=== PATIENT | female | born 1940 | race Caucasian/White ===

== ENCOUNTER 2023-06-10 10:01 | Outpatient (CLI) | payer MEDICARE, SELFPAY ==
[2023-06-10 11:06] LABS: Basophils % 0.5 %; Eosinophils # 0.1 10^3/uL (0.0-0.8); Eosinophils % 2.3 %; Hematocrit 33.5 % (36-47); Lymphocytes % 34.4 %; Mean Corpuscular HGB Conc 31.6 g/dL (30-55); Mean Corpuscular Hemoglobin 30.2 pg (27-33); Mean Corpuscular Volume 95.4 fl (85-98); Mean Platelet Volume 10.3 fL (7.4-10.4); Monocytes # 0.6 10^3/uL (0.2-0.9); Monocytes % 10.2 %; Neutrophils # 2.96 10^3/uL (1.8-7.7); Neutrophils % 52.2 %; Nucleated Red Blood Cells % 0 %; Platelet Count 223 10^3/cmm (157-399); Red Blood Count 3.51 10^6/uL (3.85-5.65); Red Cell Distribution Width 14.3 % (12.1-15.1); White Blood Count 5.67 10^3/uL (3.29-11.43)
[2023-06-10 11:51] LABS: 25 Hydroxy Vitamin D 57 ng/mL (30-100); Alanine Aminotransferase 8 U/L (0-33); Albumin Level 3.8 g/dL (3.5-5.2); Alkaline Phosphatase 104 U/L (35-105); Blood Urea Nitrogen 16 mg/dL (8-23); Calcium 8.7 mg/dL (8.5-10.5); Carbon Dioxide 24 mmol/L (22-29); Chloride 91 mmol/L (98-107); Chol HDL Ratio 1.96 mg/dL (0.0-4.40); Cholesterol 110 mg/dL (0-200); Globulin 2.7 g/dL (1.3-4.6); Glucose 91 mg/dL (65-115); HDL Cholesterol 56 mg/dL (60-100); LDL Cholesterol Calculated 39 mg/dL (50-129); Magnesium 1.1 mg/dL (1.7-2.3); Osmolality Calculated 261 mOsm/kg (285-295); Sodium 125 mmol/L (136-145); Thyroid Stimulating Hormone 1.97 uIU/mL (0.27-4.20); Total Bilirubin 0.3 mg/dL (0.15-1.2); Total Protein 6.5 g/dL (6.6-8.7); Triglycerides 75 mg/dL (0-150); VLDL Cholestrol Calculation 15 mg/dL (0-30); Vitamin B12 392 pg/mL (232-1245)
[2023-06-10 11:59] LABS: Anion Gap 14.2 (5-19); Aspartate Amino Transferase 16 U/L (0-32); Potassium 4.2 mmol/L (3.5-5.1)
== END 2023-06-10 10:02 | disposition home or self-care (01) ==
PROVIDERS: PCP Nurse Practitioner; Visit Provider Nurse Practitioner
DX: E03.9 Hypothyroidism, unspecified (principal); E55.9 Vitamin D deficiency, unspecified; I10 Essential (primary) hypertension
CPT/HCPCS: 36415; 80053; 80061; 82306; 82607; 83735; 84443; 85025

== ENCOUNTER 2023-07-06 17:30 | Inpatient (IN) | payer MEDICARE, SELFPAY ==
[2023-07-06] VITALS (8 sets, daily range): BP systolic 132–185; BP diastolic 62–125; PULSE 73–88; RESP 17–18; TEMP 36.6; O2SAT 98–100; BMI 29.2
--- NOTE | 2023-07-06 17:52 | W.ED.ABDPA2 ---
HPI - Abdominal Pain General: Chief Complaint: Abdominal Pain Stated Complaint: ABD PAIN Time Seen by Provider: 07/06/23 17:34 History of Present Illness: Patient presents to the ER with complaints of abdominal pain times last 5 days. She says that sharp throughout and feels similar to her history of previous pancreatitis. Patient states she was hospitalized 4 times within the last year for pancreatitis. Patient says these hospitalizations were in [place]. At the present time patient says she cannot tolerate fluid. Patient was given 12.5 mg of Phenergan patient rates her pain a 6-7 out of 10. However patient is lying in bed appearing to be comfortable and talking in complete sentences. Review of Systems General: Reports: 10 or more systems reviewed and unremarkable except in HPI and below Physical Exam Const: COMMON NORMALS: no acute distress, average body habitus, patient oriented x3, no limitations, healthy appearing and well nourished HENMT: COMMON NORMALS: normocephalic, atraumatic, hearing grossly normal bilaterally, external ears normal, Normal external nose present, moist oral mucous membranes and oropharynx normal HEAD & SCALP: normocephalic and atraumatic NOSE: Normal external nose present EXTERNAL EAR: Yes external ears normal Eye: COMMON NORMALS: Equal, round and reactive pupils present, EOMs intact bilaterally, conjunctivae normal and no scleral icterus CONJUNCTIVA: Yes conjunctivae normal PUPIL: Yes Equal, round and reactive pupils present Neck/C-Spine: COMMON NORMALS: full ROM, no lymphadenopathy, supple, no meningeal signs and no JVD Chest: COMMONS NORMALS: normal inspection of the chest and normal palpation of entire chest wall Resp: COMMON NORMALS: normal respiratory effort, No retractions, No use of accessory muscles and clear to auscultation bilaterally AUSCULTATION: clear to auscultation bilaterally Cardio: COMMON NORMALS: no JVD, regular rate, regular rhythm, S1 normal heart sound present, S2 normal heart sound present, No gallops present (Cardio), No clicks present (Cardio), No murmurs present (Cardio) and No rub (Cardio) RATE: regular rate RHYTHM: regular rhythm HEART SOUNDS: S1 normal heart sound present and S2 normal heart sound present GI: COMMON NORMALS: Normal to inspection, nondistended, normoactive bowel sounds present, Soft to palpation, No hepatosplenomegaly present and no masses; negative for non-tender (Mild upper abdominal tenderness to palpation) PALPATION: Yes Soft to palpation and Yes No hepatosplenomegaly present : COMMON NORMALS: Yes no CVA tenderness BLADDER/KIDNEY EXAM: Yes no CVA tenderness Back/Pelvis: COMMON NORMALS: no CVA tenderness Neuro: COMMON NORMALS: patient oriented x3 MENINGEAL SIGNS: Yes no meningeal signs Course Vital Signs: Vital signs: Vital Signs Temperature 97.8 F 07/06/23 17:35 Pulse Rate 81 07/06/23 21:05 Respiratory Rate 18 07/06/23 21:05 Blood Pressure 132/76 07/06/23 21:05 Pulse Oximetry 98 07/06/23 21:05 Oxygen Delivery Me thod Room Air 07/06/23 21:05 MDM - Abdominal Pain Medical Decision Making Presents to the ER with complaints of nausea vomiting diarrhea and probable pancreatitis. Patient was worked up with lab work which showed an elevated lipase of 422, BUN/creatinine of 75/2.3, magnesium 1.5, urinalysis showed 2+ leukocyte esterase, 2+ bacteria CT scan showed mild edema about the mid sigmoid colon suggestive of mild diverticulitis, patient will be given 1 dose of Cipro IV patient is already been given 50 mcg of fentanyl IV and 1 L normal saline bolus. Dr. Newton Was consulted who agreed for inpatient admission for further evaluation and treatment with IV antibiotics and fluids. Differential Diagnosis Likely abdominal pain and pancreatitis; Unlikely acute appendicitis, calculus of kidney, constipation, diverticulitis, endometriosis, gastroenteritis or small bowel obstruction Medical Records I reviewed the patient's medical records. Lab Data I reviewed the patient's lab results. 07/06/23 18:37 07/06/23 18:37 Labs/Radiology: Radiology Impressions Abdomen/Pelvis CT 07/06/23 20:18 IMPRESSION: 1. Mild edema about the mid sigmoid colon in the area of several diverticuli suggestive of a mild diverticulitis in the appropriate clinical setting. 2. Lumbar spine surgical hardware. 3. Cardiomegaly. 4. Pacemaker. 5. Emphysematous changes. 6. Bibasilar atelectasis. Laboratory Results WBC 7.80 10^3/uL (3.29-11.43) 07/06/23 18:37 RBC 4.12 10^6/uL (3.85-5.65) 07/06/23 18:37 Hgb 12.40 g/dL (11.27-16.99) 07/06/23 18:37 Hct 39.1 % (36-47) 07/06/23 18:37 MCV 94.9 fl (85-98) 07/06/23 18:37 MCH 30.1 pg (27-33) 07/06/23 18:37 MCHC 31.7 g/dL (30-55) 07/06/23 18:37 RDW 15.6 % (12.1-15.1) H 07/06/23 18:37 Plt Count 337 10^3/cmm (157-399) 07/06/23 18:37 MPV 10.2 fL (7.4-10.4) 07/06/23 18:37 Neut % (Auto) 56.7 % 07/06/23 18:37 Lymph % (Auto) 33.3 % 07/06/23 18:37 [place] % (Auto) 7.3 % 07/06/23 18:37 Eos % (Auto) 1.0 % 07/06/23 18:37 Baso % (Auto) 0.3 % 07/06/23 18:37 Neut # (Auto) 4.42 10^3/uL (1.8-7.7) 07/06/23 18:37 Lymph # (Auto) 2.6 10^3/uL (0.8-4.8) 07/06/23 18:37 [place] # (Auto) 0.6 10^3/uL (0.2-0.9) 07/06/23 18:37 Eos # (Auto) 0.1 10^3/uL (0.0-0.8) 07/06/23 18:37 Baso # (Auto) 0.0 10^3/uL (0.0-0.1) 07/06/23 18:37 Nucleated RBC % (auto) 0 % 07/06/23 18:37 Nucleated RBCs # 0.0 /100WBC 07/06/23 18:37 Sodium 134 mmol/L (136-145) L 07/06/23 18:37 Potassium 4.4 mmol/L (3.5-5.1) 07/06/23 18:37 Chloride 100 mmol/L (98-107) 07/06/23 18:37 Carbon Dioxide 23 mmol/L (22-29) 07/06/23 18:37 Anion Gap 15.4 (5-19) 07/06/23 18:37 BUN 75 mg/dL (8-23) H 07/06/23 18:37 Creatinine 2.3 mg/dL (0.5-0.9) H 07/06/23 18:37 GFR Calculation Not Reportable 07/06/23 18:37 Glucose 102 mg/dL (65-115) 07/06/23 18:37 Calculated Osmolality 300 mOsm/kg (285-295) H 07/06/23 18:37 Calcium 10.1 mg/dL (8.5-10.5) 07/06/23 18:37 Magnesium 1.5 mg/dL (1.7-2.3) L 07/06/23 18:37 Total Bilirubin 0.2 mg/dL (0.15-1.2) 07/06/23 18:37 AST 10 U/L (0-32) 07/06/23 18:37 ALT 7 U/L (0-33) 07/06/23 18:37 Alkaline Phosphatase 114 U/L (35-105) H 07/06/23 18:37 Total Protein 7.5 g/dL (6.6-8.7) 07/06/23 18:37 Albumin 3.6 g/dL (3.5-5.2) 07/06/23 18:37 Globulin 3.9 g/dL (1.3-4.6) 07/06/23 18:37 Lipase 422 U/L (13-60) H 07/06/23 18:37 Urine Color Yellow (Yellow) 07/06/23 18:19 Urine Appearance Sl hazy (CLEAR) A 07/06/23 18:19 Urine pH 5 (5-7) 07/06/23 18:19 Ur Specific [place] 1.015 (1.005-1.030) 07/06/23 18:19 Urine Protein Neg (Negative) 07/06/23 18:19 Urine Glucose (UA) Norm (Normal) 07/06/23 18:19 Urine Ketones Negative (Negative) 07/06/23 18:19 Urine Blood Neg (Negative) 07/06/23 18:19 Urine Nitrate Negative (Negative) 07/06/23 18:19 Urine Bilirubin 1+ (Negative) H 07/06/23 18:19 Urine Urobilinogen Norm mg/dL (Negative) 07/06/23 18:19 Ur Leukocyte Esterase 2+ (Negative) H 07/06/23 18:19 Urine RBC None /hpf (0-2) 07/06/23 18:19 Urine WBC 10-15 /hpf (0-5) H 07/06/23 18:19 Ur Squamous Epith Cells 0-4 /hpf (0-5) H 07/06/23 18:19 Amorphous Sediment Not Reportable 07/06/23 18:19 Urine Bacteria 2+ /hpf (NONE) H 07/06/23 18:19 All radiology interpretation(s) finalized by discharge Discharge Plan Discharge Patient Disposition: Admitted As Inpatient Clinical Impression: Diverticulitis Pancreatitis Qualifiers: Chronicity: acute Pancreatitis type: unspecified pancreatitis type Acute pancreatitis complication: no infection or necrosis Qualified Code(s): K85.90 - Acute pancreatitis without necrosis or infection, unspecified Urinary tract infection Qualifiers: Urinary tract infection type: acute cystitis Hematuria presence: without hematuria Qualified Code(s): N30.00 - Acute cystitis without hematuria Condition: Stable Coding Level of Care Code ED Binding Cementer French Cord for Elvira Cueva
[2023-07-06 18:46] LABS: Urine Color Yellow (Yellow)
[2023-07-06 18:47] LABS: Add Urine Microscopic? YES; Bilirubin Urine 1+ (Negative); Blood Urine Neg (Negative); Glucose Urine UA Norm (Normal); Ketones Urine Negative (Negative); Leukocyte Esterase Urine 2+ (Negative); Nitrate Urine Negative (Negative); Protein Urine Neg (Negative); Specific Gravity, Urine 1.015 (1.005-1.030); Urine Appearance SL Hazy (CLEAR); Urobilinogen Urine Norm (Negative); pH Urine 5 (5-7)
[2023-07-06 18:48] LABS: Squamous Epithelial Cell Urine 0-4 /hpf (0-5)
[2023-07-06 18:49] LABS: Add Urine Culture? Yes; Bacteria Urine 2+ /hpf
[2023-07-06] MEDS: sodium chloride 0.9% 1,000 ML 999 ML IV (19:00)
[2023-07-06] MEDS: ketorolac 30 mg/mL INJ IVP (19:00)
[2023-07-06 19:02] LABS: Basophils % 0.3 %; Eosinophils # 0.1 10^3/uL (0.0-0.8); Hematocrit 39.1 % (36-47); Lymphocytes # 2.6 10^3/uL (0.8-4.8); Lymphocytes % 33.3 %; Mean Corpuscular HGB Conc 31.7 g/dL (30-55); Mean Corpuscular Hemoglobin 30.1 pg (27-33); Mean Corpuscular Volume 94.9 fl (85-98); Mean Platelet Volume 10.2 fL (7.4-10.4); Monocytes # 0.6 10^3/uL (0.2-0.9); Monocytes % 7.3 %; Neutrophils # 4.42 10^3/uL (1.8-7.7); Neutrophils % 56.7 %; Nucleated Red Blood Cells % 0 %; Platelet Count 337 10^3/cmm (157-399); Red Blood Count 4.12 10^6/uL (3.85-5.65); Red Cell Distribution Width 15.6 % (12.1-15.1)
[2023-07-06 19:26] LABS: Alanine Aminotransferase 7 U/L (0-33); Albumin Level 3.6 g/dL (3.5-5.2); Alkaline Phosphatase 114 U/L (35-105); Anion Gap 15.4 (5-19); Aspartate Amino Transferase 10 U/L (0-32); Blood Urea Nitrogen 75 mg/dL (8-23); Calcium 10.1 mg/dL (8.5-10.5); Carbon Dioxide 23 mmol/L (22-29); Chloride 100 mmol/L (98-107); Globulin 3.9 g/dL (1.3-4.6); Glucose 102 mg/dL (65-115); Magnesium 1.5 mg/dL (1.7-2.3); Osmolality Calculated 300 mOsm/kg (285-295); Potassium 4.4 mmol/L (3.5-5.1); Sodium 134 mmol/L (136-145); Total Bilirubin 0.2 mg/dL (0.15-1.2); Total Protein 7.5 g/dL (6.6-8.7)
[2023-07-06 19:33] LABS: Lipase 422 U/L (13-60)
--- NOTE | 2023-07-06 20:18 | CTR_ITS ---
PROCEDURE INFORMATION: Exam: CT Abdomen And Pelvis Without Contrast Exam date and time: 07/06/2023 8:31 PM Age: 83 years old Clinical indication: Pain and abnormal findings; Abnormal lab test; Elevated lipase; Nausea and vomiting; Abdominal pain; Generalized; Prior surgery; Surgery date: 6+ months; Surgery type: Lumbar fusion. Hysterectomy; Patient HX: Diffuse abd pain with n/v. Elevated lipase. History of pancreatitis. ; Additional info: Abd pain, elevated lipase, HX pancreatitis, renal insuffec TECHNIQUE: Imaging protocol: Computed tomography of the abdomen and pelvis without contrast. Radiation optimization: All CT scans at this facility use at least one of these dose optimization techniques: automated exposure control; mA and/or kV adjustment per patient size (includes targeted exams where dose is matched to clinical indication); or iterative reconstruction. REPORTING DATA: Count of CT and Cardiac NM exams in prior 12 months: This patient has received 0 known CTs and 0 known cardiac nuclear medicine studies in the 12 months prior to the current study. COMPARISON: CT lumbar spine wo con* [id number] 03/05/2017 11:31 AM RADIATION DOSE METRICS: Total DLP (mGy-cm): 648.85 FINDINGS: Tubes, catheters and devices: Pacemaker. Lungs: Emphysematous changes. Bibasilar atelectasis. Heart: Cardiomegaly. Liver: Normal. No mass. Gallbladder and bile ducts: Normal. No calcified stones. No ductal dilation. Pancreas: Normal. No ductal dilation. Spleen: Normal. No splenomegaly. Adrenal glands: Normal. No mass. Kidneys and ureters: Normal. No hydronephrosis. Stomach and bowel: Mild edema about the mid sigmoid colon in the area of several diverticuli suggestive of a mild diverticulitis in the appropriate clinical setting. Appendix: No evidence of appendicitis. Intraperitoneal space: Unremarkable. No free air. No significant fluid collection. Vasculature: Unremarkable. No abdominal aortic aneurysm. Lymph nodes: Unremarkable. No enlarged lymph nodes. Urinary bladder: Unremarkable as visualized. Reproductive: Unremarkable as visualized. Bones/joints: Lumbar spine surgical hardware. Soft tissues: Unremarkable. CT/CT abdomen pelvis wo con [id number] IMPRESSION: 1. Mild edema about the mid sigmoid colon in the area of several diverticuli suggestive of a mild diverticulitis in the appropriate clinical setting. 2. Lumbar spine surgical hardware. 3. Cardiomegaly. 4. Pacemaker. 5. Emphysematous changes. 6. Bibasilar atelectasis.
[2023-07-06] MEDS: fentaNYL 50 mcg/mL INJ 2mL IVP (21:02)
[2023-07-06] MEDS: ciprofloxacin 400 MG/200 ML PREMIX 200 MG IV (22:20)
--- NOTE | 2023-07-06 23:25 | PM.HP ---
Providers/Chief Complaint Admitting Physician: Jen Newton MD Chief Complaint: ABD PAIN History of Present Illness Carmella Suarez Friend is a 83 year old female with history of hypertension diverticulosis recurrent pancreatitis presented with complaint of abdominal pain since 1 week. As per the patient abdominal pain gradually worsening today it was 10/10 crampy diffuse no aggravating or relieving factors and associated with nausea vomiting nonbloody diarrhea and loss of appetite. She has a history of recurrent pancreatitis and had 4 hospitalizations in the last 1 year. There is no history of fever cold cough chest pain shortness of breath or urinary complaints. She recently moved from [place] and does not have a PCP Review of Systems Narrative: As per HPI Medications/Allergies Allergies Allergy/AdvReac Type Severity Reaction Status Date / Time diltiazem [From Dilacor XR] Allergy ALGY-Rash Verified 07/06/23 17:43 nifedipine [From Procardia] Allergy ALGY-Rash Verified 07/06/23 17:43 Sulfa (Sulfonamide Allergy ALGY-Rash Verified 07/06/23 17:43 Antibiotics) topiramate [From Topamax] Allergy ALGY-Rash Verified 07/06/23 17:43 Vitals/I&O/Wt Last Vital Signs Temp 97.8 F 07/06/23 17:35 Pulse 74 07/06/23 22:00 Resp 18 07/06/23 21:05 BP 134/65 07/06/23 22:00 Pulse Ox 98 07/06/23 22:00 O2 Del Method Room Air 07/06/23 21:05 07/06/23 07/06/23 07/07/23 14:59 22:59 06:59 Intake Total 1000 / 1000 Balance 1000 / 1000 Weight last 48 hrs Weight 68.039 kg Physical Exam Narrative: She is alert awake oriented x3 in moderate distress due to pain Chest clear to auscultation bilaterally Cardiovascular normal heart sounds no murmurs Abdomen soft nondistended diffusely tender diminished bowel sounds Extremities trace bilateral lower extremity edema present Data 07/06/23 18:37 07/06/23 18:37 CT Abd/Pel: Radiologist's impression: IMPRESSION: 1. ? Mild edema about the mid sigmoid colon in the area of several diverticuli suggestive of a mild diverticulitis in the appropriate clinical setting. 2. ? Lumbar spine surgical hardware. 3. ? Cardiomegaly. 4. ? Pacemaker. 5. ? Emphysematous changes. 6. ? Bibasilar atelectasis. ? A&P Assessment and plan (1) Diverticulitis: (2) Urinary tract infection: Qualifiers: Hematuria presence: without hematuria Urinary tract infection type: acute cystitis Qualified Code(s): N30.00 - Acute cystitis without hematuria (3) Pancreatitis: Qualifiers: Acute pancreatitis complication: no infection or necrosis Chronicity: acute Pancreatitis type: unspecified pancreatitis type Qualified Code(s): K85.90 - Acute pancreatitis without necrosis or infection, unspecified Plan 83 year old female with history of hypertension diverticulosis recurrent pancreatitis presented with complaint of abdominal pain since 1 week. As per the patient abdominal pain gradually worsening today it was 10/10 crampy diffuse no aggravating or relieving factors and associated with nausea vomiting nonbloody diarrhea and loss of appetite and was found to have lipase 422 acute renal failure with creatinine 2.[address] abdomen consistent with diverticulitis Acute diverticulitis Will give IV fluids normal saline at 100 mL/h IV ciprofloxacin 400 mg every 12 hour IV Flagyl 500 mg every 8 hours IV Dilaudid 0.4 mg every 6 hours as needed for pain N.p.o. for now. UTI-we will continue with same antibiotics Continue IV fluids. Follow-up urine culture Acute renal failure likely secondary to dehydration we will continue with IV fluids Reconcile and resume home medications in a.m. IV Pepcid 20 mg every 12 hours for stress ulcer prophylaxis Subcutaneous Lovenox 30 mg daily for DVT prophylaxis She is full code for now as per the discussion with the patient Attestations Medical Necessity Statement*: She needs less than 2 days of hospitalization. She is here for management of acute diverticulitis and UTI with IV antibiotics and fluids. Time Spent in Patient Care: 30 minutes Coding Level of Care Code Acute Code for [facility] Diagnoses Diverticulitis K57.92 Urinary tract infection N30.00 Hematuria presence: without hematuria Urinary tract infection type: acute cystitis Pancreatitis K85.90 Acute pancreatitis complication: no infection or necrosis Chronicity: acute Pancreatitis type: unspecified pancreatitis type Time Spent (min) 30
--- NOTE | 2023-07-06 23:52 | PC.PHAR ---
Renal dosing for Ciprofloxacin 400mg IV q12h changed to q24h due to patients CRCL of 15 Thank you, Paradise Mckenzie h
[2023-07-07] VITALS (10 sets, daily range): BP systolic 145–177; BP diastolic 52–87; PULSE 67–76; RESP 16–18; TEMP 36.2–36.8; O2SAT 97–98
[2023-07-07] MEDS: famotidine 20 mg/2 mL INJ IVP ×2 (00:26→14:55)
[2023-07-07] MEDS: enoxaparin 40 mg/0.4 mL Syringe SUBCUT (00:26)
[2023-07-07] MEDS: HYDROmorphone 1 mg/mL INJ 1 mL 0.4 MG IVP ×3 (00:27→18:29)
[2023-07-07] MEDS: sodium chloride 0.9% 1,000 ML 75 ML IV ×2 (00:54→16:21)
[2023-07-07] MEDS: metroNIDAZOLE IV 500 MG/100 ML PREMIX 100 MG IV ×3 (00:55→14:56)
[2023-07-07 04:50] LABS: Basophils % 0.3 %; Eosinophils # 0.1 10^3/uL (0.0-0.8); Eosinophils % 1.8 %; Hematocrit 33.5 % (36-47); Lymphocytes # 2.3 10^3/uL (0.8-4.8); Lymphocytes % 32.8 %; Mean Corpuscular HGB Conc 31.3 g/dL (30-55); Mean Corpuscular Hemoglobin 30.3 pg (27-33); Mean Corpuscular Volume 96.5 fl (85-98); Mean Platelet Volume 10.1 fL (7.4-10.4); Monocytes # 0.6 10^3/uL (0.2-0.9); Monocytes % 7.9 %; Neutrophils # 3.92 10^3/uL (1.8-7.7); Neutrophils % 55.1 %; Nucleated Red Blood Cells % 0 %; Platelet Count 253 10^3/cmm (157-399); Red Blood Count 3.47 10^6/uL (3.85-5.65); Red Cell Distribution Width 15.6 % (12.1-15.1); White Blood Count 7.11 10^3/uL (3.29-11.43)
[2023-07-07 05:11] LABS: Alanine Aminotransferase < 5 U/L (0-33); Albumin Level 2.7 g/dL (3.5-5.2); Alkaline Phosphatase 89 U/L (35-105); Anion Gap 14.2 (5-19); Aspartate Amino Transferase 8 U/L (0-32); Blood Urea Nitrogen 66 mg/dL (8-23); Calcium 8.9 mg/dL (8.5-10.5); Carbon Dioxide 19 mmol/L (22-29); Chloride 109 mmol/L (98-107); Globulin 2.7 g/dL (1.3-4.6); Glucose 86 mg/dL (65-115); Magnesium 1.4 mg/dL (1.7-2.3); Osmolality Calculated 304 mOsm/kg (285-295); Phosphorus 3.8 mg/dL (2.5-4.5); Potassium 4.2 mmol/L (3.5-5.1); Sodium 138 mmol/L (136-145); Total Bilirubin 0.2 mg/dL (0.15-1.2); Total Protein 5.4 g/dL (6.6-8.7)
[2023-07-07] MEDS: lanolin oint 7 gm 1 APPLIC TOPICAL (08:51)
[2023-07-07] MEDS: oxyCODONE-APAP 10-325 mg Tablet 1 TAB PO (12:59)
[2023-07-07] MEDS: flu vacc pf 2023-24 (6 mos+) 60 MCG IM (14:52)
[2023-07-07] MEDS: gabapentin 300 mg Capsule PO ×2 (14:55→20:21)
--- NOTE | 2023-07-07 16:48 | P.PN_ITS ---
Subjective Subjective: Continues to complain of epigastric and left lower quadrant discomfort. Wishes to try some ice chips and Sprite today. Medications: Reviewed: Yes Vitals/I&O/Wt Last Vital Signs Temp 98.3 F 07/07/23 15:59 Pulse 71 07/07/23 15:59 Resp 16 07/07/23 15:59 BP 155/52 07/07/23 15:59 Pulse Ox 97 07/07/23 15:59 O2 Del Method Room Air 07/07/23 15:59 07/07/23 07/07/23 07/07/23 06:59 14:59 22:59 Intake Total 300 / 1300 1100 / 1100 Balance 300 / 1300 1100 / 1100 Weight last 48 hrs Weight 68.039 kg Physical Exam Narrative: General: No acute distress, AO x3 HEENT: PERRLA, pupils bilaterally equal and reactive, pallors not present Chest: Normal vesicular breath sounds, no added sounds, equal good air entry bilaterally CVS: S1-S2 regular, no murmurs, no tachycardia, no gallops, no rubs Abdomen: Soft, TTP in epigatsric and LLQ region, no organomegaly, bowel sounds present Neuro: No focal deficits, no facial deformity, AO x3, power 5/5 in all limbs Data 07/07/23 04:12 07/07/23 04:12 A&P Assessment and plan (1) Diverticulitis: Acute diverticulitis Mild edema about the mid sigmoid colon in the area of several diverticuli suggestive of a mild diverticulitis? Continue IV fluids normal saline at 75 mL/h IV ciprofloxacin renally dosed IV Flagyl 500 mg every 8 hours IV Dilaudid 0.4 mg every 6 hours as needed for pain start clears (2) Urinary tract infection: empirically covered with ciprofloxacin Continue IV fluids. Follow-up urine culture Qualifiers: Hematuria presence: without hematuria Urinary tract infection type: acute cystitis Qualified Code(s): N30.00 - Acute cystitis without hematuria (3) Pancreatitis: Acute on chronic, recurrent , unclear cause. No overt offending medications on home list [facility] normal Ct abdomen with normal liver, gall bladder and grossly normal pancreas Elevated lipase may point to pancreatitis check TG Qualifiers: Acute pancreatitis complication: no infection or necrosis Chronicity: acute Pancreatitis type: unspecified pancreatitis type Qualified Code(s): K85.90 - Acute pancreatitis without necrosis or infection, unspecified (4) AVI (acute kidney injury): Acute renal failure likely secondary to dehydration we will continue with IV fluids hold lisinopril Attestations Medical Necessity Statement*: continued hospital admission for iv abx, iv fluids Coding Level of Care Code Acute Code for Chg Fwd Moderate MDM includes number and complexity of problems actively addressed during encounter, amount and/or complexity of data reviewed/ordered and desc ribed risk of complication, morbidity or mortality of management as documented Diagnoses Diverticulitis K57.92 Urinary tract infection N30.00 Hematuria presence: without hematuria Urinary tract infection type: acute cystitis Pancreatitis K85.90 Acute pancreatitis complication: no infection or necrosis Chronicity: acute Pancreatitis type: unspecified pancreatitis type AVI (acute kidney injury) N17.9
[2023-07-07] MEDS: apixaban 5 mg Tablet PO (17:20)
[2023-07-07 17:51] LABS: Triglycerides 83 mg/dL (0-150)
[2023-07-07] MEDS: ondansetron 2 mg/ML SDV 2 mL 4 MG IVP (18:29)
[2023-07-07] MEDS: ciprofloxacin 400 MG/200 ML PREMIX 100 MG IV (22:08)
[2023-07-08] VITALS (10 sets, daily range): BP systolic 134–157; BP diastolic 52–101; PULSE 61–88; RESP 15–18; TEMP 36.4–36.9; O2SAT 96–99
[2023-07-08] MEDS: metroNIDAZOLE IV 500 MG/100 ML PREMIX 100 MG IV ×3 (00:13→16:15)
[2023-07-08] MEDS: oxyCODONE-APAP 10-325 mg Tablet 1 TAB PO ×3 (00:20→16:14)
[2023-07-08] MEDS: famotidine 20 mg/2 mL INJ IVP ×2 (01:48→15:40)
[2023-07-08 05:03] LABS: Basophils % 0.4 %; Eosinophils # 0.2 10^3/uL (0.0-0.8); Eosinophils % 2.5 %; Hematocrit 27.7 % (36-47); Lymphocytes # 2.2 10^3/uL (0.8-4.8); Mean Corpuscular HGB Conc 31.4 g/dL (30-55); Mean Corpuscular Hemoglobin 30.3 pg (27-33); Mean Corpuscular Volume 96.5 fl (85-98); Mean Platelet Volume 10.1 fL (7.4-10.4); Monocytes # 0.6 10^3/uL (0.2-0.9); Monocytes % 8.9 %; Neutrophils # 3.59 10^3/uL (1.8-7.7); Neutrophils % 52.5 %; Nucleated Red Blood Cells % 0 %; Platelet Count 250 10^3/cmm (157-399); Red Blood Count 2.87 10^6/uL (3.85-5.65); Red Cell Distribution Width 15.6 % (12.1-15.1); White Blood Count 6.84 10^3/uL (3.29-11.43)
[2023-07-08 05:30] LABS: Alanine Aminotransferase < 5 U/L (0-33); Albumin Level 2.5 g/dL (3.5-5.2); Alkaline Phosphatase 73 U/L (35-105); Aspartate Amino Transferase 8 U/L (0-32); Blood Urea Nitrogen 40 mg/dL (8-23); Calcium 8.4 mg/dL (8.5-10.5); Carbon Dioxide 19 mmol/L (22-29); Chloride 112 mmol/L (98-107); Globulin 2.1 g/dL (1.3-4.6); Glucose 97 mg/dL (65-115); Osmolality Calculated 298 mOsm/kg (285-295); Sodium 139 mmol/L (136-145); Total Bilirubin 0.2 mg/dL (0.15-1.2); Total Protein 4.6 g/dL (6.6-8.7)
[2023-07-08] MEDS: gabapentin 300 mg Capsule PO ×3 (08:21→20:37)
[2023-07-08] MEDS: apixaban 5 mg Tablet PO ×2 (08:21→17:29)
[2023-07-08] MEDS: levothyroxine 50 mcg Tablet PO (08:21)
[2023-07-08] MEDS: sodium chloride 0.9% 1,000 ML 75 ML IV ×2 (08:23→22:17)
[2023-07-08] MEDS: ondansetron 2 mg/ML SDV 2 mL 4 MG IVP (10:45)
[2023-07-08] MEDS: HYDROmorphone 1 mg/mL INJ 1 mL 0.4 MG IVP ×2 (10:46→20:39)
[2023-07-08 14:01] LABS: Hematocrit 34.3 % (36-47)
[2023-07-08 14:01] LABS: Ferritin 96 ng/mL (15-150); Iron 46 ug/dL (37-145)
--- NOTE | 2023-07-08 14:49 | PM.PN ---
Subjective Subjective: Patient was seen this morning, she continues to feel nauseous, continues to have abdominal pain, has diarrhea, passing gas, no episodes of vomiting, she continues to have left lower quadrant tenderness, no fevers, no chills Vitals/I&O/Wt Last Vital Signs Temp 98.0 F 07/08/23 12:00 Pulse 72 07/08/23 12:00 Resp 17 07/08/23 12:00 BP 138/57 07/08/23 12:00 Pulse Ox 97 07/08/23 12:00 O2 Del Method Room Air 07/08/23 12:00 07/07/23 07/08/23 07/08/23 22:59 06:59 14:59 Intake Total 540 / 1640 803.75 / 2443.75 1076.25 / 1076.25 Output Total 100 / 100 100 / 100 Balance 540 / 1640 703.75 / 2343.75 976.25 / 976.25 Weight last 48 hrs Weight 68.039 kg Physical Exam Const: COMMON NORMALS: no acute distress and patient oriented x3 Resp: COMMON NORMALS: normal respiratory effort, No retractions, No use of accessory muscles and clear to auscultation bilaterally AUSCULTATION: clear to auscultation bilaterally Cardio: COMMON NORMALS: regular rate, regular rhythm, S1 normal heart sound present and S2 normal heart sound present RATE: regular rate RHYTHM: regular rhythm HEART SOUNDS: S1 normal heart sound present and S2 normal heart sound present GI: OTHER: Abdomen soft, slightly distended, good bowel sounds, no guarding, no rebound, no rigidity, does have left lower quadrant tenderness to palpation Extremity: COMMON NORMALS: no pedal edema Neuro: COMMON NORMALS: patient oriented x3 Psych: COMMON NORMALS: mental status grossly normal Data 07/08/23 13:52 07/08/23 04:02 Micro: Microbiology 07/06/23 18:19 Urine Culture - Final Urine,Clean Catch A&P Assessment and plan (1) Diverticulitis: Acute diverticulitis Mild edema about the mid sigmoid colon in the area of several Continue IV fluids normal saline at 75 mL/h IV ciprofloxacin renally dosed IV Flagyl 500 mg every 8 hours IV Dilaudid 0.4 mg every 6 hours as needed for pain start clears (2) Urinary tract infection: empirically covered with ciprofloxacin Continue IV fluids. Follow-up urine culture Qualifiers: Hematuria presence: without hematuria Urinary tract infection type: acute cystitis Qualified Code(s): N30.00 - Acute cystitis without hematuria (3) Pancreatitis: Acute on chronic, recurrent , unclear cause. No overt offending medications on home list [facility] normal Ct abdomen with normal liver, gall bladder and grossly normal pancreas Elevated lipase may point to pancreatitis Qualifiers: Acute pancreatitis complication: no infection or necrosis Chronicity: acute Pancreatitis type: unspecified pancreatitis type Qualified Code(s): K85.90 - Acute pancreatitis without necrosis or infection, unspecified (4) AVI (acute kidney injury): Acute renal failure likely secondary to dehydration we will continue with IV fluids hold lisinopril (5) Acute anemia: Iron studies, repeat CBC Plan Plan for today continue antibiotic therapy, monitor hemoglobin, continue clear liquid diet, as patient continues have left lower quadrant abdominal pain, follow-up cultures, up out of bed, plan on discharging in the next 24 to 48 hours, creatinine 1.2, monitor,, patient tells me that she has a history of atrial fibrillation is on Eliquis, Attestations Medical Necessity Statement*: Patient requires hospitalization for acute diverticulitis, pancreatitis with persistent left lower quadrant pain, now developing anemia, Diagnoses Diverticulitis K57.92 Urinary tract infection N30.00 Hematuria presence: without hematuria Urinary tract infection type: acute cystitis Pancreatitis K85.90 Acute pancreatitis complication: no infection or necrosis Chronicity: acute Pancreatitis type: unspecified pancreatitis type AVI (acute kidney injury) N17.9 Acute anemia D64.9
[2023-07-09] VITALS (7 sets, daily range): BP systolic 140–180; BP diastolic 52–89; PULSE 67–99; RESP 14–18; TEMP 36.5–36.9; O2SAT 95–100
[2023-07-09] MEDS: ciprofloxacin 400 MG/200 ML PREMIX 200 MG IV (01:01)
[2023-07-09] MEDS: metroNIDAZOLE IV 500 MG/100 ML PREMIX 100 MG IV ×3 (02:12→17:28)
[2023-07-09] MEDS: oxyCODONE-APAP 10-325 mg Tablet 1 TAB PO ×2 (02:18→17:27)
[2023-07-09] MEDS: famotidine 20 mg/2 mL INJ IVP ×2 (02:18→14:40)
[2023-07-09 05:33] LABS: Basophils % 0.5 %; Eosinophils # 0.3 10^3/uL (0.0-0.8); Eosinophils % 3.9 %; Hematocrit 30.8 % (36-47); Lymphocytes # 2.3 10^3/uL (0.8-4.8); Lymphocytes % 26.8 %; Mean Corpuscular HGB Conc 31.2 g/dL (30-55); Mean Corpuscular Hemoglobin 30.6 pg (27-33); Mean Corpuscular Volume 98.1 fl (85-98); Mean Platelet Volume 9.9 fL (7.4-10.4); Monocytes # 0.7 10^3/uL (0.2-0.9); Monocytes % 8.3 %; Neutrophils # 4.72 10^3/uL (1.8-7.7); Neutrophils % 55.5 %; Nucleated Red Blood Cells % 0 %; Platelet Count 294 10^3/cmm (157-399); Red Blood Count 3.14 10^6/uL (3.85-5.65); White Blood Count 8.48 10^3/uL (3.29-11.43)
[2023-07-09 05:55] LABS: Alanine Aminotransferase < 5 U/L (0-33); Albumin Level 2.7 g/dL (3.5-5.2); Alkaline Phosphatase 78 U/L (35-105); Anion Gap 10.9 (5-19); Aspartate Amino Transferase 9 U/L (0-32); Blood Urea Nitrogen 17 mg/dL (8-23); Calcium 8.8 mg/dL (8.5-10.5); Carbon Dioxide 18 mmol/L (22-29); Chloride 112 mmol/L (98-107); Globulin 2.7 g/dL (1.3-4.6); Glucose 93 mg/dL (65-115); Magnesium 1.2 mg/dL (1.7-2.3); Osmolality Calculated 285 mOsm/kg (285-295); Potassium 3.9 mmol/L (3.5-5.1); Sodium 137 mmol/L (136-145); Total Bilirubin 0.2 mg/dL (0.15-1.2); Total Protein 5.4 g/dL (6.6-8.7)
[2023-07-09] MEDS: apixaban 5 mg Tablet PO ×2 (08:47→17:27)
[2023-07-09] MEDS: gabapentin 300 mg Capsule PO ×3 (08:47→20:05)
[2023-07-09] MEDS: lisinopril 10 mg Tablet PO ×2 (08:47→20:06)
[2023-07-09] MEDS: levothyroxine 50 mcg Tablet PO (08:47)
[2023-07-09] MEDS: magnesium sulfate premix 4 GM/100 ML PREMIX IV (08:47)
--- NOTE | 2023-07-09 11:09 | PC.NURSE ---
This nurse called Dr. Choi's office at [phone] to reschedule appt that was scheduled with them today, per pt and Dr. Murcia. Maturity Checker cancelled patients appt for today, however, she requested that patient called upon discharge to reschedule her appt. This nurse will notify pt of this.
--- NOTE | 2023-07-09 16:14 | PM.PN ---
Subjective Subjective: Patient was seen this morning, she continues to have left lower quadrant abdominal tenderness is having bowel movements, no nausea, no vomiting, she is having bowel movements Vitals/I&O/Wt Last Vital Signs Temp 97.8 F 07/09/23 11:35 Pulse 67 07/09/23 11:35 Resp 14 07/09/23 11:35 BP 160/89 07/09/23 11:35 Pulse Ox 97 07/09/23 11:35 O2 Del Method Room Air 07/09/23 11:35 07/09/23 07/09/23 07/09/23 06:59 14:59 22:59 Intake Total 540 / 3436.25 1680 / 1680 Output Total 200 / 700 750 / 750 Balance 340 / 2736.25 930 / 930 Physical Exam Const: COMMON NORMALS: no acute distress and patient oriented x3 Resp: COMMON NORMALS: normal respiratory effort, No retractions, No use of accessory muscles and clear to auscultation bilaterally AUSCULTATION: clear to auscultation bilaterally Cardio: COMMON NORMALS: regular rate, regular rhythm, S1 normal heart sound present and S2 normal heart sound present RATE: regular rate RHYTHM: regular rhythm HEART SOUNDS: S1 normal heart sound present and S2 normal heart sound present GI: OTHER: Abdomen, soft, slightly distended, good bowel sounds, has persistent left lower quadrant tenderness, no guarding, no rebound, no rigidity Extremity: COMMON NORMALS: no pedal edema Neuro: COMMON NORMALS: patient oriented x3 Psych: COMMON NORMALS: mental status grossly normal Data 07/09/23 04:45 07/09/23 04:45 A&P Assessment and plan (1) Diverticulitis: Acute diverticulitis CT abdomen pelvis 1. ? Mild edema about the mid sigmoid colon in the area of several diverticuli suggestive of a mild diverticulitis in the appropriate clinical setting. Continue IV fluids normal saline at 75 mL/h IV ciprofloxacin renally dosed IV Flagyl 500 mg every 8 hours Continue oxycodone for pain control Continue full liquid diet ? We will consider CT scan of abdomen pelvis repeating based on persistent abdominal pain (2) Urinary tract infection: empirically covered with ciprofloxacin Continue IV fluids. Follow-up urine culture Qualifiers: Hematuria presence: without hematuria Urinary tract infection type: acute cystitis Qualified Code(s): N30.00 - Acute cystitis without hematuria (3) Pancreatitis: Acute on chronic, recurrent , unclear cause. No overt offending medications on home list [facility] normal Ct abdomen with normal liver, gall bladder and grossly normal pancreas Elevated lipase may point to pancreatitis Qualifiers: Acute pancreatitis complication: no infection or necrosis Chronicity: acute Pancreatitis type: unspecified pancreatitis type Qualified Code(s): K85.90 - Acute pancreatitis without necrosis or infection, unspecified (4) AVI (acute kidney injury): Acute renal failure likely secondary to dehydration we will continue with IV fluids (5) Acute anemia: Iron studies, repeat CBC Plan Plan for today monitor abdomen, monitor for fevers, serial abdominal exams, transition diet to full liquid diet, will consider repeat CT scan, continue IV antibiotics Attestations Medical Necessity Statement*: Patient requires hospitalization for persistent left lower quadrant pain, acute diverticulitis Diagnoses Diverticulitis K57.92 Urinary tract infection N30.00 Hematuria presence: without hematuria Urinary tract infection type: acute cystitis Pancreatitis K85.90 Acute pancreatitis complication: no infection or necrosis Chronicity: acute Pancreatitis type: unspecified pancreatitis type AVI (acute kidney injury) N17.9 Acute anemia D64.9
[2023-07-09] MEDS: sodium chloride 0.9% 1,000 ML 75 ML IV (20:05)
[2023-07-10] VITALS (9 sets, daily range): BP systolic 117–158; BP diastolic 74–87; PULSE 71–97; RESP 16–19; TEMP 36.4–36.8; O2SAT 95–99
[2023-07-10] MEDS: oxyCODONE-APAP 10-325 mg Tablet 1 TAB PO ×3 (00:22→12:35)
[2023-07-10] MEDS: ciprofloxacin 400 MG/200 ML PREMIX 200 MG IV (00:22)
[2023-07-10] MEDS: famotidine 20 mg/2 mL INJ IVP (01:20)
[2023-07-10] MEDS: metroNIDAZOLE IV 500 MG/100 ML PREMIX 100 MG IV ×2 (01:23→10:57)
[2023-07-10 05:11] LABS: Basophils % 0.4 %; Eosinophils # 0.3 10^3/uL (0.0-0.8); Eosinophils % 4.3 %; Hematocrit 29.5 % (36-47); Lymphocytes # 2.2 10^3/uL (0.8-4.8); Lymphocytes % 30.6 %; Mean Corpuscular HGB Conc 31.2 g/dL (30-55); Mean Corpuscular Hemoglobin 30.7 pg (27-33); Mean Corpuscular Volume 98.3 fl (85-98); Mean Platelet Volume 9.7 fL (7.4-10.4); Monocytes # 0.7 10^3/uL (0.2-0.9); Monocytes % 9.5 %; Neutrophils # 3.53 10^3/uL (1.8-7.7); Neutrophils % 50.4 %; Nucleated Red Blood Cells % 0 %; Platelet Count 271 10^3/cmm (157-399); Red Cell Distribution Width 16.1 % (12.1-15.1); White Blood Count 7.02 10^3/uL (3.29-11.43)
[2023-07-10 05:39] LABS: Alanine Aminotransferase < 5 U/L (0-33); Albumin Level 2.6 g/dL (3.5-5.2); Alkaline Phosphatase 70 U/L (35-105); Anion Gap 11.2 (5-19); Aspartate Amino Transferase 9 U/L (0-32); Blood Urea Nitrogen 9 mg/dL (8-23); Calcium 8.7 mg/dL (8.5-10.5); Carbon Dioxide 20 mmol/L (22-29); Chloride 114 mmol/L (98-107); Globulin 1.9 g/dL (1.3-4.6); Glucose 93 mg/dL (65-115); Magnesium 1.8 mg/dL (1.7-2.3); Osmolality Calculated 290 mOsm/kg (285-295); Potassium 4.2 mmol/L (3.5-5.1); Sodium 141 mmol/L (136-145); Total Bilirubin 0.2 mg/dL (0.15-1.2); Total Protein 4.5 g/dL (6.6-8.7)
--- NOTE | 2023-07-10 06:28 | PC.NURSE ---
Unable to measure urine output due to large amount of toilet paper in bedside commode.
[2023-07-10] MEDS: apixaban 5 mg Tablet PO (07:41)
[2023-07-10] MEDS: gabapentin 300 mg Capsule PO ×2 (07:41→15:03)
[2023-07-10] MEDS: lisinopril 10 mg Tablet PO (07:41)
[2023-07-10] MEDS: levothyroxine 50 mcg Tablet PO (07:41)
--- NOTE | 2023-07-10 08:53 | CT_ITS ---
WS: [id number] CT ABDOMEN AND PELVIS NONCONTRAST HISTORY: LLQ pain TECHNIQUE: Imaging performed through the abdomen and pelvis. Coronal and sagittal reformats are submi tted. All CT scans at [facility] use at least one of these dose optimization techniques: auto mated exposure control; mA and/or kV adjustment per patient size (includes targeted exams where dose is matched to clinical indication); or iterative reconstruction. DLP: 730.55 mGy.cm COMPARISON: None available. Lower thorax: Small hiatal hernia. Otherwise negative. Liver: Granuloma throughout the liver. Otherwise negative. Gallbladder: Normal gallbladder. No pericholecystic fluid or cholelithiasis. No gallbladder wall thic kening. Pancreas: Diffuse atrophy. Spleen: Normal size with granulomata. Adrenal glands: Normal. No mass. Right kidney: Mild perinephric stranding. No obstruction. Left kidney: Mild perinephric stranding with no obstruction. Aorta: Mild atherosclerosis abdominal aorta with no aneurysm. There is a small amount of free fluid in the LEFT lower quadrant which was not present on the recent study. This is adjacent to numerous diverticula in the sigmoid colon. No free air. No adenopathy. Mil d soft tissue anasarca. GI tract: Nonobstructive pattern. Diffuse fecal retention and constipation with a tortuous colon. The appendix is not definitely visualized. Numerous diverticula are present in the sigmoid colon. There is mild wall thickening and mild inflammation. Abdominal wall: Surgery for prior hernia repair. No recurrent hernia. Pelvis: Minimally distended urinary bladder. Prior hysterectomy. No adenopathy or mass. Soft tissue l ipomatous mass anterior to the LEFT hip. Osseous structures: Posterior lumbar fusion at L4-5. IMPRESSION: 1. New minimal amount of free fluid in the LEFT pelvis adjacent to mild diverticulitis. Mild acute d iverticulitis. No abscess or focal collection. No obstruction. 2. Moderate constipation. 3. Prior hysterectomy. 4. New small bilateral pleural effusion since 07/06/2023. 5. Mild soft tissue anasarca.
[2023-07-10] MEDS: ondansetron 2 mg/ML SDV 2 mL 4 MG IVP (10:59)
--- NOTE | 2023-07-10 11:19 | PM.DCS ---
Discharge Providers Date of Admission: 07/06/23 21:46 Date of Discharge: July 10, 2023 Attending Provider at Admission: Jen Newton MD Attending Provider at Discharge: Mario Murcia MD Diagnoses at Discharge Discharge Diagnosis (1) Diverticulitis: Status: Acute (2) Urinary tract infection: Status: Acute Qualifiers: Hematuria presence: without hematuria Urinary tract infection type: acute cystitis Qualified Code(s): N30.00 - Acute cystitis without hematuria (3) Pancreatitis: Status: Acute Qualifiers: Acute pancreatitis complication: no infection or necrosis Chronicity: acute Pancreatitis type: unspecified pancreatitis type Qualified Code(s): K85.90 - Acute pancreatitis without necrosis or infection, unspecified (4) AVI (acute kidney injury): Status: Acute (5) Acute anemia: Status: Acute Reason for Visit Reason for Visit: ABD PAIN Hospital Course Hospital Course Carmella Suarez Friend is a 83 year old female with history of hypertension diverticulosis recurrent pancreatitis presented with complaint of abdominal pain since 1 week.? As per the patient abdominal pain gradually worsening today it was 10/10 crampy diffuse no aggravating or relieving factors and associated with nausea vomiting nonbloody diarrhea and loss of appetite.? She has a history of recurrent pancreatitis and had 4 hospitalizations in the last 1 year.? There is no history of fever cold cough chest pain shortness of breath or urinary complaints This is a 83-year-old female who presents [facility] for acute diverticulitis, pancreatitis, received IV fluids, antibiotic therapy, pain control, remained afebrile, overall clinically improved, leukocytosis improved, hydrating well, diet slowly advanced, tolerating GI soft diet. Due to persistent left lower quadrant pain repeated CT scan abdomen pelvis on day of discharge IMPRESSION: 1.? New minimal amount of free fluid in the LEFT pelvis adjacent to mild diverticulitis. Mild acute diverticulitis. No abscess or focal collection. No obstruction. 2.? Moderate constipation. 3.? Prior hysterectomy. 4.? New small bilateral pleural effusion since 07/06/2023. 5.? Mild soft tissue anasarca. -Patient was advised to continue to monitor -Spoke to general surgery, recommended continued conservative management -Come back to the hospital if her abdominal pain worsens, she develops lack of stooling, or bloody or black stools or fevers -Discharged on 10 remaining days of Cipro and Flagyl, -Hydrate well -For the next 2 weeks, GI soft diet, low fiber diet, after that, can transition to high-fiber diet, -Follow-up with general surgery in 2 weeks -Use oxycodone sparingly for pain Physical Exam Const: COMMON NORMALS: no acute distress and patient oriented x3 Resp: COMMON NORMALS: normal respiratory effort, No retractions, No use of accessory muscles and clear to auscultation bilaterally AUSCULTATION: clear to auscultation bilaterally Cardio: COMMON NORMALS: regular rate, regular rhythm, S1 normal heart sound present and S2 normal heart sound present RATE: regular rate RHYTHM: regular rhythm HEART SOUNDS: S1 normal heart sound present and S2 normal heart sound present GI: COMMON NORMALS: Normal to inspection, nondistended, normoactive bowel sounds present OTHER: Minimal left lower quadrant tenderness, no guarding, no rebound, no rigidity Extremity: COMMON NORMALS: no pedal edema Neuro: COMMON NORMALS: patient oriented x3 Psych: COMMON NORMALS: mental status grossly normal Discharge Data Studies Completed and Pending Completed Studies During Hospitalization Category Date Time Status CT abdomen pelvis con [id number] Stat Cat Scan 07/06/23 20:[address] abdomen pelvis wo con [id number] Stat Cat Scan 07/10/23 08:53 Completed Pending at discharge Category Date Time Status Complete Blood Count w/Auto AM LABS Lab 07/11/23 04:00 Ordered Comprehensive Metabolic Panel AM LABS Lab 07/11/23 04:00 Ordered Immunochemical Fecal OCB Routine Lab 07/08/23 08:46 Ordered Magnesium AM LABS Lab 07/11/23 04:00 Ordered Phosphorus AM LABS Lab 07/11/23 04:00 Ordered Laboratory Results WBC 7.02 10^3/uL (3.29-11.43) 07/10/23 04:16 RBC 3.00 10^6/uL (3.85-5.65) L 07/10/23 04:16 Hgb 9.20 g/dL (11.27-16.99) L 07/10/23 04:16 Hct 29.5 % (36-47) L 07/10/23 04:16 MCV 98.3 fl (85-98) H 07/10/23 04:16 MCH 30.7 pg (27-33) 07/10/23 04:16 MCHC 31.2 g/dL (30-55) 07/10/23 04:16 RDW 16.1 % (12.1-15.1) H 07/10/23 04:16 Plt Count 271 10^3/cmm (157-399) 07/10/23 04:16 MPV 9.7 fL (7.4-10.4) 07/10/23 04:16 Neut % (Auto) 50.4 % 07/10/23 04:16 Lymph % (Auto) 30.6 % 07/10/23 04:16 [place] % (Auto) 9.5 % 07/10/23 04:16 Eos % (Auto) 4.3 % 07/10/23 04:16 Baso % (Auto) 0.4 % 07/10/23 04:16 Neut # (Auto) 3.53 10^3/uL (1.8-7.7) 07/10/23 04:16 Lymph # (Auto) 2.2 10^3/uL (0.8-4.8) 07/10/23 04:16 [place] # (Auto) 0.7 10^3/uL (0.2-0.9) 07/10/23 04:16 Eos # (Auto) 0.3 10^3/uL (0.0-0.8) 07/10/23 04:16 Baso # (Auto) 0.0 10^3/uL (0.0-0.1) 07/10/23 04:16 Nucleated RBC % (auto) 0 % 07/10/23 04:16 Nucleated RBCs # 0.0 /100WBC 07/10/23 04:16 Sodium 141 mmol/L (136-145) 07/10/23 04:16 Potassium 4.2 mmol/L (3.5-5.1) 07/10/23 04:16 Chloride 114 mmol/L (98-107) H 07/10/23 04:16 Carbon Dioxide 20 mmol/L (22-29) L 07/10/23 04:16 Anion Gap 11.2 (5-19) 07/10/23 04:16 BUN 9 mg/dL (8-23) 07/10/23 04:16 Creatinine 0.7 mg/dL (0.5-0.9) 07/10/23 04:16 GFR Calculation Not Reportable 07/10/23 04:16 Glucose 93 mg/dL (65-115) 07/10/23 04:16 Calculated Osmolality 290 mOsm/kg (285-295) 07/10/23 04:16 Calcium 8.7 mg/dL (8.5-10.5) 07/10/23 04:16 Phosphorus 2.0 mg/dL (2.5-4.5) L 07/10/23 04:16 Magnesium 1.8 mg/dL (1.7-2.3) 07/10/23 04:16 Iron 46 ug/dL (37-145) 07/08/23 04:02 Ferritin 96 ng/mL (15-150) 07/08/23 04:02 Total Bilirubin 0.2 mg/dL (0.15-1.2) 07/10/23 04:16 AST 9 U/L (0-32) 07/10/23 04:16 ALT < 5 U/L (0-33) 07/10/23 04:16 Alkaline Phosphatase 70 U/L (35-105) 07/10/23 04:16 Total Protein 4.5 g/dL (6.6-8.7) L 07/10/23 04:16 Albumin 2.6 g/dL (3.5-5.2) L 07/10/23 04:16 Globulin 1.9 g/dL (1.3-4.6) 07/10/23 04:16 Triglycerides 83 mg/dL (0-150) 07/07/23 04:12 Lipase 422 U/L (13-60) H 07/06/23 18:37 Urine Color Yellow (Yellow) 07/06/23 18:19 Urine Appearance Sl hazy (CLEAR) A 07/06/23 18:19 Urine pH 5 (5-7) 07/06/23 18:19 Ur Specific [place] 1.015 (1.005-1.030) 07/06/23 18:19 Urine Protein Neg (Negative) 07/06/23 18:19 Urine Glucose (UA) Norm (Normal) 07/06/23 18:19 Urine Ketones Negative (Negative) 07/06/23 18:19 Urine Blood Neg (Negative) 07/06/23 18:19 Urine Nitrate Negative (Negative) 07/06/23 18:19 Urine Bilirubin 1+ (Negative) H 07/06/23 18:19 Urine Urobilinogen Norm mg/dL (Negative) 07/06/23 18:19 Ur Leukocyte Esterase 2+ (Negative) H 07/06/23 18:19 Urine RBC None /hpf (0-2) 07/06/23 18:19 Urine WBC 10-15 /hpf (0-5) H 07/06/23 18:19 Ur Squamous Epith Cells 0-4 /hpf (0-5) H 07/06/23 18:19 Amorphous Sediment Not Reportable 07/06/23 18:19 Urine Bacteria 2+ /hpf (NONE) H 07/06/23 18:19 Vitals Last Vital Signs Temp 97.9 F 07/10/23 08:00 Pulse 71 07/10/23 08:00 Resp 16 07/10/23 08:00 BP 117/78 07/10/23 08:00 Pulse Ox 97 07/10/23 08:00 O2 Del Method Room Air 07/10/23 08:00 Discharge Plan Discharge Patient Disposition: Home Condition: Stable Prescriptions: New ciprofloxacin HCl 500 mg tablet 500 mg PO BID 10 Days Qty: 20 0RF metronidazole 500 mg tablet 500 mg PO Q8H 10 Days Qty: 30 0RF Continued cetirizine 5 mg Tablet 5 mg PO DAILY levothyroxine 50 mcg Tablet 50 mcg PO DAILY esomeprazole magnesium 40 mg capsule,delayed release(DR/EC) 40 mg PO DAILY gabapentin 300 mg capsule 300 mg PO TID ondansetron 4 mg tablet,disintegrating 4 mg PO Q4H PRN (Reason: Nausea) Eliquis 5 mg Tablet 5 mg PO BID Changed oxycodone-acetaminophen 10-325 mg tablet 1 tab PO Q6H PRN (Reason: pain) 7 Days Qty: 28 0RF lisinopril 10 mg Tablet 10 mg PO Q12H 30 Days Qty: 60 0RF Held tizanidine 4 mg tablet 4 mg PO QID PRN (Reason: Spasms) Hold Instructions: Resume on 07/22/23. hold for at least 10 days, dont take when taking ciprofloxacin Lasix 20 mg Tablet 20 mg PO BID Hold Instructions: Resume on 07/12/23. Discharge Orders: Discharge Order (Routine); Ordered 07/10/23 Ordered By: Mario Murcia Referrals: Javon Combs MD [Physician] - 2 weeks Neva Darling, ROSALVA [Nurse Practitioner] - 07/17/23 3:20 pm Discharge Diet: GI Soft Discharge Activity: Resume usual activity Patient Instructions: Ciprofloxacin (By mouth), Metronidazole (By mouth), Pancreatitis (GEN), Diverticulitis (DC), Diverticulitis (GEN), Opioid Safety Activity Restrictions/Additional Instructions: - Please adhere to GI soft diet, low fiber for the next 2 weeks, after 2 weeks can increase the fiber -If you develop bloody or black stools or stop having bowel movements or develop worsening abdominal pain please go to emergency room -Please take antibiotics for 10 remaining days -Please hydrate well drink plenty of electrolyte balanced fluids daily -Please use oxycodone sparingly, for pain, do not drive operate machinery or drink while taking medication -Please follow-up with general surgery in 2 weeks Discharge Attestations Time Spent in Discharge Care*: greater than 30 min Quality Metrics Clinical Quality Measures [ No reported AMI, CVA or VTE this stay] Coding Level of Care Code 99649 Total time (in minutes) for Discharge: 45 Diagnoses Diverticulitis K57.92 Urinary tract infection N30.00 Hematuria presence: without hematuria Urinary tract infection type: acute cystitis Pancreatitis K85.90 Acute pancreatitis complication: no infection or necrosis Chronicity: acute Pancreatitis type: unspecified pancreatitis type AVI (acute kidney injury) N17.9 Acute anemia D64.9
== END 2023-07-10 19:00 | disposition home or self-care (01) | DRG 391 ==
LOC: ER 21:50 → MEDSURG 22:16
PROVIDERS: Student in an Organized Health Care Education/Training Program; Admitting Provider Internal Medicine; Emergency Provider Emergency Medicine; Visit Provider Family Medicine
DX: K57.32 Diverticulitis of large intestine without perforation or abscess without bleeding (principal); K85.90 Acute pancreatitis without necrosis or infection, unspecified; K86.1 Other chronic pancreatitis; N39.0 Urinary tract infection, site not specified; N17.9 Acute kidney failure, unspecified; I10 Essential (primary) hypertension; Z79.01 Long term (current) use of anticoagulants; E86.0 Dehydration; D64.9 Anemia, unspecified; Z98.1 Arthrodesis status; Z95.0 Presence of cardiac pacemaker
CPT/HCPCS: 36415; 74176; 80053; 81001; 82728; 83540; 83690; 83735; 84100; 84478; 85014; 85018; 85025; 87086; 90471; 90686; 96365; 96372; 96375; 97116; 97161; 97530; 99285; J0744; J1170; J1650; J1885; J2405; J3010; J3475; J3490; J7030

== ENCOUNTER 2023-07-13 02:52 | Emergency (ER) | payer MEDICARE, SELFPAY ==
[2023-07-13 02:56] VITALS: BP 188/82; PULSE 96; RESP 20; TEMP 36.9; O2SAT 99; BMI 29.2
--- NOTE | 2023-07-13 03:20 | CTR_ITS ---
PROCEDURE INFORMATION: Exam: CT Abdomen And Pelvis With Contrast Exam date and time: 07/13/2023 3:52 AM Age: 83 years old Clinical indication: Abdominal pain; Generalized; Prior surgery; Surgery date: 6+ months; Surgery type: Breast reduction. Pacer gb. Laparotomy. Hysterectomy. Lumbar. Patient HX: C/O diffuse abd pain. History of pancreatitis and diverticulitis. ; Additional info: Abdominal pain history of diverticulitis TECHNIQUE: Imaging protocol: Computed tomography of the abdomen and pelvis with contrast. Radiation optimization: All CT scans at this facility use at least one of these dose optimization techniques: automated exposure control; mA and/or kV adjustment per patient size (includes targeted exams where dose is matched to clinical indication); or iterative reconstruction. Contrast material: OMNI 350; Contrast volume: 100 ml; Contrast route: INTRAVENOUS (IV); REPORTING DATA: Count of CT and Cardiac NM exams in prior 12 months: This patient has received 0 known CTs and 0 known cardiac nuclear medicine studies in the 12 months prior to the current study. COMPARISON: CT Abdomen/Pelvis 07/06/2023 8:31 PM RADIATION DOSE METRICS: Total DLP (mGy-cm): 1459.4 FINDINGS: Lungs: No significant acute finding in the lower lungs. No pleural fluid. Diaphragm: Small hiatal hernia. Liver: Numerous small hepatic calcifications/granulomata. Gallbladder and bile ducts: Prior cholecystectomy. Moderate to severe extrahepatic biliary tree dilation, with common hepatic duct measuring about 22-23 mm. The lower common bile duct is not as dilated, measuring 9-10 mm. Moderate intrahepatic biliary dilation. No visible common duct stone by CT. Current significance uncertain, as the appearance is not significantly changed. Correlation with laboratory/bilirubin levels may be helpful to determine if there is any significant biliary obstruction. Pancreas: Apparent partial atrophy of the pancreas, with a few small calcifications. The overall appearance is not significantly changed. No surrounding inflammatory changes or fluid. Lack of these findings on CT does not entirely exclude the diagnosis of acute pancreatitis. Please correlate with clinical and laboratory evaluation. Spleen: Numerous small splenic calcifications/granulomas. Adrenal glands: Unremarkable. Kidneys and ureters: No hydronephrosis of either kidney. No visible ureteral calculus. Possible 5 mm cyst extending from the upper pole of the left kidney, too small to accurately characterize by CT. Stomach and bowel: No significant bowel distention. There is diverticulosis, especially prominent involving the sigmoid colon. No definite CT evidence of diverticulitis at this time. Possibility of somewhat thickened mucosa/wall in the distal antrum of the stomach. This is a nonspecific appearance, and may well be transient on CT, but could also represent evidence for gastritis or peptic ulcer disease. Please correlate clinically. Appendix: The appendix is not identified with certainty, however no pericecal inflammatory changes are seen. Intraperitoneal space: No free intraperitoneal air, or ascites. Vasculature: No evidence for abdominal aortic aneurysm. Lymph nodes: No retroperitoneal adenopathy. Urinary bladder: No visible calculus in the urinary bladder. Reproductive: Prior hysterectomy. No definite ovarian/adnexal cyst or mass by CT. Bones/joints: Again, evidence of prior lower lumbar spine fusion surgery. Soft tissues: No significant acute finding. CT/CT abdomen pelvis w con* [id number] IMPRESSION: 1. No free air or significant bowel distention. 2. Diverticulosis, especially prominent involving the sigmoid colon. No definite evidence of diverticulitis at this time. 3. Possible thickened mucosa/wall in the distal stomach, see above discussion. 4. Prior cholecystectomy. Moderate to severe biliary tree dilation, see above discussion. 5. No current findings to suggest acute pancreatitis, see above. 6. No evidence to suggest appendicitis, however a normal appendix is not definitely visible. 7. Other findings discussed above. COMMENTS: Consistent with the [employer]'s Incidental Findings Committee white paper (J Am Kelly Radiol 2018): Any incidental renal lesion less than 1 cm or classified as too small to characterize, or any incidental cystic renal lesion characterized as simple-appearing, is likely benign. No follow-up imaging is recommended for these lesions per consensus recommendations based on imaging criteria.
[2023-07-13] MEDS: iohexol 350 mg/mL 500 mL Btl (per mL) IV (03:54)
[2023-07-13] MEDS: sodium chloride 0.9% 1,000 ML 999 ML IV (04:09)
--- NOTE | 2023-07-13 04:15 | W.ED.ABDPA2 ---
HPI - Abdominal Pain General: Chief Complaint: Abdominal Pain Stated Complaint: ABD PAIN Time Seen by Provider: 07/13/23 03:00 History of Present Illness: 83-year-old female recently discharged from this facility on 07/10. She had diagnoses of pancreatitis, diverticulitis evidently at that point. She was discharged to care home with continued antibiotic therapy. She began to get pain around 1 AM. Unknown whether pain medication was administered in the care home, but the pain was intense enough to call 911. She received some fentanyl in route, which helped with the pain. No vomiting. No fever. No diarrhea. No blood in the stool. Associated Symptoms: Reports nausea; Denies chills, diarrhea, fever(s), hematochezia and vomiting Review of Systems Const: Denies: fever(s), chills or body aches Eyes: Denies: change in vision Card: Denies: chest pain or palpitations Resp: Denies: dyspnea, productive cough, non-productive cough or wheezing GI: Reports: abdominal pain and nausea; Denies: vomiting, diarrhea or hematochezia : Denies: difficulty voiding Skin/Breast: Denies: rash Neuro: Reports: weakness in extremities; Denies: headache(s), dizziness or confusion PFSH ED PFSH: Medical History Atrial fibrillation CHF (congestive heart failure) Chronic pain Dr. Almeida Essential hypertension Hypothyroid Murmur, cardiac Pacemaker Seasonal and perennial allergic rhinitis Vitamin D deficiency Surgical History History of back surgery Lumbar with hardware History of cardiac pacemaker 2016 History of cholecystectomy Open History of exploratory laparotomy Adhesion two times History of hysterectomy 1966 abdomen with BSO History of knee surgery Right scope History of neck surgery Hardware Hx of breast reduction, elective Family History Grandmother Cancer Mother Hypertension Father Hypertension Brother Stroke Denies family history of Diabetes Dementia Social History Smoking and tobacco/nicotine status: never used tobacco/nicotine Second hand smoke exposure: No Alcohol intake: never Substance/Drug Use: never Adopted: No Caregiver/support person: Yes Lives independently: No Household members: family Housing: House Marital status: Number of children: 5 service: No Current occupational status: retired Do you think of yourself as: Straight/Heterosexual Current gender identity: Female Physical Exam Const: COMMON NORMALS: no acute distress GENERAL APPEARANCE: cooperative and frail appearing; not ill appearing HENMT: COMMON NORMALS: normocephalic, atraumatic and Normal external nose present HEAD & SCALP: normocephalic and atraumatic FACE & SINUS: normal facial exam and face symmetric NOSE: Normal external nose present Eye: COMMON NORMALS: Equal, round and reactive pupils present and EOMs intact bilaterally PUPIL: Yes Equal, round and reactive pupils present Neck/C-Spine: GENERAL: Yes trachea midline Chest: CHEST: Yes Symmetrical chest wall rise Resp: COMMON NORMALS: normal respiratory effort, No retractions, No use of accessory muscles and clear to auscultation bilaterally AUSCULTATION: clear to auscultation bilaterally Cardio: COMMON NORMALS: regular rate and regular rhythm RATE: regular rate RHYTHM: regular rhythm GI: COMMON NORMALS: Normal to inspection, nondistended, normoactive bowel sounds present PALPATION: Yes Tenderness to palpation present (GI) (Epigastric) Details: LLQ and RLQ Extremity: COMMON NORMALS: no pedal edema Neuro: ZAK COMA SCALE: document GCS findings Zak coma scale eye opening: Spontaneous [place] coma scale verbal response: Orientated Zak coma scale motor response: Obey commands [place] coma scale total score: 15 SENSORY EXAM: Yes extremities (intact) Psych: COMMON NORMALS: speech normal SPEECH: Yes normal speech Skin: COMMON NORMALS: no rashes or lesions noted GENERAL SKIN EXAM: no rashes or lesions noted Course Vital Signs: Vital signs: Vital Signs Temperature 98.4 F 07/13/23 02:56 Pulse Rate 102 H 07/13/23 08:26 Respiratory Rate 20 H 07/13/23 05:18 Blood Pressure 145/82 07/13/23 08:26 Pulse Oximetry 98 07/13/23 08:26 Oxygen Delivery Me thod Room Air 07/13/23 05:18 MDM - Abdominal Pain Medical Decision Making White blood cell count is 11.3. Hemoglobin is 9. Other laboratory and CT reads are pending. Vital signs are stable. Lipase is eight. Liver enzymes are not remarkable. CT shows resolution of her prior diverticulitis. No evidence of pancreatitis. There may be some mucosal wall thickening of the stomach. She was prescribed with GI cocktail for this. She declined it. She was set up for discharge but was quite concerned about her pain control upon discharge because her pain doctor had not given her any extra pain pills for this. She will be placed on one duragesic patch to cover her pain for the next three days. She can take pain medication for breakthrough pain as needed that she has at home. Outpatient follow up. Return for worsening symptoms. Lab Data 07/13/23 04:10 07/13/23 04:10 Labs/Radiology: Radiology Impressions Abdomen/Pelvis CT 07/13/23 03:20 IMPRESSION: 1. No free air or significant bowel distention. 2. Diverticulosis, especially prominent involving the sigmoid colon. No definite evidence of diverticulitis at this time. 3. Possible thickened mucosa/wall in the distal stomach, see above discussion. 4. Prior cholecystectomy. Moderate to severe biliary tree dilation, see above discussion. 5. No current findings to suggest acute pancreatitis, see above. 6. No evidence to suggest appendicitis, however a normal appendix is not definitely visible. 7. Other findings discussed above. COMMENTS: Consistent with the [employer]'s Incidental Findings Committee white paper (J Am Kelly Radiol 2018): Any incidental renal lesion less than 1 cm or classified as too small to characterize, or any incidental cystic renal lesion characterized as simple-appearing, is likely benign. No follow-up imaging is recommended for these lesions per consensus recommendations based on imaging criteria. Laboratory Results WBC 11.27 10^3/uL (3.29-11.43) 07/13/23 04:10 RBC 2.95 10^6/uL (3.85-5.65) L 07/13/23 04:10 Hgb 9.10 g/dL (11.27-16.99) L 07/13/23 04:10 Hct 29.0 % (36-47) L 07/13/23 04:10 MCV 98.3 fl (85-98) H 07/13/23 04:10 MCH 30.8 pg (27-33) 07/13/23 04:10 MCHC 31.4 g/dL (30-55) 07/13/23 04:10 RDW 16.9 % (12.1-15.1) H 07/13/23 04:10 Plt Count 296 10^3/cmm (157-399) 07/13/23 04:10 MPV 9.6 fL (7.4-10.4) 07/13/23 04:10 Neut % (Auto) 83.7 % 07/13/23 04:10 Lymph % (Auto) 11.4 % 07/13/23 04:10 [place] % (Auto) 2.4 % 07/13/23 04:10 Eos % (Auto) 0.7 % 07/13/23 04:10 Baso % (Auto) 0.2 % 07/13/23 04:10 Neut # (Auto) 9.43 10^3/uL (1.8-7.7) H 07/13/23 04:10 Lymph # (Auto) 1.3 10^3/uL (0.8-4.8) 07/13/23 04:10 [place] # (Auto) 0.3 10^3/uL (0.2-0.9) 07/13/23 04:10 Eos # (Auto) 0.1 10^3/uL (0.0-0.8) 07/13/23 04:10 Baso # (Auto) 0.0 10^3/uL (0.0-0.1) 07/13/23 04:10 Nucleated RBC % (auto) 0 % 07/13/23 04:10 Nucleated RBCs # 0.0 /100WBC 07/13/23 04:10 Sodium 138 mmol/L (136-145) 07/13/23 04:10 Potassium 4.6 mmol/L (3.5-5.1) 07/13/23 04:10 Chloride 110 mmol/L (98-107) H 07/13/23 04:10 Carbon Dioxide 16 mmol/L (22-29) L 07/13/23 04:10 Anion Gap 16.6 (5-19) 07/13/23 04:10 BUN 12 mg/dL (8-23) 07/13/23 04:10 Creatinine 1.1 mg/dL (0.5-0.9) H 07/13/23 04:10 GFR Calculation Not Reportable 07/13/23 04:10 Glucose 88 mg/dL (65-115) 07/13/23 04:10 Calculated Osmolality 285 mOsm/kg (285-295) 07/13/23 04:10 Lactic Acid 0.9 mmol/L (0.5-2.2) 07/13/23 04:10 Calcium 8.9 mg/dL (8.5-10.5) 07/13/23 04:10 Total Bilirubin 0.2 mg/dL (0.15-1.2) 07/13/23 04:10 AST 16 U/L (0-32) 07/13/23 04:10 ALT 9 U/L (0-33) 07/13/23 04:10 Alkaline Phosphatase 67 U/L (35-105) 07/13/23 04:10 C-Reactive Protein 4.4 mg/L (0.0-4.9) 07/13/23 04:10 Total Protein 5.2 g/dL (6.6-8.7) L 07/13/23 04:10 Albumin 2.8 g/dL (3.5-5.2) L 07/13/23 04:10 Globulin 2.4 g/dL (1.3-4.6) 07/13/23 04:10 Lipase 8 U/L (13-60) L 07/13/23 04:10 All radiology interpretation(s) finalized by discharge Discharge Plan Discharge Patient Disposition: Home Clinical Impression: Abdominal pain Condition: Stable Prescriptions: No Action gabapentin 300 mg capsule 300 mg PO TID tizanidine 4 mg capsule 4 mg PO Q6H PRN oxycodone 10 mg tablet 10 mg PO QID PRN Xtampza ER 13.5 mg cap,sprinkl,ER12hr(DONT CRUSH) 13.5 mg PO BID Rx Instructions: must administer with a meal/food levothyroxine [Synthroid] 75 mcg tablet 50 mcg PO DAILY nitroglycerin 0.4 mg tablet, sublingual 0.4 mg sublingual Q5M PRN Rx Instructions: do not exceed 3 doses per episode meclizine 12.5 mg tablet 12.5 mg PO DAILY PRN Zyrtec 10 mg capsule 10 mg PO DAILY PRN lisinopril 10 mg tablet 10 mg PO DAILY Qty: 90 0RF Eliquis 5 mg tablet 5 mg PO BID Qty: 180 0RF cholecalciferol (vitamin D3) 1,250 mcg (50,000 unit) capsule 50,000 unit PO .weekly Qty: 12 0RF esomeprazole magnesium [Nexium] 40 mg capsule,delayed release(DR/EC) 40 mg PO DAILY Qty: 90 0RF furosemide [Lasix] 20 mg tablet 40 mg PO DAILY Qty: 90 0RF sodium chloride 1,000 mg tablet,soluble 1,000 mg PO DAILY Qty: 30 2RF magnesium oxide 400 mg magnesium tablet 400 mg PO BID Qty: 60 2RF ondansetron 4 mg tablet,disintegrating 4 mg PO Q4H PRN (Reason: nausea and vomiting) Qty: 10 0RF Discharge Orders: Discharge ED (Routine); Ordered 07/13/23 Ordered By: Abdiaziz Peter Referrals: Neva Darling, HUMAN SERVICES SUPERVISOR-C [Primary Care Provider] - 4-7 days Patient Instructions: Abdominal Pain (ED), Opioid Safety, Pain Management Activity Restrictions/Additional Instructions: Use previously prescribed pain medication as needed for pain. Return for fever, vomiting liquids, worsening pain despite treatment, other concerning symptoms. Coding Level of Care Code ED Swimming Pool Installer And Servicer for Elvira Cueva
[2023-07-13 04:19] LABS: Basophils % 0.2 %; Eosinophils # 0.1 10^3/uL (0.0-0.8); Eosinophils % 0.7 %; Lymphocytes # 1.3 10^3/uL (0.8-4.8); Lymphocytes % 11.4 %; Mean Corpuscular HGB Conc 31.4 g/dL (30-55); Mean Corpuscular Hemoglobin 30.8 pg (27-33); Mean Corpuscular Volume 98.3 fl (85-98); Mean Platelet Volume 9.6 fL (7.4-10.4); Monocytes # 0.3 10^3/uL (0.2-0.9); Monocytes % 2.4 %; Neutrophils # 9.43 10^3/uL (1.8-7.7); Neutrophils % 83.7 %; Nucleated Red Blood Cells % 0 %; Platelet Count 296 10^3/cmm (157-399); Red Blood Count 2.95 10^6/uL (3.85-5.65); Red Cell Distribution Width 16.9 % (12.1-15.1); White Blood Count 11.27 10^3/uL (3.29-11.43)
[2023-07-13 04:41] LABS: Alanine Aminotransferase 9 U/L (0-33); Albumin Level 2.8 g/dL (3.5-5.2); Alkaline Phosphatase 67 U/L (35-105); Aspartate Amino Transferase 16 U/L (0-32); Blood Urea Nitrogen 12 mg/dL (8-23); C Reactive Protein 4.4 mg/L (0.0-4.9); Calcium 8.9 mg/dL (8.5-10.5); Carbon Dioxide 16 mmol/L (22-29); Chloride 110 mmol/L (98-107); Globulin 2.4 g/dL (1.3-4.6); Glucose 88 mg/dL (65-115); Lactic Sepsis W/Reflex 0.9 mmol/L (0.5-2.2); Lipase 8 U/L (13-60); Osmolality Calculated 285 mOsm/kg (285-295); Sodium 138 mmol/L (136-145); Total Bilirubin 0.2 mg/dL (0.15-1.2); Total Protein 5.2 g/dL (6.6-8.7)
[2023-07-13 04:42] LABS: Anion Gap 16.6 (5-19); Potassium 4.6 mmol/L (3.5-5.1)
[2023-07-13] MEDS: ondansetron 2 mg/ML SDV 2 mL 4 MG IVP (05:16)
[2023-07-13 05:18] VITALS: BP 145/82; PULSE 102; RESP 20; O2SAT 98
[2023-07-13] MEDS: morphine 4 mg/mL SDV 1 mL 2 MG IVP ×2 (05:18→07:09)
[2023-07-13] MEDS: fentaNYL 50 mcg Patch 1 PATCH TRANSDERMA (08:22)
[2023-07-13 08:26] VITALS: BP 145/82; PULSE 102; O2SAT 98
== END 2023-07-13 08:27 | disposition home or self-care (01) ==
PROVIDERS: Emergency Provider Emergency Medicine; PCP Nurse Practitioner
DX: R10.9 Unspecified abdominal pain (principal); Z79.01 Long term (current) use of anticoagulants; K57.90 Diverticulosis of intestine, part unspecified, without perforation or abscess without bleeding; Z90.49 Acquired absence of other specified parts of digestive tract; I11.0 Hypertensive heart disease with heart failure; I50.9 Heart failure, unspecified; Z95.0 Presence of cardiac pacemaker
CPT/HCPCS: 74177; 80053; 83605; 83690; 85025; 86140; 96361; 96374; 96375; 96376; 99285; J2270; J2405; J7030; Q9967

== ENCOUNTER 2023-07-18 20:26 | Emergency (ER) | payer MEDICARE, SELFPAY ==
[2023-07-18 20:28] VITALS: BP 113/48; PULSE 73; RESP 16; TEMP 36.3; O2SAT 100
[2023-07-18 20:58] LABS: Basophils % 0.6 %; Eosinophils # 0.1 10^3/uL (0.0-0.8); Eosinophils % 0.8 %; Hematocrit 33.4 % (36-47); Lymphocytes # 0.9 10^3/uL (0.8-4.8); Lymphocytes % 12.9 %; Mean Corpuscular HGB Conc 27.8 g/dL (30-55); Mean Corpuscular Hemoglobin 30.5 pg (27-33); Mean Corpuscular Volume 109.5 fl (85-98); Mean Platelet Volume 9.4 fL (7.4-10.4); Monocytes # 0.4 10^3/uL (0.2-0.9); Neutrophils # 5.63 10^3/uL (1.8-7.7); Neutrophils % 78.9 %; Nucleated Red Blood Cells % 0 %; Platelet Count 339 10^3/cmm (157-399); Red Blood Count 3.05 10^6/uL (3.85-5.65); Red Cell Distribution Width 18.4 % (12.1-15.1); White Blood Count 7.14 10^3/uL (3.29-11.43)
[2023-07-18 21:18] LABS: Alanine Aminotransferase 11 U/L (0-33); Albumin Level 3.2 g/dL (3.5-5.2); Alkaline Phosphatase 70 U/L (35-105); Aspartate Amino Transferase 41 U/L (0-32); Blood Urea Nitrogen 15 mg/dL (8-23); Calcium 9.1 mg/dL (8.5-10.5); Carbon Dioxide 12 mmol/L (22-29); Chloride 105 mmol/L (98-107); Globulin 2.9 g/dL (1.3-4.6); Glucose 77 mg/dL (65-115); Lipase 8 U/L (13-60); Osmolality Calculated 278 mOsm/kg (285-295); Sodium 134 mmol/L (136-145); Total Bilirubin 0.3 mg/dL (0.15-1.2); Total Protein 6.1 g/dL (6.6-8.7)
[2023-07-18 21:22] LABS: Anion Gap 21.7 (5-19); Potassium 4.7 mmol/L (3.5-5.1)
--- NOTE | 2023-07-18 21:37 | W.ED.ABDPA2 ---
HPI - Abdominal Pain General: Chief Complaint: Abdominal Pain Stated Complaint: pancretitis Time Seen by Provider: 07/18/23 21:03 Source: patient Mode of arrival: ambulatory Limitations: no limitations History of Present Illness: 83-year-old female had a history of pancreatitis and history of chronic abdominal pain states been having epigastric pain for the last week she was seen here on 13 July had a normal CT scan she had she had some continued vomiting along with epigastric pain. She is concerned she has pancreatitis she denies any fevers denies any vomiting. Associated Symptoms: Reports nausea; Denies chills, diarrhea, dysuria, fever(s) and vomiting Review of Systems Const: Denies: fever(s), chills, body aches or change in appetite ENMT: Denies: throat pain or dental pain Card: Denies: chest pain Resp: Denies: dyspnea GI: Reports: abdominal pain and nausea; Denies: vomiting or diarrhea : Denies: dysuria Musc: Denies: neck pain or back pain Skin/Breast: Denies: rash Neuro: Denies: headache(s) PFSH ED PFSH: Medical History Atrial fibrillation CHF (congestive heart failure) Chronic pain Dr. Almeida Essential hypertension Hypothyroid Murmur, cardiac Pacemaker Seasonal and perennial allergic rhinitis Vitamin D deficiency Surgical History History of back surgery Lumbar with hardware History of cardiac pacemaker 2016 History of cholecystectomy Open History of exploratory laparotomy Adhesion two times History of hysterectomy 1966 abdomen with BSO History of knee surgery Right scope History of neck surgery Hardware Hx of breast reduction, elective Family History Grandmother Cancer Mother Hypertension Father Hypertension Brother Stroke Denies family history of Diabetes Dementia Social History Smoking and tobacco/nicotine status: never used tobacco/nicotine Second hand smoke exposure: No Alcohol intake: never Substance/Drug Use: never Adopted: No Caregiver/support person: Yes Lives independently: No Household members: family Housing: House Marital status: Number of children: 5 service: No Current occupational status: retired Do you think of yourself as: Straight/Heterosexual Current gender identity: Female Physical Exam Const: COMMON NORMALS: no acute distress, patient oriented x3 and healthy appearing HENMT: COMMON NORMALS: normocephalic and atraumatic HEAD & SCALP: normocephalic and atraumatic Eye: COMMON NORMALS: Equal, round and reactive pupils present and EOMs intact bilaterally PUPIL: Yes Equal, round and reactive pupils present Neck/C-Spine: COMMON NORMALS: full ROM and supple Chest: COMMONS NORMALS: normal inspection of the chest and normal palpation of entire chest wall Resp: COMMON NORMALS: normal respiratory effort, No retractions, No use of accessory muscles and clear to auscultation bilaterally AUSCULTATION: clear to auscultation bilaterally Cardio: COMMON NORMALS: regular rate, regular rhythm and No murmurs present (Cardio) RATE: regular rate RHYTHM: regular rhythm GI: COMMON NORMALS: Normal to inspection, nondistended, normoactive bowel sounds present, Soft to palpation, non-tender and no masses PALPATION: Yes Soft to palpation Extremity: COMMON NORMALS: normal to inspection and full ROM Neuro: COMMON NORMALS: patient oriented x3, moves all extremities and no focal motor deficits Psych: COMMON NORMALS: mental status grossly normal, Normal thought process present and cooperative THOUGHT PROCESS: Normal thought process present Skin: COMMON NORMALS: no rashes or lesions noted and no wounds GENERAL SKIN EXAM: no rashes or lesions noted Course Vital Signs: Vital signs: Vital Signs Temperature 97.3 F L 07/19/23 00:22 Pulse Rate 91 07/19/23 00:22 Respiratory Rate 16 07/19/23 00:22 Blood Pressure 121/80 07/19/23 00:22 Pulse Oximetry 100 07/19/23 00:22 Oxygen Delivery Me thod Room Air 07/18/23 22:29 MDM - Abdominal Pain Medical Decision Making Patient presents with abdominal pain could be gastritis she did have a recent CT scan showed no acute findings her lipase here is normal had some slight dehydration improved with IV fluids her pains improved here as well we will stop her Nexium started on Protonix get her follow-up with surgery she is return if worsening she understands agrees to plan. Medical Records I reviewed the patient's medical records. Lab Data I reviewed the patient's lab results. 07/18/23 20:52 07/18/23 23:25 Labs/Radiology: Laboratory Results WBC 7.14 10^3/uL (3.29-11.43) 07/18/23 20:52 RBC 3.05 10^6/uL (3.85-5.65) L 07/18/23 20:52 Hgb 9.30 g/dL (11.27-16.99) L 07/18/23 20:52 Hct 33.4 % (36-47) L 07/18/23 20:52 MCV 109.5 fl (85-98) H 07/18/23 20:52 MCH 30.5 pg (27-33) 07/18/23 20:52 MCHC 27.8 g/dL (30-55) L 07/18/23 20:52 RDW 18.4 % (12.1-15.1) H 07/18/23 20:52 Plt Count 339 10^3/cmm (157-399) 07/18/23 20:52 MPV 9.4 fL (7.4-10.4) 07/18/23 20:52 Neut % (Auto) 78.9 % 07/18/23 20:52 Lymph % (Auto) 12.9 % 07/18/23 20:52 [place] % (Auto) 6.0 % 07/18/23 20:52 Eos % (Auto) 0.8 % 07/18/23 20:52 Baso % (Auto) 0.6 % 07/18/23 20:52 Neut # (Auto) 5.63 10^3/uL (1.8-7.7) 07/18/23 20:52 Lymph # (Auto) 0.9 10^3/uL (0.8-4.8) 07/18/23 20:52 [place] # (Auto) 0.4 10^3/uL (0.2-0.9) 07/18/23 20:52 Eos # (Auto) 0.1 10^3/uL (0.0-0.8) 07/18/23 20:52 Baso # (Auto) 0.0 10^3/uL (0.0-0.1) 07/18/23 20:52 Nucleated RBC % (auto) 0 % 07/18/23 20:52 Nucleated RBCs # 0.0 /100WBC 07/18/23 20:52 Sodium 139 mmol/L (136-145) 07/18/23 23:25 Potassium 4.4 mmol/L (3.5-5.1) 07/18/23 23:25 Chloride 109 mmol/L (98-107) H 07/18/23 23:25 Carbon Dioxide 14 mmol/L (22-29) L 07/18/23 23:25 Anion Gap 20.4 (5-19) H 07/18/23 23:25 BUN 15 mg/dL (8-23) 07/18/23 23:25 Creatinine 1.7 mg/dL (0.5-0.9) H 07/18/23 23:25 GFR Calculation Not Reportable 07/18/23 23:25 Glucose 87 mg/dL (65-115) 07/18/23 23:25 Calculated Osmolality 288 mOsm/kg (285-295) 07/18/23 23:25 Calcium 8.3 mg/dL (8.5-10.5) L 07/18/23 23:25 Total Bilirubin 0.3 mg/dL (0.15-1.2) 07/18/23 18:56 AST 41 U/L (0-32) H 07/18/23 18:56 ALT 11 U/L (0-33) 07/18/23 18:56 Alkaline Phosphatase 70 U/L (35-105) 07/18/23 18:56 Total Protein 6.1 g/dL (6.6-8.7) L 07/18/23 18:56 Albumin 3.2 g/dL (3.5-5.2) L 07/18/23 18:56 Globulin 2.9 g/dL (1.3-4.6) 07/18/23 18:56 Lipase 8 U/L (13-60) L 07/18/23 18:56 Urine Color Light yellow (Yellow) 07/18/23 21:32 Urine Appearance Clear (CLEAR) 07/18/23 21:32 Urine pH 5 (5-7) 07/18/23 21:32 Ur Specific [place] 1.010 (1.005-1.030) 07/18/23 21:32 Urine Protein Neg (Negative) 07/18/23 21:32 Urine Glucose (UA) Norm (Normal) 07/18/23 21:32 Urine Ketones 1+ (Negative) H 07/18/23 21:32 Urine Blood Neg (Negative) 07/18/23 21:32 Urine Nitrate Negative (Negative) 07/18/23 21:32 Urine Bilirubin Neg (Negative) 07/18/23 21:32 Urine Urobilinogen Neg mg/dL (Negative) 07/18/23 21:32 Ur Leukocyte Esterase Negative (Negative) 07/18/23 21:32 All radiology interpretation(s) finalized by discharge Discharge Plan Discharge Patient Disposition: Home Clinical Impression: Abdominal pain Condition: Stable Prescriptions: New Protonix 40 mg tablet,delayed release (DR/EC) 40 mg PO DAILY Qty: 60 0RF ondansetron 4 mg tablet,disintegrating 4 mg PO Q6H PRN (Reason: nausea and vomiting) Qty: 14 0RF Discontinued esomeprazole magnesium [Nexium] 40 mg capsule,delayed release(DR/EC) 40 mg PO DAILY Qty: 90 0RF No Action gabapentin 300 mg capsule 300 mg PO TID tizanidine 4 mg capsule 4 mg PO Q6H PRN oxycodone 10 mg tablet 10 mg PO QID PRN Xtampza ER 13.5 mg cap,sprinkl,ER12hr(DONT CRUSH) 13.5 mg PO BID Rx Instructions: must administer with a meal/food levothyroxine [Synthroid] 75 mcg tablet 50 mcg PO DAILY nitroglycerin 0.4 mg tablet, sublingual 0.4 mg sublingual Q5M PRN Rx Instructions: do not exceed 3 doses per episode meclizine 12.5 mg tablet 12.5 mg PO DAILY PRN Zyrtec 10 mg capsule 10 mg PO DAILY PRN lisinopril 10 mg tablet 10 mg PO DAILY Qty: 90 0RF Eliquis 5 mg tablet 5 mg PO BID Qty: 180 0RF cholecalciferol (vitamin D3) 1,250 mcg (50,000 unit) capsule 50,000 unit PO .weekly Qty: 12 0RF furosemide [Lasix] 20 mg tablet 40 mg PO DAILY Qty: 90 0RF sodium chloride 1,000 mg tablet,soluble 1,000 mg PO DAILY Qty: 30 2RF magnesium oxide 400 mg magnesium tablet 400 mg PO BID Qty: 60 2RF ondansetron 4 mg tablet,disintegrating 4 mg PO Q4H PRN (Reason: nausea and vomiting) Qty: 10 0RF Discharge Orders: Discharge ED (Routine); Ordered 07/19/23 Ordered By: Shahnaz Sutherland Referrals: Javon Combs MD [Physician] - 1-3 days Neva Darling, OBIEE REPORT DEVELOPER-C [Primary Care Provider] - Discharge Diet: Advance as tolerated Discharge Activity: Resume usual activity Patient Instructions: Abdominal Pain (ED) Coding Level of Care Code ED Pickling Tank Operator for Elvira Cueva
[2023-07-18 21:40] LABS: Add Urine Microscopic? NO; Charge for UA Resulting for Rev
[2023-07-18 21:46] LABS: Bilirubin Urine Neg (Negative); Blood Urine Neg (Negative); Glucose Urine UA Norm (Normal); Ketones Urine 1+ (Negative); Leukocyte Esterase Urine Negative (Negative); Nitrate Urine Negative (Negative); Protein Urine Neg (Negative); Urine Appearance Clear (CLEAR); Urine Color Light yellow (Yellow); Urobilinogen Urine Neg (Negative); pH Urine 5 (5-7)
[2023-07-18] MEDS: sodium chloride 0.9% 1,000 ML 999 ML IV ×2 (22:06→22:52)
[2023-07-18] MEDS: ondansetron 2 mg/ML SDV 2 mL 4 MG IVP (22:06)
[2023-07-18 22:09] VITALS: RESP 18
[2023-07-18] MEDS: morphine 4 mg/mL SDV 1 mL IVP (22:09)
[2023-07-18 22:29] VITALS: BP 108/65; PULSE 85; RESP 16; O2SAT 95
[2023-07-18 23:34] VITALS: BP 121/80; PULSE 91; RESP 16; O2SAT 100
[2023-07-18 23:50] LABS: Anion Gap 20.4 (5-19); Blood Urea Nitrogen 15 mg/dL (8-23); Calcium 8.3 mg/dL (8.5-10.5); Carbon Dioxide 14 mmol/L (22-29); Chloride 109 mmol/L (98-107); Glucose 87 mg/dL (65-115); Osmolality Calculated 288 mOsm/kg (285-295); Potassium 4.4 mmol/L (3.5-5.1); Sodium 139 mmol/L (136-145)
[2023-07-19 00:22] VITALS: BP 121/80; PULSE 91; RESP 16; TEMP 36.3; O2SAT 100
--- NOTE | 2023-07-19 00:55 | DCPLANNER ---
Message sent to gen surg- follow up for abd pain
== END 2023-07-19 00:23 | disposition home or self-care (01) ==
PROVIDERS: Emergency Provider Emergency Medicine; PCP Nurse Practitioner
DX: R10.13 Epigastric pain (principal); Z79.01 Long term (current) use of anticoagulants; I11.0 Hypertensive heart disease with heart failure; I50.9 Heart failure, unspecified; Z95.0 Presence of cardiac pacemaker
CPT/HCPCS: 36415; 80048; 80053; 81003; 83690; 85025; 96361; 96374; 96375; 99284; J2270; J2405; J7030

== ENCOUNTER 2023-08-21 16:22 | Emergency (ER) | payer MEDICARE, SELFPAY ==
[2023-08-21 16:24] VITALS: BMI 28.5
--- NOTE | 2023-08-21 16:25 | CTR_ITS ---
PROCEDURE INFORMATION: Exam: CT Head Without Contrast Exam date and time: 08/21/2023 4:41 PM Age: 83 years old Clinical indication: Injury or trauma; Fall; Blunt trauma (contusions or hematomas) TECHNIQUE: Imaging protocol: Computed tomography of the head without contrast. Radiation optimization: All CT scans at this facility use at least one of these dose optimization techniques: automated exposure control; mA and/or kV adjustment per patient size (includes targeted exams where dose is matched to clinical indication); or iterative reconstruction. REPORTING DATA: Count of CT and Cardiac NM exams in prior 12 months: This patient has received 2 known CTs and 0 known cardiac nuclear medicine studies in the 12 months prior to the current study. COMPARISON: CT head wo con* [id number] 03/05/2017 11:37 AM RADIATION DOSE METRICS: Total DLP (mGy-cm): 984 FINDINGS: Brain: Severe calcified intracranial atherosclerotic vessel disease. Mild to moderate cerebral atrophy and ischemic leukoencephalopathy. Cerebral ventricles: No ventriculomegaly. Paranasal sinuses: Visualized sinuses are unremarkable. No fluid levels. Mastoid air cells: Visualized mastoid air cells are well aerated. Bones/joints: Unremarkable. No acute fracture. Soft tissues: Soft tissue swelling/hematoma over the left forehead. CT/CT head wo con* [id number] IMPRESSION: 1. Soft tissue swelling/hematoma over the left forehead. 2. No acute intracranial findings.
[2023-08-21 16:30] VITALS: BP 157/74; PULSE 83; RESP 16; TEMP 37.1; O2SAT 100
--- NOTE | 2023-08-21 16:55 | W.ED.HEATRA ---
HPI - Head Injury General: Chief complaint: Head Injury Stated complaint: Fall Time Seen by Provider: 08/21/23 16:23 Source: patient and EMS Mode of arrival: EMS Limitations: no limitations History of Present Illness: 83-year-old female who states roughly 4 hours ago she had a fall in her bathroom and hit her head on the sink she does have a hematoma to her forehead she denies any loss conscious she denies headache or neck pain she is on Eliquis. Patient is ambulatory here. Associated symptoms: Deny nausea, neck pain or vomiting Review of Systems Const: Denies: fever(s), chills, body aches or change in appetite Eyes: Denies: blurry vision or eye discomfort ENMT: Denies: throat pain or dental pain Card: Denies: chest pain Resp: Denies: dyspnea GI: Denies: abdominal pain, nausea, vomiting or diarrhea Musc: Denies: neck pain or back pain Skin/Breast: Denies: rash Neuro: Reports: headache(s) Physical Exam Const: COMMON NORMALS: no acute distress, patient oriented x3 and healthy appearing HENMT: COMMON NORMALS: normocephalic HEAD & SCALP: normocephalic OTHER: hematoma to forehead Eye: COMMON NORMALS: Equal, round and reactive pupils present and EOMs intact bilaterally PUPIL: Yes Equal, round and reactive pupils present Neck/C-Spine: COMMON NORMALS: full ROM and supple CERVICAL SPINE: Yes cervical ROM normal, No pain with cervical ROM and No Cervical spine tenderness Chest: COMMONS NORMALS: normal inspection of the chest Resp: COMMON NORMALS: normal respiratory effort Cardio: COMMON NORMALS: regular rate, regular rhythm and No murmurs present (Cardio) RATE: regular rate RHYTHM: regular rhythm GI: COMMON NORMALS: Normal to inspection, nondistended, normoactive bowel sounds present, Soft to palpation, non-tender and no masses PALPATION: Yes Soft to palpation Extremity: COMMON NORMALS: normal to inspection and full ROM Neuro: COMMON NORMALS: patient oriented x3, moves all extremities and no focal motor deficits Psych: COMMON NORMALS: mental status grossly normal, Normal thought process present and cooperative THOUGHT PROCESS: Normal thought process present Skin: COMMON NORMALS: no rashes or lesions noted and no wounds GENERAL SKIN EXAM: no rashes or lesions noted Course Vital Signs: Vital signs: Vital Signs Temperature 98.7 F 08/21/23 16:30 Pulse Rate 83 08/21/23 16:30 Respiratory Rate 16 08/21/23 16:30 Blood Pressure 157/74 08/21/23 16:30 Pulse Oximetry 100 08/21/23 16:30 Oxygen Delivery Me thod Room Air 08/21/23 16:30 MDM - Head Injury Medcial Decision Making Patient presents here with a closed head injury she has no pain here she is well-appearing she is on Eliquis so head CT was performed it is negative she is stable for discharge. Lab Data Radiology Impressions Head CT 08/21/23 16:25 IMPRESSION: 1. Soft tissue swelling/hematoma over the left forehead. 2. No acute intracranial findings. All radiology interpretation(s) finalized by discharge Discharge Plan Discharge Patient Disposition: Home Clinical Impression: Closed head injury Qualifiers: Encounter type: initial encounter Qualified Code(s): S09.90XA - Unspecified injury of head, initial encounter Condition: Stable Prescriptions: No Action cetirizine 5 mg Tablet 5 mg PO DAILY tizanidine 4 mg tablet 4 mg PO QID PRN (Reason: Spasms) Hold Instructions: Resume on 07/22/23. hold for at least 10 days, dont take when taking ciprofloxacin levothyroxine 50 mcg Tablet 50 mcg PO DAILY esomeprazole magnesium 40 mg capsule,delayed release(DR/EC) 40 mg PO DAILY gabapentin 300 mg capsule 300 mg PO TID Lasix 20 mg Tablet 20 mg PO BID Hold Instructions: Resume on 07/12/23. Eliquis 5 mg Tablet 5 mg PO BID oxycodone-acetaminophen 10-325 mg tablet 1 tab PO Q6H PRN (Reason: pain) 7 Days Qty: 28 0RF lisinopril 10 mg Tablet 10 mg PO Q12H 30 Days Qty: 60 0RF ondansetron 4 mg tablet,disintegrating 4 mg PO Q6H PRN (Reason: Nausea) 7 Days Qty: 28 0RF Discharge Orders: Discharge ED (Routine); Ordered 08/21/23 Ordered By: Shahnaz Sutherland Discharge Diet: Advance as tolerated Discharge Activity: Resume usual activity Patient Instructions: Head Injury (ED) Coding Level of Care Code ED Web User Experience Strategist for Elvira Cueva
[2023-08-21] MEDS: acetaminophen 500 mg Tablet PO (18:10)
--- NOTE | 2023-08-21 18:20 | CTR_ITS ---
PROCEDURE INFORMATION: Exam: CT Head Without Contrast Exam date and time: 08/21/2023 6:29 PM Age: 83 years old Clinical indication: Injury or trauma; Fall; Blunt trauma (contusions or hematomas); Additional info: New fall, worsening hematoma TECHNIQUE: Imaging protocol: Computed tomography of the head without contrast. Radiation optimization: All CT scans at this facility use at least one of these dose optimization techniques: automated exposure control; mA and/or kV adjustment per patient size (includes targeted exams where dose is matched to clinical indication); or iterative reconstruction. REPORTING DATA: Count of CT and Cardiac NM exams in prior 12 months: This patient has received 2 known CTs and 0 known cardiac nuclear medicine studies in the 12 months prior to the current study. COMPARISON: CT head wo con* [id number] 08/21/2023 4:41 PM RADIATION DOSE METRICS: Total DLP (mGy-cm): 1052 FINDINGS: Brain: Severe calcified intracranial atherosclerotic vessel disease. Mild to moderate cerebral atrophy and ischemic leukoencephalopathy. Cerebral ventricles: No ventriculomegaly. Paranasal sinuses: Visualized sinuses are unremarkable. No fluid levels. Mastoid air cells: Visualized mastoid air cells are well aerated. Bones/joints: Unremarkable. No acute fracture. Soft tissues: 4 cm soft tissue hematoma and soft tissue contusion over the left orbit and forehead. CT/CT head wo con* [id number] IMPRESSION: 1. Increased size of 4 cm soft tissue hematoma over the left superior orbit and forehead. 2. No acute intracranial findings.
[2023-08-21 18:44] VITALS: BP 185/78; PULSE 64; RESP 18; O2SAT 99
[2023-08-21 19:46] VITALS: BP 161/65; PULSE 67; RESP 18; O2SAT 99
== END 2023-08-21 19:47 | disposition home or self-care (01) ==
PROVIDERS: Emergency Provider Emergency Medicine
DX: S00.83XA Contusion of other part of head, initial encounter (principal); Z79.01 Long term (current) use of anticoagulants; W19.XXXA Unspecified fall, initial encounter
CPT/HCPCS: 70450; 99284

== ENCOUNTER 2023-09-01 12:53 | Outpatient (CLI) | payer MEDICARE, SELFPAY ==
[2023-09-01 15:17] LABS: Alanine Aminotransferase 13 U/L (0-33); Albumin Level 3.3 g/dL (3.5-5.2); Alkaline Phosphatase 97 U/L (35-105); Blood Urea Nitrogen 25 mg/dL (8-23); Calcium 9.7 mg/dL (8.5-10.5); Carbon Dioxide 12 mmol/L (22-29); Chloride 105 mmol/L (98-107); Globulin 3.6 g/dL (1.3-4.6); Glucose 80 mg/dL (65-115); Magnesium 1.3 mg/dL (1.7-2.3); Osmolality Calculated 283 mOsm/kg (285-295); Sodium 135 mmol/L (136-145); Thyroid Stimulating Hormone 8.25 uIU/mL (0.27-4.20); Total Bilirubin 0.3 mg/dL (0.15-1.2); Total Protein 6.9 g/dL (6.6-8.7)
[2023-09-01 15:28] LABS: Anion Gap 22.5 (5-19); Aspartate Amino Transferase 18 U/L (0-32); Potassium 4.5 mmol/L (3.5-5.1)
== END 2023-09-01 12:54 | disposition home or self-care (01) ==
PROVIDERS: PCP Nurse Practitioner; Visit Provider Nurse Practitioner
DX: E03.9 Hypothyroidism, unspecified (principal); D64.9 Anemia, unspecified; E61.2 Magnesium deficiency; E87.1 Hypo-osmolality and hyponatremia
CPT/HCPCS: 80053; 83735; 84443; 85025

== ENCOUNTER 2023-10-10 12:00 | Outpatient (CLI) | payer MEDICARE, SELFPAY ==
[2023-10-10 13:08] LABS: Basophils % 0.4 %; Eosinophils # 0.1 10^3/uL (0.0-0.8); Eosinophils % 1.6 %; Hematocrit 31.9 % (36-47); Lymphocytes # 2.1 10^3/uL (0.8-4.8); Lymphocytes % 30.5 %; Mean Corpuscular HGB Conc 30.7 g/dL (30-55); Mean Corpuscular Hemoglobin 31.4 pg (27-33); Mean Corpuscular Volume 102.2 fl (85-98); Mean Platelet Volume 10.2 fL (7.4-10.4); Monocytes # 0.6 10^3/uL (0.2-0.9); Monocytes % 8.7 %; Neutrophils # 3.98 10^3/uL (1.8-7.7); Neutrophils % 58.5 %; Nucleated Red Blood Cells % 0 %; Platelet Count 240 10^3/cmm (157-399); Red Blood Count 3.12 10^6/uL (3.85-5.65); Red Cell Distribution Width 14.4 % (12.1-15.1); White Blood Count 6.81 10^3/uL (3.29-11.43)
[2023-10-10 13:50] LABS: Anion Gap 12.4 (5-19); Blood Urea Nitrogen 23 mg/dL (8-23); Calcium 8.5 mg/dL (8.5-10.5); Carbon Dioxide 30 mmol/L (22-29); Chloride 100 mmol/L (98-107); Glucose 91 mg/dL (65-115); Iron 54 ug/dL (37-145); Osmolality Calculated 291 mOsm/kg (285-295); Percent Saturation 27.1 % (20-50); Potassium 3.4 mmol/L (3.5-5.1); Sodium 139 mmol/L (136-145); Thyroid Stimulating Hormone 0.23 uIU/mL (0.27-4.20); Total Iron Binding Capacity 199 mcg/dl; Unsaturated Iron Binding 145 ug/dL (112-347)
[2023-10-10 14:16] LABS: T3 Free 2.3 PG/ML (2.0-4.4)
[2023-10-10 14:22] LABS: Magnesium 0.9 mg/dL (1.7-2.3)
[2023-10-11 12:42] LABS: Vitamin B12 481 pg/mL (232-1245)
== END 2023-10-10 12:01 | disposition home or self-care (01) ==
LOC: LAB 12:02
PROVIDERS: PCP Nurse Practitioner; Visit Provider Nurse Practitioner
DX: E61.2 Magnesium deficiency (principal); E87.1 Hypo-osmolality and hyponatremia; E03.9 Hypothyroidism, unspecified; D64.9 Anemia, unspecified
CPT/HCPCS: 36415; 80048; 82607; 83540; 83550; 83735; 84439; 84443; 84481; 85025

== ENCOUNTER 2023-10-12 16:11 | Emergency (ER) | payer MEDICARE, SELFPAY ==
--- NOTE | 2023-10-12 16:14 | CTR_ITS ---
PROCEDURE INFORMATION: Exam: CT Head Without Contrast Exam date and time: 10/12/2023 4:14 PM Age: 83 years old Clinical indication: Injury or trauma; Fall; Blunt trauma (contusions or hematomas); Additional info: Trauma/fall TECHNIQUE: Imaging protocol: Computed tomography of the head without contrast. Radiation optimization: All CT scans at this facility use at least one of these dose optimization techniques: automated exposure control; mA and/or kV adjustment per patient size (includes targeted exams where dose is matched to clinical indication); or iterative reconstruction. COMPARISON: CT head wo con* [id number] 08/21/2023 6:29 PM RADIATION DOSE METRICS: Total DLP (mGy-cm): 997.4 FINDINGS: Brain: There is no evidence of intracranial hemorrhage. There are no areas of mass effect, edema or midline shift. There are diffuse indistinct areas of decreased attenuation involving the periventricular white matter likely secondary to chronic white matter microvascular changes. There is age-related cerebral volume loss responsible for prominence of the cortical sulci. Cerebral ventricles: There is mild proportionate ventricular dilatation believed secondary to age related cerebral volume loss. Paranasal sinuses: Visualized sinuses are unremarkable. No fluid levels. Mastoid air cells: Visualized mastoid air cells are well aerated. Bones/joints: Unremarkable. No acute fracture. Soft tissues: Small left frontal scalp hematoma in decreased in size from prior study probably related to old injury.. CT/CT head wo con* [id number] IMPRESSION: No acute intracranial abnormalities.
--- NOTE | 2023-10-12 16:14 | CTR_ITS ---
PROCEDURE INFORMATION: Exam: CT Cervical Spine Without Contrast Exam date and time: 10/12/2023 4:14 PM Age: 83 years old Clinical indication: Injury or trauma; Fall; Blunt trauma; Prior surgery; Surgery date: 6+ months; Surgery type: Neck; Additional info: Trauma/fall TECHNIQUE: Imaging protocol: Computed tomography of the cervical spine without contrast. Radiation optimization: All CT scans at this facility use at least one of these dose optimization techniques: automated exposure control; mA and/or kV adjustment per patient size (includes targeted exams where dose is matched to clinical indication); or iterative reconstruction. COMPARISON: CT cervical spin wo con* [id number] 03/05/2017 11:34 AM RADIATION DOSE METRICS: Total DLP (mGy-cm): 502.6 FINDINGS: Bones/joints: Mild lateral tilt of the upper cervical spine to the patient's right on the current study that may in part be due to muscle spasm as well as left-sided facet arthrosis C2-C3 progressed from prior study. Slight degenerative spondylolisthesis C7-T1 unchanged. Cervical curvature and alignment in the sagittal plain is otherwise unremarkable. Prior ACDF C3-C4 with air body spacer unchanged. Hardware is intact. Additional interbody fusion C5-C6 unchanged with maintained anatomic alignment. No severe spinal or foraminal stenosis. No evidence of fracture, subluxation or traumatic spondylolisthesis. Lungs: Lung apices are normal. Soft tissues: No prevertebral or paraspinal soft tissue swelling. CT/CT cervical spin wo con* [id number] IMPRESSION: 1. No acute bony abnormalities. 2. Stable postsurgical changes mid cervical spine
--- NOTE | 2023-10-12 16:15 | W.ED.FALL ---
HPI - Fall General: Chief Complaint: Head Injury Stated Complaint: CONTUSION BACK OF HEAD S/P FALL Time Seen by Provider: 10/12/23 16:14 History of Present Illness: 83-year-old female presents to the emergency department secondary to an accidental slip and fall she states she was attempting to walk and slipped on the wet ground fell backwards hitting the back of her head. She is on apixaban anticoagulation. She does have a large hematoma to the occipital region. She is alert and oriented x 4 and person, place, time and situation. She denies loss of consciousness. GCS 15. She is following commands and responding appropriately during our interview and evaluation. Associated symptoms-after fall: Reports headache(s) Review of Systems General: Reports: 10 or more systems reviewed and unremarkable except in HPI and below Skin/Breast: Reports: other (Occipital hematoma) Neuro: Reports: headache(s) [facility] PFSH: Medical History Vitamin D deficiency Seasonal and perennial allergic rhinitis CHF (congestive heart failure) Chronic pain Dr. Almeida Pacemaker Hypothyroid Essential hypertension Murmur, cardiac Atrial fibrillation Surgical History History of exploratory laparotomy Adhesion two times Hx of breast reduction, elective History of neck surgery Hardware History of back surgery Lumbar with hardware History of knee surgery Right scope History of cholecystectomy Open History of hysterectomy 1966 abdomen with BSO History of cardiac pacemaker 2016 Family History Grandmother Cancer Mother Hypertension Father Hypertension Brother Stroke Denies family history of Diabetes Dementia Social History Smoking and tobacco/nicotine status: never used tobacco/nicotine Second hand smoke exposure: No Alcohol intake: never Substance/Drug Use: never Adopted: No Caregiver/support person: Yes Lives independently: No Household members: family Housing: House Marital status: Number of children: 5 service: No Current occupational status: retired Do you think of yourself as: Straight/Heterosexual Current gender identity: Female Physical Exam Narrative: EXAM NARRATIVE: Constitutional: the patient appears well nourished and of normal development. Vital signs as documented. No acute distress at present. Alert and oriented-to person, place, time and situation. GCS 15. Head, eyes, ears, nose, mouth, throat: 4 cm hematoma to the occipital region, superficial abrasion to the same area.. Pupils-equal, round, reactive to light. No scleral icterus. Normal-appearing external ears. Normal appearing nasal turbinates, no drainage. No obvious oral lesions, posterior oropharynx without erythema or exudates. Poor dentition. Neck: Supple, trachea is midline, no lymphadenopathy, no jugular venous distension, thyromegaly, or carotid bruits. Carotid upstrokes are brisk bilaterally. Nontender to palpation, no crepitus, no palpable step-offs, flexion, extension and lateral rotation are without difficulty or pain. There is no meningeal signs noted. Lungs: clear to auscultation to all lung ledbetter. Symmetrical rise and fall of chest, no obvious signs of increased work of breathing at present. Thorax: Symmetrical rise and fall. No obvious tenderness to palpation, there is no crepitus or obvious displacement of the ribs. Cardiac: Regular rate and rhythm, positive S1, S2. No murmurs, rubs or gallops that I can appreciate Abdomen: Soft, non-tender to palpation, normal active bowel sounds to all quadrants. No palpable masses, no organomegaly and abdominal bruits. Extremities: 2+ pulses in the upper extremities that are equal bilaterally, 2+ pulses in the lower extremities that are equal bilaterally. Non-edematous. Moves all extremities well, sensation to all extremities are noted. Skin: Warm, dry, intact. Neuro: Alert and oriented x4, person, place, time and situation. Cranial nerves II through XII are grossly intact, there is no focal neurological deficits that I can appreciate at present. Motor strength in the upper and lower extremities are equal and bilateral 5/5. Psych: Cooperative, calm, normal thought process, appropriate judgment. Back: Symmetrical, no obvious deformity, No CVA tenderness. Nontender to palpation, no palpable step-off, normal-appearing alignment, no crepitus noted on palpation. Course Vital Signs: Vital signs: Vital Signs Temperature 98.3 F 10/12/23 16:22 Pulse Rate 62 10/12/23 18:00 Respiratory Rate 18 10/12/23 16:22 Blood Pressure 122/68 10/12/23 16:22 Pulse Oximetry 99 10/12/23 18:00 Oxygen Delivery Me thod Room Air 10/12/23 18:00 MDM - Fall Medical Decision Making Physical exam completed document I will obtain a CT scan of her head and cervical spine and provide recommended follow-up as needed. Medical Records I reviewed the patient's medical records. Lab Data Radiology Impressions Cervical Spine CT 10/12/23 16:14 IMPRESSION: 1. No acute bony abnormalities. 2. Stable postsurgical changes mid cervical spine Head CT 10/12/23 16:14 IMPRESSION: No acute intracranial abnormalities. All radiology interpretation(s) finalized by discharge Discharge Plan Discharge Patient Disposition: Home Clinical Impression: Hematoma of occipital region of scalp Accidental fall Qualifiers: Encounter type: initial encounter Qualified Code(s): W19.XXXA - Unspecified fall, initial encounter Condition: Stable Prescriptions: No Action gabapentin 300 mg capsule 300 mg PO TID oxycodone 10 mg tablet 10 mg PO QID PRN Xtampza ER 13.5 mg cap,sprinkl,ER12hr(DONT CRUSH) 13.5 mg PO BID Rx Instructions: must administer with a meal/food nitroglycerin 0.4 mg tablet, sublingual 0.4 mg sublingual Q5M PRN Rx Instructions: do not exceed 3 doses per episode meclizine 12.5 mg tablet 12.5 mg PO DAILY PRN Zyrtec 10 mg capsule 10 mg PO DAILY PRN Protonix 40 mg tablet,delayed release (DR/EC) 40 mg PO DAILY Qty: 60 2RF cholecalciferol (vitamin D3) 1,250 mcg (50,000 unit) capsule 50,000 unit PO .weekly Qty: 12 1RF [place] [place] [id number] See Rx Instructions .ROUTE .MEDSUPPLY Qty: 1 0RF Rx Instructions: As directed ([facility] [place] Wheelchair See Rx Instructions .Route .MEDSUPPLY Qty: 1 0RF Rx Instructions: As directed potassium chloride 8 mEq capsule, extended release 8 meq PO DAILY Qty: 30 2RF magnesium oxide 400 mg magnesium tablet See Rx Instructions PO .COMPLEX Qty: 120 2RF Rx Instructions: 800mg AM 800mg PM orally; levothyroxine [Synthroid] 75 mcg tablet 75 mcg PO .COMPLEX Qty: 30 2RF Rx Instructions: 75 mcg orally 6 days week; Eliquis 5 mg tablet 5 mg PO BID Qty: 180 0RF furosemide [Lasix] 20 mg tablet 40 mg PO DAILY Qty: 30 2RF lisinopril 10 mg tablet 10 mg PO Q12H 30 Days Qty: 60 2RF sodium chloride 1,000 mg tablet,soluble 2,000 mg PO DAILY Qty: 60 2RF ondansetron 4 mg tablet,disintegrating 4 mg PO Q6H PRN (Reason: nausea and vomiting) Qty: 14 2RF tizanidine 4 mg tablet 4 mg PO QID PRN (Reason: Spasms) Hold Instructions: Resume on 07/22/23. hold for at least 10 days, dont take when taking ciprofloxacin Discharge Orders: Discharge ED (Routine); Ordered 10/12/23 Ordered By: Charanjit Littlejohn Referrals: Neva Darling, [facility] [Primary Care Provider] - Discharge Diet: Usual diet Discharge Activity: Resume usual activity Patient Instructions: Opioid Safety, Pain Management Activity Restrictions/Additional Instructions: Activity Restrictions/Additional Instructions: Thank you for choosing [facility] for your healthcare needs today. Please realize that you were seen in the Emergency Department and that we are providing you with an emergency medical screening exam and this may not be a complete and all inclusive of all the testing and or medical work-up that you may need to determine your ailment or severity of your illness. It is very important that you follow-up as instructed with your Primary care provider or Specialist for additional evaluation and to discuss your medical treatment plan. You may return to the Emergency Department should you have concerns or if your condition changes or worsens in any way. Coding Level of Care Code ED Seafood Clerk for Elvira Cueva
[2023-10-12 16:22] VITALS: BP 122/68; PULSE 71; RESP 18; TEMP 36.8; O2SAT 99
[2023-10-12 18:00] VITALS: PULSE 62; O2SAT 99
== END 2023-10-12 18:38 | disposition home or self-care (01) ==
PROVIDERS: Emergency Provider Internal Medicine; PCP Nurse Practitioner
DX: S00.03XA Contusion of scalp, initial encounter (principal); Z79.01 Long term (current) use of anticoagulants; I11.0 Hypertensive heart disease with heart failure; I50.9 Heart failure, unspecified; Z95.0 Presence of cardiac pacemaker; W01.0XXA Fall on same level from slipping, tripping and stumbling without subsequent striking against object, initial encounter
CPT/HCPCS: 70450; 72125; 99284

== ENCOUNTER 2023-10-13 05:00 | Emergency (ER) | payer MEDICARE, SELFPAY ==
[2023-10-13 05:10] VITALS: BP 218/148; PULSE 130; RESP 14; O2SAT 100
[2023-10-13 05:11] VITALS: TEMP 37.3
--- NOTE | 2023-10-13 05:12 | CTR_ITS ---
PROCEDURE INFORMATION: Exam: CT Head Without Contrast Exam date and time: 10/13/2023 5:58 AM Age: 83 years old Clinical indication: Injury or trauma; Fall; Blunt trauma (contusions or hematomas); Injury details: PT found unresponsive; Additional info: AMS TECHNIQUE: Imaging protocol: Computed tomography of the head without contrast. Radiation optimization: All CT scans at this facility use at least one of these dose optimization techniques: automated exposure control; mA and/or kV adjustment per patient size (includes targeted exams where dose is matched to clinical indication); or iterative reconstruction. COMPARISON: CT head wo con* [id number] 10/12/2023 4:14 PM RADIATION DOSE METRICS: Total DLP (mGy-cm): 998.68 FINDINGS: Brain: Approximately 1.6 cm posteroinferior left occipital lobe hemorrhagic contusion with mild adjacent edema. Diffuse right convexity acute subdural hematoma measuring up to 12 mm in thickness. Minimal acute traumatic subarachnoid hemorrhage within left posterior temporal occipital and anterior inferior bifrontal sulci. Mild right hemispheric sulcal effacement and approximately 4 mm of [id number] midline shift. Diffuse atrophy and white matter chronic small vessel ischemic changes. Cerebral ventricles: Ventricular prominence proportional to sulci. Right lateral ventricle partial effacement. Paranasal sinuses: No significant or acute abnormality. No air-fluid levels. Mastoid air cells: No acute abnormality. No significant mastoid effusion. Bones/joints: Acute nondepressed left posterior parietal and occipital calvarial fracture extending inferiorly. Soft tissues: Left posterior parietooccipital scalp soft tissue swelling. Mild left frontal scalp soft tissue swelling. Vasculature: Atherosclerotic vascular calcification of the bilateral distal vertebral arteries and carotid siphons. CT/CT head wo con* [id number] IMPRESSION: 1. Acute nondepressed left posterior parietal and occipital calvarial fracture extending inferiorly. 2. Approximately 1.6 cm posteroinferior left occipital lobe hemorrhagic contusion with mild adjacent edema. 3. Diffuse right convexity acute subdural hematoma measuring up to 12 mm in thickness. 4. Minimal acute traumatic subarachnoid hemorrhage within left posterior temporal occipital and anterior inferior bifrontal sulci. 5. Mild right hemispheric sulcal effacement and approximately 4 mm of [id number] midline shift. THIS REPORT CONTAINS FINDINGS THAT MAY BE CRITICAL TO PATIENT CARE. The findings were verbally communicated via telephone conference with ALBERTO Boyd at 6:35 AM TAX COLLECTOR on 10/13/2023. The findings were acknowledged and understood.
--- NOTE | 2023-10-13 05:12 | XRR_ITS ---
PROCEDURE INFORMATION: Exam: XR Chest Exam date and time: 10/13/2023 5:29 AM Age: 83 years old Clinical indication: Device placement; Other: Central line, et and ng placement; Additional info: AMS TECHNIQUE: Imaging protocol: Radiologic exam of the chest. Views: Portable supine AP chest x-ray, 1 view. COMPARISON: CT cervical spin wo con* [id number] 10/12/2023 4:14 PM FINDINGS: Tubes, catheters and devices: ET tube in place in expected position within the trachea. Right IJ central line in place extending into the right atrium. NG tube in place within the gastric fundus. Left bipolar pacemaker in place. Lungs: Mildly increased pulmonary vascularity and slightly increased interstitial markings. Pleural spaces: No significant costophrenic angle blunting. No evidence of pneumothorax. Heart/Mediastinum: Heart size within normal limits given the portable supine AP technique. Calcified mitral annulus. Vasculature: Atherosclerotic tortuosity and calcification of the thoracic aorta. Bones/joints: No acute osseous abnormality. XR/XR chest 1V portable [id number] IMPRESSION: 1. ET tube in place in expected position within the trachea. 2. Right IJ central line in place extending into the right atrium. 3. NG tube in place within the gastric fundus. 4. Mild pulmonary vascular congestion and possible interstitial edema.
--- NOTE | 2023-10-13 05:14 | ECG_ITS ---
[facility] Test Date: 2023-10-13 Pat Name: Carmella Jose Department: Room: Gender: Female Cop Winder: : 1940 Requested By: Abdiaziz Solano Order Number: [id number] Constanza MD: Rupesh Kaiser M.D. Measurements Intervals [place] Rate: 141 P: 87 [place]: 135 QRS: 60 QRSD: 82 T: 0 QT: 219 QTc: 335 Interpretive Statements Multifocal atrial tachycardia with the PVCs NONSPECIFIC ST & T-WAVE ABNORMALITY ABNORMAL RHYTHM ECG No previous ECG available for comparison Electronically Signed On 10-13-2023 21:24:26 VEHICLE INSURANCE AGENT by Rupesh Kaiser M.D. [email or web address] Care SolutionsGrowishmemorial health system marietta memorial hospitalSyndero/store/[id number] [email or web address]
[2023-10-13 05:15] VITALS: RESP 14
[2023-10-13 05:22] LABS: ABG PCO2 37.9 mmHg (35-45); ABG PH Result 7.42 (7.35-7.45); Alveolar-Arterial Oxygen Gradi 37.5 mmHg (5-10); Arterial Blood Gas Hematocrit 33.4 % (37-47); Base Excess ABG 0.5 mmol/L (-2.0-2.0); Blood Gas Sample Site Brachial, right; Blood Gas Sample Type Arterial; Blood Gas Tidal Volume 0.35; Carboxyhemoglobin 0.6 %THgb (0.4-20.1); HCO3 ABG 24.8 mmol/L (22-26); HGB O2 Sat 98.4 % (95-100); Ionized Calcium Level - ABG 1.2 mmol/L (1.1-1.4); Methemoglobin 1.2 % (0.4-1.5); Oxygen Device VENT; Oxygen Saturation ABG > 100.0; PO2 FiO2 Ratio Arterial Blood 0; Potassium Level - ABG 2.4 mmol/L (3.5-5.0); Total Hemoglobin 10.9 g/dL (12-16)
[2023-10-13] MEDS: propofol 1,000 MG/100 ML INJ 3.81 MG IV (05:50)
[2023-10-13] MEDS: esmolol drip 2,500 MG/250 ML PREMIX 38.1 MG IV (05:50)
[2023-10-13] MEDS: fentaNYL 1,000 MCG/100 ML BAG 2.5 MCG IV (05:50)
[2023-10-13 05:51] LABS: Basophils % 0.1 %; Hematocrit 32.5 % (36-47); Lymphocytes # 0.6 10^3/uL (0.8-4.8); Lymphocytes % 3.6 %; Mean Corpuscular HGB Conc 31.7 g/dL (30-55); Mean Corpuscular Hemoglobin 30.7 pg (27-33); Mean Corpuscular Volume 96.7 fl (85-98); Mean Platelet Volume 10.8 fL (7.4-10.4); Monocytes # 0.5 10^3/uL (0.2-0.9); Monocytes % 3.1 %; Neutrophils # 14.77 10^3/uL (1.8-7.7); Neutrophils % 92.6 %; Nucleated Red Blood Cells % 0 %; Platelet Count 252 10^3/cmm (157-399); Red Blood Count 3.36 10^6/uL (3.85-5.65); Red Cell Distribution Width 14.1 % (12.1-15.1); White Blood Count 15.96 10^3/uL (3.29-11.43)
[2023-10-13 06:07] LABS: INR 1.48 (0.8-1.2)
[2023-10-13 06:08] LABS: Partial Thromboplastin Time 29.5 SECONDS (23.9-36.7)
--- NOTE | 2023-10-13 06:12 | ED_ITS ---
HPI - General Adult 2 General: Chief complaint: General Medical Stated complaint: UNRESPONSIVE Time Seen by Provider: 10/13/23 05:12 History of Present Illness: 83-year-old female seen yesterday after a fall with a scalp hematoma. CT was negative at that time. Evidently she fell at home again last evening. She was unresponsive, thrashing in bed this morning for family. EMS was called. She had to be intubated in the field. She was given IM ketamine and intubated. She has required intraosseous ketamine infusion for sedation on the way here. She has been quite hypertensive, and tachycardic. Review of Systems 2 General: Reports: ROS unobtainable due to endotracheal tube and ROS unobtainable due to medical condition PFSH ED 2 PFSH: Medical History Vitamin D deficiency Seasonal and perennial allergic rhinitis CHF (congestive heart failure) Chronic pain Dr. Almeida Pacemaker Hypothyroid Essential hypertension Murmur, cardiac Atrial fibrillation Surgical History History of exploratory laparotomy Adhesion two times Hx of breast reduction, elective History of neck surgery Hardware History of back surgery Lumbar with hardware History of knee surgery Right scope History of cholecystectomy Open History of hysterectomy 1966 abdomen with BSO History of cardiac pacemaker 2016 Family History Grandmother Cancer Mother Hypertension Father Hypertension Brother Stroke Denies family history of Diabetes Dementia Social History Smoking and tobacco/nicotine status: never used tobacco/nicotine Second hand smoke exposure: No Alcohol intake: never Substance/Drug Use: never Adopted: No Caregiver/support person: Yes Lives independently: No Household members: family Housing: House Marital status: Number of children: 5 service: No Current occupational status: retired Do you think of yourself as: Straight/Heterosexual Current gender identity: Female Physical Exam 2 Const: ORIENTATION/CONSCIOUSNESS: Yes Other orientation findings (Unresponsive) HENMT: COMMON NORMALS: Normal external nose present HEAD & SCALP: contusion FACE & SINUS: face symmetric NOSE: Normal external nose present Eye: PUPIL: Yes Fixed pupils Neck/C-Spine: GENERAL: Yes trachea midline Chest: CHEST: Yes Symmetrical chest wall rise Resp: AUSCULTATION: rhonchi and wheezes Cardio: COMMON NORMALS: regular rhythm RATE: tachycardic RHYTHM: regular rhythm GI: COMMON NORMALS: Soft to palpation PALPATION: Yes Soft to palpation Neuro: ZAK COMA SCALE: document GCS findings [place] coma scale eye opening: None Zak coma scale verbal response: None [place] coma scale motor response: None [place] coma scale total score: 3 COMATOSE PATIENT: No response to noxious stimuli present Procedures Central Line Placement Right IJ: Time Out Performed: Yes Patient Placed on Monitor/Pulse Ox: Yes MD Prep: mask, gown and gloves Central Line Prep: Chlorhexidine scrub Local Anesthetic: lidocaine 1% Amount of anesthesia used (mL): 3 Ultrasound Used for Placement: Yes Central Line Lumen Inserted: triple Post Procedure: sutured in place, good blood return, all ports aspirated, flushed, capped and sterile dressing applied Post Procedure X-Ray: tip of catheter in good position Patient Tolerated Procedure: well and no complications Complications: none Course 2 Vital Signs: Vital signs: Vital Signs Temperature 99.2 F 10/13/23 05:11 Pulse Rate 130 H 10/13/23 05:10 Respiratory Rate 14 10/13/23 07:21 Blood Pressure 218/148 10/13/23 05:10 Pulse Oximetry 100 10/13/23 05:10 Fraction of Inspir ed Oxygen 35 10/13/23 07:21 MDM - General Adult Medical Decision Making CT scan shows a right-sided subdural hematoma with intraparenchymal hemorrhage as well. She is doing well on the ventilator. she was very tachycardic and hypertensive. Initial blood pressure was 220 systolic. IV access was difficult to establish, so central line was placed in the right IJ. She is started on esmolol drip. She is also given TXA for traumatic brain hemorrhage. She is given dexamethasone IV for swelling. We do not have Andexxa available currently for Eliquis reversal. Her potassium is 2.5, and will be repleted IV. We do not have neurosurgery availability at this hospital. I spoke with my counterpart in the ER at [facility] in [facility]. They are willing to take in trauma transfer. Blood pressure improving on transfer. 170 systolic. Lab Data 10/13/23 05:48 10/13/23 05:48 Radiology Impressions Chest X-Ray 10/13/23 05:12 IMPRESSION: 1. ET tube in place in expected position within the trachea. 2. Right IJ central line in place extending into the right atrium. 3. NG tube in place within the gastric fundus. 4. Mild pulmonary vascular congestion and possible interstitial edema. Head CT 10/13/23 05:12 IMPRESSION: 1. Acute nondepressed left posterior parietal and occipital calvarial fracture extending inferiorly. 2. Approximately 1.6 cm posteroinferior left occipital lobe hemorrhagic contusion with mild adjacent edema. 3. Diffuse right convexity acute subdural hematoma measuring up to 12 mm in thickness. 4. Minimal acute traumatic subarachnoid hemorrhage within left posterior temporal occipital and anterior inferior bifrontal sulci. 5. Mild right hemispheric sulcal effacement and approximately 4 mm of [id number] midline shift. THIS REPORT CONTAINS FINDINGS THAT MAY BE CRITICAL TO PATIENT CARE. The findings were verbally communicated via telephone conference with ABDIAZIZ Boyd at 6:35 AM COMMUNICATIONS ATTENDANT on 10/13/2023. The findings were acknowledged and understood. Laboratory Results WBC 15.96 10^3/uL (3.29-11.43) H 10/13/23 05:48 RBC 3.36 10^6/uL (3.85-5.65) L 10/13/23 05:48 Hgb 10.30 g/dL (11.27-16.99) L 10/13/23 05:48 Hct 32.5 % (36-47) L 10/13/23 05:48 MCV 96.7 fl (85-98) 10/13/23 05:48 MCH 30.7 pg (27-33) 10/13/23 05:48 MCHC 31.7 g/dL (30-55) 10/13/23 05:48 RDW 14.1 % (12.1-15.1) 10/13/23 05:48 Plt Count 252 10^3/cmm (157-399) 10/13/23 05:48 MPV 10.8 fL (7.4-10.4) H 10/13/23 05:48 Neut % (Auto) 92.6 % 10/13/23 05:48 Lymph % (Auto) 3.6 % 10/13/23 05:48 Alger % (Auto) 3.1 % 10/13/23 05:48 Eos % (Auto) 0.0 % 10/13/23 05:48 Baso % (Auto) 0.1 % 10/13/23 05:48 Neut # (Auto) 14.77 10^3/uL (1.8-7.7) H 10/13/23 05:48 Lymph # (Auto) 0.6 10^3/uL (0.8-4.8) L 10/13/23 05:48 Alger # (Auto) 0.5 10^3/uL (0.2-0.9) 10/13/23 05:48 Eos # (Auto) 0.0 10^3/uL (0.0-0.8) 10/13/23 05:48 Baso # (Auto) 0.0 10^3/uL (0.0-0.1) 10/13/23 05:48 Nucleated RBC % (auto) 0 % 10/13/23 05:48 Nucleated RBCs # 0.0 /100WBC 10/13/23 05:48 PT 18.40 SECONDS (12.1-14.9) H 10/13/23 05:48 INR 1.48 (0.8-1.2) H 10/13/23 05:48 APTT 29.5 SECONDS (23.9-36.7) 10/13/23 05:48 Specimen Type Arterial 10/13/23 05:13 Sample Site Brachial, right 10/13/23 05:13 ABG pH 7.42 (7.35-7.45) 10/13/23 05:13 ABG pCO2 37.9 mmHg (35-45) 10/13/23 05:13 ABG pO2 372.0 mmHg (80.0-100.0) H 10/13/23 05:13 ABG PO2/FiO2 Ratio 0 10/13/23 05:13 ABG HCO3 24.8 mmol/L (22-26) 10/13/23 05:13 ABG O2 Saturation > 100.0 10/13/23 05:13 ABG Base Excess 0.5 mmol/L (-2.0-2.0) 10/13/23 05:13 Brandon Test N/a 10/13/23 05:13 A-a O2 Gradient 37.5 mmHg (5-10) H 10/13/23 05:13 Hematocrit 33.4 % (37-47) L 10/13/23 05:13 Hgb O2 Saturation 98.4 % (95-100) 10/13/23 05:13 Carboxyhemoglobin 0.6 %THgb (0.4-20.1) 10/13/23 05:13 Methemoglobin 1.2 % (0.4-1.5) 10/13/23 05:13 Total Hemoglobin 10.9 g/dL (12-16) L 10/13/23 05:13 Sodium 140.0 mmol/L (131-143) 10/13/23 05:13 Potassium 2.4 mmol/L (3.5-5.0) L 10/13/23 05:13 Glucose 186.0 mg/dL (70-115) H 10/13/23 05:13 Ionized Calcium 1.2 mmol/L (1.1-1.4) 10/13/23 05:13 O2 Delivery Device Vent 10/13/23 05:13 FiO2 100.0 % 10/13/23 05:13 Tidal Volume 0.35 10/13/23 05:13 PEEP 8.0 cmH20 10/13/23 05:13 Inspection Supervisor ID [email or web address] 10/13/23 05:13 Sodium 137 mmol/L (136-145) 10/13/23 05:48 Potassium 2.5 mmol/L (3.5-5.1) L* 10/13/23 05:48 Chloride 98 mmol/L (98-107) 10/13/23 05:48 Carbon Dioxide 24 mmol/L (22-29) 10/13/23 05:48 Anion Gap 17.5 (5-19) 10/13/23 05:48 BUN 19 mg/dL (8-23) 10/13/23 05:48 Creatinine 1.1 mg/dL (0.5-0.9) H 10/13/23 05:48 GFR Calculation Not Reportable 10/13/23 05:48 Glucose 187 mg/dL (65-115) H 10/13/23 05:48 Calculated Osmolality 291 mOsm/kg (285-295) 10/13/23 05:48 Lactic Acid 2.3 mmol/L (0.5-2.2) H 10/13/23 05:48 Calcium 8.9 mg/dL (8.5-10.5) 10/13/23 05:48 Phosphorus 3.0 mg/dL (2.5-4.5) 10/13/23 05:48 Magnesium 1.0 mg/dL (1.7-2.3) L 10/13/23 05:48 Total Bilirubin 0.9 mg/dL (0.15-1.2) 10/13/23 05:48 AST 35 U/L (0-32) H 10/13/23 05:48 ALT 25 U/L (0-33) 10/13/23 05:48 Alkaline Phosphatase 98 U/L (35-105) 10/13/23 05:48 Creatine Kinase 62 U/L (26-192) 10/13/23 05:48 Troponin T Baseline 106 ng/L (0-10) H* 10/13/23 05:48 C-Reactive Protein 3.0 mg/L (0.0-4.9) 10/13/23 05:48 Total Protein 6.4 g/dL (6.6-8.7) L 10/13/23 05:48 Albumin 3.1 g/dL (3.5-5.2) L 10/13/23 05:48 Globulin 3.3 g/dL (1.3-4.6) 10/13/23 05:48 Urine Color Yellow (Yellow) 10/13/23 06:44 Urine Appearance Hazy (CLEAR) A 10/13/23 06:44 Urine pH 5 (5-7) 10/13/23 06:44 Ur Specific [place] 1.020 (1.005-1.030) 10/13/23 06:44 Urine Protein 1+ (Negative) H 10/13/23 06:44 Urine Glucose (UA) Norm (Normal) 10/13/23 06:44 Urine Ketones 1+ (Negative) H 10/13/23 06:44 Urine Blood 2+ (Negative) H 10/13/23 06:44 Urine Nitrate Positive (Negative) H 10/13/23 06:44 Urine Bilirubin Neg (Negative) 10/13/23 06:44 Urine Urobilinogen Norm mg/dL (Negative) 10/13/23 06:44 Ur Leukocyte Esterase Trace (Negative) H 10/13/23 06:44 Urine RBC 0-4 /hpf (0-2) H 10/13/23 06:44 Urine WBC 15-25 /hpf (0-5) H 10/13/23 06:44 Ur Squamous Epith Cells 0-4 /hpf (0-5) H 10/13/23 06:44 Amorphous Sediment Not Reportable 10/13/23 06:44 Urine Bacteria 4+ /hpf (NONE) H 10/13/23 06:44 All radiology interpretation(s) finalized by discharge Critical Care Time 2 Critical Care Time: Critical Care Time: Yes Total Critical Care Time: 40 Attestation: This case had a high probability of a clinically significant, sudden, or life threatening deterioration of this patient's condition which required my full and direct attention, intervention and personal management. Time does not include any procedures performed. Discharge Plan Discharge Patient Disposition: Xfer Short-Term Hosp Clinical Impression: Acute subdural hematoma, Intracranial hemorrhage, Hypertension, Tachycardia Condition: Critical Referrals: Neva Darling, LINE UP MACHINE OPERATOR-C [Primary Care Provider] - Coding Level of Care Code ED Team Physician for lEvira Cueva
[2023-10-13 06:15] LABS: Alanine Aminotransferase 25 U/L (0-33); Albumin Level 3.1 g/dL (3.5-5.2); Alkaline Phosphatase 98 U/L (35-105); Anion Gap 17.5 (5-19); Aspartate Amino Transferase 35 U/L (0-32); Blood Urea Nitrogen 19 mg/dL (8-23); Calcium 8.9 mg/dL (8.5-10.5); Carbon Dioxide 24 mmol/L (22-29); Chloride 98 mmol/L (98-107); Creatine Phosphokinase 62 U/L (26-192); Globulin 3.3 g/dL (1.3-4.6); Glucose 187 mg/dL (65-115); Osmolality Calculated 291 mOsm/kg (285-295); Sodium 137 mmol/L (136-145); Total Bilirubin 0.9 mg/dL (0.15-1.2); Total Protein 6.4 g/dL (6.6-8.7)
[2023-10-13 06:16] LABS: Lactic Sepsis W/Reflex 2.3 mmol/L (0.5-2.2)
[2023-10-13 06:28] LABS: Potassium 2.5 mmol/L (3.5-5.1)
[2023-10-13 06:33] LABS: Troponin(5th) Baseline 106 ng/L (0-10)
[2023-10-13] MEDS: dexamethasone 10 mg/mL INJ IVP (06:50)
[2023-10-13] MEDS: tranexamic acid 1,000 MG/100 ML PREMIX 600 MG IV (06:53)
[2023-10-13 06:56] LABS: Protein Urine 1+ (Negative); Urine Appearance Hazy (CLEAR); Urine Color Yellow (Yellow); pH Urine 5 (5-7)
[2023-10-13 06:57] LABS: Add Urine Culture? Yes; Add Urine Microscopic? YES; Bacteria Urine 4+ /hpf; Bilirubin Urine Neg (Negative); Blood Urine 2+ (Negative); Glucose Urine UA Norm (Normal); Ketones Urine 1+ (Negative); Leukocyte Esterase Urine Trace (Negative); Nitrate Urine Positive (Negative); RBC Urine 0-4 /hpf (0-2); Squamous Epithelial Cell Urine 0-4 /hpf (0-5); Urobilinogen Urine Norm (Negative); WBC Urine 15-25 /hpf (0-5)
--- NOTE | 2023-10-13 07:07 | ECG_ITS ---
[facility] Test Date: 2023-10-13 Pat Name: Carmella Jose Department: Room: Gender: Female Separator Inserter: : 1940 Requested By: Abdiaziz Solano Order Number: [id number] Constanza MD: Rupesh Kaiser M.D. Measurements Intervals [place] Rate: 70 P: 84 ME: 160 QRS: 59 QRSD: 89 T: 73 QT: 464 QTc: 504 Interpretive Statements SINUS RHYTHM WITH SINUS ARRHYTHMIA PROLONGED QT INTERVAL Compared to ECG 10/13/2023 05:14:33 Prolonged QT interval now present T-wave abnormality no longer present Electronically Signed On 10-13-2023 21:39:35 MDS MANAGER by Rupesh Kasier M.D. [id number]
[2023-10-13 07:21] VITALS: RESP 14
--- NOTE | 2023-10-13 07:24 | PC.PHAR ---
PT INTUBATED WHEN I ARRIVED TODAY. MED REC NOT DONE YET WHEN PT LOADED FOR TRANSPORT. 10/13/23
[2023-10-13] MEDS: potassium chloride premix 100 ML 25 MEQ IV (07:31)
[2023-10-13 07:37] LABS: Reflex Lactate Order REFLEX LACTIC ORDERD
--- NOTE | 2023-10-13 07:47 | PC.NURSE ---
report given to EMS
--- NOTE | 2023-10-13 18:03 | PC.NURSE ---
ESMOLOL, PROPOFOL, POTASSIUM, FENTANYL DRIPS CONTINUED UPON TRANSFER.
== END 2023-10-13 07:48 | disposition short-term general hospital (02) ==
PROVIDERS: Emergency Provider Emergency Medicine; PCP Nurse Practitioner
DX: S06.5XAA Traumatic subdural hemorrhage with loss of consciousness status unknown, initial encounter (principal); R00.0 Tachycardia, unspecified; S06.30AA Unspecified focal traumatic brain injury with loss of consciousness status unknown, initial encounter; W19.XXXA Unspecified fall, initial encounter; Y92.129 Unspecified place in nursing home as the place of occurrence of the external cause; I11.0 Hypertensive heart disease with heart failure; I50.9 Heart failure, unspecified; Z95.0 Presence of cardiac pacemaker
CPT/HCPCS: 70450; 71045; 80051; 80053; 81001; 82330; 82550; 82805; 83605; 83735; 84100; 84484; 85025; 85610; 85730; 86140; 87077; 87086; 87186; 93005; 94002; 94799; 96365; 96366; 96367; 96375; 99291; C1751; J1100; J2704; J3010; J3480; J3490

== ENCOUNTER 2023-11-14 14:02 | Emergency (ER) | payer MEDICARE, SELFPAY ==
[2023-11-14 14:04] VITALS: BP 175/57; PULSE 66; RESP 15; TEMP 36.8; O2SAT 97; BMI 31.2
--- NOTE | 2023-11-14 14:10 | CT_ITS ---
WS: [id number] CT HEAD NONCONTRAST HISTORY: anderson TECHNIQUE: Contiguous axial imaging performed through the brain in 3.0 mm imaging. Bone and soft tiss ue windows. Sagittal and coronal reformats reviewed. All CT scans at [facility] use at least one of these dose optimization techniques: automated exposure control; mA and/or kV adjustment per pa tient size (includes targeted exams where dose is matched to clinical indication); or iterative recon struction. DLP: 1060.38 mGy.cm COMPARISON: 10/12/2023 Recently described LEFT occipital lobe hemorrhagic contusion with adjacent edema is improved. No acut e residual blood products. The area of edema persists measuring 1.2 x 1.5 cm. No subarachnoid blood o n the LEFT. The acute RIGHT subdural hematoma has evolved. There are no acute remaining blood product s but the size of the chronic subdural is increased. There is slightly greater mass effect upon the R IGHT cerebrum. Diameter of the chronic appearing subdural is 1.5 cm as compared to 1.0 cm on the prio r study from 10/13/2023. There is mass effect and effacement of the sulci throughout the RIGHT cerebru m. No midline shift. Only mild effacement of the RIGHT lateral ventricle. No new area of atrophy or infarct. Ventricles: Normal size with no hydrocephalus. No inferior displacement of the cerebellar tonsils. Paranasal sinuses: Mild mucoperiosteal thickening in the sinus cavities. Mastoid air cells: Well pneumatized. Calvarium and scalp: Reidentified is a nondisplaced LEFT parietal occipital fracture. No new fracture . IMPRESSION: 1. Interval resolution of the acute hemorrhagic contusion in the LEFT occipital lobe. 2. Resolution of the acute blood products in the RIGHT subdural hematoma. 3. Chronic RIGHT subdural hematoma has increased in size since 10/13/2023. Increasing mass effect upo n the RIGHT cerebrum although no midline shift. Largest diameter of the subdural hematomas 1.5 cm as compared to 1.0 cm. 4. No interval change in the RIGHT prior occipital calvarial fracture. Notified Shahnaz Sutherland MD at 11/14/2023 2:42 PM.
--- NOTE | 2023-11-14 14:16 | ED_ITS ---
HPI - Headache General: Chief Complaint: Headache Stated Complaint: GODWIN Time Seen by Provider: 11/14/23 14:05 Source: patient and EMS Mode of arrival: EMS Limitations: no limitations History of Present Illness: 83-year-old female is seen here 1 month ago with a subdural hematoma patient is at [place] currently she states she has had a continual headache since her fall a month ago. Per her show patient had some increased confusion here she is answering my questions appropriately she is ANO x 4 she knows the president her only complaint here is a headache. Associated symptoms: Deny chest pain, fever(s), nausea, rash or vomiting Review of Systems Const: Denies: fever(s) or chills ENMT: Denies: throat pain or dental pain Card: Denies: chest pain Resp: Denies: dyspnea GI: Denies: abdominal pain, nausea, vomiting or diarrhea Musc: Denies: neck pain or back pain Skin/Breast: Denies: rash Neuro: Reports: headache(s) PFS ED PFSH: Medical History Vitamin D deficiency Seasonal and perennial allergic rhinitis CHF (congestive heart failure) Chronic pain Dr. Almeida Pacemaker Hypothyroid Essential hypertension Murmur, cardiac Atrial fibrillation Surgical History History of exploratory laparotomy Adhesion two times Hx of breast reduction, elective History of neck surgery Hardware History of back surgery Lumbar with hardware History of knee surgery Right scope History of cholecystectomy Open History of hysterectomy 1966 abdomen with BSO History of cardiac pacemaker 2015 Family History Grandmother Cancer Mother Hypertension Father Hypertension Brother Stroke Denies family history of Diabetes Dementia Social History Smoking and tobacco/nicotine status: never used tobacco/nicotine Second hand smoke exposure: No Alcohol intake: never Substance/Drug Use: never Adopted: No Caregiver/support person: Yes Lives independently: No Household members: family Housing: House Marital status: Number of children: 5 service: No Current occupational status: retired Do you think of yourself as: Straight/Heterosexual Current gender identity: Female Physical Exam Const: COMMON NORMALS: no acute distress, patient oriented x3 and healthy appearing HENMT: COMMON NORMALS: normocephalic and atraumatic HEAD & SCALP: normocephalic and atraumatic Eye: COMMON NORMALS: Equal, round and reactive pupils present and EOMs intact bilaterally PUPIL: Yes Equal, round and reactive pupils present Neck/C-Spine: COMMON NORMALS: full ROM and supple Chest: COMMONS NORMALS: normal inspection of the chest and normal palpation of entire chest wall Resp: COMMON NORMALS: normal respiratory effort, No retractions, No use of accessory muscles and clear to auscultation bilaterally AUSCULTATION: clear to auscultation bilaterally Cardio: COMMON NORMALS: regular rate, regular rhythm and No murmurs present (Cardio) RATE: regular rate RHYTHM: regular rhythm GI: COMMON NORMALS: Normal to inspection, nondistended, normoactive bowel sounds present, Soft to palpation, non-tender and no masses PALPATION: Yes Soft to palpation Extremity: COMMON NORMALS: normal to inspection and full ROM Neuro: COMMON NORMALS: patient oriented x3, moves all extremities and no focal motor deficits Psych: COMMON NORMALS: mental status grossly normal, Normal thought process present and cooperative THOUGHT PROCESS: Normal thought process present Skin: COMMON NORMALS: no rashes or lesions noted and no wounds GENERAL SKIN EXAM: no rashes or lesions noted Course Vital Signs: Vital signs: Vital Signs Temperature 98.3 F 11/14/23 14:04 Pulse Rate 66 11/14/23 14:04 Respiratory Rate 15 11/14/23 14:04 Blood Pressure 175/57 11/14/23 14:04 Pulse Oximetry 97 11/14/23 14:04 Oxygen Delivery Me thod Room Air 11/14/23 14:04 MDM - Headache Medical Decision Making Patient presents with a headache that is chronic in nature likely from her subdural from a month ago her head CT here showed no acute bleeding she is answering all my questions appropriately here she is stable for discharge back to halfway Medical Records I reviewed the patient's medical records. All radiology interpretation(s) finalized by discharge Discharge Plan Discharge Patient Disposition: Home Clinical Impression: Headache Condition: Stable Prescriptions: No Action gabapentin 300 mg capsule 300 mg PO TID oxycodone 10 mg tablet 10 mg PO QID PRN Xtampza ER 13.5 mg cap,sprinkl,ER12hr(DONT CRUSH) 13.5 mg PO BID Rx Instructions: must administer with a meal/food nitroglycerin 0.4 mg tablet, sublingual 0.4 mg sublingual Q5M PRN Rx Instructions: do not exceed 3 doses per episode meclizine 12.5 mg tablet 12.5 mg PO DAILY PRN Zyrtec 10 mg capsule 10 mg PO DAILY PRN Protonix 40 mg tablet,delayed release (DR/EC) 40 mg PO DAILY Qty: 60 2RF cholecalciferol (vitamin D3) 1,250 mcg (50,000 unit) capsule 50,000 unit PO .weekly Qty: 12 1RF ([facility]) hospital bed [id number] See Rx Instructions .ROUTE .MEDSUPPLY Qty: 1 0RF Rx Instructions: As directed ([facility]) Wheelchair See Rx Instructions .Route .MEDSUPPLY Qty: 1 0RF Rx Instructions: As directed potassium chloride 8 mEq capsule, extended release 8 meq PO DAILY Qty: 30 2RF magnesium oxide 400 mg magnesium tablet See Rx Instructions PO .COMPLEX Qty: 120 2RF Rx Instructions: 800mg AM 800mg PM orally; levothyroxine [Synthroid] 75 mcg tablet 75 mcg PO .COMPLEX Qty: 30 2RF Rx Instructions: 75 mcg orally 6 days week; Eliquis 5 mg tablet 5 mg PO BID Qty: 180 0RF furosemide [Lasix] 20 mg tablet 40 mg PO DAILY Qty: 30 2RF lisinopril 10 mg tablet 10 mg PO Q12H 30 Days Qty: 60 2RF sodium chloride 1,000 mg tablet,soluble 2,000 mg PO DAILY Qty: 60 2RF ondansetron 4 mg tablet,disintegrating 4 mg PO Q6H PRN (Reason: nausea and vomiting) Qty: 14 2RF tizanidine 4 mg tablet 4 mg PO QID PRN (Reason: Spasms) Hold Instructions: Resume on 07/22/23. hold for at least 10 days, dont take when taking ciprofloxacin Discharge Orders: Discharge ED (Routine); Ordered 11/14/23 Ordered By: Shahnaz Sutherland Referrals: Neva Darling, PARCEL CONTRACTOR-C [Primary Care Provider] - 4-7 days Discharge Diet: Advance as tolerated Discharge Activity: Resume usual activity Patient Instructions: General Headache (ED) Coding Level of Care Code ED Neuro Psych Sales Specialist for Olimpiag Anay
[2023-11-14] MEDS: hyDRALAzine 20 mg/mL INJ 1 mL 10 MG IM (15:28)
[2023-11-14 15:29] VITALS: BP 176/88
[2023-11-14 15:54] VITALS: BP 176/88
== END 2023-11-14 15:56 | disposition home or self-care (01) ==
PROVIDERS: Emergency Provider Emergency Medicine; PCP Nurse Practitioner
DX: R51.9 Headache, unspecified (principal); Z79.01 Long term (current) use of anticoagulants; I11.0 Hypertensive heart disease with heart failure; I50.9 Heart failure, unspecified; Z95.0 Presence of cardiac pacemaker
CPT/HCPCS: 70450; 96372; 99284; J0360

== ENCOUNTER → 2023-11-27 09:43 | Outpatient (BNVA) | payer MEDICARE, SELFPAY | PROVIDERS: PCP Nurse Practitioner; Visit Provider Nurse Practitioner | DX: I10 Essential (primary) hypertension (principal) | CPT/HCPCS: 81000 ==

== ENCOUNTER 2023-12-25 00:37 | Inpatient (IN) | payer MEDICARE, SELFPAY ==
[2023-12-25] VITALS (202 sets, daily range): BP systolic 62–238; BP diastolic 37–136; PULSE 63–155; RESP 0–27; TEMP 34.6–36.4; O2SAT 81–100; BMI 26.7
--- NOTE | 2023-12-25 00:42 | XRR_ITS ---
PROCEDURE INFORMATION: Exam: XR Chest Exam date and time: 12/25/2023 1:14 AM Age: 83 years old Clinical indication: Other: AMS TECHNIQUE: Imaging protocol: Radiologic exam of the chest. Views: 1 view. COMPARISON: CR XR chest 1V portable [id number] 10/13/2023 5:29 AM FINDINGS: Tubes, catheters and devices: Left bipolar pacemaker in place. Monitor leads project over the chest. Lungs: Right lower lobe pneumonia versus atelectasis/partial collapse and suspected mild right pleural effusion. Pleural spaces: Mild right costophrenic angle blunting. Heart/Mediastinum: Heart size is stable. Partially obscured right cardiac border. Calcified mitral annulus. Vasculature: Atherosclerotic tortuosity of the thoracic aorta. Bones/joints: No acute osseous abnormality. XR/XR chest 1V portable [id number] IMPRESSION: Right lower lobe pneumonia versus atelectasis/partial collapse and suspected mild right pleural effusion.
--- NOTE | 2023-12-25 00:44 | ECG_ITS ---
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 Measurements Intervals [place] Rate: 122 P: 0 KS: 0 QRS: -59 QRSD: 84 T: 170 QT: 310 QTc: 442 Interpretive Statements ATRIAL FIBRILLATION WITH RAPID VENTRICULAR RESPONSE? Inappropriate V pacing LEFT AXIS DEVIATION [QRS AXIS < -30] POSSIBLE RIGHT VENTRICULAR CONDUCTION DELAY [RSR (QR) IN V1/V2] ST DEVIATION AND MODERATE T-WAVE ABNORMALITY, CONSIDER ANTEROLATERAL ISCHEMIA [-0.1+ mV T-WAVE IN V3-V6] Compared to ECG 10/13/2023 07:07:11 Left-axis deviation now present T-wave abnormality now present Possible ischemia now present.Sinus rhythm no longer present Sinus arrhythmia no longer present.Prolonged QT interval no longer present Electronically Signed On 12-25-2023 18:37:16 CDT by Rupesh Kaiser M.D. [id number]
--- NOTE | 2023-12-25 00:47 | W.ED.AMS ---
Documented by User: Charanjit Littlejohn MD 12/25/23 06:42 HPI - Altered Mental Status General: Chief Complaint: General Medical Stated Complaint: lethargy Time Seen by Provider: 12/25/23 00:41 History of Present Illness: 83-year-old female presents emergency department via EMS personnel from the [facility]. EMS personnel state that the care facility became concerned because the patient appeared to be very cold and had increased lethargy from her previous mental status. The patient is awake and easily arousable. She is alert and oriented x 4 and follows commands appropriately. The patient has been seen here previously with a subdural hematoma secondary to a fall. She does have a history of atrial fibrillation with rapid ventricular response. She denies chest pain or shortness of breath at present. She denies fevers chills or night sweats. Review of Systems General: Reports: 10 or more systems reviewed and unremarkable except in HPI and below Const: Reports: fatigue and malaise Card: Reports: irregular heart rhythm; Denies: chest pain or swelling of feet/ankles Resp: Reports: non-productive cough; Denies: wheezing PFSH ED PFSH: Medical History History of subdural hematoma Constipation, slow transit Vitamin D deficiency Seasonal and perennial allergic rhinitis CHF (congestive heart failure) Chronic pain Dr. Almeida Pacemaker Hypothyroid Essential hypertension Murmur, cardiac Atrial fibrillation Surgical History History of exploratory laparotomy Adhesion two times Hx of breast reduction, elective History of neck surgery Hardware History of back surgery Lumbar with hardware History of knee surgery Right scope History of cholecystectomy Open History of hysterectomy 1966 abdomen with BSO History of cardiac pacemaker 2016 Family History Grandmother Cancer Mother Hypertension Father Hypertension Brother Stroke Denies family history of Diabetes Dementia Social History Smoking and tobacco/nicotine status: never used tobacco/nicotine Second hand smoke exposure: No Alcohol intake: never Substance/Drug Use: never Adopted: No Caregiver/support person: Yes Lives independently: No Housing: Assisted Living Facility Marital status: Number of children: 5 service: No Current occupational status: retired Do you think of yourself as: Straight/Heterosexual Current gender identity: Female Physical Exam Narrative: Constitutional: Patient appears frail, thin and moderately ill-appearing. She is awake alert and oriented to person, place, situation. She follows commands appropriately. Vital signs reviewed as documented. HENMT: Normocephalic, patient does have areas of discoloration appear to be distant bruising that is healing.. External ears normal appearance without drainage. Nose without drainage, normal appearance. Mucus membranes moist. Neck is supple, No jugular venous distension, trachea is midline, no appreciable carotid bruits. No lymphadenopathy. No meningeal signs. Flexion, extension and lateral rotation is without pain. Eyes: Pupils are equal, round, reactive to light and accommodation. No scleral icterus. Extra-ocular movement are intact. Thorax is symmetrical and with equal rise and fall with respirations. Resp: Rhonchi bilaterally right greater than the left and breath sounds decreased significantly in the bases. Cardio: Irregularly irregular rhythm consistent with atrial fibrillation with rapid ventricular response. Positive S1, S2. No appreciable murmurs, rubs or gallops. GI: Abdominal exam reveals normal bowel sounds to all quadrants. No organomegaly. No obvious palpable masses noted. No hepatomegally appreciated. Soft, non-tender to palpation. Extremity: Extremities are non-edematous and both femoral and pedal pulses are 2+ and equal bilaterally. Moves all extremities well, sensation in all extremities. Neuro: Alert and oriented x4, person, place, time and situation. Cranial nerves II through XII are grossly intact, there is no focal neurological deficits that I can appreciate at present. Sensation intact to all extremities. 2-point discrimination intact. Light touch intact to all extremities. Motor strength in the upper and lower extremities are equal and bilateral 5/5. Psych: Cooperative, calm, normal thought process, appropriate judgment. Skin: No lesions, rashes. No gross abnormalities noted. Back: Symmetrical, no obvious deformity, No CVA tenderness Course ED course: Procedure Note: Ultrasound Guided Central Venous Catheter (CVC) Placement Indication: Hemodynamic monitoring/Intravenous access Consent obtain as documented. Maximal Sterile Barrier Technique utilized and included appropriate hand washing before and after the procedure, use of Cap, mask, sterile gown, sterile gloves and sterile full body drape. A time-out was completed verifying correct patient, procedure, site, positioning, and special equipment if applicable. The patient was placed in a dependent position appropriate for central line placement based on the vein to be cannulated. The patient?s <right neck> was prepped and draped in sterile fashion. 1% Lidocaine was used to anesthetize the surrounding skin area. A triple lumen <7-Latvian> Cordis catheter was introduced into the the <internal jugularl vein> using the Seldinger technique <and under ultrasound guidance>. The catheter was threaded smoothly over the guide wire and appropriate blood return was obtained. Each lumen of the catheter was evacuated of air and flushed with sterile saline. The catheter was then sutured in place to the skin and a sterile dressing applied. Perfusion to the extremity distal to the point of catheter insertion was checked and found to be adequate. Post-procedure xray was obtained and reviewed and proper placement of the catheter was verified. Estimated Blood Loss: <__4__> The patient tolerated the procedure well and there were no complications. Vital Signs: Vital signs: Vital Signs Temperature 97.1 F L 12/25/23 10:01 Pulse Rate 101 H 12/25/23 10:21 Respiratory Rate 0 L 12/25/23 10:01 Blood Pressure 85/64 12/25/23 10:01 Pulse Oximetry 94 12/25/23 10:21 Oxygen Delivery Me thod Nasal Cannula 12/25/23 10:21 Oxygen Flow Rate 3 12/25/23 10:21 MDM - Altered Mental Status Medical Decision Making Physical exam completed and documented I did take a CBC and CMP with elevated white blood cell count of 21.3 and platelet count of 645 concerning consistent for acute infectious process. Chest x-ray demonstrated significant loculation and pneumonia I did provide the patient Rocephin to also treat for her urinary tract infection. She has remained uncontrolled on her atrial fibrillation and we did provide digoxin as her pressure remained significantly low she also required central line placement as well as Levophed for vasopressor support. CT scan of the chest was obtained and demonstrated significant pleural effusions right greater than left. I have discussed the patient's case with the on-coming physician <Dr. Schmidt > and they have assumed care of the patient. We have discussed the current lab/radiographic results that have been resulted and the pending tests. Medical Records I reviewed the patient's medical records. Lab Data I reviewed the patient's lab results. 12/25/23 00:57 12/25/23 06:42 Radiology Impressions Chest X-Ray 12/25/23 04:20 IMPRESSION: 1. Interval placement of right internal jugular central venous catheter with tip projecting at the superior cavoatrial junction. 2. Stable right lower lobe pneumonia versus atelectasis/partial collapse and suspected mild right pleural effusion. Chest/Abdomen/Pelvis CT 12/25/23 05:04 IMPRESSION: 1. Bilateral, pbcsw-esllefr-ucso-left pleural effusions with associated atelectasis, nonspecific may represent volume overload, infectious, inflammatory, less likely neoplastic phenomenon. Correlate clinically. 2. Findings suggest pulmonary arterial hypertension. 3. Sequela of granulomatous disease. IMPRESSION: 1. Diffuse third-spacing of fluid suggesting volume overload. 2. Nonspecific soft tissue masses of the anterior abdominal wall. Assessment by ultrasound can be of further utility for characterization. 3. Air within the bladder, likely secondary to instrumentation. Correlate with laboratory findings for urinary tract infection. 4. Additional nonacute findings as above. Laboratory Results WBC 21.30 10^3/uL (3.29-11.43) H 12/25/23 00:57 RBC 4.14 10^6/uL (3.85-5.65) 12/25/23 00:57 Hgb 11.90 g/dL (11.27-16.99) 12/25/23 00:57 Hct 36.3 % (36-47) 12/25/23 00:57 MCV 87.7 fl (85-98) 12/25/23 00:57 MCH 28.7 pg (27-33) 12/25/23 00:57 MCHC 32.8 g/dL (30-55) 12/25/23 00:57 RDW 14.8 % (12.1-15.1) 12/25/23 00:57 Plt Count 643 10^3/cmm (157-399) H 12/25/23 00:57 MPV 9.1 fL (7.4-10.4) 12/25/23 00:57 Neut % (Auto) 84.9 % 12/25/23 00:57 Lymph % (Auto) 10.1 % 12/25/23 00:57 [place] % (Auto) 2.1 % 12/25/23 00:57 Eos % (Auto) 0.0 % 12/25/23 00:57 Baso % (Auto) 0.2 % 12/25/23 00:57 Neut # (Auto) 18.09 10^3/uL (1.8-7.7) H 12/25/23 00:57 Lymph # (Auto) 2.2 10^3/uL (0.8-4.8) 12/25/23 00:57 [place] # (Auto) 0.4 10^3/uL (0.2-0.9) 12/25/23 00:57 Eos # (Auto) 0.0 10^3/uL (0.0-0.8) 12/25/23 00:57 Baso # (Auto) 0.0 10^3/uL (0.0-0.1) 12/25/23 00:57 Nucleated RBC % (auto) 0 % 12/25/23 00:57 Nucleated RBCs # 0.0 /100WBC 12/25/23 00:57 PT 27.30 SECONDS (12.1-14.9) H 12/25/23 06:42 INR 2.42 (0.8-1.2) H 12/25/23 06:42 Sodium 126 mmol/L (136-145) L 12/25/23 06:42 Potassium 4.6 mmol/L (3.5-5.1) 12/25/23 06:42 Chloride 94 mmol/L (98-107) L 12/25/23 06:42 Carbon Dioxide 14 mmol/L (22-29) L 12/25/23 06:42 Anion Gap 22.6 (5-19) H 12/25/23 06:42 BUN 57 mg/dL (8-23) H 12/25/23 06:42 Creatinine 2.6 mg/dL (0.5-0.9) H 12/25/23 06:42 GFR Calculation Not Reportable 12/25/23 06:42 Glucose 189 mg/dL (65-115) H 12/25/23 06:42 Calculated Osmolality 283 mOsm/kg (285-295) L 12/25/23 06:42 Lactic Acid 1.9 mmol/L (0.5-2.2) 12/25/23 00:57 Calcium 8.0 mg/dL (8.5-10.5) L 12/25/23 06:42 Magnesium 1.1 mg/dL (1.7-2.3) L 12/25/23 06:42 Total Bilirubin 0.5 mg/dL (0.15-1.2) 12/25/23 00:57 AST 6 U/L (0-32) 12/25/23 00:57 ALT 8 U/L (0-33) 12/25/23 00:57 Alkaline Phosphatase 92 U/L (35-105) 12/25/23 00:57 Troponin T Baseline 37 ng/L (0-10) H 12/25/23 00:57 Troponin T 120 Minute 27.84 ng/L (0-10) H 12/25/23 02:26 Delta Troponin T -9.16 ABS# (0-10) L 12/25/23 02:26 Troponin T Hi Sens 6Hr 40.21 ng/L (0-10) H 12/25/23 06:42 Troponin T Hi Sens 6Hr Delta 3.21 ng/L (0-12) 12/25/23 06:42 NT-Pro-B Natriuret Pep 7250 pg/mL (0-450) H 12/25/23 00:57 Total Protein 6.1 g/dL (6.6-8.7) L 12/25/23 00:57 Albumin 2.0 g/dL (3.5-5.2) L 12/25/23 00:57 Globulin 4.1 g/dL (1.3-4.6) 12/25/23 00:57 Procalcitonin 0.25 ng/mL (0-0.5) 12/25/23 00:57 TSH 2.83 uIU/mL (0.27-4.20) 12/25/23 06:42 Urine Color Yellow (Yellow) 12/25/23 01:31 Urine Appearance Hazy (CLEAR) A 12/25/23 01:31 Urine pH 5 (5-7) 12/25/23 01:31 Ur Specific [place] 1.015 (1.005-1.030) 12/25/23 01:31 Urine Protein Neg (Negative) 12/25/23 01:31 Urine Glucose (UA) Norm (Normal) 12/25/23 01:31 Urine Ketones Negative (Negative) 12/25/23 01:31 Urine Blood 2+ (Negative) H 12/25/23 01:31 Urine Nitrate Negative (Negative) 12/25/23 01:31 Urine Bilirubin Neg (Negative) 12/25/23 01:31 Urine Urobilinogen Neg mg/dL (Negative) 12/25/23 01:31 Ur Leukocyte Esterase 1+ (Negative) H 12/25/23 01:31 Urine RBC 5-10 /hpf (0-2) H 12/25/23 01:31 Urine WBC 25-40 /hpf (0-5) H 12/25/23 01:31 Ur Squamous Epith Cells 15-25 /hpf (0-5) H 12/25/23 01:31 Ur Transition Epith Cell 5-10 /hpf 12/25/23 01:31 Amorphous Sediment Not Reportable 12/25/23 01:31 Urine Bacteria 4+ /hpf (NONE) H 12/25/23 01:31 Urine Mucus 3+ /hpf 12/25/23 01:31 All radiology interpretation(s) finalized by discharge Discharge Plan Discharge Patient Disposition: Admitted As Inpatient Admit Provider: Jg Love Clinical Impression: Acute kidney injury, Atrial fibrillation, Pneumonia, Acute UTI, Congestive heart failure (CHF), Hyponatremia, Pleural effusion, Sepsis, Over-anticoagulated Condition: Stable Sign Out Sign Out Data: Patient Sign Out occurred on 12/25/23 at 06:53. Patient's care was discussed, and care was transferred from Charanjit Littlejohn MD to Guillermo Schmidt DO. Coding Level of Care Code ED Customer Account Representative for Chg Fwd Documented by User: Guillermo Schmidt DO 12/25/23 11:44 HPI - Altered Mental Status General: Chief Complaint: General Medical Stated Complaint: lethargy Time Seen by Provider: 12/25/23 00:41 PFSH ED PFSH: Medical History History of subdural hematoma Constipation, slow transit Vitamin D deficiency Seasonal and perennial allergic rhinitis CHF (congestive heart failure) Chronic pain Dr. Almeida Pacemaker Hypothyroid Essential hypertension Murmur, cardiac Atrial fibrillation Surgical History History of exploratory laparotomy Adhesion two times Hx of breast reduction, elective History of neck surgery Hardware History of back surgery Lumbar with hardware History of knee surgery Right scope History of cholecystectomy Open History of hysterectomy 1966 abdomen with BSO History of cardiac pacemaker 2016 Family History Grandmother Cancer Mother Hypertension Father Hypertension Brother Stroke Denies family history of Diabetes Dementia Social History Smoking and tobacco/nicotine status: never used tobacco/nicotine Second hand smoke exposure: No Alcohol intake: never Substance/Drug Use: never Adopted: No Caregiver/support person: Yes Lives independently: No Housing: Assisted Living Facility Marital status: Number of children: 5 service: No Current occupational status: retired Do you think of yourself as: Straight/Heterosexual Current gender identity: Female Course Vital Signs: Vital signs: Vital Signs Temperature 97.1 F L 12/25/23 10:01 Pulse Rate 101 H 12/25/23 10:21 Respiratory Rate 0 L 12/25/23 10:01 Blood Pressure 85/64 12/25/23 10:01 Pulse Oximetry 94 12/25/23 10:21 Oxygen Delivery Me thod Nasal Cannula 12/25/23 10:21 Oxygen Flow Rate 3 12/25/23 10:21 MDM - Altered Mental Status Medical Decision Making Physical exam completed and documented I did take a CBC and CMP with elevated white blood cell count of 21.3 and platelet count of 645 concerning consistent for acute infectious process. Chest x-ray demonstrated significant loculation and pneumonia I did provide the patient Rocephin to also treat for her urinary tract infection. She has remained uncontrolled on her atrial fibrillation and we did provide digoxin as her pressure remained significantly low she also required central line placement as well as Levophed for vasopressor support. CT scan of the chest was obtained and demonstrated significant pleural effusions right greater than left. I have discussed the patient's case with the on-coming physician <Dr. Schmidt > and they have assumed care of the patient. We have discussed the current lab/radiographic results that have been resulted and the pending tests. Care assumed at change of shift reviewed chart patient has acute kidney injury is fluid overloaded hyponatremic pneumonia sepsis the looks like a loculated pleural effusion and possible subpulmonic empyema. She had an abnormal chest x-ray in late September. She has some bruising in her forehead from recent fall given her markedly elevated INR (which we did confirm on redraw) head CT was ordered. I reviewed the case with Dr. Newton and he reviewed the CT. he initially felt it was a pleural effusion based on the Hounsfield units on closer evaluation and bedside ultrasound performed by Dr. Lovelace he suspects it may be a hematoma. We did call the [facility] and confirm she has been taking Eliquis and she is on 5 mg twice a day her last dose was last evening around 8:00. Dr. Porter and Dr. Lovelace have seen the patient at the bedside orders written for the ICU. Lab Data 12/25/23 00:57 12/25/23 06:42 Radiology Impressions Chest X-Ray 12/25/23 04:20 IMPRESSION: 1. Interval placement of right internal jugular central venous catheter with tip projecting at the superior cavoatrial junction. 2. Stable right lower lobe pneumonia versus atelectasis/partial collapse and suspected mild right pleural effusion. Chest/Abdomen/Pelvis CT 12/25/23 05:04 IMPRESSION: 1. Bilateral, rzvji-kqqswak-wzoe-left pleural effusions with associated atelectasis, nonspecific may represent volume overload, infectious, inflammatory, less likely neoplastic phenomenon. Correlate clinically. 2. Findings suggest pulmonary arterial hypertension. 3. Sequela of granulomatous disease. IMPRESSION: 1. Diffuse third-spacing of fluid suggesting volume overload. 2. Nonspecific soft tissue masses of the anterior abdominal wall. Assessment by ultrasound can be of further utility for characterization. 3. Air within the bladder, likely secondary to instrumentation. Correlate with laboratory findings for urinary tract infection. 4. Additional nonacute findings as above. Laboratory Results WBC 21.30 10^3/uL (3.29-11.43) H 12/25/23 00:57 RBC 4.14 10^6/uL (3.85-5.65) 12/25/23 00:57 Hgb 11.90 g/dL (11.27-16.99) 12/25/23 00:57 Hct 36.3 % (36-47) 12/25/23 00:57 MCV 87.7 fl (85-98) 12/25/23 00:57 MCH 28.7 pg (27-33) 12/25/23 00:57 MCHC 32.8 g/dL (30-55) 12/25/23 00:57 RDW 14.8 % (12.1-15.1) 12/25/23 00:57 Plt Count 643 10^3/cmm (157-399) H 12/25/23 00:57 MPV 9.1 fL (7.4-10.4) 12/25/23 00:57 Neut % (Auto) 84.9 % 12/25/23 00:57 Lymph % (Auto) 10.1 % 12/25/23 00:57 [place] % (Auto) 2.1 % 12/25/23 00:57 Eos % (Auto) 0.0 % 12/25/23 00:57 Baso % (Auto) 0.2 % 12/25/23 00:57 Neut # (Auto) 18.09 10^3/uL (1.8-7.7) H 12/25/23 00:57 Lymph # (Auto) 2.2 10^3/uL (0.8-4.8) 12/25/23 00:57 [place] # (Auto) 0.4 10^3/uL (0.2-0.9) 12/25/23 00:57 Eos # (Auto) 0.0 10^3/uL (0.0-0.8) 12/25/23 00:57 Baso # (Auto) 0.0 10^3/uL (0.0-0.1) 12/25/23 00:57 Nucleated RBC % (auto) 0 % 12/25/23 00:57 Nucleated RBCs # 0.0 /100WBC 12/25/23 00:57 PT 27.30 SECONDS (12.1-14.9) H 12/25/23 06:42 INR 2.42 (0.8-1.2) H 12/25/23 06:42 Sodium 126 mmol/L (136-145) L 12/25/23 06:42 Potassium 4.6 mmol/L (3.5-5.1) 12/25/23 06:42 Chloride 94 mmol/L (98-107) L 12/25/23 06:42 Carbon Dioxide 14 mmol/L (22-29) L 12/25/23 06:42 Anion Gap 22.6 (5-19) H 12/25/23 06:42 BUN 57 mg/dL (8-23) H 12/25/23 06:42 Creatinine 2.6 mg/dL (0.5-0.9) H 12/25/23 06:42 GFR Calculation Not Reportable 12/25/23 06:42 Glucose 189 mg/dL (65-115) H 12/25/23 06:42 Calculated Osmolality 283 mOsm/kg (285-295) L 12/25/23 06:42 Lactic Acid 1.9 mmol/L (0.5-2.2) 12/25/23 00:57 Calcium 8.0 mg/dL (8.5-10.5) L 12/25/23 06:42 Magnesium 1.1 mg/dL (1.7-2.3) L 12/25/23 06:42 Total Bilirubin 0.5 mg/dL (0.15-1.2) 12/25/23 00:57 AST 6 U/L (0-32) 12/25/23 00:57 ALT 8 U/L (0-33) 12/25/23 00:57 Alkaline Phosphatase 92 U/L (35-105) 12/25/23 00:57 Troponin T Baseline 37 ng/L (0-10) H 12/25/23 00:57 Troponin T 120 Minute 27.84 ng/L (0-10) H 12/25/23 02:26 Delta Troponin T -9.16 ABS# (0-10) L 12/25/23 02:26 Troponin T Hi Sens 6Hr 40.21 ng/L (0-10) H 12/25/23 06:42 Troponin T Hi Sens 6Hr Delta 3.21 ng/L (0-12) 12/25/23 06:42 NT-Pro-B Natriuret Pep 7250 pg/mL (0-450) H 12/25/23 00:57 Total Protein 6.1 g/dL (6.6-8.7) L 12/25/23 00:57 Albumin 2.0 g/dL (3.5-5.2) L 12/25/23 00:57 Globulin 4.1 g/dL (1.3-4.6) 12/25/23 00:57 Procalcitonin 0.25 ng/mL (0-0.5) 12/25/23 00:57 TSH 2.83 uIU/mL (0.27-4.20) 12/25/23 06:42 Urine Color Yellow (Yellow) 12/25/23 01:31 Urine Appearance Hazy (CLEAR) A 12/25/23 01:31 Urine pH 5 (5-7) 12/25/23 01:31 Ur Specific [place] 1.015 (1.005-1.030) 12/25/23 01:31 Urine Protein Neg (Negative) 12/25/23 01:31 Urine Glucose (UA) Norm (Normal) 12/25/23 01:31 Urine Ketones Negative (Negative) 12/25/23 01:31 Urine Blood 2+ (Negative) H 12/25/23 01:31 Urine Nitrate Negative (Negative) 12/25/23 01:31 Urine Bilirubin Neg (Negative) 12/25/23 01:31 Urine Urobilinogen Neg mg/dL (Negative) 12/25/23 01:31 Ur Leukocyte Esterase 1+ (Negative) H 12/25/23 01:31 Urine RBC 5-10 /hpf (0-2) H 12/25/23 01:31 Urine WBC 25-40 /hpf (0-5) H 12/25/23 01:31 Ur Squamous Epith Cells 15-25 /hpf (0-5) H 12/25/23 01:31 Ur Transition Epith Cell 5-10 /hpf 12/25/23 01:31 Amorphous Sediment Not Reportable 12/25/23 01:31 Urine Bacteria 4+ /hpf (NONE) H 12/25/23 01:31 Urine Mucus 3+ /hpf 12/25/23 01:31 Discharge Plan Discharge Patient Disposition: Admitted As Inpatient Admit Provider: Jg Love Clinical Impression: Acute kidney injury, Atrial fibrillation, Pneumonia, Acute UTI, Congestive heart failure (CHF), Hyponatremia, Pleural effusion, Sepsis, Over-anticoagulated Condition: Stable Sign Out Sign Out Data: Patient Sign Out occurred on 12/25/23 at 06:53. Patient's care was discussed, and care was transferred from Charanjit Littlejohn MD to Guillermo Schmidt DO. Coding Level of Care Code ED Customer Account Representative for Elvira Cueva
[2023-12-25] MEDS: sodium chloride 0.9% 1,000 ML 999 ML IV ×2 (01:05→04:55)
[2023-12-25 01:12] LABS: Basophils % 0.2 %; Hematocrit 36.3 % (36-47); Lymphocytes # 2.2 10^3/uL (0.8-4.8); Lymphocytes % 10.1 %; Mean Corpuscular HGB Conc 32.8 g/dL (30-55); Mean Corpuscular Hemoglobin 28.7 pg (27-33); Mean Corpuscular Volume 87.7 fl (85-98); Mean Platelet Volume 9.1 fL (7.4-10.4); Monocytes # 0.4 10^3/uL (0.2-0.9); Monocytes % 2.1 %; Neutrophils # 18.09 10^3/uL (1.8-7.7); Neutrophils % 84.9 %; Nucleated Red Blood Cells % 0 %; Platelet Count 643 10^3/cmm (157-399); Red Blood Count 4.14 10^6/uL (3.85-5.65); Red Cell Distribution Width 14.8 % (12.1-15.1)
[2023-12-25 01:24] LABS: INR 2.48 (0.8-1.2)
[2023-12-25 01:29] LABS: Lactic Sepsis W/Reflex 1.9 mmol/L (0.5-2.2)
[2023-12-25 01:31] LABS: Troponin(5th) Baseline 37 ng/L (0-10)
[2023-12-25 01:41] LABS: NT Pro B Type Natriuretic Pept 7250 pg/mL (0-450); Procalcitonin 0.25 ng/mL (0-0.5)
[2023-12-25 01:52] LABS: Alanine Aminotransferase 8 U/L (0-33); Alkaline Phosphatase 92 U/L (35-105); Anion Gap 22.8 (5-19); Aspartate Amino Transferase 6 U/L (0-32); Blood Urea Nitrogen 63 mg/dL (8-23); Calcium 8.4 mg/dL (8.5-10.5); Carbon Dioxide 15 mmol/L (22-29); Chloride 92 mmol/L (98-107); Creatinine Clr Calc Pharmacy 12.0949; Globulin 4.1 g/dL (1.3-4.6); Glucose 137 mg/dL (65-115); Osmolality Calculated 280 mOsm/kg (285-295); Potassium 4.8 mmol/L (3.5-5.1); Sodium 125 mmol/L (136-145); Total Bilirubin 0.5 mg/dL (0.15-1.2); Total Protein 6.1 g/dL (6.6-8.7)
[2023-12-25 02:06] LABS: Urine Appearance Hazy (CLEAR); Urine Color Yellow (Yellow)
[2023-12-25 02:07] LABS: Add Urine Microscopic? YES; Bilirubin Urine Neg (Negative); Blood Urine 2+ (Negative); Glucose Urine UA Norm (Normal); Ketones Urine Negative (Negative); Leukocyte Esterase Urine 1+ (Negative); Nitrate Urine Negative (Negative); Protein Urine Neg (Negative); Specific Gravity, Urine 1.015 (1.005-1.030); Urobilinogen Urine Neg (Negative); pH Urine 5 (5-7)
[2023-12-25 02:08] LABS: Bacteria Urine 4+ /hpf; Mucus Urine 3+ /hpf; WBC Urine 25-40 /hpf (0-5)
[2023-12-25 02:09] LABS: Add Urine Culture? No; Squamous Epithelial Cell Urine 15-25 /hpf (0-5)
[2023-12-25 02:48] LABS: Troponin 5 2HR 27.84 ng/L (0-10)
[2023-12-25 02:50] LABS: Troponin 5 2HR Delta -9.16 ABS# (0-10)
[2023-12-25] MEDS: norepinephrine 4 MG/250 ML BAG 15 MG IV (02:55)
--- NOTE | 2023-12-25 04:20 | XRR_ITS ---
PROCEDURE INFORMATION: Exam: XR Chest Exam date and time: 12/25/2023 4:21 AM Age: 83 years old Clinical indication: Device placement; Other: Central line placement TECHNIQUE: Imaging protocol: Radiologic exam of the chest. Views: 1 view. COMPARISON: CR (CHEST, ) 12/25/2023 1:14 AM FINDINGS: Tubes, catheters and devices: Left bipolar pacemaker in place. Monitor leads project over the chest. Interval placement of right internal jugular central venous catheter with tip projecting at the superior cavoatrial junction. Lungs: Stable right lower lobe pneumonia versus atelectasis/partial collapse and suspected mild right pleural effusion. Pleural spaces: Mild right costophrenic angle blunting. Heart/Mediastinum: Heart size is stable. Partially obscured right cardiac border. Calcified mitral annulus. Vasculature: Atherosclerotic tortuosity of the thoracic aorta. Bones/joints: No acute osseous abnormality. XR/XR chest 1V portable [id number] IMPRESSION: 1. Interval placement of right internal jugular central venous catheter with tip projecting at the superior cavoatrial junction. 2. Stable right lower lobe pneumonia versus atelectasis/partial collapse and suspected mild right pleural effusion.
--- NOTE | 2023-12-25 05:04 | CTR_ITS ---
PROCEDURE INFORMATION: Exam: CT Chest Without Contrast; Diagnostic Exam date and time: 12/25/2023 5:25 AM Age: 83 years old Clinical indication: Other: Low BP, lethargic and general weakness TECHNIQUE: Imaging protocol: Diagnostic computed tomography of the chest without contrast. Radiation optimization: All CT scans at this facility use at least one of these dose optimization techniques: automated exposure control; mA and/or kV adjustment per patient size (includes targeted exams where dose is matched to clinical indication); or iterative reconstruction. COMPARISON: CR XR chest 1V portable [id number] 12/25/2023 4:21 AM RADIATION DOSE METRICS: Total DLP (mGy-cm): 553.07 FINDINGS: Tubes, catheters and devices: Left chest wall pacemaker device. Thyroid: Mild atrophy of the thyroid gland. Lungs: New from most recent prior comparison is a large loculated right pleural effusion with associated atelectasis. Pleural spaces: New from prior comparison is a smaller left pleural effusion with associated atelectasis. Heart: Severe calcification of the mitral annulus. Lymph nodes: Calcified right hilar lymph nodes. Calcified paratracheal lymph nodes. Vasculature: Severe calcified atherosclerotic disease of the intrathoracic aorta. Dilation of the main pulmonary arteries, main pulmonary artery reaching 3.9 cm. Bones/joints: Severe degenerative change of the visualized osseous structures. Soft tissues: Diffuse posterior upper back soft tissue granulomas. PROCEDURE INFORMATION: Exam: CT Abdomen And Pelvis Without Contrast Exam date and time: 12/25/2023 5:25 AM Age: 83 years old Clinical indication: Other: Low BP, lethargic and general weakness TECHNIQUE: Imaging protocol: Computed tomography of the abdomen and pelvis without contrast. Radiation optimization: All CT scans at this facility use at least one of these dose optimization techniques: automated exposure control; mA and/or kV adjustment per patient size (includes targeted exams where dose is matched to clinical indication); or iterative reconstruction. COMPARISON: CT abdomen pelvis w con* [id number] 07/13/2023 3:52 AM RADIATION DOSE METRICS: Total DLP (mGy-cm): 553.07 FINDINGS: Tubes, catheters and devices: Bladder is catheterized and decompressed, small foci air is visualized in anti dependent fashion within the lumen. Lungs: Lung bases are clear as visualized. Heart: Base of heart is unremarkable as visualized. Liver: Diffuse hepatic granulomas. Gallbladder and bile ducts: Unchanged severe prominence of the biliary system to include the extrahepatic common biliary duct. Status post cholecystectomy. Pancreas: Atrophy of the pancreas is again noted. Spleen: Numerous splenic granulomas. Adrenal glands: Nodular hypertrophy of the bilateral adrenal glands without definitive mass or lesion. Kidneys and ureters: Mild increase in symmetric perinephric stranding. Stomach and bowel: Diverticulosis without evidence of diverticulitis on this examination. Appendix: No evidence of appendicitis. Intraperitoneal space: Diffuse mesenteric fat stranding. Vasculature: Severe calcified atherosclerotic disease of the intra-abdominal aorta and its major branches. Lymph nodes: Unremarkable. No enlarged lymph nodes. Urinary bladder: Unremarkable as visualized. Reproductive: Status post hysterectomy. Bones/joints: Posterior spinal fusion hardware at L4-L5. Moderate to severe degenerative change of the visualized osseous structures. Soft tissues: Postsurgical change of the right abdominal wall. Interval appearance of multiple soft tissue masses along the anterior abdominal wall, nonspecific. Diffuse abdominal wall anasarca. CT/[place] [id number] IMPRESSION: 1. Bilateral, rivuv-qdxgqsi-ewnk-left pleural effusions with associated atelectasis, nonspecific may represent volume overload, infectious, inflammatory, less likely neoplastic phenomenon. Correlate clinically. 2. Findings suggest pulmonary arterial hypertension. 3. Sequela of granulomatous disease. IMPRESSION: 1. Diffuse third-spacing of fluid suggesting volume overload. 2. Nonspecific soft tissue masses of the anterior abdominal wall. Assessment by ultrasound can be of further utility for characterization. 3. Air within the bladder, likely secondary to instrumentation. Correlate with laboratory findings for urinary tract infection. 4. Additional nonacute findings as above.
[2023-12-25] MEDS: digoxin 250 mcg/ml INJ 2 mL IVP (05:06)
[2023-12-25] MEDS: piperacillin-tazobactam 3.375 GM in sodium chloride 0.9% (plus) 50 ML IV ×2 (05:10→17:18)
--- NOTE | 2023-12-25 06:10 | ECG_ITS ---
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 Measurements Intervals [place] Rate: 139 P: 0 MA: 0 QRS: 67 QRSD: 84 T: 242 QT: 265 QTc: 403 Interpretive Statements ATRIAL FIBRILLATION WITH RAPID VENTRICULAR RESPONSE ST DEVIATION AND MODERATE T-WAVE ABNORMALITY, CONSIDER ANTEROLATERAL ISCHEMIA [-0.1+ mV T-WAVE IN V3-V6] ST DEVIATION AND MODERATE T-WAVE ABNORMALITY, CONSIDER INFERIOR ISCHEMIA [-0.1+ mV T-WAVE IN II/aVF] Compared to ECG 12/25/2023 02:01:54 Left-axis deviation no longer present T-wave abnormality still present Possible ischemia still present Electronically Signed On 12-25-2023 18:44:09 CDT by Rupesh Kaiser M.D. [id number]
[2023-12-25] MEDS: norepinephrine 4 MG/250 ML BAG 75 MG IV (06:57)
[2023-12-25 07:08] LABS: INR 2.42 (0.8-1.2)
[2023-12-25 07:17] LABS: Troponin 5 6HR 40.21 ng/L (0-10); Troponin 5 6HR Delta 3.21 ng/L (0-12)
--- NOTE | 2023-12-25 07:42 | PC.NURSE ---
per dr. scales verbal order lower levophed dose to 14mcg/min due to high heartrate and low bp. titrated levophed to 14mcg/min at 0744
--- NOTE | 2023-12-25 07:47 | PC.PHAR ---
pt is from [facility] jody-medications entered are from the mar and tar that was sent with the pt
--- NOTE | 2023-12-25 08:15 | CT_ITS ---
WS: [id number] CT HEAD NONCONTRAST HISTORY: fall TECHNIQUE: Contiguous axial imaging performed through the brain in 2.5 mm imaging. Bone and soft tiss ue windows. Sagittal and coronal reformats reviewed. All CT scans at [facility] use at least one of these dose optimization techniques: automated exposure control; mA and/or kV adjustment per pa tient size (includes targeted exams where dose is matched to clinical indication); or iterative recon struction. DLP: 968.54 mGy.cm COMPARISON: 11/14/2023 No acute intracranial hemorrhage, midline shift or mass effect. Tiny residual chronic RIGHT subdural hematoma. No mass effect. No acute blood products. Moderate atro phy with severe chronic white matter ischemic disease. Prior lacunar infarct in the anterior limb of the LEFT internal capsule. Ventricles: Normal size with no hydrocephalus. Paranasal sinuses: As visualized are clear. Mastoid air cells: Well pneumatized. Calvarium and scalp: Skull is intact with no soft tissue edema or swelling. IMPRESSION: 1. No acute intracranial hemorrhage or edema. 2. 2 mm residual, chronic RIGHT subdural hematoma. 3. Moderate atrophy and severe chronic white matter ischemic disease.
[2023-12-25 08:38] LABS: Anion Gap 22.6 (5-19); Blood Urea Nitrogen 57 mg/dL (8-23); Carbon Dioxide 14 mmol/L (22-29); Chloride 94 mmol/L (98-107); Creatinine Clr Calc Pharmacy 13.0253; Glucose 189 mg/dL (65-115); Osmolality Calculated 283 mOsm/kg (285-295); Potassium 4.6 mmol/L (3.5-5.1); Sodium 126 mmol/L (136-145)
[2023-12-25] MEDS: vasopressin 40 UNIT/100 ML PREMIX 0.0800000000000000017 UNIT IV (08:51)
[2023-12-25] MEDS: vancomycin 1,000 MG in sodium chloride 0.9% 250 ML 250 MG IV (08:52)
--- NOTE | 2023-12-25 08:52 | P.CONIM_ITS ---
Providers/Reason For Consult 2 Consulting Physician/Specialty*: Lion Newton [facility] Reason for Consult*: Complicated pleural effusion Requesting Physician: Dr. Schmidt Attending Physician: Dr. 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 Further history is somewhat difficult to obtain from the patient. Spoke to patient's son Mr. Cabrera friend over phone-who informed that he recently took over as her health power of city attorney and informed that she had a couple of falls in September which caused subdural hematoma and she recovered from that. He denied any recent falls. As per the admitting physician who spoke to nursing facility they report she has waxing and waning mental status which has been present for 3 to 4 weeks and attributed to her prior subdural. This morning she was cold, clammy with decreased blood pressure. They report her baseline besides occasional confusion is hallucinations at night. In the emergency department she was found to have low blood pressure requiring Levophed up to 20 mics at 1 point, markedly elevated heart rate with A-fib with RVR. Labs showed elevated WBC with left shift 21 K. Elevated INR 2.72, low sodium 125, bicarb 16, elevated BUN/creatinine 64/2.6, low magnesium 1.1, elevated BNP 7250, low albumin 2. Normal procalcitonin and lactic acid. Her CT chest abdomen pelvis 12/25/2023 today morning in the emergency room showed bilateral right greater than left pleural effusions associated with atelectasis. Diffuse third spacing of fluid suggesting volume overload. Nonspecific soft tissue masses of anterior abdominal wall. Bedside chest ultrasound showed complicated right pleural effusion. Echocardiogram showed normal LV size systolic function with EF 60 to 65%. Mild to moderate LVH. Pulmonary critical care consult requested for complicated right pleural effusion in patient with possible septic shock. Seen patient in the emergency room-she has been complaining of feeling cold. And complained of generalized aches. A second vasopressor-vasopressin was added to Levophed and she is being transferred to ICU. Review of Systems 2 General: Reports: 10 or more systems reviewed and unremarkable except in HPI and below Medications/Allergies Home Medications Medication Instructions Recorded Confirmed Last Taken Type Wheelchair #1 ea 12/26/23 04/10/24 Unknown Rx hospital bed E0250 #1 ea 09/10/23 12/25/23 Unknown Rx furosemide 20 mg tablet (Lasix) 20 mg PO TID@08,12,16 11/22/23 12/25/23 Unknown History levothyroxine 75 mcg tablet 75 mcg PO DAILY@06 11/22/23 12/25/23 Unknown History (Synthroid) lidocaine 4 % topical cream 1 applic topical DAILY PRN Pain 11/22/23 12/25/23 Unknown History magnesium hydroxide 400 mg/5 mL 30 ml PO DAILY PRN constipation 11/22/23 12/25/23 Unknown History oral suspension (Milk of Magnesia) potassium chloride 8 mEq 16 meq PO DAILY@08 11/22/23 12/25/23 Unknown History capsule,extended release propranolol 20 mg tablet 20 mg PO BID@08,18 11/22/23 12/25/23 Unknown History acetaminophen 325 mg tablet 650 mg PO Q4H PRN Pain 12/25/23 12/25/23 Unknown History (Tylenol) amlodipine 5 mg tablet (Norvasc) 5 mg PO DAILY@08 12/25/23 12/25/23 Unknown History apixaban 5 mg tablet (Eliquis) 5 mg PO BID@08,20 12/25/23 12/25/23 Unknown History bacitracin zinc 500 unit-polymyxin 1 applic topical DAILY PRN unknown 12/25/23 12/25/23 Unknown History B 10,000 unit/gram topical ointment (Polysporin) bisacodyl 10 mg rectal suppository 10 mg CO DAILY PRN Constipation 12/25/23 12/25/23 Unknown History clonidine HCl 0.1 mg tablet 0.1 mg PO BID@08,20 12/25/23 12/25/23 Unknown History mirtazapine 15 mg tablet (Remeron) 15 mg PO DAILY@1730 12/25/23 12/25/23 Unknown History oxycodone 20 mg tablet 20 mg PO Q4H PRN Pain 12/25/23 12/25/23 Unknown History pantoprazole 40 mg tablet,delayed 40 mg PO DAILY@08 12/25/23 12/25/23 Unknown History release (Protonix) polyethylene glycol 3350 17 gram 17 g PO DAILY PRN Constipation 12/25/23 12/25/23 Unknown History oral powder packet (Miralax) sacubitril 24 mg-valsartan 26 mg 1 tab PO BID@08,20 12/25/23 12/25/23 Unknown History tablet (Entresto) Allergies Allergy/AdvReac Type Severity Reaction Status Date / Time diltiazem [From Dilacor XR] Allergy ALGY-Rash Verified 12/25/23 01:10 nifedipine [From Procardia] Allergy ALGY-Rash Verified 12/25/23 01:10 ranitidine [From Zantac] Allergy ALGY-Swell Verified 12/25/23 01:10 Lip/Tongue/Throat Sulfa (Sulfonamide Allergy ALGY-Rash Verified 12/25/23 01:10 Antibiotics) topiramate [From Topamax] Allergy ALGY-Rash Verified 12/25/23 01:10 Current Medications Generic Name Dose Route Start Last Admin Trade Name Freq PRN Reason Stop Dose Admin norepinephrine 4 mg in 250 mls @ 0 mls/hr 12/25/23 03:00 12/25/23 07:44 Levophed IV 14 mcg/min .Q0M HANSA 52.5 mls/hr Titration Protocol Per Protocol Amiodarone HCl/Dextrose 360 mg in 200 mls @ 0 mls/hr 12/25/23 07:00 12/25/23 07:10 Nexterone IV 1 mg/min .Q0M HANSA 33.33 mls/hr Administration Protocol Per Protocol PFSH Acute 2 PFSH: Medical History History of subdural hematoma Constipation, slow transit Vitamin D deficiency Seasonal and perennial allergic rhinitis CHF (congestive heart failure) Chronic pain Dr. Almeida Pacemaker Hypothyroid Essential hypertension Murmur, cardiac Atrial fibrillation Surgical History History of exploratory laparotomy Adhesion two times Hx of breast reduction, elective History of neck surgery Hardware History of back surgery Lumbar with hardware History of knee surgery Right scope History of cholecystectomy Open History of hysterectomy 1966 abdomen with BSO History of cardiac pacemaker 2016 Family History Grandmother Cancer Mother Hypertension Father Hypertension Brother Stroke Denies family history of Diabetes Dementia Social History Smoking and tobacco/nicotine status: never used tobacco/nicotine Second hand smoke exposure: No Alcohol intake: never Substance/Drug Use: never Adopted: No Caregiver/support person: Yes Lives independently: No Housing: Assisted Living Facility Marital status: Number of children: 5 service: No Current occupational status: retired Do you think of yourself as: Straight/Heterosexual Current gender identity: Female Vitals/I&O/Wt Last Vital Signs Temp 97.1 F L 12/25/23 03:21 Pulse 105 H 12/25/23 08:30 Resp 20 H 12/25/23 08:30 BP 89/62 12/25/23 08:30 Pulse Ox 95 12/25/23 08:30 O2 Del Method Room Air 12/25/23 07:00 12/24/23 12/25/23 12/25/23 22:59 06:59 14:59 Intake Total 2297.500 / 2297.500 58.75 / 58.75 Balance 2297.500 / 2297.500 58.75 / 58.75 Weight last 48 hrs Weight 137 lb Physical Exam 2 Narrative: General: Drowsy, arousable, communicative, feeling cold HEENT: conj clear, EOMI, PERRL,, clinically dehydrated Neck: supple, no meningismus Heme: no cervical LAP Respiratory: Inspection: No visible deformity of the chest wall Palpation: Trachea is mildly deviated to the right, bilateral symmetric expansion Percussion: Dullness to percussion right lower lung zone Auscultation: Reduced breath sounds right lower lung zone Cardiovascular: rrr, nl s1s2, no mrg Abdomen: soft, nt, nd, no r/g, bs+ Extremities: pulses +, no edema, no c/c : no CVA tenderness Skin: intact, no rash MSK: no back or neck pain Neurologic: grossly intact Urinary Catheter Management: Corral: Cath Placed During This Visit: yes Reason for Continuing Indwelling Catheter: Accurate Measurement of Urinary Output in Critically Ill Patients Urinary Catheter Date of Insertion: 12/25/23 Urinary Catheter Time of Insertion: 01:30 Data 12/25/23 00:57 12/25/23 14:15 Other Labs: Radiology Impressions Chest X-Ray 12/25/23 04:20 IMPRESSION: 1. Interval placement of right internal jugular central venous catheter with tip projecting at the superior cavoatrial junction. 2. Stable right lower lobe pneumonia versus atelectasis/partial collapse and suspected mild right pleural effusion. Chest/Abdomen/Pelvis CT 12/25/23 05:04 IMPRESSION: 1. Bilateral, mpenk-whjdgpu-iliw-left pleural effusions with associated atelectasis, nonspecific may represent volume overload, infectious, inflammatory, less likely neoplastic phenomenon. Correlate clinically. 2. Findings suggest pulmonary arterial hypertension. 3. Sequela of granulomatous disease. IMPRESSION: 1. Diffuse third-spacing of fluid suggesting volume overload. 2. Nonspecific soft tissue masses of the anterior abdominal wall. Assessment by ultrasound can be of further utility for characterization. 3. Air within the bladder, likely secondary to instrumentation. Correlate with laboratory findings for urinary tract infection. 4. Additional nonacute findings as above. Laboratory Results WBC 21.30 10^3/uL (3.29-11.43) H 12/25/23 00:57 RBC 4.14 10^6/uL (3.85-5.65) 12/25/23 00:57 Hgb 11.90 g/dL (11.27-16.99) 12/25/23 00:57 Hct 36.3 % (36-47) 12/25/23 00:57 MCV 87.7 fl (85-98) 12/25/23 00:57 MCH 28.7 pg (27-33) 12/25/23 00:57 MCHC 32.8 g/dL (30-55) 12/25/23 00:57 RDW 14.8 % (12.1-15.1) 12/25/23 00:57 Plt Count 643 10^3/cmm (157-399) H 12/25/23 00:57 MPV 9.1 fL (7.4-10.4) 12/25/23 00:57 Neut % (Auto) 84.9 % 12/25/23 00:57 Lymph % (Auto) 10.1 % 12/25/23 00:57 [place] % (Auto) 2.1 % 12/25/23 00:57 Eos % (Auto) 0.0 % 12/25/23 00:57 Baso % (Auto) 0.2 % 12/25/23 00:57 Neut # (Auto) 18.09 10^3/uL (1.8-7.7) H 12/25/23 00:57 Lymph # (Auto) 2.2 10^3/uL (0.8-4.8) 12/25/23 00:57 [place] # (Auto) 0.4 10^3/uL (0.2-0.9) 12/25/23 00:57 Eos # (Auto) 0.0 10^3/uL (0.0-0.8) 12/25/23 00:57 Baso # (Auto) 0.0 10^3/uL (0.0-0.1) 12/25/23 00:57 Nucleated RBC % (auto) 0 % 12/25/23 00:57 Nucleated RBCs # 0.0 /100WBC 12/25/23 00:57 PT 29.80 SECONDS (12.1-14.9) H 12/25/23 14:15 INR 2.72 (0.8-1.2) H 12/25/23 14:15 Sodium 125 mmol/L (136-145) L 12/25/23 14:15 Potassium 4.3 mmol/L (3.5-5.1) 12/25/23 14:15 Chloride 92 mmol/L (98-107) L 12/25/23 14:15 Carbon Dioxide 16 mmol/L (22-29) L 12/25/23 14:15 Anion Gap 21.3 (5-19) H 12/25/23 14:15 BUN 64 mg/dL (8-23) H 12/25/23 14:15 Creatinine 2.6 mg/dL (0.5-0.9) H 12/25/23 14:15 GFR Calculation Not Reportable 12/25/23 14:15 Glucose 253 mg/dL (65-115) H 12/25/23 14:15 Calculated Osmolality 287 mOsm/kg (285-295) 12/25/23 14:15 Lactic Acid 1.9 mmol/L (0.5-2.2) 12/25/23 00:57 Calcium 8.6 mg/dL (8.5-10.5) 12/25/23 14:15 Magnesium 1.1 mg/dL (1.7-2.3) L 12/25/23 06:42 Total Bilirubin 0.5 mg/dL (0.15-1.2) 12/25/23 00:57 AST 6 U/L (0-32) 12/25/23 00:57 ALT 8 U/L (0-33) 04 00:57 Alkaline Phosphatase 92 U/L (35-105) 12/25/23 00:57 Troponin T Baseline 37 ng/L (0-10) H 12/25/23 00:57 Troponin T 120 Minute 27.84 ng/L (0-10) H 12/25/23 02:26 Delta Troponin T -9.16 ABS# (0-10) L 12/25/23 02:26 Troponin T Hi Sens 6Hr 40.21 ng/L (0-10) H 12/25/23 06:42 Troponin T Hi Sens 6Hr Delta 3.21 ng/L (0-12) 12/25/23 06:42 NT-Pro-B Natriuret Pep 7250 pg/mL (0-450) H 12/25/23 00:57 Total Protein 6.1 g/dL (6.6-8.7) L 12/25/23 00:57 Albumin 2.0 g/dL (3.5-5.2) L 12/25/23 00:57 Globulin 4.1 g/dL (1.3-4.6) 12/25/23 00:57 Procalcitonin 0.25 ng/mL (0-0.5) 12/25/23 00:57 TSH 2.83 uIU/mL (0.27-4.20) 12/25/23 06:42 Random Cortisol 53.00 ug/dL (2.47-19.5) H 12/25/23 06:42 Urine Color Yellow (Yellow) 12/25/23 01:31 Urine Appearance Hazy (CLEAR) A 12/25/23 01:31 Urine pH 5 (5-7) 12/25/23 01:31 Ur Specific [place] 1.015 (1.005-1.030) 12/25/23 01:31 Urine Protein Neg (Negative) 12/25/23 01:31 Urine Glucose (UA) Norm (Normal) 12/25/23 01:31 Urine Ketones Negative (Negative) 12/25/23 01:31 Urine Blood 2+ (Negative) H 12/25/23 01:31 Urine Nitrate Negative (Negative) 12/25/23 01:31 Urine Bilirubin Neg (Negative) 12/25/23 01:31 Urine Urobilinogen Neg mg/dL (Negative) 12/25/23 01:31 Ur Leukocyte Esterase 1+ (Negative) H 12/25/23 01:31 Urine RBC 5-10 /hpf (0-2) H 12/25/23 01:31 Urine WBC 25-40 /hpf (0-5) H 12/25/23 01:31 Ur Squamous Epith Cells 15-25 /hpf (0-5) H 12/25/23 01:31 Ur Transition Epith Cell 5-10 /hpf 12/25/23 01:31 Amorphous Sediment Not Reportable 12/25/23 01:31 Urine Bacteria 4+ /hpf (NONE) H 12/25/23 01:31 Urine Mucus 3+ /hpf 12/25/23 01:31 Blood Type A Positive 12/25/23 17:07 Blood Type A Positive 12/25/23 17:07 Rho(D) Type Rh positive 12/25/23 17:07 Rho(D) Type Rh positive 12/25/23 17:07 Antibody Screen Negative 12/25/23 17:07 Micro: Microbiology 12/25/23 01:12 Blood Culture - Preliminary Blood SPECIMEN COLLECTED 12/25/23 00:57 Blood Culture - Preliminary Blood SPECIMEN COLLECTED A&P Assessment and plan (1) Septic shock: Patient admitted with septic shock likely secondary to right lung empyema Currently requiring Levophed and vasopressin-recommended to maintain MAP target greater than 65; agree with albumin infusion every 8 hours She is saturating 96 to 100% on 2 L supplemental oxygen Procalcitonin, lactic acid are within normal limits CT chest imaging suggestive of complicated right pleural effusion-14 Macanese pigtail placed and drained lele pus; we will leave pigtail connected to suction. Sent for pleural studies. Okay to continue vancomycin and Zosyn Continue close clinical monitoring, hemodynamic monitoring, (2) Empyema: 14 Macanese pigtail placed in right pleural cavity-lele pus drained Will leave pigtail under suction for overnight (3) Atrial fibrillation: Currently patient is on amiodarone drip She was on Eliquis-last dose yesterday evening-currently held for pigtail/chest tube placement (4) Acute kidney injury: Patient has baseline CKD-today creatinine 2.8 likely secondary to septic shock Will continue adequate hydration and try to keep MAP greater than 65 with the help of pressors and albumin infusion Monitor BUNs/creatinine/fluid intake and output/electrolytes Can give Lasix 20 along with albumin if there is decreased urine output (5) Metabolic acidosis: CMP suggestive of metabolic acidosis; however lactic acid is normal Sugars are moderately high I am going to send serum ketones to rule out underlying DKA (6) Elevated INR: LFTs within normal range Repeat INR is also elevated-probably secondary to sepsis-I will send DIC panel Given 1 unit FFP prior to proceeding with chest tube/pigtail placement (7) Hypomagnesemia: Magnesium 1.1-supplemented Will monitor Plan ICU CHECKLIST: Problem list updated Verbal orders reviewed and signed Code Status: Full Disposition: ICU Critically ill: Yes MD discussed with: ED physician, admitting hospitalist, RN, RT Analgesia: Morphine as needed Glycemic Control: N/A Nutrition: N.p.o. Restraint Renewal (within 24 hrs): Yes Ulcer Prophylaxis: PPI Chemical Thromboprophylaxis: Prophylaxis: Currently held for chest tube/pigtail placement Mechanical Thromboprophylaxis: Yes Need for Central line: Yes patient is requiring pressors Need for Corral catheter: Yes Consult Attestations 2 Medical Necessity Statement: Septic shock-requiring 2 pressors-continue close ICU monitoring Time Spent in Patient Care: Greater than 35 minutes (>than 50% of time spent in counselling and/or direct pt care on unit) . Critical Care Time: This patient has a high probability of clinically significant, sudden or life threatening deterioration of the patient's () systems required my full, direct attention, the highest level of physician preparedness for urgent intervention and personal management. I managed/supervised life or organ supporting interventions that required frequent physician assessment. I devoted my full attention in the ICU to the direct care of this patient for the period of time indicated above. Time I spent with family or surrogate(s) is included only if the patient was incapable of providing necessary information or participating in decision making. This time includes the following services provided: Telemetry review Mechanical Ventilation Hemodynamic interpretation, assessment and management Review and interpretation of CXR Review and interpretation of lab values Review and interpretation of microbiologic data and culture results Review of medications and administration Review and interpretation of Nutrition requirements and management Discussion of management with other consultants and services Clinical update to family members [x] Data and vital sign review and interpretation [x] Patient assessment, examination and intervention [x] Documentation [x] Medication orders and management Time spent for teaching as well as performing procedures are billed separately and is not included in this note Critical Care Time (min): 74 and High Time for a total of 74 minutes, includes reviewing past or interval history, examining/interviewing patient, placing orders, counseling patient/family/other support, updating patient/family/other support, discussing plan of care with staff, communicating with other healthcare providers, documenting encounter and coordinating care Diagnoses Septic shock A41.9; R65.21 Empyema J86.9 Atrial fibrillation I48.91 Acute kidney injury N17.9 Metabolic acidosis E87.20 Elevated INR R79.1 Hypomagnesemia E83.42 Time Spent (min) 74
--- NOTE | 2023-12-25 09:20 | ECG_ITS ---
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 Measurements Intervals Mcdaniels Rate: 96 P: 0 OK: 0 QRS: 66 QRSD: 84 T: 247 QT: 318 QTc: 402 Interpretive Statements ATRIAL FIBRILLATION ST DEVIATION AND MODERATE T-WAVE ABNORMALITY, CONSIDER ANTEROLATERAL ISCHEMIA [-0.1+ mV T-WAVE IN V3-V6] ST DEVIATION AND MODERATE T-WAVE ABNORMALITY, CONSIDER INFERIOR ISCHEMIA [-0.1+ mV T-WAVE IN II/aVF] Compared to ECG 12/25/2023 06:10:43 No significant changes Electronically Signed On 12-25-2023 18:45:23 CDT by Rupesh Kaiser M.D. [id number]
--- NOTE | 2023-12-25 09:56 | P.HP_ITS ---
Providers/Chief Complaint 2 Admitting Physician: Jg Love MD Primary Care Provider: TRUONG Kohler-Liliya Chief Complaint: lethargy History of Present Illness Carmella Suarez Friend is a 83 year old female with history of subdural hematoma September 2017 presents from nursing facility with increased lethargy, abnormal vital signs. Further history is somewhat difficult to obtain from the patient. She does report to me she feels cold. She denies any specific pain. When I called the nursing facility they report she has waxing and waning mental status which has been present for 3 to 4 weeks and attributed to her prior subdural. This morning she was cold, clammy with decreased blood pressure. They report her baseline besides occasional confusion is hallucinations at night. In the emergency department she was found to be septic with significantly low blood pressure, markedly elevated heart rate with A-fib with RVR, and an abnormal chest x-ray. Review of Systems 2 General: Reports: ROS unobtainable due to medical condition Medications/Allergies Home Medications Medication Instructions Recorded Confirmed Last Taken Type Wheelchair #1 ea 09/10/23 12/25/23 Unknown Rx hospital bed E0250 #1 ea 09/10/23 12/25/23 Unknown Rx furosemide 20 mg tablet (Lasix) 20 mg PO TID@08,12,16 11/22/23 12/25/23 Unknown History levothyroxine 75 mcg tablet 75 mcg PO DAILY@06 11/22/23 12/25/23 Unknown History (Synthroid) lidocaine 4 % topical cream 1 applic topical DAILY PRN Pain 11/22/23 12/25/23 Unknown History magnesium hydroxide 400 mg/5 mL 30 ml PO DAILY PRN constipation 11/22/23 12/25/23 Unknown History oral suspension (Milk of Magnesia) potassium chloride 8 mEq 16 meq PO DAILY@11/22/23 12/25/23 Unknown History capsule,extended release propranolol 20 mg tablet 20 mg PO BID@,18 11/22/23 12/25/23 Unknown History acetaminophen 325 mg tablet 650 mg PO Q4H PRN Pain 12/25/23 12/25/23 Unknown History (Tylenol) amlodipine 5 mg tablet (Norvasc) 5 mg PO DAILY@08 12/25/23 12/25/23 Unknown History apixaban 5 mg tablet (Eliquis) 5 mg PO BID@,20 12/25/23 12/25/23 Unknown History bacitracin zinc 500 unit-polymyxin 1 applic topical DAILY PRN unknown 12/25/23 12/25/23 Unknown History B 10,000 unit/gram topical ointment (Polysporin) bisacodyl 10 mg rectal suppository 10 mg OR DAILY PRN Constipation 12/25/23 12/25/23 Unknown History clonidine HCl 0.1 mg tablet 0.1 mg PO BID@,12/25/23 12/25/23 Unknown History mirtazapine 15 mg tablet (Remeron) 15 mg PO DAILY@1730 12/25/23 12/25/23 Unknown History oxycodone 20 mg tablet 20 mg PO Q4H PRN Pain 12/25/23 12/25/23 Unknown History pantoprazole 40 mg tablet,delayed 40 mg PO DAILY@08 12/25/23 12/25/23 Unknown History release (Protonix) polyethylene glycol 3350 17 gram 17 g PO DAILY PRN Constipation 12/25/23 12/25/23 Unknown History oral powder packet (Miralax) sacubitril 24 mg-valsartan 26 mg 1 tab PO BID@08,12/25/23 12/25/23 Unknown History tablet (Entresto) Allergies Allergy/AdvReac Type Severity Reaction Status Date / Time diltiazem [From Dilacor XR] Allergy ALGY-Rash Verified 12/25/23 01:10 nifedipine [From Procardia] Allergy ALGY-Rash Verified 12/25/23 01:10 ranitidine [From Zantac] Allergy ALGY-Swell Verified 12/25/23 01:10 Lip/Tongue/Throat Sulfa (Sulfonamide Allergy ALGY-Rash Verified 12/25/23 01:10 Antibiotics) topiramate [From Topamax] Allergy ALGY-Rash Verified 12/25/23 01:10 PFSH Acute 2 PFSH: Medical History History of subdural hematoma Constipation, slow transit Vitamin D deficiency Seasonal and perennial allergic rhinitis CHF (congestive heart failure) Chronic pain Dr. Almeida Pacemaker Hypothyroid Essential hypertension Murmur, cardiac Atrial fibrillation Surgical History History of exploratory laparotomy Adhesion two times Hx of breast reduction, elective History of neck surgery Hardware History of back surgery Lumbar with hardware History of knee surgery Right scope History of cholecystectomy Open History of hysterectomy 1966 abdomen with BSO History of cardiac pacemaker 2016 Family History Grandmother Cancer Mother Hypertension Father Hypertension Brother Stroke Denies family history of Diabetes Dementia Social History Smoking and tobacco/nicotine status: never used tobacco/nicotine Second hand smoke exposure: No Alcohol intake: never Substance/Drug Use: never Adopted: No Caregiver/support person: Yes Lives independently: No Housing: Assisted Living Facility Marital status: Number of children: 5 service: No Current occupational status: retired Do you think of yourself as: Straight/Heterosexual Current gender identity: Female Vitals/I&O/Wt Last Vital Signs Temp 97.1 F L 12/25/23 03:21 Pulse 120 H 12/25/23 09:10 Resp 0 L 12/25/23 09:10 BP 85/64 12/25/23 09:10 Pulse Ox 93 12/25/23 09:10 O2 Del Method Room Air 12/25/23 07:00 12/24/23 12/25/23 12/25/23 22:59 06:59 14:59 Intake Total 2297.500 / 2297.500 58.75 / 58.75 Balance 2297.500 / 2297.500 58.75 / 58.75 Weight last 48 hrs Weight 62.142 kg Physical Exam 2 Narrative: General exam is a lethargic white female, who can answer few questions and denies any discomfort. She is on 2 L of oxygen, 14 of norepinephrine, fixed dose vasopressin. HEENT: Atraumatic normocephalic. Pupils equally round. Oropharynx appears dry Neck is supple no lymphadenopathy thyromegaly Cardiovascular irregular, irregular with accelerated rate. I cannot hear a murmur Lungs clear but diminished breath sounds right side Abdomen is soft, positive bowel sounds. No obvious organomegaly demonstrates [place] with scant amount of yellow urine Extremities 2+ edema bilaterally. No cyanosis or clubbing. Skin no rash, but cool to the touch Neuro no obvious focal deficits Urinary Catheter Management: Cor[place]: Cath Placed During This Visit: yes Reason for Continuing Indwelling Catheter: Accurate Measurement of Urinary Output in Critically Ill Patients Urinary Catheter Date of Insertion: 12/25/23 Urinary Catheter Time of Insertion: 01:30 Sepsis: Is patient septic: Yes Focused sepsis exam performed: Yes Date exam was performed: 12/25/23 Time exam was performed: 08:00 Data 12/25/23 00:57 12/25/23 06:42 Other Labs: INR is 2.42 Magnesium and TSH which I ordered are pending Calcium is 8, albumin 2.0 BNP 7250 Troponin 37 with repeat of 27 Urinalysis 25-40 whites, 5-10 reds but 15-25 squamous Chest x-ray by my read demonstrates right lung infiltrate versus effusion. Cardiomegaly is noted. CT chest abdomen and pelvis which I reviewed demonstrates some anasarca, right pleural effusion. No obvious urinary obstruction. Blood culture and urine cultures were obtained EKG per my read demonstrates A-fib with RVR, rate of around 120. Left axis deviation is present. Nonspecific ST-T wave changes are noted, most significant in V4 through 6 although some are present laterally. Micro: Microbiology 12/25/23 01:12 Blood Culture - Preliminary Blood SPECIMEN COLLECTED 12/25/23 00:57 Blood Culture - Preliminary Blood SPECIMEN COLLECTED A&P Assessment and plan (1) Sepsis: Patient presents with sepsis. Not a candidate for significant fluid bolus secondary to overlying fluid overload IV antibiotics consisting of Vanco Zosyn Blood culture, sputum culture, urine culture Currently on norepinephrine, fixed dose vasopressin Add albumin Pulmonary critical care consult (2) Hypotension: See above (3) Atrial fibrillation: Patient presents with A-fib with RVR Placed on an amiodarone drip Heart rate improving Check echo Check magnesium. This was found to be significantly low. Supplementing currently. Check TSH (4) Congestive heart failure (CHF): Patient with significant fluid overload. Not current candidate for diuresis secondary to hypotension. Check echocardiogram. (5) Hyponatremia: Patient with significant hyponatremia. This may be secondary to renal failure or CHF. Recheck sodium later today, around 2 PM Check TSH and cortisol level (6) Pleural effusion: Patient with significant pleural effusion. There is concern this may be blood. Certainly it seems to have multiple septations Pulmonary critical care consult for thoracentesis and possible chest tube Cannot rule out empyema at this time. (7) Acute kidney injury: Patient with acute kidney injury No evidence of obstruction on CT abdomen pelvis Follow creatinine closely Avoid renal toxic medication Albumin, and pressors to improve renal perfusion (8) Pneumonia: Concern of pneumonia/atelectasis with this patient with a large right pleural effusion Sputum culture Vancomycin and Zosyn Check MRSA PCR (9) History of subdural hematoma: Patient has history of subdural hematoma, in October Repeat CT scan without contrast demonstrates no obvious recurrence (10) Elevated INR: Patient with significantly elevated INR, more so than would be suspected with just apixaban Hold apixaban SCDs for DVT prophylaxis No anticoagulation currently has chest tube being considered (11) Metabolic acidosis: Patient with significant metabolic acidosis secondary to acute kidney injury (12) Elevated troponin: Elevated troponin, type II elevation. Awaiting echocardiogram (13) Acute encephalopathy: Acute metabolic encephalopathy, secondary to sepsis. Monitor for improvement Plan Hypomagnesemia. Supplement. Multiple other medical problems as outlined in by past medical history Full code SCDs for DVT prophylaxis. Previously on Eliquis, with possible hemothorax. Pharmacologic anticoagulation contraindicated. Attestations 2 Medical Necessity Statement*: Will need greater than 2 midnight stay for evaluation and treatment of sepsis, with probable right hemothorax. Critical Care Time: The high probability of a clinically significant, sudden or life threatening deterioration of the patient's [pulmonary, renal, infectious disease] system(s) required my full and direct attention, intervention and personal management. The critical care time is as shown. This time is in addition to time spent performing any reported procedures but includes the following: [x] Data and vital sign review and interpretation [x] Patient assessment, examination and intervention [x] Documentation [x] Medication orders and management Critical Care Time (min): 65 Coding Level of Care Code Critical Care >/= 30 minutes Critical care time (in minutes): 65 The high probability of a clinically significant, sudden or life threatening deterioration, as referenced in this documentation, required my full and direct attention, intervention and personal management. The critical care time shown is in addition to time spent performing any reported separately billable procedures and includes the following: [x] Data and vital sign review and interpretation [x ] Patient assessment, examination and intervention [x] Medication orders and management [x] Patient/Family updates as able [x] Care Coordination and Documentation. Diagnoses Sepsis A41.9 Hypotension I95.9 Atrial fibrillation I48.91 Congestive heart failure (CHF) I50.9 Hyponatremia E87.1 Pleural effusion J90 Acute kidney injury N17.9 Pneumonia J18.9 History of subdural hematoma Z86.79 Elevated INR R79.1 Metabolic acidosis E87.20 Elevated troponin R79.89 Acute encephalopathy G93.40
--- NOTE | 2023-12-25 10:00 | PC.NURSE ---
VERIFIED WITH JEAN PAUL PHARMACIST THAT LEVOPHED AND VASOPRESSIN ARE COMPATIBLE. PHARMACY GAVE GO AHEAD TO RUN MEDICATIONS TOGETHER THROUGH CENTRAL LINE.
--- NOTE | 2023-12-25 10:12 | USCV_ITS ---
Carmella Jose Age: 83 Gender: F : 1940 Exam Date: 12/25/2023 10:42 Ordering Phys: Jg Love MD Technologist: Exam Location: [facility] [place] Indication: chf BP: 85 / 67 HR: 77 Rhythm: Sinus Technical Quality: Adequate MEASUREMENTS (Male / Female) Normal Values 2D ECHO LV Diastolic Diameter PLAX 2.5 cm 4.2 - 5.9 / 3.9 - 5.3 cm IVS Diastolic Thickness 1.1 cm 0.6 - 1.0 / 0.6 - 0.9 cm IVS Systolic Thickness 1.2 cm LVPW Diastolic Thickness 1.2 cm 0.6 - 1.0 / 0.6 - 0.9 cm LVPW Systolic Thickness 1.1 cm LV Ejection Fraction 2D Teich 66.7 % LA Diameter 3.8 cm M-MODE LA Ao Ratio MM 1.1 AV Cusp Separation MM 1.0 cm DOPPLER AV Peak Velocity 140.7 cm/s LVOT Peak Velocity 82.0 cm/s AV Area Cont Eq vti 2.4 cm squared AV Area Cont Eq pk 1.5 cm squared MV Peak Velocity 116.0 cm/s MV Area PHT 3.6 cm squared Mitral E to A Ratio 2.9 TV Peak Velocity 240.5 cm/s TR Peak Velocity 257.0 cm/s TR Peak Gradient 26.4 mmHg TR Mean Velocity 172.0 cm/s TR Mean Gradient 14.7 mmHg TR Velocity Time Integral 72.7 cm TV Peak E Velocity 87.0 cm/s Right Atrial Pressure 3.0 mmHg Pulmonary Artery Systolic Pressu 29.4 mmHg PV Peak Velocity 124.0 cm/s FINDINGS Left Ventricle Left ventricle is normal in size. LV systolic function is normal with EF 60-65%. No regional wall motion abnormalities are seen. Mild to moderate LVH. Right Ventricle Normal in size and function Right Atrium Normal in size Left Atrium Normal in size Mitral Valve Mild mitral annular calcification. Mild mitral regurgitation. Aortic Valve Aortic valve is thickened. No significant stenosis or regurgitation. Tricuspid Valve Mild tricuspid regurgitation. Pulmonary artery systolic pressure is normal. Pulmonic Valve Mild pulmonic regurgitation. Pericardium Grossly normal Aorta Normal in size IVC Grossly normal CONCLUSIONS Mild to moderate left ventricular hypertrophy. LV systolic function is normal with EF of 60 to 65%. Mild mitral regurgitation. Mild tricuspid regurgitation Mild pulmonic regurgitation No comparison studies are available Royer Fabian MD (Electronically Signed) Final Date: 25 December 2023 18:09 S
[2023-12-25 10:40] LABS: Magnesium 1.1 mg/dL (1.7-2.3); Thyroid Stimulating Hormone 2.83 uIU/mL (0.27-4.20)
[2023-12-25] MEDS: albumin 25 G/100 ML BAG 60 G IV ×2 (12:08→18:06)
[2023-12-25] MEDS: magnesium sulfate premix 2 GM/50 ML PIGGYBACK IV (12:08)
--- NOTE | 2023-12-25 12:41 | US_ITS ---
WS: [id number] Ultrasound RIGHT chest. HISTORY: Evaluate pleural fluid. Complex heterogeneous pleural fluid noted on CT. COMPARISON: Chest CT 12/25/2023. Ultrasound is performed of the RIGHT thorax. There is a very large complex collection within the RIGH T thorax. There is no increased vascularity. There is pleural thickening and heterogeneity. This coul d very well represent an empyema. The fluid component is limited as compared to the more complex mate rial. IMPRESSION: Complex RIGHT pleural effusion. Very well may represent an empyema. No vascularity identified within the complex material.
[2023-12-25] MEDS: norepinephrine 4 MG/250 ML BAG 30 MG IV (13:41)
[2023-12-25 15:09] LABS: INR 2.72 (0.8-1.2)
[2023-12-25 15:11] LABS: Anion Gap 21.3 (5-19); Blood Urea Nitrogen 64 mg/dL (8-23); Calcium 8.6 mg/dL (8.5-10.5); Carbon Dioxide 16 mmol/L (22-29); Chloride 92 mmol/L (98-107); Creatinine Clr Calc Pharmacy 13.4376; Glucose 253 mg/dL (65-115); Osmolality Calculated 287 mOsm/kg (285-295); Potassium 4.3 mmol/L (3.5-5.1); Sodium 125 mmol/L (136-145)
[2023-12-25] MEDS: FUROsemide 10 mg/mL SDV 2mL 20 MG IVP (18:06)
--- NOTE | 2023-12-25 19:22 | XRR_ITS ---
PROCEDURE INFORMATION: Exam: XR Chest Exam date and time: 12/25/2023 7:05 PM Age: 83 years old Clinical indication: Device placement; Chest tube; Additional info: Post right-sided pigtail placement TECHNIQUE: Imaging protocol: Radiologic exam of the chest. Views: 1 view. COMPARISON: [place] [id number] 12/25/2023 5:25 AM FINDINGS: Tubes, catheters and devices: Loculated apparent large right pleural effusion suspected with a percutaneous drainage tube overlying it. Left-sided pacemaker. Right central venous catheter tip at the atrial caval junction. Lungs: Unremarkable. No consolidation. Pleural spaces: Unremarkable. No pleural effusion. No pneumothorax. Heart/Mediastinum: Cardiomegaly. Bones/joints: Unremarkable. XR/XR chest 1V portable [id number] IMPRESSION: 1. Loculated apparent large right pleural effusion suspected with a percutaneous drainage tube overlying it. 2. Left-sided pacemaker. 3. Right central venous catheter tip at the atrial caval junction. 4. Cardiomegaly.
--- NOTE | 2023-12-25 19:48 | P.PCN_ITS ---
Procedure/Consent 2 Time out: Time Out Performed: Yes Consent: Consent for Procedure: Consent obtained from other (indicate) (Next of kin-patient's son), Risks & Benefits reviewed and Agrees to proceed with procedure Procedure Narrative: Name of the procedure: CPT code 10250: Pleural drainage, percutaneous, with insertion of indwelling catheter with imaging guidance Indication: Complicated right pleural effusion Permastone Mechanic(s): Lion Dickeyr [facility] Consent: Taken at bedside from patient as well as over phone from patient's next of kin, her son. Placed in chart Anesthesia: 20 cc 1% lidocaine without epinephrine Description of the procedure: An ultrasound was performed and a large complicated right-sided pleural effusion was identified. A safe fluid pocket was identified with the ultrasound guidance and marked. The skin, subcutaneous tissue and the pleura was anesthetized with 1% lidocaine. Using ultrasound guidance ([id number] ) needle was advanced till flash back was noted. Lele pus was noted. Using Seldinger technique the 14 [place] indwelling chest tube was put in([id number]). Catheter was connected to chest tube chamber and connected to suction. The chest tube was secured with suture and transparent dressing. 100 mL of lele pus was obtained. Sample: The pleural fluid was sent for cell count and differential, Gram stain culture, fluid analysis. Complications: None. Ultrasound guidance used: Yes EBL: 5-10 cc Complications: None; patient tolerated procedure well Postprocedure CXR: Acute Procedures 2 Epistaxis Control: Time out performed: Yes
--- NOTE | 2023-12-25 19:51 | PC.NURSE ---
Shift SUmmary: Patient has remained on both vasopressin and levophed throughout the day. Oriented to person, place, time and situation, but increasingly lethargic. FFP started near end of shift due to High INR and need to do pigtail placement to drain an empyema. Nurse assisted Dr odom with pigtail procedure, which drained 100mL of thick purulent drainage. Set to suction/pleuravac. Culture sent to lab.
[2023-12-25 20:12] LABS: Apprearance, Body Fluid TURBID; Color, Body Fluid OTHER; Fluid Laterality RIGHT PLEUAL FLUID
[2023-12-25 20:35] LABS: Ketone (Acetest) Serum Negative (Negative)
[2023-12-25 20:42] LABS: Lactate (Lactic Acid level) 0.8 mmol/L (0.5-2.2)
[2023-12-25] MEDS: morphine 4 mg/mL SDV 1 mL 2 MG IVP (20:49)
[2023-12-25 21:32] LABS: Albumin Body Fluid 1.6 g/dL; Creatinine Body Fluid 2.23 (0.5-0.9); Total Protein Pleural Fluid 3.8 g/dL
[2023-12-25 21:33] LABS: Triglycerides, Pleural Fluid 55 mg/dL
[2023-12-25 21:46] LABS: Hematocrit Body Fluid 1.9 %
[2023-12-25 22:47] LABS: Bacillus cereus group Not Detected (NOT DETECT); Bacillus subtillis group Not Detected (NOT DETECT); Corynebacterium Not Detected (NOT DETECT); Cutibacterium acnes (P.acnes) Not Detected (NOT DETECT); Enterococcus Not Detected (NOT DETECT); Enterococcus faecalis Not Detected (NOT DETECT); Enterococcus faecium Not Detected (NOT DETECT); Lactobacillus species Not Detected (NOT DETECT); Listeria Not Detected (NOT DETECT); Listeria monocytogenes Not Detected (NOT DETECT); Micrococcus Not Detected (NOT DETECT); Pan Candida Not Detected (NOT DETECT); Pan Gram-Negative Not Detected (NOT DETECT); Staphylococcus epidermidis Not Detected (NOT DETECT); Staphylococcus lugdunensis Not Detected (NOT DETECT); Staphylococcus species Detected (NOT DETECT); Streptococcus agalactiae Not Detected (NOT DETECT); Streptococcus anginosus group Not Detected (NOT DETECT); Streptococcus pneumoniae Not Detected (NOT DETECT); Streptococcus pyogenes Not Detected (NOT DETECT); Streptococcus species Not Detected (NOT DETECT); mecA Detected (NOT DETECT); mecC Not Detected (NOT DETECT)
[2023-12-25] MEDS: norepinephrine 4 MG/250 ML BAG 52.5 MG IV (22:59)
[2023-12-25 23:30] LABS: Body Fluid Polynuclear #Cells 377.138; Body Fluid WBC 550127 /uL; Monocytes # Body Fluid 172.989
[2023-12-26] VITALS (131 sets, daily range): BP systolic 92–133; BP diastolic 46–81; PULSE 79–120; RESP 14–27; TEMP 36.2–36.8; O2SAT 89–100
[2023-12-26 00:29] LABS: LDH Pleural Fluid 11975 U/L
[2023-12-26] MEDS: albumin 25 G/100 ML BAG 60 G IV ×3 (02:34→18:04)
[2023-12-26] MEDS: morphine 4 mg/mL SDV 1 mL 2 MG IVP ×4 (02:35→22:31)
[2023-12-26 04:01] LABS: Basophils % 0.1 %; Eosinophils % 0.1 %; Hematocrit 26.2 % (36-47); Lymphocytes # 2.1 10^3/uL (0.8-4.8); Lymphocytes % 12.2 %; Mean Corpuscular HGB Conc 32.4 g/dL (30-55); Mean Corpuscular Hemoglobin 28.6 pg (27-33); Mean Corpuscular Volume 88.2 fl (85-98); Mean Platelet Volume 9.2 fL (7.4-10.4); Monocytes # 0.6 10^3/uL (0.2-0.9); Monocytes % 3.7 %; Neutrophils # 14.08 10^3/uL (1.8-7.7); Neutrophils % 81.5 %; Nucleated Red Blood Cells % 0 %; Platelet Count 434 10^3/cmm (157-399); Red Blood Count 2.97 10^6/uL (3.85-5.65); Red Cell Distribution Width 14.6 % (12.1-15.1); White Blood Count 17.28 10^3/uL (3.29-11.43)
[2023-12-26 04:30] LABS: Alanine Aminotransferase 11 U/L (0-33); Albumin Level 3.5 g/dL (3.5-5.2); Alkaline Phosphatase 72 U/L (35-105); Anion Gap 19.6 (5-19); Aspartate Amino Transferase 6 U/L (0-32); Blood Urea Nitrogen 60 mg/dL (8-23); Calcium 9.2 mg/dL (8.5-10.5); Carbon Dioxide 19 mmol/L (22-29); Chloride 93 mmol/L (98-107); Creatinine Clr Calc Pharmacy 15.1904; Globulin 2.5 g/dL (1.3-4.6); Glucose 217 mg/dL (65-115); Magnesium 1.5 mg/dL (1.7-2.3); Osmolality Calculated 289 mOsm/kg (285-295); Potassium 3.6 mmol/L (3.5-5.1); Sodium 128 mmol/L (136-145); Total Bilirubin 0.5 mg/dL (0.15-1.2)
[2023-12-26] MEDS: norepinephrine 4 MG/250 ML BAG 30 MG IV (04:56)
[2023-12-26] MEDS: ondansetron 2 mg/ML SDV 2 mL 4 MG IVP (05:18)
[2023-12-26] MEDS: piperacillin-tazobactam 3.375 GM in sodium chloride 0.9% (plus) 50 ML IV ×2 (05:53→17:30)
--- NOTE | 2023-12-26 07:00 | XRR_ITS ---
PROCEDURE INFORMATION: Exam: XR Chest Exam date and time: 12/26/2023 6:33 AM Age: 83 years old Clinical indication: Other: Effusion TECHNIQUE: Imaging protocol: Radiologic exam of the chest. Views: 1 view. COMPARISON: CR XR chest 1V portable [id number] 12/25/2023 7:05 PM FINDINGS: Tubes, catheters and devices: Unchanged right IJ line and left chest pacing device. Lungs: Unremarkable. No consolidation. Pleural spaces: Similar appearance of opacities at the [id number]-[id number]-nxfw-left mid and lower lung zones representing known large right and small left pleural effusions seen on 12/25/2023 CT chest. Unchanged percutaneous right chest drain. Heart/Mediastinum: Heart size upper limits normal Bones/joints: Unremarkable. XR/XR chest 1V portable [id number] IMPRESSION: Unchanged bilateral lung opacities as above.
--- NOTE | 2023-12-26 08:44 | P.PN_ITS ---
Subjective 2 Subjective: No overnight events Patient still complaining of pain relieved with morphine as needed Chest tube drained about 250 cc lele pus-will plan to give intrapleural tPA 12 hours apart today; we do not have Dornase in our pharmacy -Labs-showed decreasing WBC count, impro ving sodium, bicarbonate -Renal function stable; magnesium 1.5-butler pplemented -Cultures pending; patient continuing va ncomycin and Zosyn; - pressor requirements coming down-curre ntly Levophed down to 6 and plan is to taper off vasopressin Medications: Reviewed: Yes Vitals/I&O/Wt Last Vital Signs Temp 97.8 F 12/26/23 07:15 Pulse 94 12/26/23 07:15 Resp 16 12/26/23 08:41 BP 119/67 12/26/23 07:15 Pulse Ox 96 12/26/23 08:41 O2 Del Method Nasal Cannula 12/25/23 20:16 O2 Flow Rate 3 12/25/23 20:16 12/25/23 12/26/23 12/26/23 22:59 06:59 14:59 Intake Total 600.0 / 1169.00 476.73 / 1645.73 102.5 / 102.5 Output Total 125 / 155 1005 / 1160 Balance 475.0 / 1014.00 -528.27 / 485.73 102.5 / 102.5 Weight last 48 hrs Weight 150 lb 6.4 oz Weight 150 lb 6.4 oz Weight 146 lb 1.6 oz Weight 137 lb Physical Exam 2 Narrative: General: Drowsy, arousable, communicative, feeling cold HEENT: conj clear, EOMI, PERRL,, clinically dehydrated Neck: supple, no meningismus Heme: no cervical LAP Respiratory: Inspection: No visible deformity of the chest wall Palpation: Trachea is mildly deviated to the right, bilateral symmetric expansion Percussion: Dullness to percussion right lower lung zone Auscultation: Reduced breath sounds right lower lung zone Cardiovascular: rrr, nl s1s2, no mrg Abdomen: soft, nt, nd, no r/g, bs+ Extremities: pulses +, no edema, no c/c : no CVA tenderness Skin: intact, no rash MSK: no back or neck pain Neurologic: grossly intact Urinary Catheter Management: Corral: Cath Placed During This Visit: yes Reason for Continuing Indwelling Catheter: Accurate Measurement of Urinary Output in Critically Ill Patients Urinary Catheter Date of Insertion: 12/25/23 Urinary Catheter Time of Insertion: 01:30 Data 12/26/23 03:35 12/26/23 03:35 Other Labs: Radiology Impressions Chest/Abdomen/Pelvis CT 12/25/23 05:04 IMPRESSION: 1. Bilateral, [id number]-left pleural effusions with associated atelectasis, nonspecific may represent volume overload, infectious, inflammatory, less likely neoplastic phenomenon. Correlate clinically. 2. Findings suggest pulmonary arterial hypertension. 3. Sequela of granulomatous disease. IMPRESSION: 1. Diffuse third-spacing of fluid suggesting volume overload. 2. Nonspecific soft tissue masses of the anterior abdominal wall. Assessment by ultrasound can be of further utility for characterization. 3. Air within the bladder, likely secondary to instrumentation. Correlate with laboratory findings for urinary tract infection. 4. Additional nonacute findings as above. Laboratory Results WBC 17.28 10^3/uL (3.29-11.43) H 12/26/23 03:35 RBC 2.97 10^6/uL (3.85-5.65) L 12/26/23 03:35 Hgb 8.50 g/dL (11.27-16.99) L 12/26/23 03:35 Hct 26.2 % (36-47) L 12/26/23 03:35 MCV 88.2 fl (85-98) 12/26/23 03:35 MCH 28.6 pg (27-33) 12/26/23 03:35 MCHC 32.4 g/dL (30-55) 12/26/23 03:35 RDW 14.6 % (12.1-15.1) 12/26/23 03:35 Plt Count 434 10^3/cmm (157-399) H D 12/26/23 03:35 MPV 9.2 fL (7.4-10.4) 12/26/23 03:35 Neut % (Auto) 81.5 % 12/26/23 03:35 Lymph % (Auto) 12.2 % 12/26/23 03:35 Mcleod % (Auto) 3.7 % 12/26/23 03:35 Eos % (Auto) 0.1 % 12/26/23 03:35 Baso % (Auto) 0.1 % 12/26/23 03:35 Neut # (Auto) 14.08 10^3/uL (1.8-7.7) H 12/26/23 03:35 Lymph # (Auto) 2.1 10^3/uL (0.8-4.8) 12/26/23 03:35 Mcleod # (Auto) 0.6 10^3/uL (0.2-0.9) 12/26/23 03:35 Eos # (Auto) 0.0 10^3/uL (0.0-0.8) 12/26/23 03:35 Baso # (Auto) 0.0 10^3/uL (0.0-0.1) 12/26/23 03:35 Nucleated RBC % (auto) 0 % 12/26/23 03:35 Nucleated RBCs # 0.0 /100WBC 12/26/23 03:35 PT 29.80 SECONDS (12.1-14.9) H 12/25/23 14:15 INR 2.72 (0.8-1.2) H 12/25/23 14:15 Sodium 128 mmol/L (136-145) L 12/26/23 03:35 Potassium 3.6 mmol/L (3.5-5.1) 12/26/23 03:35 Chloride 93 mmol/L (98-107) L 12/26/23 03:35 Carbon Dioxide 19 mmol/L (22-29) L 12/26/23 03:35 Anion Gap 19.6 (5-19) H 12/26/23 03:35 BUN 60 mg/dL (8-23) H 12/26/23 03:35 Creatinine 2.3 mg/dL (0.5-0.9) H 12/26/23 03:35 GFR Calculation Not Reportable 12/26/23 03:35 Glucose 217 mg/dL (65-115) H 12/26/23 03:35 Calculated Osmolality 289 mOsm/kg (285-295) 12/26/23 03:35 Lactic Acid 1.9 mmol/L (0.5-2.2) 12/25/23 00:57 Lactate 0.8 mmol/L (0.5-2.2) 12/25/23 20:18 Calcium 9.2 mg/dL (8.5-10.5) 12/26/23 03:35 Magnesium 1.5 mg/dL (1.7-2.3) L 12/26/23 03:35 Total Bilirubin 0.5 mg/dL (0.15-1.2) 12/26/23 03:35 AST 6 U/L (0-32) 12/26/23 03:35 ALT 11 U/L (0-33) 12/26/23 03:35 Alkaline Phosphatase 72 U/L (35-105) 12/26/23 03:35 Troponin T Baseline 37 ng/L (0-10) H 12/25/23 00:57 Troponin T 120 Minute 27.84 ng/L (0-10) H 12/25/23 02:26 Delta Troponin T -9.16 ABS# (0-10) L 12/25/23 02:26 Troponin T Hi Sens 6Hr 40.21 ng/L (0-10) H 12/25/23 06:42 Troponin T Hi Sens 6Hr Delta 3.21 ng/L (0-12) 12/25/23 06:42 NT-Pro-B Natriuret Pep 7250 pg/mL (0-450) H 12/25/23 00:57 Total Protein 6.0 g/dL (6.6-8.7) L 12/26/23 03:35 Albumin 3.5 g/dL (3.5-5.2) 12/26/23 03:35 Globulin 2.5 g/dL (1.3-4.6) 12/26/23 03:35 Procalcitonin 0.25 ng/mL (0-0.5) 12/25/23 00:57 TSH 2.83 uIU/mL (0.27-4.20) 12/25/23 06:42 Random Cortisol 53.00 ug/dL (2.47-19.5) H 12/25/23 06:42 Urine Color Yellow (Yellow) 12/25/23 01:31 Urine Appearance Hazy (CLEAR) A 12/25/23 01:31 Urine pH 5 (5-7) 12/25/23 01:31 Ur Specific [place] 1.015 (1.005-1.030) 12/25/23 01:31 Urine Protein Neg (Negative) 12/25/23 01:31 Urine Glucose (UA) Norm (Normal) 12/25/23 01:31 Urine Ketones Negative (Negative) 12/25/23 01:31 Urine Blood 2+ (Negative) H 12/25/23 01:31 Urine Nitrate Negative (Negative) 12/25/23 01:31 Urine Bilirubin Neg (Negative) 12/25/23 01:31 Urine Urobilinogen Neg mg/dL (Negative) 12/25/23 01:31 Ur Leukocyte Esterase 1+ (Negative) H 12/25/23 01:31 Urine RBC 5-10 /hpf (0-2) H 12/25/23 01:31 Urine WBC 25-40 /hpf (0-5) H 12/25/23 01:31 Ur Squamous Epith Cells 15-25 /hpf (0-5) H 12/25/23 01:31 Ur Transition Epith Cell 5-10 /hpf 12/25/23 01:31 Amorphous Sediment Not Reportable 12/25/23 01:31 Urine Bacteria 4+ /hpf (NONE) H 12/25/23 01:31 Urine Mucus 3+ /hpf 12/25/23 01:31 Fluid Color Other 12/25/23 19:00 Fluid Appearance Turbid 12/25/23 19:00 Fluid WBC 052550 /uL 12/25/23 19:00 Fluid RBC 136.000 10^3/uL 12/25/23 19:00 Fluid Hematocrit 1.9 % 12/25/23 21:35 Fld Polynuclear WBCs # 377.138 12/25/23 19:00 Fld Polynuclear WBCs % 68.600 % 12/25/23 19:00 Fl Mononucl WBCs #(Auto) 172.989 12/25/23 19:00 Fl Mononuclear % Auto 31.400 % 12/25/23 19:00 Fld Crystal Laterality Right pleual fluid 12/25/23 19:00 Fluid Albumin 1.6 g/dL 12/25/23 19:00 Fluid Creatinine 2.23 (0.5-0.9) H 12/25/23 19:00 Pleural pH 6.00 (6.5-7.5) L 12/25/23 19:00 Pleural Total Protein 3.8 g/dL 12/25/23 19:00 Pleural LDH 75715 U/L 12/25/23 19:00 Pleural Glucose 8.0 mg/dL 12/25/23 19:00 Pleural Triglycerides 55 mg/dL 12/25/23 19:00 Serum Ketones Negative (Negative) 12/25/23 14:15 Blood Type A Positive 12/25/23 17:07 Blood Type A Positive 12/25/23 17:07 Rho(D) Type Rh positive 12/25/23 17:07 Rho(D) Type Rh positive 12/25/23 17:07 Antibody Screen Negative 12/25/23 17:07 Micro: Microbiology 12/25/23 01:12 Blood Culture - Preliminary Blood NEGATIVE TO DATE 12/25/23 23:17 Blood Culture - Preliminary Blood SPECIMEN COLLECTED 12/25/23 23:09 Blood Culture - Preliminary Blood SPECIMEN COLLECTED 12/25/23 00:57 Blood Culture - Preliminary Blood SPECIMEN COLLECTED A&P Assessment and plan (1) Septic shock: Patient admitted with septic shock likely secondary to right lung empyema Currently requiring Levophed and vasopressin-recommended to maintain MAP target greater than 65; agree with albumin infusion every 8 hours She is saturating 96 to 100% on 2 L supplemental oxygen Procalcitonin, lactic acid are within normal limits CT chest imaging suggestive of complicated right pleural effusion-14 Uzbek pigtail placed and drained lele pus; we will leave pigtail connected to suction. Fluid analysis consistent with empyema with pH 6 and 100,000 WBC, neutrophilic predominant exudative, pleural fluid cultures are pending Okay to continue vancomycin and Zosyn Continue close clinical monitoring, hemodynamic monitoring, (2) Empyema: 14 Uzbek pigtail placed in right pleural cavity-lele pus drained-overnight 250 cc Fluid analysis consistent with empyema with pH 6 and 100,000 WBC, neutrophilic predominant exudative, pleural fluid cultures are pending Plan is to give tPA 10 Mg+ dornase 5 Mg twice daily for at least 2 to 3 days; however we do not have Dornase available; I am going to give tPA 10 Mg twice daily and will assess requirement Will leave pigtail under suction (3) Atrial fibrillation: Currently patient is on amiodarone drip Okay to restart Eliquis (4) Acute kidney injury: Patient has baseline CKD-today creatinine 2.8 likely secondary to septic shock Will continue adequate hydration and try to keep MAP greater than 65 with the help of pressors and albumin infusion Monitor BUNs/creatinine/fluid intake and output/electrolytes Can give Lasix 20 along with albumin if there is decreased urine output (5) Metabolic acidosis: CMP suggestive of metabolic acidosis; however lactic acid and ketones are normal Sugars are moderately high Metabolic acidosis likely secondary to renal failure-today bicarbonate is better (6) Elevated INR: LFTs within normal range Repeat INR is also elevated-probably secondary to sepsis-less likely DIC as her platelets are normal S/p 1 unit FFP prior to proceeding with chest tube/pigtail placement (7) Hypomagnesemia: Magnesium 1.5-supplemented Will monitor Plan ICU CHECKLIST: Problem list updated Verbal orders reviewed and signed Code Status: Full Disposition: ICU Critically ill: Yes MD discussed with: ED physician, admitting hospitalist, RN, RT Analgesia: Morphine as needed Glycemic Control: N/A Nutrition: N.p.o. Restraint Renewal (within 24 hrs): Yes Ulcer Prophylaxis: PPI Chemical Thromboprophylaxis: Prophylaxis: Currently held for chest tube/pigtail placement Mechanical Thromboprophylaxis: Yes Need for Central line: Yes patient is requiring pressors Need for Corral catheter: Yes Attestations 2 Medical Necessity Statement*: Will need greater than 2 midnight stay for evaluation and treatment of sepsis, with probable right hemothorax. Time Spent in Patient Care: Greater than 35 minutes (>than 50% of time spent in counselling and/or direct pt care on unit) . Critical Care Time: This patient has a high probability of clinically sig nificant, sudden o r life threatening deterioration of the patient's (pul monary, cardiac, n eurological, renal ) systems required my full, direct a ttention, the high est level of physi rory preparedness for urgent interve ntion and personal management. I ma naged/supervised l parminder or organ suppo rting intervention s that required fr equent physician a ssessment. I kristian supa my full attent ion in the ICU to the direct care of this patient for the period of time indicated above. Time I spent with family or surroga te(s) is included only if the patien t was incapable of providing necessa ry information or participating in d ecision making. This time include s the following se rvices provided: Telemetry review M echanical Ventilat ion Hemodynamic in terpretation, asse ssment and managem ent Review and int erpretation of CXR Review and interp retation of lab va lues Review and in terpretation of mi crobiologic data a nd culture results Review of medicat ions and administr ation Review and i nterpretation of N utrition requireme nts and management Discussion of man agement with other consultants and s ainsley Clinical u pdate to family me mbers [x] Data an d vital sign revie w and interpretati on [x] Patient as sessment, examinat ion and interventi on [x] Documentati on [x] Medication orders and manage ment Time spent f or teaching as sawyer l as performing pr ocedures are bille d separately and i s not included in this note Crit ical Care Time (mi n): 65 Critical Care Time (min): 65 Coding Level of Care Code Acute Code for Chg Fwd Diagnoses Septic shock A41.9; R65.21 Empyema J86.9 Atrial fibrillation I48.91 Acute kidney injury N17.9 Metabolic acidosis E87.20 Elevated INR R79.1 Hypomagnesemia E83.42 Time Spent (min) 65
[2023-12-26] MEDS: pantoprazole 40 mg SDV IVP (09:36)
[2023-12-26 09:37] LABS: Reflex FDPQ test REFLEX FDP QUEST TES
[2023-12-26] MEDS: magnesium sulfate premix 2 GM/50 ML PIGGYBACK IV (09:37)
[2023-12-26] MEDS: heparin 5,000 unit/mL INJ 1 mL 5000 UNIT SUBCUT ×2 (09:38→22:26)
--- NOTE | 2023-12-26 09:39 | P.PN_ITS ---
Subjective 2 Subjective: Carmella reports some pain in her chest for 1 to 2 minutes. Denies any shortness of breath. Chest tube was placed yesterday by pulmonary, right side for empyema. Laboratory studies on fluid consistent with this. Medications: Reviewed: Yes Vitals/I&O/Wt Last Vital Signs Temp 97.8 F 12/26/23 07:15 Pulse 89 12/26/23 08:54 Resp 18 12/26/23 08:54 BP 119/67 12/26/23 07:15 Pulse Ox 99 12/26/23 08:54 O2 Del Method Nasal Cannula 12/26/23 08:54 O2 Flow Rate 3 12/26/23 08:54 12/25/23 12/26/23 12/26/23 22:59 06:59 14:59 Intake Total 600.0 / 1169.00 476.73 / 1645.73 102.5 / 102.5 Output Total 125 / 155 1005 / 1160 Balance 475.0 / 1014.00 -528.27 / 485.73 102.5 / 102.5 Weight last 48 hrs Weight 68.22 kg Weight 68.22 kg Weight 66.27 kg Weight 62.142 kg Physical Exam 2 Narrative: General exam is a white female, alert and responsive and mildly confused which I believe is her baseline. Significant decrease in norepinephrine. Still on vasopressin. Chest tube with 250 cc pus. Neck is supple no lymphadenopathy thyromegaly Cardiovascular irregular, irregular with accelerated rate. I cannot hear a murmur Lungs clear but diminished breath sounds right side Abdomen is soft, positive bowel sounds. No obvious organomegaly demonstrates Corral with some improved urine output Extremities 1+ edema bilaterally. No cyanosis or clubbing. Skin no rash, but cool to the touch Neuro no obvious focal deficits Urinary Catheter Management: Corral: Cath Placed During This Visit: yes Reason for Continuing Indwelling Catheter: Accurate Measurement of Urinary Output in Critically Ill Patients Urinary Catheter Date of Insertion: 12/25/23 Urinary Catheter Time of Insertion: 01:30 Data 12/26/23 03:35 12/26/23 03:35 Micro: Microbiology 12/25/23 01:12 Blood Culture - Preliminary Blood NEGATIVE TO DATE 12/25/23 23:17 Blood Culture - Preliminary Blood SPECIMEN COLLECTED 12/25/23 23:09 Blood Culture - Preliminary Blood SPECIMEN COLLECTED 12/25/23 00:57 Blood Culture - Preliminary Blood SPECIMEN COLLECTED A&P Assessment and plan (1) Sepsis: Patient presents with sepsis. Not a candidate for significant fluid bolus secondary to overlying fluid overload IV antibiotics consisting of Vanco Zosyn Blood culture, sputum culture, urine culture all pending Norepinephrine significantly weaned. Try to get rid of vasopressin and continue to wean norepinephrine following this. Continue albumin. Once pressors are weaned off consider discontinuing this Pulmonary critical care consult appreciated (2) Hypotension: Improving, weaning pressors TSH normal, cortisol level not decreased (3) Atrial fibrillation: Patient presents with A-fib with RVR Currently on an amiodarone drip Heart rate improving Echo demonstrates EF 60 to 65%, some mild valvular abnormalities Magnesium checked and supplemented TSH normal (4) Congestive heart failure (CHF): Patient with significant fluid overload. Not current candidate for diuresis secondary to hypotension. Echocardiogram Appears to be better compensated today (5) Hyponatremia: Patient with significant hyponatremia. This may be secondary to renal failure or CHF. Sodium levels improving TSH and cortisol level not concerning (6) Pleural effusion: Patient with significant pleural effusion. Chest tube placed yesterday consistent with empyema Infusion of tPA through chest tube plan today Chest tube currently to suction (7) Acute kidney injury: Patient with acute kidney injury No evidence of obstruction on CT abdomen pelvis Creatinine slowly improving Avoid renal toxic medication Albumin, and pressors to improve renal perfusion (8) Pneumonia: Pneumonia with empyema Sputum culture Vancomycin and Zosyn Await MRSA PCR (9) History of subdural hematoma: Patient has history of subdural hematoma, in October Repeat CT scan without contrast demonstrates no obvious recurrence (10) Elevated INR: Patient with significantly elevated INR, more so than would be suspected with just apixaban Hold apixaban Repeat INR tomorrow SCDs for DVT prophylaxis Subcutaneous heparin can be started today (11) Metabolic acidosis: Patient with significant metabolic acidosis secondary to acute kidney injury (12) Elevated troponin: Elevated troponin, type II elevation. Awaiting echocardiogram (13) Acute encephalopathy: Acute metabolic encephalopathy, secondary to sepsis. Monitor for improvement Plan Hypomagnesemia. Supplement again today. Multiple other medical problems as outlined in by past medical history Full code SCDs for DVT prophylaxis. Heparin subcu for prophylaxis Attestations 2 Medical Necessity Statement*: Needs continued hospitalization for IV antibiotics secondary to empyema, sepsis, acute kidney injury for IV antibiotics, chest tube etc. Critical Care Time: The high probability of a clinically significant, sudden or life threatening deterioration of the patient's [renal, pulmonary, infectious disease, neurologic] system(s) required my full and direct attention, intervention and personal management. The critical care time is as shown. This time is in addition to time spent performing any reported procedures but includes the following: [x] Data and vital sign review and interpretation [x] Patient assessment, examination and intervention [x] Documentation [x] Medication orders and management Critical Care Time (min): 40 Coding Level of Care Code Critical Care >/= 30 minutes Critical care time (in minutes): 40 The high probability of a clinically significant, sudden or life threatening deterioration, as referenced in this documentation, required my full and direct attention, intervention and personal management. The critical care time shown is in addition to time spent performing any reported separately billable procedures and includes the following: [x] Data and vital sign review and interpretation [x ] Patient assessment, examination and intervention [x] Medication orders and management [x] Patient/Family updates as able [x] Care Coordination and Documentation. Diagnoses Sepsis A41.9 Hypotension I95.9 Atrial fibrillation I48.91 Congestive heart failure (CHF) I50.9 Hyponatremia E87.1 Pleural effusion J90 Acute kidney injury N17.9 Pneumonia J18.9 History of subdural hematoma Z86.79 Elevated INR R79.1 Metabolic acidosis E87.20 Elevated troponin R79.89 Acute encephalopathy G93.40
[2023-12-26 09:51] LABS: Basophils % 0.1 %; Eosinophils % 0.1 %; Hematocrit 26.3 % (36-47); Lymphocytes # 1.6 10^3/uL (0.8-4.8); Lymphocytes % 10.9 %; Mean Corpuscular HGB Conc 31.9 g/dL (30-55); Mean Corpuscular Hemoglobin 29.2 pg (27-33); Mean Corpuscular Volume 91.3 fl (85-98); Monocytes # 0.5 10^3/uL (0.2-0.9); Monocytes % 3.7 %; Neutrophils # 11.99 10^3/uL (1.8-7.7); Nucleated Red Blood Cells % 0 %; Platelet Count 397 10^3/cmm (157-399); Red Blood Count 2.88 10^6/uL (3.85-5.65); Red Cell Distribution Width 14.6 % (12.1-15.1); White Blood Count 14.46 10^3/uL (3.29-11.43)
[2023-12-26 09:54] LABS: INR 2.06 (0.8-1.2)
[2023-12-26 09:55] LABS: Fibrinogen 310 mg/dL (174-498); Partial Thromboplastin Time 41.6 SECONDS (23.9-36.7)
[2023-12-26 09:58] LABS: D Dimer 1.34 ug/mLFEU (0-0.59)
[2023-12-26 14:34] LABS: Methicillin-Resist S.aureu PCR NOT DETECTED (NOT DETECTED)
[2023-12-26] MEDS: amiodarone 200 mg Tablet 400 MG PO (17:31)
[2023-12-27] VITALS (29 sets, daily range): BP systolic 96–138; BP diastolic 50–84; PULSE 91–115; RESP 13–30; TEMP 36.5–37.2; O2SAT 90–98
[2023-12-27] MEDS: albumin 25 G/100 ML BAG 60 G IV (02:25)
[2023-12-27] MEDS: morphine 4 mg/mL SDV 1 mL 2 MG IVP ×5 (03:59→21:29)
[2023-12-27] MEDS: piperacillin-tazobactam 3.375 GM in sodium chloride 0.9% (plus) 50 ML IV ×2 (04:05→17:05)
[2023-12-27 04:47] LABS: INR 1.85 (0.8-1.2)
[2023-12-27 04:58] LABS: Alanine Aminotransferase < 5 U/L (0-33); Albumin Level 3.8 g/dL (3.5-5.2); Alkaline Phosphatase 51 U/L (35-105); Aspartate Amino Transferase 6 U/L (0-32); Blood Urea Nitrogen 49 mg/dL (8-23); Calcium 9.5 mg/dL (8.5-10.5); Carbon Dioxide 21 mmol/L (22-29); Chloride 95 mmol/L (98-107); Creatinine Clr Calc Pharmacy 18.6549; Globulin 2.1 g/dL (1.3-4.6); Glucose 98 mg/dL (65-115); Magnesium 1.8 mg/dL (1.7-2.3); Osmolality Calculated 281 mOsm/kg (285-295); Sodium 129 mmol/L (136-145); Total Bilirubin 0.4 mg/dL (0.15-1.2); Total Protein 5.9 g/dL (6.6-8.7)
[2023-12-27] MEDS: lidocaine 1% 5 ML in potassium chloride premix 100 ML 52.5 ML IV (06:18)
[2023-12-27 07:39] LABS: Basophils % 0.1 %; Eosinophils % 0.2 %; Hematocrit 23.6 % (36-47); Lymphocytes # 1.4 10^3/uL (0.8-4.8); Lymphocytes % 12.3 %; Mean Corpuscular HGB Conc 32.2 g/dL (30-55); Mean Corpuscular Hemoglobin 28.4 pg (27-33); Mean Corpuscular Volume 88.1 fl (85-98); Mean Platelet Volume 8.9 fL (7.4-10.4); Monocytes # 0.4 10^3/uL (0.2-0.9); Monocytes % 3.7 %; Neutrophils # 9.31 10^3/uL (1.8-7.7); Neutrophils % 82.5 %; Nucleated Red Blood Cells % 0 %; Platelet Count 302 10^3/cmm (157-399); Red Blood Count 2.68 10^6/uL (3.85-5.65); Red Cell Distribution Width 14.7 % (12.1-15.1); White Blood Count 11.29 10^3/uL (3.29-11.43)
[2023-12-27] MEDS: vancomycin 1,000 MG in sodium chloride 0.9% 250 ML 250 MG IV (07:50)
--- NOTE | 2023-12-27 08:25 | XR_ITS ---
WS: [id number] Portable AP upright chest, 12/27/2023 Clinical Data: chest tube/empyema Comparison: Portable chest, 12/26/2023 Findings: The right lower lobe opacity remains the same. There is minimal opacity at the left costoph renic angle. The heart remains enlarged. There is a small right chest tube in the right lower pleural space unchanged. The heart size is slightly enlarged. The permanent cardiac pacemaker and distal wir es remain in the same position. A right internal jugular venous catheter has not changed. The aortic arch and descending thoracic aorta show tortuosity. There are monitor leads on the chest wall. There is an anterior cervical disc fusion. Impression: No change in right lower lobe opacity with right lower chest drainage tube.
--- NOTE | 2023-12-27 08:45 | P.PN_ITS ---
Subjective 2 Subjective: No overnight events Patient says she is feeling better-she is put out of bed to chair on recliner; still complaining of pain on right shoulder and low back-relieved with morphine as needed Able to tolerate clear liquids Chest tube drained about 10 cc lele pus-and 50 cc serous fluid after instillation of intrapleural tPA 10 Mg 2 doses yesterday; we do not have Dornase in our pharmacy-will obtain chest x-ray today -Labs-showed decreasing WBC count, impro ving sodium, bicarbonate -Good urine output; renal function impro ving; magnesium 1.8; potassium 3- supplemented -Cultures still pending; patient continu ing vancomycin and Zosyn; -Off pressors; switched amiodarone drip to amiodarone p.o. -Overall clinically improving Medications: Reviewed: Yes Vitals/I&O/Wt Last Vital Signs Temp 98.2 F 12/27/23 05:00 Pulse 99 12/27/23 06:00 Resp 16 12/27/23 06:00 BP 123/67 12/27/23 06:00 Pulse Ox 95 12/27/23 06:00 O2 Del Method Nasal Cannula 12/27/23 06:00 O2 Flow Rate 2 12/27/23 06:00 12/26/23 12/27/23 12/27/23 22:59 06:59 14:59 Intake Total 281.131 / 1007.256 100 / 1107.256 105 / 105 Output Total 265 / 480 610 / 1090 Balance 16.131 / 527.256 -510 / 17.256 105 / 105 Weight last 48 hrs Weight 147 lb 11.2 oz Weight 147 lb 11.2 oz Weight 150 lb 6.4 oz Weight 150 lb 6.4 oz Weight 146 lb 1.6 oz Physical Exam 2 Narrative: General: Drowsy, arousable, communicative, feeling cold HEENT: conj clear, EOMI, PERRL,, clinically dehydrated Neck: supple, no meningismus Heme: no cervical LAP Respiratory: Inspection: No visible deformity of the chest wall Palpation: Trachea is mildly deviated to the right, bilateral symmetric expansion Percussion: Dullness to percussion right lower lung zone Auscultation: Reduced breath sounds right lower lung zone Cardiovascular: rrr, nl s1s2, no mrg Abdomen: soft, nt, nd, no r/g, bs+ Extremities: pulses +, no edema, no c/c : no CVA tenderness Skin: intact, no rash MSK: no back or neck pain Neurologic: grossly intact Urinary Catheter Management: Corral: Cath Placed During This Visit: yes Reason for Continuing Indwelling Catheter: Accurate Measurement of Urinary Output in Critically Ill Patients Urinary Catheter Date of Insertion: 12/25/23 Urinary Catheter Time of Insertion: 01:30 Data 12/27/23 07:32 12/27/23 04:18 Other Labs: Radiology Impressions Chest/Abdomen/Pelvis CT 12/25/23 05:04 IMPRESSION: 1. Bilateral, [id number]-[id number]-left pleural effusions with associated atelectasis, nonspecific may represent volume overload, infectious, inflammatory, less likely neoplastic phenomenon. Correlate clinically. 2. Findings suggest pulmonary arterial hypertension. 3. Sequela of granulomatous disease. IMPRESSION: 1. Diffuse third-spacing of fluid suggesting volume overload. 2. Nonspecific soft tissue masses of the anterior abdominal wall. Assessment by ultrasound can be of further utility for characterization. 3. Air within the bladder, likely secondary to instrumentation. Correlate with laboratory findings for urinary tract infection. 4. Additional nonacute findings as above. Chest X-Ray 12/26/23 07:00 IMPRESSION: Unchanged bilateral lung opacities as above. Laboratory Results WBC 11.29 10^3/uL (3.29-11.43) 12/27/23 07:32 RBC 2.68 10^6/uL (3.85-5.65) L 12/27/23 07:32 Hgb 7.60 g/dL (11.27-16.99) L 12/27/23 07:32 Hct 23.6 % (36-47) L 12/27/23 07:32 MCV 88.1 fl (85-98) 12/27/23 07:32 MCH 28.4 pg (27-33) 12/27/23 07:32 MCHC 32.2 g/dL (30-55) 12/27/23 07:32 RDW 14.7 % (12.1-15.1) 12/27/23 07:32 Plt Count 302 10^3/cmm (157-399) 12/27/23 07:32 MPV 8.9 fL (7.4-10.4) 12/27/23 07:32 Neut % (Auto) 82.5 % 12/27/23 07:32 Lymph % (Auto) 12.3 % 12/27/23 07:32 Grady % (Auto) 3.7 % 12/27/23 07:32 Eos % (Auto) 0.2 % 12/27/23 07:32 Baso % (Auto) 0.1 % 12/27/23 07:32 Neut # (Auto) 9.31 10^3/uL (1.8-7.7) H 12/27/23 07:32 Lymph # (Auto) 1.4 10^3/uL (0.8-4.8) 12/27/23 07:32 Grady # (Auto) 0.4 10^3/uL (0.2-0.9) 12/27/23 07:32 Eos # (Auto) 0.0 10^3/uL (0.0-0.8) 12/27/23 07:32 Baso # (Auto) 0.0 10^3/uL (0.0-0.1) 12/27/23 07:32 Nucleated RBC % (auto) 0 % 12/27/23 07:32 Nucleated RBCs # 0.0 /100WBC 12/27/23 07:32 PT 22.00 SECONDS (12.1-14.9) H 12/27/23 04:18 INR 1.85 (0.8-1.2) H 12/27/23 04:18 APTT 41.6 SECONDS (23.9-36.7) H 12/26/23 09:26 Fibrinogen 310 mg/dL (174-498) 12/26/23 09:26 D-Dimer 1.34 ug/mLFEU (0-0.59) H 12/26/23 09:26 Sodium 129 mmol/L (136-145) L 12/27/23 04:18 Potassium 3.0 mmol/L (3.5-5.1) L 12/27/23 04:18 Chloride 95 mmol/L (98-107) L 12/27/23 04:18 Carbon Dioxide 21 mmol/L (22-29) L 12/27/23 04:18 Anion Gap 16.0 (5-19) 12/27/23 04:18 BUN 49 mg/dL (8-23) H 12/27/23 04:18 Creatinine 1.9 mg/dL (0.5-0.9) H 12/27/23 04:18 GFR Calculation Not Reportable 12/27/23 04:18 Glucose 98 mg/dL (65-115) 12/27/23 04:18 Calculated Osmolality 281 mOsm/kg (285-295) L 12/27/23 04:18 Lactic Acid 1.9 mmol/L (0.5-2.2) 12/25/23 00:57 Lactate 0.8 mmol/L (0.5-2.2) 12/25/23 20:18 Calcium 9.5 mg/dL (8.5-10.5) 12/27/23 04:18 Magnesium 1.8 mg/dL (1.7-2.3) 12/27/23 04:18 Total Bilirubin 0.4 mg/dL (0.15-1.2) 12/27/23 04:18 AST 6 U/L (0-32) 12/27/23 04:18 ALT < 5 U/L (0-33) 12/27/23 04:18 Alkaline Phosphatase 51 U/L (35-105) 12/27/23 04:18 Troponin T Baseline 37 ng/L (0-10) H 12/25/23 00:57 Troponin T 120 Minute 27.84 ng/L (0-10) H 12/25/23 02:26 Delta Troponin T -9.16 ABS# (0-10) L 12/25/23 02:26 Troponin T Hi Sens 6Hr 40.21 ng/L (0-10) H 12/25/23 06:42 Troponin T Hi Sens 6Hr Delta 3.21 ng/L (0-12) 12/25/23 06:42 NT-Pro-B Natriuret Pep 7250 pg/mL (0-450) H 12/25/23 00:57 Total Protein 5.9 g/dL (6.6-8.7) L 12/27/23 04:18 Albumin 3.8 g/dL (3.5-5.2) 12/27/23 04:18 Globulin 2.1 g/dL (1.3-4.6) 12/27/23 04:18 Procalcitonin 0.25 ng/mL (0-0.5) 12/25/23 00:57 TSH 2.83 uIU/mL (0.27-4.20) 12/25/23 06:42 Random Cortisol 53.00 ug/dL (2.47-19.5) H 12/25/23 06:42 Urine Color Yellow (Yellow) 12/25/23 01:31 Urine Appearance Hazy (CLEAR) A 12/25/23 01:31 Urine pH 5 (5-7) 12/25/23 01:31 Ur Specific Hardin 1.015 (1.005-1.030) 12/25/23 01:31 Urine Protein Neg (Negative) 12/25/23 01:31 Urine Glucose (UA) Norm (Normal) 12/25/23 01:31 Urine Ketones Negative (Negative) 12/25/23 01:31 Urine Blood 2+ (Negative) H 12/25/23 01:31 Urine Nitrate Negative (Negative) 12/25/23 01:31 Urine Bilirubin Neg (Negative) 12/25/23 01:31 Urine Urobilinogen Neg mg/dL (Negative) 12/25/23 01:31 Ur Leukocyte Esterase 1+ (Negative) H 12/25/23 01:31 Urine RBC 5-10 /hpf (0-2) H 12/25/23 01:31 Urine WBC 25-40 /hpf (0-5) H 12/25/23 01:31 Ur Squamous Epith Cells 15-25 /hpf (0-5) H 12/25/23 01:31 Ur Transition Epith Cell 5-10 /hpf 12/25/23 01:31 Amorphous Sediment Not Reportable 12/25/23 01:31 Urine Bacteria 4+ /hpf (NONE) H 12/25/23 01:31 Urine Mucus 3+ /hpf 12/25/23 01:31 Fluid Color Other 12/25/23 19:00 Fluid Appearance Turbid 12/25/23 19:00 Fluid WBC 291458 /uL 12/25/23 19:00 Fluid RBC 136.000 10^3/uL 12/25/23 19:00 Fluid Hematocrit 1.9 % 12/25/23 21:35 Fld Polynuclear WBCs # 377.138 12/25/23 19:00 Fld Polynuclear WBCs % 68.600 % 12/25/23 19:00 Fl Mononucl WBCs #(Auto) 172.989 12/25/23 19:00 Fl Mononuclear % Auto 31.400 % 12/25/23 19:00 Fld Crystal Laterality Right pleual fluid 12/25/23 19:00 Fluid Albumin 1.6 g/dL 12/25/23 19:00 Fluid Creatinine 2.23 (0.5-0.9) H 12/25/23 19:00 Pleural pH 6.00 (6.5-7.5) L 12/25/23 19:00 Pleural Total Protein 3.8 g/dL 12/25/23 19:00 Pleural LDH 06939 U/L 12/25/23 19:00 Pleural Glucose 8.0 mg/dL 12/25/23 19:00 Pleural Triglycerides 55 mg/dL 12/25/23 19:00 Serum Ketones Negative (Negative) 12/25/23 14:15 MRSA (PCR) Not detected (NOT DETECTED) 12/25/23 13:30 Blood Type A Positive 12/25/23 17:07 Blood Type A Positive 12/25/23 17:07 Rho(D) Type Rh positive 12/25/23 17:07 Rho(D) Type Rh positive 12/25/23 17:07 Antibody Screen Negative 12/25/23 17:07 Micro: Microbiology 12/25/23 01:31 Urine Culture - Preliminary Urine Catheterized Gram Negative Rods 12/25/23 23:17 Blood Culture - Preliminary Blood NEGATIVE TO DATE 12/25/23 23:09 Blood Culture - Preliminary Blood NEGATIVE TO DATE 12/25/23 19:00 Gram Stain - Final Pleural Fluid 12/25/23 00:57 Blood Culture - Preliminary Blood Staphylococcus species A&P Assessment and plan (1) Septic shock: Patient admitted with septic shock likely secondary to right lung empyema Currently requiring Levophed and vasopressin-recommended to maintain MAP target greater than 65; agree with albumin infusion every 8 hours She is saturating 96 to 100% on 2 L supplemental oxygen Procalcitonin, lactic acid are within normal limits CT chest imaging suggestive of complicated right pleural effusion-14 [place] pigtail placed and drained lele pus; we will leave pigtail connected to suction. Fluid analysis consistent with empyema with pH 6 and 100,000 WBC, neutrophilic predominant exudative, pleural fluid cultures are pending Okay to continue vancomycin and Zosyn Continue close clinical monitoring, hemodynamic monitoring, (2) Empyema: 14 [place] pigtail placed in right pleural cavity-lele pus drained-overnight 250 cc Fluid analysis consistent with empyema with pH 6 and 100,000 WBC, neutrophilic predominant exudative, pleural fluid cultures are pending Plan is to give tPA 10 Mg+ dornase 5 Mg twice daily for at least 2 to 3 days; however we do not have Dornase available; she received 2 doses tPA 10 Mg twice daily and put out extra 5 cc purulent fluid and 10 cc serous fluid; will give additional 2 doses today Will check today morning chest x-ray and repeat CT chest Will leave pigtail under suction (3) Atrial fibrillation: Amiodarone drip switched to p.o. amiodarone Currently rate controlled (4) Acute kidney injury: Patient has baseline CKD-creatinine and BUN trending down She has good urine output Will continue adequate hydration and try to keep MAP greater than 65-she is off pressors Monitor BUNs/creatinine/fluid intake and output/electrolytes Can give Lasix 20 along with albumin if there is decreased urine output (5) Metabolic acidosis: CMP suggestive of metabolic acidosis; however lactic acid and ketones are normal Metabolic acidosis likely secondary to renal failure-today bicarbonate and anion gap-getting better (6) Elevated INR: LFTs within normal range Repeat INR is also elevated-probably secondary to sepsis-less likely DIC as her platelets are normal She received s/p 1 unit FFP prior to proceeding with chest tube/pigtail placement (7) Hypomagnesemia: Magnesium 1.8-corrected Will monitor Plan ICU CHECKLIST: Problem list updated Verbal orders reviewed and signed Code Status: Full Disposition: ICU Critically ill: Yes MD discussed with: ED physician, admitting hospitalist, RN, RT Analgesia: Morphine as needed Glycemic Control: N/A Nutrition: Clear liquid Restraint Renewal (within 24 hrs): Yes Ulcer Prophylaxis: PPI Chemical Thromboprophylaxis: Prophylaxis: Heparin subcu Mechanical Thromboprophylaxis: Yes Need for Central line: Yes patient is requiring pressors Need for Corral catheter: Yes Attestations 2 Medical Necessity Statement*: Will need greater than 2 midnight stay for evaluation and treatment of sepsis, with probable right hemothorax. Time Spent in Patient Care: Greater than 35 minutes (>than 50% of time spent in counselling and/or direct pt care on unit) . Critical Care Time: This patient has a high probability of clinically sig nificant, sudden o r life threatening deterioration of the patient's (pul monary, cardiac, n eurological, renal ) systems required my full, direct a ttention, the high est level of physi rory preparedness for urgent interve ntion and personal management. I ma naged/supervised l parminder or organ suppo rting intervention s that required fr equent physician a ssessment. I kristian supa my full attent ion in the ICU to the direct care of this patient for the period of time indicated above. Time I spent with family or surroga te(s) is included only if the patien t was incapable of providing necessa ry information or participating in d ecision making. This time include s the following se rvices provided: Telemetry review M echanical Ventilat ion Hemodynamic in terpretation, asse ssment and managem ent Review and int erpretation of CXR Review and interp retation of lab va lues Review and in terpretation of mi crobiologic data a nd culture results Review of medicat ions and administr ation Review and i nterpretation of N utrition requireme nts and management Discussion of man agement with other consultants and s ervicgeetha Clinical u pdate to family me mbers [x] Data an d vital sign revie w and interpretati on [x] Patient as sessment, examinat ion and interventi on [x] Documentati on [x] Medication orders and manage ment Time spent f or teaching as sawyer vivas as performing pr ocedures are bille d separately and i s not included in this note Crit ical Care Time (mi n): 68 Critical Care Time (min): 65 Coding Level of Care Code Acute Code for Chg Fwd Diagnoses Septic shock A41.9; R65.21 Empyema J86.9 Atrial fibrillation I48.91 Acute kidney injury N17.9 Metabolic acidosis E87.20 Elevated INR R79.1 Hypomagnesemia E83.42 Time Spent (min) 68
[2023-12-27] MEDS: heparin 5,000 unit/mL INJ 1 mL 5000 UNIT SUBCUT ×2 (09:03→21:35)
[2023-12-27] MEDS: amiodarone 200 mg Tablet 400 MG PO ×2 (09:03→17:15)
[2023-12-27] MEDS: pantoprazole 40 mg SDV IVP (09:04)
--- NOTE | 2023-12-27 10:15 | P.PN_ITS ---
Subjective 2 Subjective: Carmella did well overnight. She is off all pressors. She denies any complaints. Medications: Reviewed: Yes Vitals/I&O/Wt Last Vital Signs Temp 98.2 F 12/27/23 05:00 Pulse 99 12/27/23 06:00 Resp 14 12/27/23 09:03 BP 123/67 12/27/23 06:00 Pulse Ox 93 12/27/23 09:03 O2 Del Method Nasal Cannula 12/27/23 06:00 O2 Flow Rate 2 12/27/23 06:00 12/26/23 12/27/23 12/27/23 22:59 06:59 14:59 Intake Total 281.131 / 1007.256 100 / 1107.256 / 205 Output Total 265 / 480 610 / 1090 Balance 16.131 / 527.256 -510 / 17.256 205 / 205 Weight last 48 hrs Weight 66.996 kg Weight 66.996 kg Weight 68.22 kg Weight 68.22 kg Physical Exam 2 Narrative: General exam no distress, chest tube noted. Plan for alteplase again today. 10 cc of p.o. over the last 24 hours. Neck is supple no lymphadenopathy thyromegaly Cardiovascular irregular, irregular with accelerated rate. I cannot hear a murmur Lungs clear but diminished breath sounds right side Abdomen is soft, positive bowel sounds. No obvious organomegaly demonstrates Corral with some improved urine output Extremities 1+ edema bilaterally. No cyanosis or clubbing. Skin no rash, but cool to the touch Neuro no obvious focal deficits Urinary Catheter Management: [place]: Cath Placed During This Visit: yes Reason for Continuing Indwelling Catheter: Accurate Measurement of Urinary Output in Critically Ill Patients Urinary Catheter Date of Insertion: 12/25/23 Urinary Catheter Time of Insertion: 01:30 Data 12/27/23 07:32 12/27/23 04:18 Micro: Microbiology 12/25/23 01:31 Urine Culture - Preliminary Urine Catheterized Gram Negative Rods 12/25/23 23:17 Blood Culture - Preliminary Blood NEGATIVE TO DATE 12/25/23 23:09 Blood Culture - Preliminary Blood NEGATIVE TO DATE 12/25/23 19:00 Gram Stain - Final Pleural Fluid 12/25/23 00:57 Blood Culture - Preliminary Blood Staphylococcus species A&P Assessment and plan (1) Sepsis: Patient presents with sepsis. Not a candidate for significant fluid bolus secondary to overlying fluid overload IV antibiotics consisting of Vanco Zosyn Blood culture, sputum culture, urine culture all pending. Urine growing gram- negative rods. Blood cultures negative to date. Initial blood cultures indicated MRSA, on screening. Will repeat cultures. Patient will ultimately need a KONSTANTIN. Pressors have been discontinued Albumin will discontinue today Pulmonary critical care consult appreciated Secondary to positive blood culture KONSTANTIN (2) Hypotension: Improving, pressors now weaned off. Stop albumin. TSH normal, cortisol level not decreased (3) Atrial fibrillation: Patient presents with A-fib with RVR Moved to p.o. amiodarone yesterday Heart rate improved Echo demonstrates EF 60 to 65%, some mild valvular regurgitation Magnesium checked and supplemented Potassium low today, supplement TSH normal (4) Congestive heart failure (CHF): Patient with significant fluid overload. Not current candidate for diuresis secondary to hypotension. Echocardiogram as above Compensated today (5) Hyponatremia: Patient with significant hyponatremia. This may be secondary to renal failure or CHF. Sodium levels improving TSH and cortisol level not concerning (6) Pleural effusion: Patient with significant pleural effusion. Chest tube placed yesterday consistent with empyema Infusion of tPA through chest tube plan today Chest tube currently to suction (7) Acute kidney injury: Patient with acute kidney injury No evidence of obstruction on CT abdomen pelvis Creatinine slowly improving Avoid renal toxic medication Continue Corral (8) Pneumonia: Pneumonia with empyema Sputum culture Vancomycin and Zosyn Note that blood culture positive, concerning for MRSA Pulmonary considering CT tomorrow to check on effusion and pneumonia. (9) History of subdural hematoma: Patient has history of subdural hematoma, in October Repeat CT scan without contrast demonstrates no obvious recurrence (10) Elevated INR: Patient with significantly elevated INR, more so than would be suspected with just apixaban Hold apixaban secondary to need for procedures, elevated INR SCDs for DVT prophylaxis Subcutaneous heparin can be started today (11) Metabolic acidosis: Patient with significant metabolic acidosis secondary to acute kidney injury (12) Elevated troponin: Elevated troponin, type II elevation. Awaiting echocardiogram (13) Acute encephalopathy: Acute metabolic encephalopathy, secondary to sepsis. Monitor for improvement Plan Hypomagnesemia. Normal today Anemia, repeat hemoglobin this afternoon. No evidence of acute blood loss. Multiple other medical problems as outlined in by past medical history Full code SCDs for DVT prophylaxis. Heparin subcu for prophylaxis Attestations 2 Medical Necessity Statement*: Needs continued hospitalizations for IV antibiotics secondary to complicated medical course with empyema and chest tube. May transfer out of ICU. Diagnoses Sepsis A41.9 Hypotension I95.9 Atrial fibrillation I48.91 Congestive heart failure (CHF) I50.9 Hyponatremia E87.1 Pleural effusion J90 Acute kidney injury N17.9 Pneumonia J18.9 History of subdural hematoma Z86.79 Elevated INR R79.1 Metabolic acidosis E87.20 Elevated troponin R79.89 Acute encephalopathy G93.40 Time Spent (min) 35
--- NOTE | 2023-12-27 11:59 | P.CONIM_ITS ---
Providers/Reason For Consult 2 Consulting Physician/Specialty*: DONI Kaiser MD/cardiology Reason for Consult*: Patient with pneumocyte of atrial fibrillation/MRSA positive bacteremia Requesting Physician: Dr. Love Attending Physician: Jg Love MD Primary Care Provider: RACHEL KohlerP-C History of Present Illness History of Present Illness Carmella Suarez Friend is a 83 year old female with a history of a chronic atrial fibrillation, status post permanent pacer implantation for? Symptomatic bradycardia, history of recurrent syncopal episode with a recent episode of subdural hematoma, is now admitted to the hospital with complaints of lethargy/feeling cold. She was found to have empyema and bilateral pleural effusion. Her blood culture grew MRSA. She also was found to be in atrial fibrillation with intermittent rapid ventricular rate. Consult is requested for the management of the arrhythmia as well as to perform a KONSTANTIN for ruling out endocarditis. According to the patient, she had a permanent pacer implantation at the [facility] in [facility] [place] 16 years ago or so. [place] Sometime last year, she was told that she requires a pacemaker revision. She was scheduled to have the revision done in [place] but for some reason, it was canceled. Patient does not recall the details. She been to emergency room with several episodes of syncope/near syncope. In October, she had another ER visit for syncope and was found to have subdural hematoma. She was transferred to [facility] in [place]. The details of that hospital admission is not known at this point. She was transferred to a alf facility from the [facility]. She was having headache ever since the hospital discharge. She was mainly complaining of generalized weakness and feeling cold , during the ER visit. No chest pain or palpitations. No syncopal episode at this time. She has a history of recurrent pancreatitis and? Hypertension. Other details of her past history is not known. Patient seems to have poor recollection of the past events. She was found to have inappropriate V pacing on the telemetry. No prolonged pauses so far. Her blood culture grew gram-positive cocci-MRSA Review of Systems 2 Narrative: CONSTITUTIONAL: Chills as mentioned above. EYES: No blurring of vision or other visual disturbances lately. ENT: No hoarseness of voice, auditory disturbances or sore throat. CARDIOVASCULAR: As mentioned above. RESPIRATORY: Empyema/possible right lower lobe pneumonia GASTROINTESTINAL: History of recurrent pancreatitis GENITOURINARY: No dysuria or hematuria. INTEGUMENTARY: No skin rashes or history of skin cancer. NEURO: History of recurrent syncopal episode PSYCHIATRIC: No history of psychosis or major depression. HEMATOLOGIC: No bleeding disorders or significant anemia. ENDOCRINE: No history of polyuria or polydipsia. MUSCULOSKELETAL: No recent joint pain or swelling. ALLERGY/IMMUNOLOGY: As mentioned above. Medications/Allergies Home Medications Medication Instructions Recorded Confirmed Last Taken Type Wheelchair #1 ea 09/10/23 12/25/23 Unknown Rx hospital bed [id number] #1 ea 09/10/23 12/25/23 Unknown Rx furosemide 20 mg tablet (Lasix) 20 mg PO TID@08,12,16 11/22/23 12/25/23 Unknown History levothyroxine 75 mcg tablet 75 mcg PO DAILY@06 11/22/23 12/25/23 Unknown History (Synthroid) lidocaine 4 % topical cream 1 applic topical DAILY PRN Pain 11/22/23 12/25/23 Unknown History magnesium hydroxide 400 mg/5 mL 30 ml PO DAILY PRN constipation 11/22/23 12/25/23 Unknown History oral suspension (Milk of Magnesia) potassium chloride 8 mEq 16 meq PO DAILY@11/22/23 12/25/23 Unknown History capsule,extended release propranolol 20 mg tablet 20 mg PO BID@08,18 11/22/23 12/25/23 Unknown History acetaminophen 325 mg tablet 650 mg PO Q4H PRN Pain 12/25/23 12/25/23 Unknown History (Tylenol) amlodipine 5 mg tablet (Norvasc) 5 mg PO DAILY@12/25/23 12/25/23 Unknown History apixaban 5 mg tablet (Eliquis) 5 mg PO BID@,12/25/23 12/25/23 Unknown History bacitracin zinc 500 unit-polymyxin 1 applic topical DAILY PRN unknown 12/25/23 12/25/23 Unknown History B 10,000 unit/gram topical ointment (Polysporin) bisacodyl 10 mg rectal suppository 10 mg MS DAILY PRN Constipation 12/25/23 12/25/23 Unknown History clonidine HCl 0.1 mg tablet 0.1 mg PO BID@,12/25/23 12/25/23 Unknown History mirtazapine 15 mg tablet (Remeron) 15 mg PO DAILY@1730 12/25/23 12/25/23 Unknown History oxycodone 20 mg tablet 20 mg PO Q4H PRN Pain 12/25/23 12/25/23 Unknown History pantoprazole 40 mg tablet,delayed 40 mg PO DAILY@08 12/25/23 12/25/23 Unknown History release (Protonix) polyethylene glycol 3350 17 gram 17 g PO DAILY PRN Constipation 12/25/23 12/25/23 Unknown History oral powder packet (Miralax) sacubitril 24 mg-valsartan 26 mg 1 tab PO BID@12/25/23 12/25/23 Unknown History tablet (Entresto) Allergies Allergy/AdvReac Type Severity Reaction Status Date / Time diltiazem [From Dilacor XR] Allergy ALGY-Rash Verified 12/25/23 01:10 nifedipine [From Procardia] Allergy ALGY-Rash Verified 12/25/23 01:10 ranitidine [From Zantac] Allergy ALGY-Swell Verified 12/25/23 01:10 Lip/Tongue/Throat Sulfa (Sulfonamide Allergy ALGY-Rash Verified 12/25/23 01:10 Antibiotics) topiramate [From Topamax] Allergy ALGY-Rash Verified 12/25/23 01:10 Current Medications Generic Name Dose Route Start Last Admin Trade Name Freq PRN Reason Stop Dose Admin Amiodarone HCl 400 mg 12/26/23 18:00 12/27/23 09:03 Amiodarone 200 Mg Tablet PO 400 mg BID HANSA Administration Heparin Sodium (Porcine) 5,000 unit 12/26/23 09:15 12/27/23 09:03 Heparin 5,000 Unit/Ml Inj 1 Ml SUBCUT 5,000 unit Q12H HANSA Administration Vancomycin HCl 1,000 mg/ 250 mls @ 250 mls/hr 12/27/23 08:00 12/27/23 07:50 Sodium Chloride IV 250 mls/hr Q48H HANSA Administration Protocol Piperacillin Sod/Tazobactam 50 mls @ 12.5 mls/hr 12/25/23 17:00 12/27/23 10:23 Sod 3.375 gm/ Sodium Chloride IV Infused Q12H HANSA Infusion Protocol Morphine Sulfate 2 mg 12/25/23 10:12 12/27/23 09:03 Morphine 4 Mg/Ml Sdv 1 Ml IVP 2 mg Q4H PRN Administration SEVERE PAIN Ondansetron HCl 4 mg 12/25/23 10:12 12/26/23 05:18 Ondansetron 2 Mg/Ml Sdv 2 Ml IVP 4 mg Q6H PRN Administration NAUSEA AND VOMITING PFSH Acute 2 PFSH: Medical History History of subdural hematoma Constipation, slow transit Vitamin D deficiency Seasonal and perennial allergic rhinitis CHF (congestive heart failure) Chronic pain Dr. Almeida Pacemaker Hypothyroid Essential hypertension Murmur, cardiac Atrial fibrillation Surgical History History of exploratory laparotomy Adhesion two times Hx of breast reduction, elective History of neck surgery Hardware History of back surgery Lumbar with hardware History of knee surgery Right scope History of cholecystectomy Open History of hysterectomy 1966 abdomen with BSO History of cardiac pacemaker 2016 Family History Grandmother Cancer Mother Hypertension Father Hypertension Brother Stroke Denies family history of Diabetes Dementia Social History Smoking and tobacco/nicotine status: never used tobacco/nicotine Second hand smoke exposure: No Alcohol intake: never Substance/Drug Use: never Adopted: No Caregiver/support person: Yes Lives independently: No Housing: Assisted Living Facility Marital status: Number of children: 5 service: No Current occupational status: retired Do you think of yourself as: Straight/Heterosexual Current gender identity: Female Vitals/I&O/Wt Last Vital Signs Temp 98.7 F 12/27/23 08:00 Pulse 115 H 12/27/23 10:30 Resp 20 H 12/27/23 10:30 BP 129/84 12/27/23 10:00 Pulse Ox 97 12/27/23 10:30 O2 Del Method Nasal Cannula 12/27/23 10:30 O2 Flow Rate 3 12/27/23 10:30 12/26/23 12/27/23 12/27/23 22:59 06:59 14:59 Intake Total 281.131 / 1007.256 100 / 1107.256 255 / 255 Output Total 265 / 480 610 / 1090 Balance 16.131 / 527.256 -510 / 17.256 255 / 255 Weight last 48 hrs Weight 147 lb 11.2 oz Weight 147 lb 11.2 oz Weight 150 lb 6.4 oz Weight 150 lb 6.4 oz Physical Exam 2 Narrative: GENERAL: The patient is alert and oriented times three. Not in any acute distress. HEENT: No significant pallor, icterus or lymphadenopathy.Oral cavity: There are no mucous membrane lesions. NECK: Trachea appears to be central. No masses noted. No JVD or thyromegaly appreciated. RESPIRATORY: Chest is symmetrical. No intercostals muscle retraction or any accessory muscle activation. There is no chest wall tenderness. Breath sounds are heard bilaterally. Diminished breath sounds in the bases. Scattered coarse crackles. BREASTS: Deferred. HEART: The heart sounds are normal. No S3 or S4. No significant murmurs. No pericardial rub ABDOMEN: No vessel pulsations or distention. No tenderness. No organomegaly appreciated. Bowel sounds are normally heard. : Deferred. RECTAL: Deferred. LYMPHATIC: No lymphadenopathy noted in the neck. EXTREMITIES: No edema or cyanosis. No clubbing. MUSCULOSKELETAL: No acute joint deformities or swelling SKIN: There are no significant rashes or ecchymosis NEUROPSYCHIATRIC: The patient is alert and oriented x3. Appears to be in a good mood. No tremors or rigidity noted. No focal motor deficit. Urinary Catheter Management: [place]: Cath Placed During This Visit: yes Reason for Continuing Indwelling Catheter: Accurate Measurement of Urinary Output in Critically Ill Patients Urinary Catheter Date of Insertion: 12/25/23 Urinary Catheter Time of Insertion: 01:30 Data 12/28/23 05:05 12/28/23 05:05 Other Labs: Laboratory Last Values WBC 11.29 10^3/uL (3.29-11.43) 12/27/23 07:32 RBC 2.68 10^6/uL (3.85-5.65) L 12/27/23 07:32 Hgb 7.60 g/dL (11.27-16.99) L 12/27/23 07:32 Hct 23.6 % (36-47) L 12/27/23 07:32 MCV 88.1 fl (85-98) 12/27/23 07:32 MCH 28.4 pg (27-33) 12/27/23 07:32 MCHC 32.2 g/dL (30-55) 12/27/23 07:32 RDW 14.7 % (12.1-15.1) 12/27/23 07:32 Plt Count 302 10^3/cmm (157-399) 12/27/23 07:32 MPV 8.9 fL (7.4-10.4) 12/27/23 07:32 Neut % (Auto) 82.5 % 12/27/23 07:32 Lymph % (Auto) 12.3 % 12/27/23 07:32 [place] % (Auto) 3.7 % 12/27/23 07:32 Eos % (Auto) 0.2 % 12/27/23 07:32 Baso % (Auto) 0.1 % 12/27/23 07:32 Neut # (Auto) 9.31 10^3/uL (1.8-7.7) H 12/27/23 07:32 Lymph # (Auto) 1.4 10^3/uL (0.8-4.8) 12/27/23 07:32 [place] # (Auto) 0.4 10^3/uL (0.2-0.9) 12/27/23 07:32 Eos # (Auto) 0.0 10^3/uL (0.0-0.8) 12/27/23 07:32 Baso # (Auto) 0.0 10^3/uL (0.0-0.1) 12/27/23 07:32 Nucleated RBC % (auto) 0 % 12/27/23 07:32 Nucleated RBCs # 0.0 /100WBC 12/27/23 07:32 PT 22.00 SECONDS (12.1-14.9) H 12/27/23 04:18 INR 1.85 (0.8-1.2) H 12/27/23 04:18 APTT 41.6 SECONDS (23.9-36.7) H 12/26/23 09:26 Fibrinogen 310 mg/dL (174-498) 12/26/23 09:26 D-Dimer 1.34 ug/mLFEU (0-0.59) H 12/26/23 09:26 Sodium 129 mmol/L (136-145) L 12/27/23 04:18 Potassium 3.0 mmol/L (3.5-5.1) L 12/27/23 04:18 Chloride 95 mmol/L (98-107) L 12/27/23 04:18 Carbon Dioxide 21 mmol/L (22-29) L 12/27/23 04:18 Anion Gap 16.0 (5-19) 12/27/23 04:18 BUN 49 mg/dL (8-23) H 12/27/23 04:18 Creatinine 1.9 mg/dL (0.5-0.9) H 12/27/23 04:18 GFR Calculation Not Reportable 12/27/23 04:18 Glucose 98 mg/dL (65-115) 12/27/23 04:18 Calculated Osmolality 281 mOsm/kg (285-295) L 12/27/23 04:18 Lactic Acid 1.9 mmol/L (0.5-2.2) 12/25/23 00:57 Lactate 0.8 mmol/L (0.5-2.2) 12/25/23 20:18 Calcium 9.5 mg/dL (8.5-10.5) 12/27/23 04:18 Magnesium 1.8 mg/dL (1.7-2.3) 12/27/23 04:18 Total Bilirubin 0.4 mg/dL (0.15-1.2) 12/27/23 04:18 AST 6 U/L (0-32) 12/27/23 04:18 ALT < 5 U/L (0-33) 12/27/23 04:18 Alkaline Phosphatase 51 U/L (35-105) 12/27/23 04:18 Troponin T Baseline 37 ng/L (0-10) H 12/25/23 00:57 Troponin T 120 Minute 27.84 ng/L (0-10) H 12/25/23 02:26 Delta Troponin T -9.16 ABS# (0-10) L 12/25/23 02:26 Troponin T Hi Sens 6Hr 40.21 ng/L (0-10) H 12/25/23 06:42 Troponin T Hi Sens 6Hr Delta 3.21 ng/L (0-12) 12/25/23 06:42 NT-Pro-B Natriuret Pep 7250 pg/mL (0-450) H 12/25/23 00:57 Total Protein 5.9 g/dL (6.6-8.7) L 12/27/23 04:18 Albumin 3.8 g/dL (3.5-5.2) 12/27/23 04:18 Globulin 2.1 g/dL (1.3-4.6) 12/27/23 04:18 Procalcitonin 0.25 ng/mL (0-0.5) 12/25/23 00:57 TSH 2.83 uIU/mL (0.27-4.20) 12/25/23 06:42 Random Cortisol 53.00 ug/dL (2.47-19.5) H 12/25/23 06:42 Urine Color Yellow (Yellow) 12/25/23 01:31 Urine Appearance Hazy (CLEAR) A 12/25/23 01:31 Urine pH 5 (5-7) 12/25/23 01:31 Ur Specific [place] 1.015 (1.005-1.030) 12/25/23 01:31 Urine Protein Neg (Negative) 12/25/23 01:31 Urine Glucose (UA) Norm (Normal) 12/25/23 01:31 Urine Ketones Negative (Negative) 12/25/23 01:31 Urine Blood 2+ (Negative) H 12/25/23 01:31 Urine Nitrate Negative (Negative) 12/25/23 01:31 Urine Bilirubin Neg (Negative) 12/25/23 01:31 Urine Urobilinogen Neg mg/dL (Negative) 12/25/23 01:31 Ur Leukocyte Esterase 1+ (Negative) H 12/25/23 01:31 Urine RBC 5-10 /hpf (0-2) H 12/25/23 01:31 Urine WBC 25-40 /hpf (0-5) H 12/25/23 01:31 Ur Squamous Epith Cells 15-25 /hpf (0-5) H 12/25/23 01:31 Ur Transition Epith Cell 5-10 /hpf 12/25/23 01:31 Amorphous Sediment Not Reportable 12/25/23 01:31 Urine Bacteria 4+ /hpf (NONE) H 12/25/23 01:31 Urine Mucus 3+ /hpf 12/25/23 01:31 Fluid Color Other 12/25/23 19:00 Fluid Appearance Turbid 12/25/23 19:00 Fluid WBC 772822 /uL 12/25/23 19:00 Fluid RBC 136.000 10^3/uL 12/25/23 19:00 Fluid Hematocrit 1.9 % 12/25/23 21:35 Fld Polynuclear WBCs # 377.138 12/25/23 19:00 Fld Polynuclear WBCs % 68.600 % 12/25/23 19:00 Fl Mononucl WBCs #(Auto) 172.989 12/25/23 19:00 Fl Mononuclear % Auto 31.400 % 12/25/23 19:00 Fld Crystal Laterality Right pleual fluid 12/25/23 19:00 Fluid Albumin 1.6 g/dL 12/25/23 19:00 Fluid Creatinine 2.23 (0.5-0.9) H 12/25/23 19:00 Pleural pH 6.00 (6.5-7.5) L 12/25/23 19:00 Pleural Total Protein 3.8 g/dL 12/25/23 19:00 Pleural LDH 00154 U/L 12/25/23 19:00 Pleural Glucose 8.0 mg/dL 12/25/23 19:00 Pleural Triglycerides 55 mg/dL 12/25/23 19:00 Serum Ketones Negative (Negative) 12/25/23 14:15 MRSA (PCR) Not detected (NOT DETECTED) 12/25/23 13:30 Blood Type A Positive 12/25/23 17:07 Blood Type A Positive 12/25/23 17:07 Rho(D) Type Rh positive 12/25/23 17:07 Rho(D) Type Rh positive 12/25/23 17:07 Antibody Screen Negative 12/25/23 17:07 Micro: Microbiology 12/25/23 01:31 Urine Culture - Preliminary Urine Catheterized Gram Negative Rods 12/25/23 23:17 Blood Culture - Preliminary Blood NEGATIVE TO DATE 12/25/23 23:09 Blood Culture - Preliminary Blood NEGATIVE TO DATE 12/25/23 19:00 Gram Stain - Final Pleural Fluid 12/25/23 00:57 Blood Culture - Preliminary Blood Staphylococcus species Other data: The EKG from 12/25/2023 Atrial fibrillation with controlled ventricular response rate. Diffuse nonspecific ST-T changes. There was one ventricular paced beat The echocardiogram done on 12/24/2023 Mild to moderate left ventricular hypertrophy. LV systolic function is normal with EF of 60 to 65%. Mild mitral regurgitation. Mild tricuspid regurgitation Mild pulmonic regurgitation No comparison studies are available CT of the chest, abdomen and pelvis 1. Bilateral, bhbay-[id number]-cgmc-left pleural effusions with associated atelectasis, nonspecific may represent volume overload, infectious, inflammatory, less likely neoplastic phenomenon. Correlate clinically. 2. Findings suggest pulmonary arterial hypertension. 3. Sequela of granulomatous disease. A&P Assessment and plan (1) Chronic atrial fibrillation: The patient is on long-term oral anticoagulation. This may be continued for the time being. Because of the pacemaker malfunction, I will be cautious not to increase the AV chino blocking agents at this point. May be kept on amiodarone for the time being. (2) Pacemaker at end of battery life: I will try to interrogate the pacemaker. Most likely the device is in the CARMELO. She then requires a pacemaker revision. Because of the infection, we may hold off on that till infection is appropriately treated. (3) Essential hypertension: May continue on the current medications. (4) CHF (congestive heart failure): May be treated with a careful IV diuresis. Qualifiers: Heart failure chronicity: chronic Heart failure type: diastolic Qualified Code(s): I50.32 - Chronic diastolic (congestive) heart failure (5) Abnormal EKG: Patient may have underlying coronary ischemia causing diffuse ST-T changes. Once her medical conditions stable, need to consider a Myocardial perfusion imaging to evaluate for any underlying coronary ischemia. (6) Acute kidney injury superimposed on chronic kidney disease: The kidney function seems to be improving. (7) Gram-positive bacteremia: Agree with a KONSTANTIN to further evaluate. This may be done hopefully next Saturday (8) Empyema: Management as per the primary/pulmonology service (9) Pleural effusion: Possibly from the congestive heart failure. Continue careful IV diuresis. Follow-up chest x-ray to reevaluate the effusion. (10) Recurrent syncope: Possible related to pacemaker dysfunction. Has no documented prolonged pauses so far (11) Anemia: Consider blood transfusion, if the hemoglobin drops below 7. Qualifiers: Anemia type: unspecified type Qualified Code(s): D64.9 - Anemia, unspecified Plan Based on the results of the above tests and the patient's clinical progress, further recommendations will be made. Thank you for the opportunity to evaluate this patient and make these recommendations Consult Attestations 2 Medical Necessity Statement: Patient requires continued hospital stay for close monitoring and further management Coding Level of Care Code 24836 Diagnoses Chronic atrial fibrillation I48.20 Pacemaker at end of battery life Z45.010 Essential hypertension I10 Chronic diastolic congestive heart failure I50.32 Heart failure chronicity: chronic Heart failure type: diastolic Abnormal EKG R94.31 Acute kidney injury superimposed on chronic kidney disease N17.9; N18.9 Gram-positive bacteremia R78.81 Empyema J86.9 Pleural effusion J90 Recurrent syncope R55 Anemia, unspecified type D64.9 Anemia type: unspecified type
[2023-12-27] MEDS: potassium chloride ER 20 mEq Tablet 40 MEQ PO (13:14)
[2023-12-27 16:46] LABS: Glucose Point of Care 112 mg/dL (70-110)
[2023-12-27 18:01] LABS: Hematocrit 25.5 % (36-47)
[2023-12-28] VITALS (11 sets, daily range): BP systolic 110–139; BP diastolic 68–93; PULSE 106–121; RESP 13–23; TEMP 36.3–37.1; O2SAT 96–99
[2023-12-28] MEDS: morphine 4 mg/mL SDV 1 mL 2 MG IVP ×4 (04:54→19:55)
[2023-12-28] MEDS: piperacillin-tazobactam 3.375 GM in sodium chloride 0.9% (plus) 50 ML IV ×2 (04:56→15:26)
[2023-12-28 05:24] LABS: Basophils % 0.1 %; Eosinophils % 0.2 %; Hematocrit 28.1 % (36-47); Lymphocytes # 1.8 10^3/uL (0.8-4.8); Lymphocytes % 10.6 %; Mean Corpuscular HGB Conc 31.7 g/dL (30-55); Mean Corpuscular Hemoglobin 28.5 pg (27-33); Mean Corpuscular Volume 90.1 fl (85-98); Mean Platelet Volume 9.2 fL (7.4-10.4); Monocytes # 0.7 10^3/uL (0.2-0.9); Monocytes % 4.2 %; Neutrophils # 14.28 10^3/uL (1.8-7.7); Neutrophils % 83.7 %; Nucleated Red Blood Cells % 0 %; Platelet Count 320 10^3/cmm (157-399); Red Blood Count 3.12 10^6/uL (3.85-5.65); Red Cell Distribution Width 15.1 % (12.1-15.1); White Blood Count 17.07 10^3/uL (3.29-11.43)
[2023-12-28 05:57] LABS: Alanine Aminotransferase 7 U/L (0-33); Albumin Level 3.3 g/dL (3.5-5.2); Alkaline Phosphatase 66 U/L (35-105); Aspartate Amino Transferase 5 U/L (0-32); Blood Urea Nitrogen 38 mg/dL (8-23); Calcium 9.4 mg/dL (8.5-10.5); Carbon Dioxide 23 mmol/L (22-29); Chloride 102 mmol/L (98-107); Creatinine Clr Calc Pharmacy 24.3918; Globulin 2.7 g/dL (1.3-4.6); Glucose 116 mg/dL (65-115); Magnesium 1.6 mg/dL (1.7-2.3); Osmolality Calculated 290 mOsm/kg (285-295); Sodium 135 mmol/L (136-145); Total Bilirubin 0.3 mg/dL (0.15-1.2)
[2023-12-28 06:37] LABS: INR 1.47 (0.8-1.2)
[2023-12-28] MEDS: amiodarone 200 mg Tablet 400 MG PO ×2 (07:42→17:23)
[2023-12-28] MEDS: acetaminophen 325 mg Tablet 650 MG PO ×2 (07:43→14:31)
[2023-12-28] MEDS: heparin 5,000 unit/mL INJ 1 mL 5000 UNIT SUBCUT ×2 (07:43→20:17)
[2023-12-28] MEDS: pantoprazole DR 40 mg Tablet PO (07:44)
--- NOTE | 2023-12-28 08:21 | CTR_ITS ---
PROCEDURE INFORMATION: Exam: CT Chest Without Contrast; Diagnostic Exam date and time: 12/28/2023 9:24 AM Age: 83 years old Clinical indication: Device placement; Chest tube; Prior surgery; Surgery date: 6+ months; Surgery type: Pace maker TECHNIQUE: Imaging protocol: Diagnostic computed tomography of the chest without contrast. Radiation optimization: All CT scans at this facility use at least one of these dose optimization techniques: automated exposure control; mA and/or kV adjustment per patient size (includes targeted exams where dose is matched to clinical indication); or iterative reconstruction. COMPARISON: [place] [id number] 12/25/2023 5:25 AM RADIATION DOSE METRICS: Total DLP (mGy-cm): 848.71 FINDINGS: Tubes, catheters and devices: Right-sided jugular central venous catheter seen. Right lower chest tube seen. Left-sided pacemaker seen. Lungs: Complete collapse of right lower lobe likely secondary to large loculated pleural effusion, similar to previous study. There is bronchial calcifications and likely minimal endobronchial secretions. Partial atelectasis in left lower lobe show progression compared to previous study. Minimal patchy ground-glass densities in right upper lobe inferior anterior aspect, new finding. Mild atelectasis in right middle lobe and lingula. Pleural spaces: Loculated large right pleural effusion in mid and lower chest, with interval placement of a drainage catheter. Small amount of free fluid level anteriorly noted. There is pleural thickening. This finding is similar to previous study. There is pleural thickening and pleural fluid in right upper posterior chest with loculation, appears to be separate from the larger fluid more inferiorly. Small left pleural effusion with pleural thickening and loculations and fluid along the interlobar fissure also noted. No left-sided pneumothorax. Heart: Cardiomegaly. Small pericardial effusion. Lymph nodes: Minimally prominent paratracheal, subcarinal lymph nodes is similar to previous study. Calcified granulomas in the mediastinum and right hilum. Vasculature: Calcifications in aorta is similar to previous study. No aneurysm. Dilated central pulmonary artery again noted. Bones/joints: Minimal spondylotic changes of the spine. No acute fracture. Soft tissues: Calcified granulomas in the spleen and liver. Minimal chest wall edema primarily in lower chest laterally. CT/CT chest wo con [id number] IMPRESSION: 1. Large loculated pleural fluid in right lower chest with pleural thickening. There is interval placement of a chest tube within the fluid collection however amount of fluid is not significantly decreased. 2. Loculated pleural effusion in right upper and mid chest, separate from the lower larger loculated fluid. This is new compared to previous study. 3. Small left pleural effusion with loculations, progression compared to previous study. 4. Complete collapse of right lower lobe likely compression atelectasis due to pleural fluid, not significantly changed. Partial collapse of left lower lobe show progression. New minimal ground-glass densities in right upper lobe.
--- NOTE | 2023-12-28 09:10 | P.PN_ITS ---
Subjective 2 Subjective: The pacemaker was interrogated remotely yesterday. Patient was found to have high pacing threshold in the right ventricular lead. The patient the shoulder is not obtained. The battery seems to be still good Medications: Medication Review Details: Current Medications Acetaminophen (Acetaminophen 325 Mg Tablet) 650 mg PO Q6H PRN PRN Reason: MILD PAIN Last Admin: 12/28/23 07:43 Dose: 650 mg Albuterol/Ipratropium (Ipratropium-Albuterol 3 Ml Neb) 3 ml INHALATION Q6H.RESP PRN PRN Reason: SHORTNESS OF BREATH Amiodarone HCl (Amiodarone 200 Mg Tablet) 400 mg PO BID [facility] Last Admin: 12/28/23 07:42 Dose: 400 mg Heparin Sodium (Porcine) (Heparin 5,000 Unit/Ml Inj 1 Ml) 5,000 unit SUBCUT Q12H [facility] Last Admin: 12/28/23 07:43 Dose: 5,000 unit Vancomycin HCl 1,000 mg/ (Sodium Chloride) 250 mls @ 250 mls/hr IV Q48H [facility]; Protocol Last Infusion: 12/27/23 13:06 Dose: Infused Piperacillin Sod/Tazobactam (Sod 3.375 gm/ Sodium Chloride) 50 mls @ 12.5 mls/hr IV Q12H [facility]; Protocol Last Admin: 12/28/23 04:56 Dose: 12.5 mls/hr Levothyroxine Sodium (Levothyroxine 75 Mcg Tablet) 75 mcg PO DAILY@06 [facility] Morphine Sulfate (Morphine 4 Mg/Ml Sdv 1 Ml) 2 mg IVP Q4H PRN PRN Reason: SEVERE PAIN Last Admin: 12/28/23 09:07 Dose: 2 mg Ondansetron HCl (Ondansetron 2 Mg/Ml Sdv 2 Ml) 4 mg IVP Q6H PRN PRN Reason: NAUSEA AND VOMITING Last Admin: 12/26/23 05:18 Dose: 4 mg Pantoprazole Sodium (Pantoprazole Dr 40 Mg Tablet) 40 mg PO DAILY [facility] Last Admin: 12/28/23 07:44 Dose: 40 mg Polyethylene Glycol (Polyethylene Glycol 3350 Pkt 17 Gm) 17 gm PO DAILY PRN PRN Reason: Constipation Vitals/I&O/Wt Last Vital Signs Temp 98.7 F 12/28/23 07:10 Pulse 111 H 12/28/23 07:10 Resp 13 12/28/23 07:10 BP 110/68 12/28/23 07:10 Pulse Ox 96 12/28/23 07:10 O2 Del Method Room Air 12/28/23 07:10 O2 Flow Rate 2 12/28/23 04:00 12/27/23 12/28/23 12/28/23 22:59 06:59 14:59 Intake Total 50 / 565 490 / 1055 Output Total 550 / 850 355 / 1205 Balance -500 / -285 135 / -150 Weight last 48 hrs Weight 139 lb 6.4 oz Weight 139 lb 6.4 oz Weight 147 lb 11.2 oz Weight 147 lb 11.2 oz Physical Exam 2 Narrative: GENERAL: The patient is alert and oriented times three. Not in any acute distress. HEENT: No significant pallor, icterus or lymphadenopathy.Oral cavity: There are no mucous membrane lesions. NECK: Trachea appears to be central. No masses noted. No JVD or thyromegaly appreciated. RESPIRATORY: Chest is symmetrical. No intercostals muscle retraction or any accessory muscle activation. There is no chest wall tenderness. Breath sounds are heard bilaterally. Diminished breath sounds in the bases. Scattered coarse crackles. BREASTS: Deferred. HEART: The heart sounds are normal. No S3 or S4. No significant murmurs. No pericardial rub ABDOMEN: No vessel pulsations or distention. No tenderness. No organomegaly appreciated. Bowel sounds are normally heard. : Deferred. RECTAL: Deferred. LYMPHATIC: No lymphadenopathy noted in the neck. EXTREMITIES: No edema or cyanosis. No clubbing. MUSCULOSKELETAL: No acute joint deformities or swelling SKIN: There are no significant rashes or ecchymosis NEUROPSYCHIATRIC: The patient is alert and oriented x3. Appears to be in a good mood. No tremors or rigidity noted. No focal motor deficit. Urinary Catheter Management: [place]: Cath Placed During This Visit: yes Reason for Continuing Indwelling Catheter: Accurate Measurement of Urinary Output in Critically Ill Patients Urinary Catheter Date of Insertion: 12/25/23 Urinary Catheter Time of Insertion: 01:30 Data 12/28/23 05:05 12/28/23 05:05 Other Labs: Laboratory Last Values WBC 17.07 10^3/uL (3.29-11.43) H 12/28/23 05:05 RBC 3.12 10^6/uL (3.85-5.65) L 12/28/23 05:05 Hgb 8.90 g/dL (11.27-16.99) L 12/28/23 05:05 Hct 28.1 % (36-47) L 12/28/23 05:05 MCV 90.1 fl (85-98) 12/28/23 05:05 MCH 28.5 pg (27-33) 12/28/23 05:05 MCHC 31.7 g/dL (30-55) 12/28/23 05:05 RDW 15.1 % (12.1-15.1) 12/28/23 05:05 Plt Count 320 10^3/cmm (157-399) 12/28/23 05:05 MPV 9.2 fL (7.4-10.4) 12/28/23 05:05 Neut % (Auto) 83.7 % 12/28/23 05:05 Lymph % (Auto) 10.6 % 12/28/23 05:05 [place] % (Auto) 4.2 % 12/28/23 05:05 Eos % (Auto) 0.2 % 12/28/23 05:05 Baso % (Auto) 0.1 % 12/28/23 05:05 Neut # (Auto) 14.28 10^3/uL (1.8-7.7) H 12/28/23 05:05 Lymph # (Auto) 1.8 10^3/uL (0.8-4.8) 12/28/23 05:05 [place] # (Auto) 0.7 10^3/uL (0.2-0.9) 12/28/23 05:05 Eos # (Auto) 0.0 10^3/uL (0.0-0.8) 12/28/23 05:05 Baso # (Auto) 0.0 10^3/uL (0.0-0.1) 12/28/23 05:05 Nucleated RBC % (auto) 0 % 12/28/23 05:05 Nucleated RBCs # 0.0 /100WBC 12/28/23 05:05 PT 18.30 SECONDS (12.1-14.9) H 12/28/23 05:05 INR 1.47 (0.8-1.2) H 12/28/23 05:05 APTT 41.6 SECONDS (23.9-36.7) H 12/26/23 09:26 Fibrinogen 310 mg/dL (174-498) 12/26/23 09:26 D-Dimer 1.34 ug/mLFEU (0-0.59) H 12/26/23 09:26 Sodium 135 mmol/L (136-145) L 12/28/23 05:05 Potassium 4.0 mmol/L (3.5-5.1) 12/28/23 05:05 Chloride 102 mmol/L (98-107) 12/28/23 05:05 Carbon Dioxide 23 mmol/L (22-29) 12/28/23 05:05 Anion Gap 14.0 (5-19) 12/28/23 05:05 BUN 38 mg/dL (8-23) H 12/28/23 05:05 Creatinine 1.4 mg/dL (0.5-0.9) H 12/28/23 05:05 GFR Calculation Not Reportable 12/28/23 05:05 Glucose 116 mg/dL (65-115) H 12/28/23 05:05 POC Glucose 112 mg/dL (70-110) H 12/27/23 16:39 Calculated Osmolality 290 mOsm/kg (285-295) 12/28/23 05:05 Lactic Acid 1.9 mmol/L (0.5-2.2) 12/25/23 00:57 Lactate 0.8 mmol/L (0.5-2.2) 12/25/23 20:18 Calcium 9.4 mg/dL (8.5-10.5) 12/28/23 05:05 Magnesium 1.6 mg/dL (1.7-2.3) L 12/28/23 05:05 Total Bilirubin 0.3 mg/dL (0.15-1.2) 12/28/23 05:05 AST 5 U/L (0-32) 12/28/23 05:05 ALT 7 U/L (0-33) 12/28/23 05:05 Alkaline Phosphatase 66 U/L (35-105) 12/28/23 05:05 Troponin T Baseline 37 ng/L (0-10) H 12/25/23 00:57 Troponin T 120 Minute 27.84 ng/L (0-10) H 12/25/23 02:26 Delta Troponin T -9.16 ABS# (0-10) L 12/25/23 02:26 Troponin T Hi Sens 6Hr 40.21 ng/L (0-10) H 12/25/23 06:42 Troponin T Hi Sens 6Hr Delta 3.21 ng/L (0-12) 12/25/23 06:42 NT-Pro-B Natriuret Pep 7250 pg/mL (0-450) H 12/25/23 00:57 Total Protein 6.0 g/dL (6.6-8.7) L 12/28/23 05:05 Albumin 3.3 g/dL (3.5-5.2) L 12/28/23 05:05 Globulin 2.7 g/dL (1.3-4.6) 12/28/23 05:05 Procalcitonin 0.25 ng/mL (0-0.5) 12/25/23 00:57 TSH 2.83 uIU/mL (0.27-4.20) 12/25/23 06:42 Random Cortisol 53.00 ug/dL (2.47-19.5) H 12/25/23 06:42 Urine Color Yellow (Yellow) 12/25/23 01:31 Urine Appearance Hazy (CLEAR) A 12/25/23 01:31 Urine pH 5 (5-7) 12/25/23 01:31 Ur Specific [place] 1.015 (1.005-1.030) 12/25/23 01:31 Urine Protein Neg (Negative) 12/25/23 01:31 Urine Glucose (UA) Norm (Normal) 12/25/23 01:31 Urine Ketones Negative (Negative) 12/25/23 01:31 Urine Blood 2+ (Negative) H 12/25/23 01:31 Urine Nitrate Negative (Negative) 12/25/23 01:31 Urine Bilirubin Neg (Negative) 12/25/23 01:31 Urine Urobilinogen Neg mg/dL (Negative) 12/25/23 01:31 Ur Leukocyte Esterase 1+ (Negative) H 12/25/23 01:31 Urine RBC 5-10 /hpf (0-2) H 12/25/23 01:31 Urine WBC 25-40 /hpf (0-5) H 12/25/23 01:31 Ur Squamous Epith Cells 15-25 /hpf (0-5) H 12/25/23 01:31 Ur Transition Epith Cell 5-10 /hpf 12/25/23 01:31 Amorphous Sediment Not Reportable 12/25/23 01:31 Urine Bacteria 4+ /hpf (NONE) H 12/25/23 01:31 Urine Mucus 3+ /hpf 12/25/23 01:31 Fluid Color Other 12/25/23 19:00 Fluid Appearance Turbid 12/25/23 19:00 Fluid WBC 893110 /uL 12/25/23 19:00 Fluid RBC 136.000 10^3/uL 12/25/23 19:00 Fluid Hematocrit 1.9 % 12/25/23 21:35 Fld Polynuclear WBCs # 377.138 12/25/23 19:00 Fld Polynuclear WBCs % 68.600 % 12/25/23 19:00 Fl Mononucl WBCs #(Auto) 172.989 12/25/23 19:00 Fl Mononuclear % Auto 31.400 % 12/25/23 19:00 Fld Crystal Laterality Right pleual fluid 12/25/23 19:00 Fluid Albumin 1.6 g/dL 12/25/23 19:00 Fluid Creatinine 2.23 (0.5-0.9) H 12/25/23 19:00 Pleural pH 6.00 (6.5-7.5) L 12/25/23 19:00 Pleural Total Protein 3.8 g/dL 12/25/23 19:00 Pleural LDH 44866 U/L 12/25/23 19:00 Pleural Glucose 8.0 mg/dL 12/25/23 19:00 Pleural Triglycerides 55 mg/dL 12/25/23 19:00 Serum Ketones Negative (Negative) 12/25/23 14:15 MRSA (PCR) Not detected (NOT DETECTED) 12/25/23 13:30 Blood Type A Positive 12/25/23 17:07 Blood Type A Positive 12/25/23 17:07 Rho(D) Type Rh positive 12/25/23 17:07 Rho(D) Type Rh positive 12/25/23 17:07 Antibody Screen Negative 12/25/23 17:07 Micro: Microbiology 12/27/23 17:55 Blood Culture - Preliminary Blood SPECIMEN COLLECTED 12/27/23 13:50 Blood Culture - Preliminary Blood SPECIMEN COLLECTED 12/25/23 19:00 Gram Stain - Final Pleural Fluid Body Fluid Culture - Preliminary 12/25/23 01:31 Urine Culture - Preliminary Urine Catheterized Gram Negative Rods A&P Assessment and plan (1) Chronic atrial fibrillation: The patient is on long-term oral anticoagulation. This may be continued for the time being. Because of the pacemaker malfunction, I will be cautious not to increase the AV chino blocking agents at this point. May be kept on amiodarone for the time being. (2) Pacemaker lead malfunction: This patient has a dual-chamber pacemaker. The RV lead was found to have high pacing threshold. The Threshold Is Not Known at This Point. The pacemaker is currently programmed for unipolar pacing. She has intermittent ventricular noncapturing and inappropriate sensing. The pacemaker lead need to be revised. It would be appropriate to have a detailed interrogation by the [employer] rep. I contacted the [employer] services and the underwriting service representative will be coming to the hospital on Saturday to have it checked. Qualifiers: Encounter type: initial encounter Qualified Code(s): T82.110A - Breakdown (mechanical) of cardiac electrode, initial encounter (3) Essential hypertension: Currently normotensive. May continue on the current medications. (4) CHF (congestive heart failure): Heart failure seems to be fairly compensated. May be continued on the current treatment including as needed IV Lasix Qualifiers: Heart failure chronicity: chronic Heart failure type: diastolic Qualified Code(s): I50.32 - Chronic diastolic (congestive) heart failure (5) Abnormal EKG: Patient may have underlying coronary ischemia causing diffuse ST-T changes. Once her medical conditions stable, need to consider a Myocardial perfusion imaging to evaluate for any underlying coronary ischemia. (6) Acute kidney injury superimposed on chronic kidney disease: The kidney function seems to be improving. (7) Gram-positive bacteremia: Agree with a KONSTANTIN to further evaluate. This may be done hopefully next Saturday (8) Empyema: Management as per the primary/pulmonology service (9) Recurrent syncope: Possible related to pacemaker dysfunction. Has no documented prolonged pauses so far. Has not had a syncopal episodes, since hospital admission (10) Anemia: The hemoglobin seems to be improving. Qualifiers: Anemia type: unspecified type Qualified Code(s): D64.9 - Anemia, unspecified Plan Because of the ongoing infection, we need to hold off on the lead revision. After the in-house in detail interrogation, may do some reprogramming, to optimize the function. Continue on the other current treatment measures Attestations 2 Medical Necessity Statement*: Disposition as per the primary Coding Level of Care Code 74468 Diagnoses Chronic atrial fibrillation I48.20 Pacemaker lead malfunction, initial encounter T82.110A Encounter type: initial encounter Essential hypertension I10 Chronic diastolic congestive heart failure I50.32 Heart failure chronicity: chronic Heart failure type: diastolic Abnormal EKG R94.31 Acute kidney injury superimposed on chronic kidney disease N17.9; N18.9 Gram-positive bacteremia R78.81 Empyema J86.9 Recurrent syncope R55 Anemia, unspecified type D64.9 Anemia type: unspecified type
--- NOTE | 2023-12-28 09:54 | W.PM.OPSUD ---
Surgery/Procedure H&P Update DATE OF PROCEDURE: December 28, 2023 DATE H&P PERFORMED: 12/27/23 H&P UPDATE INFORMATION: I have reviewed H&P completed within last 30 days, I have examined patient prior to procedure and No changes to prior documentation PREOP DIAGNOSIS: Suspected CAD PRIMARY INDICATION FOR PROCEDURE: Ventricular arrhythmia, diastolic heart failure, atrial fibrillation, bradycardia PLANNED PROCEDURE: Left heart catheterization with left and right coronary angiogram and possible PCI PATIENT REASSESSED PRIOR TO SEDATION, WITH NO CHANGE NOTED: Yes PHYSICAL EXAM: alert, oriented x 3 and clear to auscultation bilaterally (Few fine rales in the bases) AIRWAY EVAL/ANESTHESIA PLAN: normal airway, see other exam findings, ASA III, Monitored Anesthesia, Local Anesthesia, Risks, benefits & alternatives of sedation and/or procedure discussed and Patient agrees to continue as planned
--- NOTE | 2023-12-28 14:33 | PM.PN ---
Subjective Subjective: - Patient was examined this morning, she is alert to person, to place, not to time she follows commands she is enjoying her breakfast this morning ? She is on 1-1/2 L, normotensive, respiratory rate 20, O2 sats 99%, afebrile throughout the night ? She has had good urine output 900 mL, creatinine has decreased to 1.4 -Spoke to patient, spoke to nursing staff, spoke to Dr. Srivastava spoke to Dr. Kaiser reviewed prior physicians note, reviewed Dr. Porter's notes, reviewed Dr. Lovelace's notes, reviewed Dr. Kaiser's note ? I had a detailed discussion with patient about her empyema her chest tube currently patient looked at chest tube, no evidence of air leak, reviewed prior chest x-ray from 412, continues to show right loculated pleural effusion concerning for empyema, she has had her chest tube drained about 10 cc lele pus, discussed with patient about given her elevated leukocytosis concern for persistent empyema as she has received tPA or availability here at [facility] is limited we do not have CT surgery we will start medications that can be given such as dornase, she discontinues that she is off pressors, she is off amiodarone IV she is on IV antibiotic she remains afebrile however given persistent right pleural effusion loculation, concerns for persistently elevated white count, she has a high risk of morbidity and mortality high risk of sepsis septic shock, morbidity mortality associate with persistent empyema, fibrosis, poor respiratory status, discussed possibly transferring to tertiary level center, agreeable ? Patient had CT of the chest ordered this morning, spoke to Dr. Morrissey about results patient has persistent loculated pleural effusion on the right, the chest tube seems to be in the loculation however has not decreased she has a new loculated effusion on the left and she has more loculations in the right upper and middle lobe, patient is going to need to be transferred to tertiary level center for dornase, tPA, CT surgery evaluation, she is more stable now she is afebrile on room air off pressors, Dr. Morrissey has spoken to Dr. Garcia at [facility], he is agreeable to consult, will have to speak to their medical service for transfer, ? Spoke to Ghanshyam arranges will be made to transfer to [facility] -Spoke to Dr. Kaiser about the case, patient has MRSA bacteremia, plan on KONSTANTIN on Saturday if patient still here, continue vancomycin ? Spoke to Dr. Kaiser about patient's pacemaker malfunction, RV lead was found to have high pacing threshold, threshold is not known at this point, she has intermittent noncapturing, inappropriate sensing, pacemaker lead may need to be revised, patient will have to have a detailed interrogation by [employer] rep, account retention representative will be here on Saturday -Spoke to [facility], transfer center, patient's information was taken, currently there is a long wait list, -Spoke to [facility], spoke to their transfer team, spoke to the hospitalist transfer RN, discussed case of pneumonia, right loculated pleural effusion concern for empyema concern for further developing empyema, patient has received tPA through chest tube however continues to have loculations of pleural effusion, minimal drainage, concerns for the need to CT surgery, dorakhile, patient physician such as Dr. Lovelace had spoken to Dr. Solano CT surgery at [facility] who is excepted patient to be transferred however this depends on bed availability and hospitalist team accepting patient for admission, patient also has MRSA bacteremia, gram-positive bacteremia, she will need a KONSTANTIN to further evaluate valves, this will be done on Saturday, discussed ulcer pacemaker lead malfunction, ? Patient has been accepted at [facility], currently awaiting a bed ? Spoke to patient, discussed risk and benefits of transferring, she voiced understanding, all questions answered, agreed to transfer, she tells me to do what you have to Vitals/I&O/Wt Last Vital Signs Temp 98.0 F 12/28/23 11:21 Pulse 106 H 12/28/23 11:21 Resp 16 12/28/23 14:31 BP 138/93 12/28/23 11:21 Pulse Ox 99 12/28/23 14:31 O2 Del Method Nasal Cannula 12/28/23 11:21 O2 Flow Rate 1.5 12/28/23 08:55 12/27/23 12/28/23 12/28/23 22:59 06:59 14:59 Intake Total 50 / 565 490 / 1055 480 / 480 Output Total 550 / 850 355 / 1205 Balance -500 / -285 135 / -150 480 / 480 Weight last 48 hrs Weight 63.231 kg Weight 63.231 kg Weight 66.996 kg Weight 66.996 kg Physical Exam Const: COMMON NORMALS: no acute distress and patient oriented x3 Neck/C-Spine: OTHER: Right neck, right IJ central line in place Chest: OTHER: Right lower chest, chest tube in place, no airleak Resp: COMMON NORMALS: normal respiratory effort, No retractions, No use of accessory muscles and clear to auscultation bilaterally AUSCULTATION: clear to auscultation bilaterally Cardio: COMMON NORMALS: regular rate, regular rhythm, S1 normal heart sound present and S2 normal heart sound present RATE: regular rate RHYTHM: regular rhythm HEART SOUNDS: S1 normal heart sound present and S2 normal heart sound present GI: COMMON NORMALS: Normal to inspection, nondistended, normoactive bowel sounds present and non-tender Extremity: COMMON NORMALS: no pedal edema Neuro: COMMON NORMALS: patient oriented x3 Psych: COMMON NORMALS: mental status grossly normal Skin: NARRATIVE SKIN EXAM: Has evidence of muscle wasting, bilateral temporal muscle wasting, bilateral arms, bilateral thighs Urinary Catheter Management: [place]: Cath Placed During This Visit: yes Reason for Continuing Indwelling Catheter: Accurate Measurement of Urinary Output in Critically Ill Patients Urinary Catheter Date of Insertion: 12/25/23 Urinary Catheter Time of Insertion: 01:30 Data 12/28/23 05:05 12/28/23 05:05 Micro: Microbiology 12/27/23 13:50 Blood Culture - Preliminary Blood NEGATIVE TO DATE 12/25/23 19:00 Gram Stain - Final Pleural Fluid Body Fluid Culture - Preliminary 12/25/23 01:31 Urine Culture - Final Urine Catheterized Klebsiella pneumoniae 12/27/23 17:55 Blood Culture - Preliminary Blood SPECIMEN COLLECTED A&P Assessment and plan (1) Sepsis: (2) Hypotension: (3) Atrial fibrillation: (4) Congestive heart failure (CHF): (5) Hyponatremia: (6) Pleural effusion: (7) Acute kidney injury: (8) Pneumonia: (9) History of subdural hematoma: Patient has history of subdural hematoma, in October Repeat CT scan without contrast demonstrates no obvious recurrence (10) Elevated INR: Patient with significantly elevated INR, more so than would be suspected with just apixaban Hold apixaban secondary to need for procedures, elevated INR SCDs for DVT prophylaxis Subcutaneous heparin can be started today (11) Metabolic acidosis: (12) Elevated troponin: (13) Acute encephalopathy: (14) Empyema lung: (15) Septic shock: (16) Gram-positive bacteremia: (17) Acute renal failure: (18) Empyema: (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 Septic shock resolved, off Levophed, off vasopressin ? Secondary to pneumonia, multiple loculated pleural effusions, concerning for empyema ? Monitor hemodynamics closely Right lower lung empyema, with pneumonia, parapneumonic effusion ? Now with concerns for loculated left pleural effusion ? Now with concerns for loculations right upper and mid chest ? Now with collapse of right lower lobe ? CT/CT chest wo con [id number] IMPRESSION: 1. Large loculated pleural fluid in right lower chest with pleural thickening. There is interval placement of a chest tube within the fluid collection however amount of fluid is not significantly decreased. 2. Loculated pleural effusion in right upper and mid chest, separate from the lower larger loculated fluid. This is new compared to previous study. 3. Small left pleural effusion with loculations, progression compared to previous study. 4. Complete collapse of right lower lobe likely compression atelectasis due to pleural fluid, not significantly changed. Partial collapse of left lower lobe show progression. New minimal ground-glass densities in right upper lobe. -Status post 14 Nepalese pigtail catheter placed in right pleural cavity, lele pus drained, status post tPA x 2, minimal purulent drainage ? Do not have dornase, CT surgery ?this morning white blood cell count up to 17.07, afebrile Plan ? Currently chest tube to suction ? Minimal postural output, CT confirms placement of chest tube and loculated pleural effusion, ? Patient will need transfer to tertiary level center for CT surgery evaluation, further tPA, dornase possible VATS, as patient has a high risk of morbidity or mortality due to enlarging loculated empyema, further development of empyema in the right middle and upper chest and developing empyema in the left lower lung ? Currently on vancomycin, Zosyn ? Continue to monitor chest tube closely ? Pulmonary on consult ? Follow cultures ? Patient has been excepted at [facility] awaiting a bed, Gram-positive bacteremia, concerns for MRSA bacteremia, 2 of 3 blood cultures positive ? Follow repeat blood cultures, so far no growth ? Follow for sensitivities, ? Cardiology consulted for KONSTANTIN on Saturday Acute renal failure, resolving ? Secondary to sepsis, septic shock ? Creatinine 1.4 Elevated INR 1.4 ? Will hold off on full dose anticoagulation as there will be plans on future possible surgery for empyema, possible further tPA, possible KONSTANTIN, with pacemaker lead malfunction Pacemaker lead malfunction - RV lead was found to have high pacing threshold - has intermittent ventricular noncapturing and inappropriate sensing.\ -Possibly pacemaker lead need to be revised - detailed interrogation by the [employer] rep on Saturday Atrial fibrillation, on amiodarone, Physical deconditioning, protein calorie malnutrition, muscle wasting ? Once patient stable PT OT ? Will add on protein shakes to patient's meals, ? Consult dietary once appropriate Hypomagnesemia. Normal today Anemia, repeat hemoglobin this afternoon. No evidence of acute blood loss. Multiple other medical problems as outlined in by past medical history Full code SCDs for DVT prophylaxis. Heparin subcu for prophylaxis Patient was examined this morning, she is alert to person, to place, not to time she follows commands she is enjoying her breakfast this morning ? She is on 1-1/2 L, normotensive, respiratory rate 20, O2 sats 99%, afebrile throughout the night ? She has had good urine output 900 mL, creatinine has decreased to 1.4 -Spoke to patient, spoke to nursing staff, spoke to Dr. Srivastava spoke to Dr. Kaiser reviewed prior physicians note, reviewed Dr. Porter's notes, reviewed Dr. Lovelace's notes, reviewed Dr. Kaiser's note ? I had a detailed discussion with patient about her empyema her chest tube currently patient looked at chest tube, no evidence of air leak, reviewed prior chest x-ray from 412, continues to show right loculated pleural effusion concerning for empyema, she has had her chest tube drained about 10 cc lele pus, discussed with patient about given her elevated leukocytosis concern for persistent empyema as she has received tPA or availability here at [facility] is limited we do not have CT surgery we will start medications that can be given such as dornase, she discontinues that she is off pressors, she is off amiodarone IV she is on IV antibiotic she remains afebrile however given persistent right pleural effusion loculation, concerns for persistently elevated white count, she has a high risk of morbidity and mortality high risk of sepsis septic shock, morbidity mortality associate with persistent empyema, fibrosis, poor respiratory status, discussed possibly transferring to tertiary level center, agreeable ? Patient had CT of the chest ordered this morning, spoke to Dr. Morrissey about results patient has persistent loculated pleural effusion on the right, the chest tube seems to be in the loculation however has not decreased she has a new loculated effusion on the left and she has more loculations in the right upper and middle lobe, patient is going to need to be transferred to tertiary level center for dornase, tPA, CT surgery evaluation, she is more stable now she is afebrile on room air off pressors, Dr. Morrissey has spoken to Dr. Garcia at [facility], he is agreeable to consult, will have to speak to their medical service for transfer, ? Spoke to Ghanshyam arranges will be made to transfer to [facility] -Spoke to Dr. Kaiser about the case, patient has MRSA bacteremia, plan on KONSTANTIN on Saturday if patient still here, continue vancomycin ? Spoke to Dr. Kaiser about patient's pacemaker malfunction, RV lead was found to have high pacing threshold, threshold is not known at this point, she has intermittent noncapturing, inappropriate sensing, pacemaker lead may need to be revised, patient will have to have a detailed interrogation by [employer], account retention representative will be here on Saturday -Spoke to [facility], transfer center, patient's information was taken, currently there is a long wait list, -Spoke to [facility], spoke to their transfer team, spoke to the hospitalist transfer RN, discussed case of pneumonia, right loculated pleural effusion concern for empyema concern for further developing empyema, patient has received tPA through chest tube however continues to have loculations of pleural effusion, minimal drainage, concerns for the need to CT surgery, dornase, patient physician such as Dr. Lovelace had spoken to Dr. Solano CT surgery at [facility] who is excepted patient to be transferred however this depends on bed availability and hospitalist team accepting patient for admission, patient also has MRSA bacteremia, gram-positive bacteremia, she will need a KONSTANTIN to further evaluate valves, this will be done on Saturday, discussed ulcer pacemaker lead malfunction, ? Patient has been accepted at [facility], currently awaiting a bed ? Spoke to patient, discussed risk and benefits of transferring, she voiced understanding, all questions answered, agreed to transfer, she tells me to do what you have t now with collapse of right lower lobe Attestations Medical Necessity Statement*: Patient requires hospitalization for pneumonia, empyema, right chest tube, persistent of empyema, MRSA bacteremia, pacemaker lead malfunction requiring evaluation by CT surgery in [place], transferring to [place], awaiting bed, being evaluated here by pulmonary, cardiology, receiving IV antibiotics, monitoring telemetry, monitoring chest tube, Coding Level of Care Code Critical Care >/= 30 minutes Critical care time (in minutes): 45 The high probability of a clinically significant, sudden or life threatening deterioration, as referenced in this documentation, required my full and direct attention, intervention and personal management. The critical care time shown is in addition to time spent performing any reported separately billable procedures and includes the following: [x] Data and vital sign review and interpretation [x] Patient assessment, examination and intervention [x] Medication orders and management [x] Patient/Family updates as able [x] Care Coordination and Documentation. Diagnoses Sepsis A41.9 Hypotension I95.9 Atrial fibrillation I48.91 Congestive heart failure (CHF) I50.9 Hyponatremia E87.1 Pleural effusion J90 Acute kidney injury N17.9 Pneumonia J18.9 History of subdural hematoma Z86.79 Elevated INR R79.1 Metabolic acidosis E87.20 Elevated troponin R79.89 Acute encephalopathy G93.40 Empyema lung J86.9 Septic shock A41.9; R65.21 Gram-positive bacteremia R78.81 Acute renal failure N17.9 Empyema J86.9 Pacemaker lead malfunction, initial encounter T82.110A Encounter type: initial encounter Parapneumonic effusion J18.9; J91.8 Pleural effusion, left J90 Goals of care, counseling/discussion Z71.89 Physical deconditioning R53.81 Protein calorie malnutrition E46 Muscle wasting M62.50
[2023-12-28] MEDS: polyethylene glycol 3350 Pkt 17 gm PO (17:25)
[2023-12-28] MEDS: ondansetron 2 mg/ML SDV 2 mL 4 MG IVP (20:14)
[2023-12-31 20:49] LABS: Amylase, Pleural Fluid 18 U/L
[2024-01-03 08:20] LABS: Fibrinogen Degradation Product <5 mcg/mL (LESS THAN 5)
--- NOTE | 2024-01-07 15:43 | P.TS_ITS ---
Transfer Summary Providers Date of Admission: 12/25/23 10:12 Date of Discharge/Transfer: 01/07/24 Attending Provider at Admission: gJ Love MD Attending Provider at Transfer: Mario Murcia MD Primary Care Provider: ROSALVA Kohler Transfer Plans: Anticipated date of transfer: 01/07/24 . Diagnoses at Discharge Discharge Diagnosis (1) Sepsis: Status: Acute (2) Hypotension: Status: Acute (3) Atrial fibrillation: Status: Chronic (4) Congestive heart failure (CHF): Status: Acute (5) Hyponatremia: Status: Chronic (6) Pleural effusion: Status: Acute (7) Acute kidney injury: Status: Acute (8) Pneumonia: Status: Acute (9) History of subdural hematoma: Status: Acute (10) Elevated INR: Status: Acute (11) Metabolic acidosis: Status: Acute (12) Elevated troponin: Status: Acute (13) Acute encephalopathy: Status: Acute (14) Empyema lung: Status: Acute (15) Septic shock: Status: Acute (16) Gram-positive bacteremia: Status: Acute (17) Acute renal failure: Status: Acute (18) Empyema: Status: Acute (19) Pacemaker lead malfunction: Status: Acute Qualifiers: Encounter type: initial encounter Qualified Code(s): T82.110A - Breakdown (mechanical) of cardiac electrode, initial encounter (20) Parapneumonic effusion: Status: Acute (21) Pleural effusion, left: Status: Acute (22) Goals of care, counseling/discussion: Status: Acute (23) Physical deconditioning: Status: Acute (24) Protein calorie malnutrition: Status: Acute (25) Muscle wasting: Status: Acute Reason for Visit Reason for Visit lethargy Hospital Course Hospital Course Carmella Suarez Friend is a 83 year old female with history of subdural hematoma September 2017 presents from nursing facility with increased lethargy, abnormal vital signs. Further history is somewhat difficult to obtain from the patient. She does report to me she feels cold. She denies any specific pain. When I called the nursing facility they report she has waxing and waning mental status which has been present for 3 to 4 weeks and attributed to her prior subdural. This morning she was cold, clammy with decreased blood pressure. The y report her baseline besides occasional confusion is hallucinations at night. In the emergency department she was found to be septic with significantly low blood pressure, markedly elevated heart rate with A-fib with RVR, and an abnormal chest x-ray. Patient was admitted to [facility] for septic shock, secondary to pneumonia, multilocular pleural effusions, concerning for empyema, admitted to the ICU pulmonary was consulted status post chest tube placement, with tPA, broad-spectrum antibiotic therapy, gram-positive bacteremia concerning for MRSA, with acute renal failure elevated INR, concern for pacemaker lead malfunction, atrial fibrillation. Patient was monitored, her septic shock resolved moved to cardiac stepdown unit. Maintained on broad-spectrum antibiotic therapy, for her gram-positive bacteremia, remained on vancomycin in addition to broad-spectrum antibiotic therapy. Plans on transesophageal echocardiogram on Saturday. With her pacemaker lead malfunction, RV lead was found to have high pacing threshold, patient will need to have [employer] rep have a detailed interrogation on Saturday. Acute renal failure secondary to sepsis, septic shock improving. For right lung empyema, parapneumonic effusion, repeat CT of the chest continues to show loculations of right pleural fluid with development of new loculations in the right upper and mid chest and left chest. After discussing with pulmonary, cardiothoracic surgery at [facility], and hospital service at [facility], patient was accepted for transfer for consideration of CT surgery evaluation for empyema. Patient was transferred to [facility] Physical Exam Const: COMMON NORMALS: no acute distress Resp: COMMON NORMALS: normal respiratory effort, No retractions, No use of accessory muscles and clear to auscultation bilaterally AUSCULTATION: clear to auscultation bilaterally Cardio: COMMON NORMALS: regular rate, regular rhythm, S1 normal heart sound present and S2 normal heart sound present RATE: regular rate RHYTHM: regular rhythm HEART SOUNDS: S1 normal heart sound present and S2 normal heart sound present OTHER: Right-sided chest tube in place GI: COMMON NORMALS: Normal to inspection, nondistended, normoactive bowel sounds present, Soft to palpation and non-tender PALPATION: Yes Soft to palpation Extremity: COMMON NORMALS: capillary refill normal, no clubbing, cyanosis or edema, no calf tenderness and no pedal edema Psych: COMMON NORMALS: mental status grossly normal Urinary Catheter Management: [place]: Cath Placed During This Visit: yes Reason for Continuing Indwelling Catheter: Accurate Measurement of Urinary Output in Critically Ill Patients Urinary Catheter Date of Insertion: 12/25/23 Urinary Catheter Time of Insertion: 01:30 TS Data Studies Completed and Pending Pending at discharge Category Date Time Status Mycobacteria, Culture w/Fluor Routine Lab 12/25/23 19:00 Results Completed Studies During Hospitalization Category [place] [address]/80781 Stat Cat Scan 12/25/23 05:[address] chest wo con 10400 Routine Cat Scan 12/28/23 08:[address] head wo con* [id number] Stat Cat Scan 12/25/23 08:15 Completed XR chest 1V portable [id number] Routine Exams 12/26/23 07:00 Completed XR chest 1V portable [id number] Routine Exams 12/27/23 08:25 Completed XR chest 1V portable [id number] Stat Exams 12/25/23 00:42 Completed XR chest 1V portable [id number] Stat Exams 12/25/23 04:20 Completed XR chest 1V portable [id number] Stat Exams 12/25/23 19:22 Completed CV. echo complete* [id number] Routine Ultrasound 12/25/23 10:12 Completed [place] chest [id number] Routine Ultrasound 12/25/23 12:41 Completed Laboratory Last Values WBC 17.07 10^3/uL (3.29-11.43) H 12/28/23 05:05 RBC 3.12 10^6/uL (3.85-5.65) L 12/28/23 05:05 Hgb 8.90 g/dL (11.27-16.99) L 12/28/23 05:05 Hct 28.1 % (36-47) L 12/28/23 05:05 MCV 90.1 fl (85-98) 12/28/23 05:05 MCH 28.5 pg (27-33) 12/28/23 05:05 MCHC 31.7 g/dL (30-55) 12/28/23 05:05 RDW 15.1 % (12.1-15.1) 12/28/23 05:05 Plt Count 320 10^3/cmm (157-399) 12/28/23 05:05 MPV 9.2 fL (7.4-10.4) 12/28/23 05:05 Neut % (Auto) 83.7 % 12/28/23 05:05 Lymph % (Auto) 10.6 % 12/28/23 05:05 [place] % (Auto) 4.2 % 12/28/23 05:05 Eos % (Auto) 0.2 % 12/28/23 05:05 Baso % (Auto) 0.1 % 12/28/23 05:05 Neut # (Auto) 14.28 10^3/uL (1.8-7.7) H 12/28/23 05:05 Lymph # (Auto) 1.8 10^3/uL (0.8-4.8) 12/28/23 05:05 [place] # (Auto) 0.7 10^3/uL (0.2-0.9) 12/28/23 05:05 Eos # (Auto) 0.0 10^3/uL (0.0-0.8) 12/28/23 05:05 Baso # (Auto) 0.0 10^3/uL (0.0-0.1) 12/28/23 05:05 Nucleated RBC % (auto) 0 % 12/28/23 05:05 Nucleated RBCs # 0.0 /100WBC 12/28/23 05:05 PT 18.30 SECONDS (12.1-14.9) H 12/28/23 05:05 INR 1.47 (0.8-1.2) H 12/28/23 05:05 APTT 41.6 SECONDS (23.9-36.7) H 12/26/23 09:26 Fibrinogen 310 mg/dL (174-498) 12/26/23 09:26 Fibrin Degrad Products <5 mcg/mL (LESS THAN 5) 12/26/23 09:37 D-Dimer 1.34 ug/mLFEU (0-0.59) H 12/26/23 09:26 Sodium 135 mmol/L (136-145) L 12/28/23 05:05 Potassium 4.0 mmol/L (3.5-5.1) 12/28/23 05:05 Chloride 102 mmol/L (98-107) 12/28/23 05:05 Carbon Dioxide 23 mmol/L (22-29) 12/28/23 05:05 Anion Gap 14.0 (5-19) 12/28/23 05:05 BUN 38 mg/dL (8-23) H 12/28/23 05:05 Creatinine 1.4 mg/dL (0.5-0.9) H 12/28/23 05:05 GFR Calculation Not Reportable 12/28/23 05:05 Glucose 116 mg/dL (65-115) H 12/28/23 05:05 POC Glucose 112 mg/dL (70-110) H 12/27/23 16:39 Calculated Osmolality 290 mOsm/kg (285-295) 12/28/23 05:05 Lactic Acid 1.9 mmol/L (0.5-2.2) 12/25/23 00:57 Lactate 0.8 mmol/L (0.5-2.2) 12/25/23 20:18 Calcium 9.4 mg/dL (8.5-10.5) 12/28/23 05:05 Magnesium 1.6 mg/dL (1.7-2.3) L 12/28/23 05:05 Total Bilirubin 0.3 mg/dL (0.15-1.2) 12/28/23 05:05 AST 5 U/L (0-32) 12/28/23 05:05 ALT 7 U/L (0-33) 12/28/23 05:05 Alkaline Phosphatase 66 U/L (35-105) 12/28/23 05:05 Troponin T Baseline 37 ng/L (0-10) H 12/25/23 00:57 Troponin T 120 Minute 27.84 ng/L (0-10) H 12/25/23 02:26 Delta Troponin T -9.16 ABS# (0-10) L 12/25/23 02:26 Troponin T Hi Sens 6Hr 40.21 ng/L (0-10) H 12/25/23 06:42 Troponin T Hi Sens 6Hr Delta 3.21 ng/L (0-12) 12/25/23 06:42 NT-Pro-B Natriuret Pep 7250 pg/mL (0-450) H 12/25/23 00:57 Total Protein 6.0 g/dL (6.6-8.7) L 12/28/23 05:05 Albumin 3.3 g/dL (3.5-5.2) L 12/28/23 05:05 Globulin 2.7 g/dL (1.3-4.6) 12/28/23 05:05 Procalcitonin 0.25 ng/mL (0-0.5) 12/25/23 00:57 TSH 2.83 uIU/mL (0.27-4.20) 12/25/23 06:42 Random Cortisol 53.00 ug/dL (2.47-19.5) H 12/25/23 06:42 Urine Color Yellow (Yellow) 12/25/23 01:31 Urine Appearance Hazy (CLEAR) A 12/25/23 01:31 Urine pH 5 (5-7) 12/25/23 01:31 Ur Specific [place] 1.015 (1.005-1.030) 12/25/23 01:31 Urine Protein Neg (Negative) 12/25/23 01:31 Urine Glucose (UA) Norm (Normal) 12/25/23 01:31 Urine Ketones Negative (Negative) 12/25/23 01:31 Urine Blood 2+ (Negative) H 12/25/23 01:31 Urine Nitrate Negative (Negative) 12/25/23 01:31 Urine Bilirubin Neg (Negative) 12/25/23 01:31 Urine Urobilinogen Neg mg/dL (Negative) 12/25/23 01:31 Ur Leukocyte Esterase 1+ (Negative) H 12/25/23 01:31 Urine RBC 5-10 /hpf (0-2) H 12/25/23 01:31 Urine WBC 25-40 /hpf (0-5) H 12/25/23 01:31 Ur Squamous Epith Cells 15-25 /hpf (0-5) H 12/25/23 01:31 Ur Transition Epith Cell 5-10 /hpf 12/25/23 01:31 Amorphous Sediment Not Reportable 12/25/23 01:31 Urine Bacteria 4+ /hpf (NONE) H 12/25/23 01:31 Urine Mucus 3+ /hpf 12/25/23 01:31 Fluid Color Other 12/25/23 19:00 Fluid Appearance Turbid 12/25/23 19:00 Fluid WBC 430916 /uL 12/25/23 19:00 Fluid RBC 136.000 10^3/uL 12/25/23 19:00 Fluid Hematocrit 1.9 % 12/25/23 21:35 Fld Polynuclear WBCs # 377.138 12/25/23 19:00 Fld Polynuclear WBCs % 68.600 % 12/25/23 19:00 Fl Mononucl WBCs #(Auto) 172.989 12/25/23 19:00 Fl Mononuclear % Auto 31.400 % 12/25/23 19:00 Fld Crystal Laterality Right pleual fluid 12/25/23 19:00 Fluid Albumin 1.6 g/dL 12/25/23 19:00 Fluid Creatinine 2.23 (0.5-0.9) H 12/25/23 19:00 Pleural pH 6.00 (6.5-7.5) L 12/25/23 19:00 Pleural Total Protein 3.8 g/dL 12/25/23 19:00 Pleural LDH 34992 U/L 12/25/23 19:00 Pleural Glucose 8.0 mg/dL 12/25/23 19:00 Pleural Amylase 18 U/L 12/25/23 19:00 Pleural Triglycerides 55 mg/dL 12/25/23 19:00 Serum Ketones Negative (Negative) 12/25/23 14:15 MRSA (PCR) Not detected (NOT DETECTED) 12/25/23 13:30 Blood Type A Positive 12/25/23 17:07 Blood Type A Positive 12/25/23 17:07 Rho(D) Type Rh positive 12/25/23 17:07 Rho(D) Type Rh positive 12/25/23 17:07 Antibody Screen Negative 12/25/23 17:07 Radiology Impressions Chest/Abdomen/Pelvis CT 12/25/23 05:04 IMPRESSION: 1. Bilateral, [id number]-left pleural effusions with associated atelectasis, nonspecific may represent volume overload, infectious, inflammatory, less likely neoplastic phenomenon. Correlate clinically. 2. Findings suggest pulmonary arterial hypertension. 3. Sequela of granulomatous disease. IMPRESSION: 1. Diffuse third-spacing of fluid suggesting volume overload. 2. Nonspecific soft tissue masses of the anterior abdominal wall. Assessment by ultrasound can be of further utility for characterization. 3. Air within the bladder, likely secondary to instrumentation. Correlate with laboratory findings for urinary tract infection. 4. Additional nonacute findings as above. Chest CT 12/28/23 08:21 IMPRESSION: 1. Large loculated pleural fluid in right lower chest with pleural thickening. There is interval placement of a chest tube within the fluid collection however amount of fluid is not significantly decreased. 2. Loculated pleural effusion in right upper and mid chest, separate from the lower larger loculated fluid. This is new compared to previous study. 3. Small left pleural effusion with loculations, progression compared to previous study. 4. Complete collapse of right lower lobe likely compression atelectasis due to pleural fluid, not significantly changed. Partial collapse of left lower lobe show progression. New minimal ground-glass densities in right upper lobe. Recent Clincial Data Last Vital Signs Temp 97.4 F L 12/28/23 20:55 Pulse 120 H 12/28/23 20:55 Resp 18 12/28/23 20:55 BP 112/72 12/28/23 20:55 Pulse Ox 99 12/28/23 20:55 O2 Del Method Nasal Cannula 12/28/23 19:05 O2 Flow Rate 2 12/28/23 19:05 Vitals Last Vital Signs Temp 97.4 F L 12/28/23 20:55 Pulse 120 H 12/28/23 20:55 Resp 18 12/28/23 20:55 BP 112/72 12/28/23 20:55 Pulse Ox 99 12/28/23 20:55 O2 Del Method Nasal Cannula 12/28/23 19:05 O2 Flow Rate 2 12/28/23 19:05 TS Medications Medications Discontinued Medications Acetaminophen (Acetaminophen 325 Mg Tablet) 650 mg PO Q6H PRN PRN Reason: MILD PAIN Last Admin: 12/28/23 14:31 Dose: 650 mg Albuterol/Ipratropium (Ipratropium-Albuterol 3 Ml Neb) 3 ml INHALATION Q6H PRN PRN Reason: SHORTNESS OF BREATH Albuterol/Ipratropium (Ipratropium-Albuterol 3 Ml Neb) 3 ml INHALATION Q6H.RESP PRN PRN Reason: SHORTNESS OF BREATH Amiodarone HCl (Amiodarone 200 Mg Tablet) 400 mg PO BID HANSA Last Admin: 12/28/23 17:23 Dose: 400 mg Digoxin (Digoxin 250 Mcg/Ml Inj 2 Ml) 250 mcg IVP NOW ONE Stop: 12/25/23 04:59 Last Admin: 12/25/23 05:06 Dose: 250 mcg Furosemide (Furosemide 10 Mg/Ml Sdv 2ml) 20 mg IVP ONCE ONE Stop: 12/25/23 17:48 Last Admin: 12/25/23 18:06 Dose: 20 mg Heparin Sodium (Porcine) (Heparin 5,000 Unit/Ml Inj 1 Ml) 5,000 unit SUBCUT Q12H HANSA Last Admin: 12/28/23 20:17 Dose: 5,000 unit Sodium Chloride (Sodium Chloride 0.9%) 1,000 mls @ 999 mls/hr IV .Q1H1M ONE Stop: 12/25/23 02:00 Last Infusion: 12/25/23 02:55 Dose: Infused norepinephrine (Levophed) Confirm Administered Dose 4 mg in 250 mls @ as directed .ROUTE .STK-MED ONE Stop: 12/25/23 02:50 norepinephrine (Levophed) 4 mg in 250 mls @ 0 mls/hr IV .Q0M HANSA; Protocol Last Titration: 12/26/23 18:25 Dose: Infused Sodium Chloride (Sodium Chloride 0.9%) 1,000 mls @ 999 mls/hr IV .Q1H1M ONE Stop: 12/25/23 05:33 Last Infusion: 12/25/23 06:18 Dose: Infused Piperacillin Sod/Tazobactam (Sod 3.375 gm/ Sodium Chloride) 50 mls @ 100 mls/hr IV ONCE ONE; Protocol Stop: 12/25/23 05:26 Last Infusion: 12/25/23 06:18 Dose: Infused Amiodarone HCl/Dextrose (Nexterone) 360 mg in 200 mls @ 0 mls/hr IV .Q0M HANSA; Protocol Last Titration: 12/26/23 18:09 Dose: Infused Vancomycin HCl 1,000 mg/ (Sodium Chloride) 250 mls @ 250 mls/hr IV ONCE ONE; Protocol Stop: 12/25/23 09:34 Last Infusion: 12/25/23 19:38 Dose: Infused Vasopressin (Vasostrict) 40 unit in 100 mls @ 0.075 mls/min IV CONT HANSA Last Admin: 12/27/23 19:58 Dose: Not Given Vancomycin HCl 1,000 mg/ (Sodium Chloride) 250 mls @ 250 mls/hr IV Q48H HANAS; Protocol Last Infusion: 12/27/23 13:06 Dose: Infused Piperacillin Sod/Tazobactam (Sod 3.375 gm/ Sodium Chloride) 50 mls @ 12.5 mls/hr IV Q12H HANSA; Protocol Last Infusion: 12/28/23 19:59 Dose: Infused Albumin Human (Albumin) 25 g in 100 mls @ 60 mls/hr IV Q8H [facility] Last Infusion: 12/27/23 04:12 Dose: Infused Magnesium Sulfate (Magnesium Sulfate Premix) 2 gm in 50 mls @ 50 mls/hr IV ONCE ONE Stop: 12/25/23 11:46 Last Infusion: 12/25/23 13:17 Dose: Infused Alteplase, Recombinant 10 mg/ (N/A) 10 mls @ 300 mls/hr IV Q12H [facility] Stop: 12/26/23 21:46 Last Admin: 12/26/23 18:10 Dose: Not Given Magnesium Sulfate (Magnesium Sulfate Premix) 2 gm in 50 mls @ 50 mls/hr IV ONCE ONE Stop: 12/26/23 09:44 Last Infusion: 12/26/23 10:37 Dose: Infused Alteplase, Recombinant 10 mg/ (N/A) 10 mls @ 300 mls/hr INTRAPLEUR Q12H [facility] Stop: 12/26/23 22:01 Last Infusion: 12/26/23 22:25 Dose: Infused Lidocaine HCl 5 ml/ Potassium (Chloride) 105 mls @ 52.5 mls/hr IV ONCE ONE Stop: 12/27/23 07:30 Last Infusion: 12/27/23 08:26 Dose: Infused Alteplase, Recombinant 10 mg/ (N/A) 10 mls @ 300 mls/hr INTRAPLEUR Q12H [facility] Stop: 12/27/23 23:31 Last Infusion: 12/27/23 23:25 Dose: Infused Piperacillin Sod/Tazobactam (Sod 3.375 gm/ Sodium Chloride) 50 mls @ 12.5 mls/hr IV Q8H [facility]; Protocol Last Infusion: 12/28/23 19:58 Dose: Infused Levothyroxine Sodium (Levothyroxine 75 Mcg Tablet) 75 mcg PO DAILY@06 [facility] Morphine Sulfate (Morphine 4 Mg/Ml Sdv 1 Ml) 2 mg IVP Q4H PRN PRN Reason: SEVERE PAIN Last Admin: 12/28/23 19:55 Dose: 2 mg Ondansetron HCl (Ondansetron 2 Mg/Ml Sdv 2 Ml) 4 mg IVP Q6H PRN PRN Reason: NAUSEA AND VOMITING Last Admin: 12/28/23 20:14 Dose: 4 mg Pantoprazole Sodium (Pantoprazole 40 Mg Sdv) 40 mg IVP DAILY [facility] Last Admin: 12/27/23 09:04 Dose: 40 mg Pantoprazole Sodium (Pantoprazole Dr 40 Mg Tablet) 40 mg PO DAILY [facility] Last Admin: 12/28/23 07:44 Dose: 40 mg Polyethylene Glycol (Polyethylene Glycol 3350 Pkt 17 Gm) 17 gm PO DAILY PRN PRN Reason: Constipation Last Admin: 12/28/23 17:25 Dose: 17 gm Potassium Chloride (Potassium Chloride Er 20 Meq Tablet) 40 meq PO ONCE ONE Stop: 12/27/23 13:01 Last Admin: 12/27/23 13:14 Dose: 40 meq Allergies diltiazem [From Dilacor XR] Allergy (Verified 12/25/23 01:10) ALGY-Rash nifedipine [From Procardia] Allergy (Verified 12/25/23 01:10) ALGY-Rash ranitidine [From Zantac] Allergy (Verified 12/25/23 01:10) ALGY-Swell Lip/Tongue/Throat Sulfa (Sulfonamide Antibiotics) Allergy (Verified 12/25/23 01:10) ALGY-Rash topiramate [From Topamax] Allergy (Verified 12/25/23 01:10) ALGY-Rash Home Medications Wheelchair #1 ea 09/10/23 [Rx Confirmed 12/25/23] hospital bed [id number] #1 ea 09/10/23 [Rx Confirmed 12/25/23] furosemide 20 mg tablet (Lasix) 20 mg PO TID@08,12,16 11/22/23 [History Confirmed 12/25/23] levothyroxine 75 mcg tablet (Synthroid) 75 mcg PO DAILY@06 11/22/23 [History Confirmed 12/25/23] lidocaine 4 % topical cream 1 applic topical DAILY PRN Pain 11/22/23 [History Confirmed 12/25/23] magnesium hydroxide 400 mg/5 mL oral suspension (Milk of Magnesia) 30 ml PO DAILY PRN constipation 11/22/23 [History Confirmed 12/25/23] potassium chloride 8 mEq capsule,extended release 16 meq PO DAILY@08 11/22/23 [History Confirmed 12/25/23] propranolol 20 mg tablet 20 mg PO BID@08,18 11/22/23 [History Confirmed 12/25/23] acetaminophen 325 mg tablet (Tylenol) 650 mg PO Q4H PRN Pain 12/25/23 [History Confirmed 12/25/23] amlodipine 5 mg tablet (Norvasc) 5 mg PO DAILY@08 12/25/23 [History Confirmed 12/25/23] apixaban 5 mg tablet (Eliquis) 5 mg PO BID@08,20 12/25/23 [History Confirmed 12/25/23] bacitracin zinc 500 unit-polymyxin B 10,000 unit/gram topical ointment (Polysporin) 1 applic topical DAILY PRN unknown 12/25/23 [History Confirmed 12/25/23] bisacodyl 10 mg rectal suppository 10 mg ME DAILY PRN Constipation 12/25/23 [History Confirmed 12/25/23] clonidine HCl 0.1 mg tablet 0.1 mg PO BID@08,20 12/25/23 [History Confirmed 12/25/23] mirtazapine 15 mg tablet (Remeron) 15 mg PO DAILY@1730 12/25/23 [History Confirmed 12/25/23] oxycodone 20 mg tablet 20 mg PO Q4H PRN Pain 12/25/23 [History Confirmed 12/25/23] pantoprazole 40 mg tablet,delayed release (Protonix) 40 mg PO DAILY@08 12/25/23 [History Confirmed 12/25/23] polyethylene glycol 3350 17 gram oral powder packet (Miralax) 17 g PO DAILY PRN Constipation 12/25/23 [History Confirmed 12/25/23] sacubitril 24 mg-valsartan 26 mg tablet (Entresto) 1 tab PO BID@,12/25/23 [History Confirmed 12/25/23] Discharge Plan Discharge Patient Disposition: Xfer Short-Term Hosp Condition: Stable Prescriptions: No Action furosemide [Lasix] 20 mg tablet 20 mg PO TID@08,12,16 levothyroxine [Synthroid] 75 mcg tablet 75 mcg PO DAILY@06 potassium chloride 8 mEq capsule, extended release 16 meq PO DAILY@08 lidocaine 4 % cream 1 applic topical DAILY PRN (Reason: Pain) Rx Instructions: apply to affected area topically magnesium hydroxide [Milk of Magnesia] 400 mg/5 mL suspension 30 ml PO DAILY PRN (Reason: constipation) propranolol 20 mg tablet 20 mg PO BID@08,18 ([facility] [place]) hospital bed [id number] See Rx Instructions .ROUTE .MEDSUPPLY Qty: 1 0RF Rx Instructions: As directed ([facility] [place]) Wheelchair See Rx Instructions .Route .MEDSUPPLY Qty: 1 0RF Rx Instructions: As directed Tylenol 325 mg Tablet 650 mg PO Q4H PRN (Reason: Pain) Miralax 17 gram Powder In Packet 17 g PO DAILY PRN (Reason: Constipation) bisacodyl 10 mg Suppository 10 mg ME DAILY PRN (Reason: Constipation) Polysporin 500-10,000 unit/gram Ointment 1 applic TOPICAL DAILY PRN (Reason: unknown) oxycodone 20 mg tablet 20 mg PO Q4H PRN (Reason: Pain) clonidine HCl 0.1 mg tablet 0.1 mg PO BID@,20 Rx Instructions: Check blood pressure before giving dose HOLD if Blood pressure less 160/80. Norvasc 5 mg tablet 5 mg PO DAILY@08 Protonix 40 mg tablet,delayed release (DR/EC) 40 mg PO DAILY@08 Remeron 15 mg tablet 15 mg PO DAILY@1730 Eliquis 5 mg tablet 5 mg PO BID@, Entresto 24-26 mg tablet 1 tab PO BID@,20 Rx Instructions: Stop Lisinopril 12/20/23 start Entresto on 12/23/23 will adjust dose when needed for blood pressure control Referrals: Neva Darling FNP-C [Primary Care Provider] - Patient Instructions: Opioid Safety Transfer Attestations Time Spent in Transfer Care: greater than 30 min Quality Metrics Clinical Quality Measures [ No reported AMI, CVA or VTE this stay] Coding Level of Care Code Acute Code for g Fwd Diagnoses Sepsis A41.9 Hypotension I95.9 Atrial fibrillation I48.91 Congestive heart failure (CHF) I50.9 Hyponatremia E87.1 Pleural effusion J90 Acute kidney injury N17.9 Pneumonia J18.9 History of subdural hematoma Z86.79 Elevated INR R79.1 Metabolic acidosis E87.20 Elevated troponin R79.89 Acute encephalopathy G93.40 Empyema lung J86.9 Septic shock A41.9; R65.21 Gram-positive bacteremia R78.81 Acute renal failure N17.9 Empyema J86.9 Pacemaker lead malfunction, initial encounter T82.110A Encounter type: initial encounter Parapneumonic effusion J18.9; J91.8 Pleural effusion, left J90 Goals of care, counseling/discussion Z71.89 Physical deconditioning R53.81 Protein calorie malnutrition E46 Muscle wasting M62.50
== END 2023-12-28 20:57 | disposition short-term general hospital (02) | DRG 871 ==
LOC: ER 08:51 → ICU 11:44 → CSU 12-27 11:41
PROVIDERS: Internal Medicine; Internal Medicine Pulmonary Disease; Admitting Provider Internal Medicine; Emergency Provider Family Medicine; PCP Nurse Practitioner; Visit Provider Family Medicine
DX: A41.02 Sepsis due to Methicillin resistant Staphylococcus aureus (principal); I50.33 Acute on chronic diastolic (congestive) heart failure; J18.9 Pneumonia, unspecified organism; R65.21 Severe sepsis with septic shock; J86.9 Pyothorax without fistula; J91.8 Pleural effusion in other conditions classified elsewhere; I48.20 Chronic atrial fibrillation, unspecified; E87.1 Hypo-osmolality and hyponatremia; N17.9 Acute kidney failure, unspecified; E87.20 Acidosis, unspecified; G93.40 Encephalopathy, unspecified; E46 Unspecified protein-calorie malnutrition; T82.110A Breakdown (mechanical) of cardiac electrode, initial encounter; I11.0 Hypertensive heart disease with heart failure; Z79.01 Long term (current) use of anticoagulants; D64.9 Anemia, unspecified; R53.81 Other malaise; M62.50 Muscle wasting and atrophy, not elsewhere classified, unspecified site; E83.42 Hypomagnesemia; Y99.9 Unspecified external cause status
CPT/HCPCS: 36415; 36416; 36430; 36556; 36592; 51702; 70450; 71045; 71250; 74176; 76604; 80048; 80053; 80503; 81001; 82009; 82042; 82150; 82533; 82570; 82945; 82962; 83605; 83615; 83735; 83880; 83986; 84145; 84157; 84443; 84478; 84484; 85014; 85018; 85025; 85362; 85378; 85384; 85610; 85730; 86850; 86900; 86927; 87015; 87040; 87070; 87075; 87077; 87086; 87116; 87150; 87186; 87205; 87206; 87641; 87801; 89050; 92610; 93005; 93306; 96365; 96366; 96367; 96372; 96375; 96376; 97161; 97165; 97530; 99291; A4222; C9113; J0283; J1160; J1644; J1940; J2270; J2405; J2543; J2598; J2997; J3370; J3475; J3480; J7030; J7050; P9017; P9046

== ENCOUNTER 2024-02-14 14:09 | Outpatient (CLI) | payer MEDICARE, SELFPAY ==
--- NOTE | 2024-02-14 14:17 | CTR_ITS ---
PROCEDURE INFORMATION: Exam: CT Chest With Contrast; Diagnostic Exam date and time: 02/14/2024 2:29 PM Age: 83 years old Clinical indication: Condition or disease; Lung condition and disease; Pleural effusion; Other: Not specified; Prior surgery; Surgery date: 6+ months; Surgery type: Port; Patient HX: HX of bilateral lung effusion/empyema, S/P chest tube TECHNIQUE: Imaging protocol: Diagnostic computed tomography of the chest with contrast. Radiation optimization: All CT scans at this facility use at least one of these dose optimization techniques: automated exposure control; mA and/or kV adjustment per patient size (includes targeted exams where dose is matched to clinical indication); or iterative reconstruction. Contrast material: OMNI 350; Contrast volume: 80 ml; Contrast route: INTRAVENOUS (IV); COMPARISON: CT chest con [id number] 12/28/2023 9:24 AM RADIATION DOSE METRICS: Total DLP (mGy-cm): 295.44 FINDINGS: Tubes, catheters and devices: There has been removal of the right pleural drain. Lungs: There is bilateral lower lobe lung consolidation which has improved. No dominant lung mass. Pleural spaces: There are small pleural effusions which have decreased in size in the interval. No pneumothorax. Heart: There is calcification of the mitral valve. There is a pacemaker.Cardiomegaly is identified. Lymph nodes: Unremarkable. No enlarged lymph nodes. Vasculature: Unremarkable. No aortic aneurysm. The pulmonary artery is enlarged consistent with pulmonary artery hypertension. Adrenal glands: There is thickening of both adrenal glands as before. Bones/joints: Unremarkable. No acute fracture. Soft tissues: Unremarkable. CT/CT chest w con* [id number] IMPRESSION: When compared with 12/28/2023, there has been removal of the right pleural drain. Pleural effusions have decreased in size in the interval. Bilateral lower lobe lung consolidation has also improved.
== END 2024-02-14 14:10 | disposition home or self-care (01) ==
LOC: RAD 14:09
PROVIDERS: PCP Nurse Practitioner; Visit Provider Internal Medicine
DX: J86.9 Pyothorax without fistula (principal)
CPT/HCPCS: 71260; Q9967

== ENCOUNTER 2024-02-17 05:23 | Inpatient (IN) | payer MEDICARE, SELFPAY ==
[2024-02-17] VITALS (86 sets, daily range): BP systolic 71–148; BP diastolic 35–102; PULSE 66–140; RESP 16–24; TEMP 35.4–36.9; O2SAT 90–100; BMI 26.4
--- NOTE | 2024-02-17 05:39 | XRR_ITS ---
PROCEDURE INFORMATION: Exam: XR Chest Exam date and time: 02/17/2024 5:45 AM Age: 83 years old Clinical indication: Shortness of breath; Prior surgery; Surgery date: 6+ months; Surgery type: Pacer. Gb; Patient HX: EMS arrival from shelter for SOB and hypoxia. History of chf. ; Additional info: SOB, hypoxia TECHNIQUE: Imaging protocol: Radiologic exam of the chest. Views: 1 view. COMPARISON: CT chest w con* [id number] 02/14/2024 2:29 PM FINDINGS: Tubes, catheters and devices: Two lead pacemaker/defibrillator. Lungs: Unremarkable. No consolidation. Pleural spaces: Unremarkable. No pleural effusion. No pneumothorax. Heart/Mediastinum: Unremarkable. No cardiomegaly. Bones/joints: Unremarkable. XR/XR chest 1V portable [id number] IMPRESSION: No acute findings.
--- NOTE | 2024-02-17 05:41 | ECG_ITS ---
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 Measurements Intervals [place] Rate: 122 P: 0 [place]: 0 QRS: 42 QRSD: 89 T: 70 QT: 290 QTc: 413 Interpretive Statements ATRIAL FIBRILLATION WITH RAPID VENTRICULAR RESPONSE NONSPECIFIC T-WAVE ABNORMALITY ABNORMAL RHYTHM ECG Compared to ECG 12/25/2023 09:20:29 Possible ischemia no longer present T-wave abnormality still present Electronically Signed On 02-17-2024 14:30:21 CDT by Morgan Noble M.D. [email or web address] [email or web address]/[id number]
[2024-02-17] MEDS: ipratropium-albuterol 3 mL Neb INHALATION (05:54)
[2024-02-17] MEDS: piperacillin-tazobactam 4.5 GM in sodium chloride 0.9% (plus) 50 ML IV (06:00)
[2024-02-17 06:05] LABS: Arterial Blood Gas Hematocrit 37.1 % (37-47); Base Excess ABG -21.8 mmol/L (-2.0-2.0); Blood Gas Allen Test Pos; Blood Gas Operator Identificat ED; Blood Gas Sample Site Radial, right; Blood Gas Sample Type Arterial; Carboxyhemoglobin 0.8 %THgb (0.4-20.1); HCO3 ABG 5.3 mmol/L (22-26); Methemoglobin 0.9 % (0.4-1.5); Oxygen Device NC; Total Hemoglobin 12.1 g/dL (12-16)
[2024-02-17 06:06] LABS: ABG PCO2 15.8 mmHg (35-45); ABG PH Result 7.13 (7.35-7.45)
[2024-02-17 06:25] LABS: Basophils % 0.2 %; Hematocrit 36.9 % (36-47); Lymphocytes # 1.8 10^3/uL (0.8-4.8); Lymphocytes % 11.1 %; Mean Corpuscular HGB Conc 30.6 g/dL (30-55); Mean Corpuscular Hemoglobin 29.3 pg (27-33); Mean Corpuscular Volume 95.6 fl (85-98); Monocytes # 0.4 10^3/uL (0.2-0.9); Monocytes % 2.3 %; Neutrophils # 13.92 10^3/uL (1.8-7.7); Neutrophils % 85.1 %; Nucleated Red Blood Cells % 0 %; Platelet Count 298 10^3/cmm (157-399); Red Blood Count 3.86 10^6/uL (3.85-5.65); Red Cell Distribution Width 18.5 % (12.1-15.1); White Blood Count 16.37 10^3/uL (3.29-11.43)
[2024-02-17 06:44] LABS: Troponin(5th) Baseline 37 ng/L (0-10)
--- NOTE | 2024-02-17 06:44 | W.ED.SOB ---
Documented by User: Abdiaziz Solano [place], 02/17/24 23:42 HPI - SOB/Dyspnea General: Chief Complaint: Shortness of Breath/Dyspnea Stated Complaint: SOB Time Seen by Provider: 02/17/24 05:30 History of Present Illness: HPI Narrative: 83-year-old female with a complicated history. She presents from the assisted this morning in respiratory distress. She was found to be this way by the assisted staff. Evidently saturations were in the 70s on room air there. On 4 L, she was in the low 90s by the time EMS arrived. She is still breathing heavily and fast. There is some degree of confusion, likely over baseline. She has not been running a fever. She states that she is not having significant chest pain. She is simply short of breath. She is a poor historian. Review of Systems General: Reports: ROS unobtainable due to mental status [facility] ED PFSH: Medical History History of subdural hematoma Constipation, slow transit Vitamin D deficiency Seasonal and perennial allergic rhinitis CHF (congestive heart failure) Chronic pain Dr. Almeida Pacemaker Hypothyroid Essential hypertension Murmur, cardiac Atrial fibrillation Surgical History History of exploratory laparotomy Adhesion two times Hx of breast reduction, elective History of neck surgery Hardware History of back surgery Lumbar with hardware History of knee surgery Right scope History of cholecystectomy Open History of hysterectomy 1966 abdomen with BSO History of cardiac pacemaker 2016 Family History Grandmother Cancer Mother Hypertension Father Hypertension Brother Stroke Denies family history of Diabetes Dementia Social History Smoking and tobacco/nicotine status: never used tobacco/nicotine Second hand smoke exposure: No Alcohol intake: never Substance/Drug Use: never Adopted: No Caregiver/support person: Yes Lives independently: No Housing: Assisted Living Facility Marital status: Number of children: 5 service: No Current occupational status: retired Do you think of yourself as: Straight/Heterosexual Current gender identity: Female Physical Exam Const: GENERAL APPEARANCE: in distress, lethargic, ill appearing and frail appearing NUTRITIONAL APPEARANCE: thin ORIENTATION/CONSCIOUSNESS: Yes lethargic HENMT: COMMON NORMALS: normocephalic, atraumatic and Normal external nose present HEAD & SCALP: normocephalic and atraumatic NOSE: Normal external nose present Eye: COMMON NORMALS: Equal, round and reactive pupils present PUPIL: Yes Equal, round and reactive pupils present Neck/C-Spine: GENERAL: Yes trachea midline Resp: EFFORT & INSPECTION: Yes tachypneic and Yes respiratory distress AUSCULTATION: diminished lung sounds Cardio: COMMON NORMALS: regular rhythm RATE: tachycardic RHYTHM: regular rhythm GI: COMMON NORMALS: Soft to palpation INSPECTION: No abdominal distension PALPATION: Yes Soft to palpation Extremity: COMMON NORMALS: no pedal edema Neuro: ZAK COMA SCALE: document GCS findings Zak coma scale eye opening: Spontaneous [place] coma scale verbal response: Sounds [place] coma scale motor response: Obey commands [place] coma scale total score: 12 SENSORIUM/ORIENTATION: Yes lethargic Course Vital Signs: Vital signs: Vital Signs Temperature 98.4 F 02/17/24 19:25 Pulse Rate 110 H 02/17/24 19:25 Respiratory Rate 19 H 02/17/24 19:25 Blood Pressure 95/66 02/17/24 19:25 Pulse Oximetry 100 02/17/24 19:25 Oxygen Delivery Me thod Nasal Cannula 02/17/24 19:25 Oxygen Flow Rate 2 02/17/24 19:25 MDM - SOB/Dyspnea Medical Decision Making This lady has had a long course. She currently has a PICC line in her right upper extremity for IV antibiotic infusions. She was transferred from this facility to [place] back in December with a loculated pleural effusion, possibly empyema. We assume she is getting antibiotics for this. Her white blood cell count is 16. She is afebrile. She initially presented with a blood pressure of 100/44, but blood pressure is fallen since that time. Currently 83/38. Sepsis bolus has been ordered. Other laboratory is not available. Chest x-ray is significantly improved from her last chest x-ray at this facility. There are no acute findings or infiltrates present. On blood gas testing her pH is 7.1. Her pCO2 is low, with a significantly low bicarbonate at 6 indicating metabolic acidosis. Further laboratory workup and treatment will be handed to Dr. Schmidt at shift change. Lab Data 02/17/24 19:59 02/17/24 19:59 Labs/Radiology: Radiology Impressions Chest X-Ray 02/17/24 05:39 IMPRESSION: No acute findings. Abdomen/Pelvis CT 02/17/24 08:06 IMPRESSION: 1. Diffuse soft tissue anasarca. 2. Minimal pleural thickening at the lung bases with bilateral subsegmental consolidations which are probably atelectasis versus pneumonia. 3. Hepatic and splenic granulomata. 4. No renal obstruction. 5. Prior cholecystectomy. 6. Foreshortening of the RIGHT femoral neck. May be positional or due to an age-indeterminate fracture. No adjacent soft tissue hematoma or hemorrhage. 7. No GI tract obstruction. No free air. Hip/Pelvis X-Ray 02/17/24 10:51 IMPRESSION: No acute findings. Laboratory Results WBC 16.37 10^3/uL (3.29-11.43) H 02/17/24 06:16 RBC 3.86 10^6/uL (3.85-5.65) 02/17/24 06:16 Hgb 11.30 g/dL (11.27-16.99) 02/17/24 06:16 Hct 36.9 % (36-47) 02/17/24 06:16 MCV 95.6 fl (85-98) 02/17/24 06:16 MCH 29.3 pg (27-33) 02/17/24 06:16 MCHC 30.6 g/dL (30-55) 02/17/24 06:16 RDW 18.5 % (12.1-15.1) H 02/17/24 06:16 Plt Count 298 10^3/cmm (157-399) 02/17/24 06:16 MPV 10.0 fL (7.4-10.4) 02/17/24 06:16 Neut % (Auto) 85.1 % 02/17/24 06:16 Lymph % (Auto) 11.1 % 02/17/24 06:16 Thayer % (Auto) 2.3 % 02/17/24 06:16 Eos % (Auto) 0.0 % 02/17/24 06:16 Baso % (Auto) 0.2 % 02/17/24 06:16 Neut # (Auto) 13.92 10^3/uL (1.8-7.7) H 02/17/24 06:16 Lymph # (Auto) 1.8 10^3/uL (0.8-4.8) 02/17/24 06:16 Thayer # (Auto) 0.4 10^3/uL (0.2-0.9) 02/17/24 06:16 Eos # (Auto) 0.0 10^3/uL (0.0-0.8) 02/17/24 06:16 Baso # (Auto) 0.0 10^3/uL (0.0-0.1) 02/17/24 06:16 Nucleated RBC % (auto) 0 % 02/17/24 06:16 Nucleated RBCs # 0.0 /100WBC 02/17/24 06:16 Specimen Type Arterial 02/17/24 05:54 Sample Site Radial, right 02/17/24 05:54 ABG pH 7.13 (7.35-7.45) L* 02/17/24 05:54 ABG pCO2 15.8 mmHg (35-45) L* 02/17/24 05:54 ABG pO2 136.0 mmHg (80.0-100.0) H 02/17/24 05:54 ABG HCO3 5.3 mmol/L (22-26) L 02/17/24 05:54 ABG Base Excess -21.8 mmol/L (-2.0-2.0) L 02/17/24 05:54 Brandon Test Pos 02/17/24 05:54 Hematocrit 37.1 % (37-47) 02/17/24 05:54 Hgb O2 Saturation 97.0 % (95-100) 02/17/24 05:54 Carboxyhemoglobin 0.8 %THgb (0.4-20.1) 02/17/24 05:54 Methemoglobin 0.9 % (0.4-1.5) 02/17/24 05:54 Total Hemoglobin 12.1 g/dL (12-16) 02/17/24 05:54 O2 Delivery Device Nc 02/17/24 05:54 O2 Liters/Min 1.0 % 02/17/24 05:54 Motor Pool Driver ID Ed 02/17/24 05:54 Sodium 135 mmol/L (136-145) L 02/17/24 06:16 Potassium 6.5 mmol/L (3.5-5.1) H* 02/17/24 06:16 Chloride 113 mmol/L (98-107) H 02/17/24 06:16 Carbon Dioxide 7 mmol/L (22-29) L* 02/17/24 06:16 Anion Gap 21.5 (5-19) H 02/17/24 06:16 BUN 61 mg/dL (8-23) H 02/17/24 06:16 Creatinine 3.5 mg/dL (0.5-0.9) H 02/17/24 06:16 GFR Calculation Not Reportable 02/17/24 06:16 Glucose 153 mg/dL (65-115) H 02/17/24 06:16 POC Glucose 307 mg/dL (70-110) H 02/17/24 10:29 Calculated Osmolality 300 mOsm/kg (285-295) H 02/17/24 06:16 Lactic Acid 3.7 mmol/L (0.5-2.2) H 02/17/24 06:16 Calcium 11.2 mg/dL (8.5-10.5) H 02/17/24 06:16 Total Bilirubin 0.2 mg/dL (0.15-1.2) 02/17/24 06:16 AST 9 U/L (0-32) 02/17/24 06:16 ALT 12 U/L (0-33) 02/17/24 06:16 Alkaline Phosphatase 235 U/L (35-105) H 02/17/24 06:16 Troponin T Baseline 37 ng/L (0-10) H 02/17/24 06:16 NT-Pro-B Natriuret Pep 5214 pg/mL (0-450) H 02/17/24 06:16 Total Protein 5.6 g/dL (6.6-8.7) L 02/17/24 06:16 Albumin 2.8 g/dL (3.5-5.2) L 02/17/24 06:16 Globulin 2.8 g/dL (1.3-4.6) 02/17/24 06:16 Urine Color Yellow (Yellow) 02/17/24 10:53 Urine Appearance Slightly cloudy (CLEAR) 02/17/24 10:53 Urine pH 5 (5-7) 02/17/24 10:53 Ur Specific [place] 1.015 (1.005-1.030) 02/17/24 10:53 Urine Protein 2+ (Negative) H 02/17/24 10:53 Urine Glucose (UA) Norm (Normal) 02/17/24 10:53 Urine Ketones Negative (Negative) 02/17/24 10:53 Urine Blood 2+ (Negative) H 02/17/24 10:53 Urine Nitrate Negative (Negative) 02/17/24 10:53 Urine Bilirubin Neg (Negative) 02/17/24 10:53 Urine Urobilinogen Neg mg/dL (Negative) 02/17/24 10:53 Ur Leukocyte Esterase Negative (Negative) 02/17/24 10:53 Urine RBC 0-4 /hpf (0-2) H 02/17/24 10:53 Urine WBC 0-4 /hpf (0-5) H 02/17/24 10:53 Ur Squamous Epith Cells 0-4 /hpf (0-5) H 02/17/24 10:53 Ur Transition Epith Cell 0-4 /hpf 02/17/24 10:53 Amorphous Sediment Not Reportable 02/17/24 10:53 Urine Bacteria 2+ /hpf (NONE) H 02/17/24 10:53 Hyaline Casts 40-55 /lpf H 02/17/24 10:53 Urine Mucus Trace /hpf 02/17/24 10:53 Critical Care Time Critical Care Time: Critical Care Time: Yes Total Critical Care Time: 40 Attestation: This case had a high probability of a clinically significant, sudden, or life threatening deterioration of this patient's condition which required my full and direct attention, intervention and personal management. Time is independent of any procedures performed. Discharge Plan Discharge Patient Disposition: Admitted As Inpatient Admit Provider: Jg Love Clinical Impression: Sepsis, Atrial fibrillation, Pneumonia, Acute on chronic kidney failure, Acute metabolic encephalopathy Condition: Stable Sign Out Sign Out Data: Patient Sign Out occurred on 02/17/24 at 07:47. Patient's care was discussed, and care was transferred from Abdiaziz Peter DO to Guillermo Schmidt DO. Coding Level of Care Code ED Overnight Stocker for Chg Fwd Documented by User: Guillermo Schmidt DO 02/17/24 12:07 HPI - SOB/Dyspnea General: Chief Complaint: Shortness of Breath/Dyspnea Stated Complaint: SOB Time Seen by Provider: 02/17/24 05:30 PFSH ED PFSH: Medical History History of subdural hematoma Constipation, slow transit Vitamin D deficiency Seasonal and perennial allergic rhinitis CHF (congestive heart failure) Chronic pain Dr. Almeida Pacemaker Hypothyroid Essential hypertension Murmur, cardiac Atrial fibrillation Surgical History History of exploratory laparotomy Adhesion two times Hx of breast reduction, elective History of neck surgery Hardware History of back surgery Lumbar with hardware History of knee surgery Right scope History of cholecystectomy Open History of hysterectomy 1966 abdomen with BSO History of cardiac pacemaker 2015 Family History Grandmother Cancer Mother Hypertension Father Hypertension Brother Stroke Denies family history of Diabetes Dementia Social History Smoking and tobacco/nicotine status: never used tobacco/nicotine Second hand smoke exposure: No Alcohol intake: never Substance/Drug Use: never Adopted: No Caregiver/support person: Yes Lives independently: No Housing: Assisted Living Facility Marital status: Number of children: 5 service: No Current occupational status: retired Do you think of yourself as: Straight/Heterosexual Current gender identity: Female Course Vital Signs: Vital signs: Vital Signs Temperature 98.4 F 02/17/24 19:25 Pulse Rate 110 H 02/17/24 19:25 Respiratory Rate 19 H 02/17/24 19:25 Blood Pressure 95/66 02/17/24 19:25 Pulse Oximetry 100 02/17/24 19:25 Oxygen Delivery Me thod Nasal Cannula 02/17/24 19:25 Oxygen Flow Rate 2 02/17/24 19:25 MDM - SOB/Dyspnea Lab Data 02/17/24 19:59 02/17/24 19:59 Labs/Radiology: Radiology Impressions Chest X-Ray 02/17/24 05:39 IMPRESSION: No acute findings. Abdomen/Pelvis CT 02/17/24 08:06 IMPRESSION: 1. Diffuse soft tissue anasarca. 2. Minimal pleural thickening at the lung bases with bilateral subsegmental consolidations which are probably atelectasis versus pneumonia. 3. Hepatic and splenic granulomata. 4. No renal obstruction. 5. Prior cholecystectomy. 6. Foreshortening of the RIGHT femoral neck. May be positional or due to an age-indeterminate fracture. No adjacent soft tissue hematoma or hemorrhage. 7. No GI tract obstruction. No free air. Hip/Pelvis X-Ray 02/17/24 10:51 IMPRESSION: No acute findings. Laboratory Results WBC 16.37 10^3/uL (3.29-11.43) H 02/17/24 06:16 RBC 3.86 10^6/uL (3.85-5.65) 02/17/24 06:16 Hgb 11.30 g/dL (11.27-16.99) 02/17/24 06:16 Hct 36.9 % (36-47) 02/17/24 06:16 MCV 95.6 fl (85-98) 02/17/24 06:16 MCH 29.3 pg (27-33) 02/17/24 06:16 MCHC 30.6 g/dL (30-55) 02/17/24 06:16 RDW 18.5 % (12.1-15.1) H 02/17/24 06:16 Plt Count 298 10^3/cmm (157-399) 02/17/24 06:16 MPV 10.0 fL (7.4-10.4) 02/17/24 06:16 Neut % (Auto) 85.1 % 02/17/24 06:16 Lymph % (Auto) 11.1 % 02/17/24 06:16 Thayer % (Auto) 2.3 % 02/17/24 06:16 Eos % (Auto) 0.0 % 02/17/24 06:16 Baso % (Auto) 0.2 % 02/17/24 06:16 Neut # (Auto) 13.92 10^3/uL (1.8-7.7) H 02/17/24 06:16 Lymph # (Auto) 1.8 10^3/uL (0.8-4.8) 02/17/24 06:16 Thayer # (Auto) 0.4 10^3/uL (0.2-0.9) 02/17/24 06:16 Eos # (Auto) 0.0 10^3/uL (0.0-0.8) 02/17/24 06:16 Baso # (Auto) 0.0 10^3/uL (0.0-0.1) 02/17/24 06:16 Nucleated RBC % (auto) 0 % 02/17/24 06:16 Nucleated RBCs # 0.0 /100WBC 02/17/24 06:16 Specimen Type Arterial 02/17/24 05:54 Sample Site Radial, right 02/17/24 05:54 ABG pH 7.13 (7.35-7.45) L* 02/17/24 05:54 ABG pCO2 15.8 mmHg (35-45) L* 02/17/24 05:54 ABG pO2 136.0 mmHg (80.0-100.0) H 02/17/24 05:54 ABG HCO3 5.3 mmol/L (22-26) L 02/17/24 05:54 ABG Base Excess -21.8 mmol/L (-2.0-2.0) L 02/17/24 05:54 Brandon Test Pos 02/17/24 05:54 Hematocrit 37.1 % (37-47) 02/17/24 05:54 Hgb O2 Saturation 97.0 % (95-100) 02/17/24 05:54 Carboxyhemoglobin 0.8 %THgb (0.4-20.1) 02/17/24 05:54 Methemoglobin 0.9 % (0.4-1.5) 02/17/24 05:54 Total Hemoglobin 12.1 g/dL (12-16) 02/17/24 05:54 O2 Delivery Device Nc 02/17/24 05:54 O2 Liters/Min 1.0 % 02/17/24 05:54 Motor Pool Driver ID Ed 02/17/24 05:54 Sodium 135 mmol/L (136-145) L 02/17/24 06:16 Potassium 6.5 mmol/L (3.5-5.1) H* 02/17/24 06:16 Chloride 113 mmol/L (98-107) H 02/17/24 06:16 Carbon Dioxide 7 mmol/L (22-29) L* 02/17/24 06:16 Anion Gap 21.5 (5-19) H 02/17/24 06:16 BUN 61 mg/dL (8-23) H 02/17/24 06:16 Creatinine 3.5 mg/dL (0.5-0.9) H 02/17/24 06:16 GFR Calculation Not Reportable 02/17/24 06:16 Glucose 153 mg/dL (65-115) H 02/17/24 06:16 POC Glucose 307 mg/dL (70-110) H 02/17/24 10:29 Calculated Osmolality 300 mOsm/kg (285-295) H 02/17/24 06:16 Lactic Acid 3.7 mmol/L (0.5-2.2) H 02/17/24 06:16 Calcium 11.2 mg/dL (8.5-10.5) H 02/17/24 06:16 Total Bilirubin 0.2 mg/dL (0.15-1.2) 02/17/24 06:16 AST 9 U/L (0-32) 02/17/24 06:16 ALT 12 U/L (0-33) 02/17/24 06:16 Alkaline Phosphatase 235 U/L (35-105) H 02/17/24 06:16 Troponin T Baseline 37 ng/L (0-10) H 02/17/24 06:16 NT-Pro-B Natriuret Pep 5214 pg/mL (0-450) H 02/17/24 06:16 Total Protein 5.6 g/dL (6.6-8.7) L 02/17/24 06:16 Albumin 2.8 g/dL (3.5-5.2) L 02/17/24 06:16 Globulin 2.8 g/dL (1.3-4.6) 02/17/24 06:16 Urine Color Yellow (Yellow) 02/17/24 10:53 Urine Appearance Slightly cloudy (CLEAR) 02/17/24 10:53 Urine pH 5 (5-7) 02/17/24 10:53 Ur Specific [place] 1.015 (1.005-1.030) 02/17/24 10:53 Urine Protein 2+ (Negative) H 02/17/24 10:53 Urine Glucose (UA) Norm (Normal) 02/17/24 10:53 Urine Ketones Negative (Negative) 02/17/24 10:53 Urine Blood 2+ (Negative) H 02/17/24 10:53 Urine Nitrate Negative (Negative) 02/17/24 10:53 Urine Bilirubin Neg (Negative) 02/17/24 10:53 Urine Urobilinogen Neg mg/dL (Negative) 02/17/24 10:53 Ur Leukocyte Esterase Negative (Negative) 02/17/24 10:53 Urine RBC 0-4 /hpf (0-2) H 02/17/24 10:53 Urine WBC 0-4 /hpf (0-5) H 02/17/24 10:53 Ur Squamous Epith Cells 0-4 /hpf (0-5) H 02/17/24 10:53 Ur Transition Epith Cell 0-4 /hpf 02/17/24 10:53 Amorphous Sediment Not Reportable 02/17/24 10:53 Urine Bacteria 2+ /hpf (NONE) H 02/17/24 10:53 Hyaline Casts 40-55 /lpf H 02/17/24 10:53 Urine Mucus Trace /hpf 02/17/24 10:53 All radiology interpretation(s) finalized by discharge Discharge Plan Discharge Patient Disposition: Admitted As Inpatient Admit Provider: Jg Love Clinical Impression: Sepsis, Atrial fibrillation, Pneumonia, Acute on chronic kidney failure, Acute metabolic encephalopathy Condition: Stable Sign Out Sign Out Data: Patient Sign Out occurred on 02/17/24 at 07:47. Patient's care was discussed, and care was transferred from Abdiaziz Peter DO to Guillermo Schmidt DO. Coding Level of Care Code ED Overnight Stocker for Chg Anay
[2024-02-17 06:45] LABS: Lactic Sepsis W/Reflex 3.7 mmol/L (0.5-2.2)
[2024-02-17 06:58] LABS: Alanine Aminotransferase 12 U/L (0-33); Albumin Level 2.8 g/dL (3.5-5.2); Alkaline Phosphatase 235 U/L (35-105); Anion Gap 21.5 (5-19); Aspartate Amino Transferase 9 U/L (0-32); Blood Urea Nitrogen 61 mg/dL (8-23); Calcium 11.2 mg/dL (8.5-10.5); Chloride 113 mmol/L (98-107); Creatinine Clr Calc Pharmacy 9.6086; Globulin 2.8 g/dL (1.3-4.6); Glucose 153 mg/dL (65-115); NT Pro B Type Natriuretic Pept 5214 pg/mL (0-450); Osmolality Calculated 300 mOsm/kg (285-295); Sodium 135 mmol/L (136-145); Total Bilirubin 0.2 mg/dL (0.15-1.2); Total Protein 5.6 g/dL (6.6-8.7)
[2024-02-17 07:05] LABS: Carbon Dioxide 7 mmol/L (22-29); Potassium 6.5 mmol/L (3.5-5.1)
[2024-02-17] MEDS: vancomycin 1,000 MG in sodium chloride 0.9% 250 ML 250 MG IV (07:22)
--- NOTE | 2024-02-17 07:27 | PC.PHAR ---
Addendum entered by Kathy Wright 02/17/24 10:24: REFAXING MED LIST DUE TO NOT HAVING ALL THE PAGES HERE. Addendum entered by Kathy Wright 02/17/24 10:18: PT IS NOW AT [facility] Original Note: PT IS FROM [facility]
--- NOTE | 2024-02-17 07:41 | ECG_ITS ---
[facility] Test Date: 2024-02-17 Pat Name: Carmella Jose Department: Room: Gender: Female Adon: : 1940 Requested By: Abdiaziz Solano Order Number: [id number] Constanza MD: Morgan Noble M.D. Measurements Intervals [place] Rate: 132 P: 0 LA: 0 QRS: 56 QRSD: 74 T: 39 QT: 282 QTc: 418 Interpretive Statements ATRIAL FIBRILLATION WITH RAPID VENTRICULAR RESPONSE SEPTAL MYOCARDIAL INFARCTION , PROBABLY OLD [40+ ms Q WAVE IN V1/V2] Compared to ECG 02/17/2024 06:59:12 Myocardial infarct finding now present T-wave abnormality no longer present Electronically Signed On 02-17-2024 14:33:43 CDT by Morgan Noble M.D. [email or web address].Pieceable/store/OM/[id number]
--- NOTE | 2024-02-17 08:06 | CT_ITS ---
WS: [id number] CT ABDOMEN AND PELVIS NONCONTRAST HISTORY: Abdominal pain, hypotensive, lethargic and generalized weakness. TECHNIQUE: Imaging performed through the abdomen and pelvis. Coronal and sagittal reformats are submi tted. All CT scans at [facility] use at least one of these dose optimization techniques: auto mated exposure control; mA and/or kV adjustment per patient size (includes targeted exams where dose is matched to clinical indication); or iterative reconstruction. DLP: 405.44 mGy.cm COMPARISON: 12/25/2023 Motion artifact. Lower thorax: Dependent changes at the lung bases. Bilateral lower lobe areas of consolidation are butler bsegmental. No significant effusion. Liver: Granulomata. Otherwise negative. Gallbladder: Prior cholecystectomy. Bile duct does not appear dilated. Pancreas: Diffuse atrophy. Spleen: Normal. Adrenal glands: Bilateral adrenal thickening may be due to motion artifact. Right kidney: Atrophied with no obstruction. Left kidney: Atrophied with no obstruction. Aorta: Moderate to severe atherosclerosis abdominal aorta. No aneurysm. Atherosclerosis continues int o the common iliac arteries. No free fluid, intraperitoneal air or significant lymphadenopathy. GI tract: No obstruction. No colitis. Abdominal wall: Negative. No hernia. Pelvis: No free fluid. Prior hysterectomy. Corral catheter in the urinary bladder. 6 dystrophic calcif ications in the soft tissues of the pelvis. Osseous structures: Increase in lumbar lordosis. Prior posterior lumbar fusion at L4-5. Foreshortenin g of the RIGHT femoral neck with sclerosis. Cannot exclude a femoral neck fracture which would be age indeterminant. Foreshortening may be due to positioning also. CT/CT abdomen pelvis wo con [id number] IMPRESSION: 1. Diffuse soft tissue anasarca. 2. Minimal pleural thickening at the lung bases with bilateral subsegmental co nsolidations which are probably atelectasis versus pneumonia. 3. Hepatic and splenic granulomata. 4. No renal obstruction. 5. Prior cholecystectomy. 6. Foreshortening of the RIGHT femoral neck. May be positional or due to an ag e-indeterminate fracture. No adjacent soft tissue hematoma or hemorrhage. 7. No GI tract obstruction. No free air.
[2024-02-17 08:10] LABS: Reflex Lactate Order REFLEX LACTIC ORDERD
[2024-02-17] MEDS: calcium chloride 10% Syr 10 mL 1 GM IVP (08:28)
[2024-02-17] MEDS: sodium bicarbonate 150 MEQ in dextrose 5% 250 ML 500 MEQ IV (08:29)
[2024-02-17] MEDS: amiodarone 150 MG/100 ML PREMIX 400 MG IV (09:10)
[2024-02-17] MEDS: albuterol 2.5 mg/3 mL Neb 10 MG INHALATION (09:11)
[2024-02-17 09:28] LABS: Glucose Point of Care 185 mg/dL (70-110)
[2024-02-17] MEDS: dextrose 10% 250 ML 1000 ML IV (09:34)
[2024-02-17] MEDS: insulin regular-human 100 units/1 mL 10 UNIT IVP (09:35)
[2024-02-17 10:33] LABS: Glucose Point of Care 307 mg/dL (70-110)
--- NOTE | 2024-02-17 10:45 | PC.PHAR ---
DC'D MORPHINE, POTASSIUM, PROPRANOLOL,REMERON, AND CLONIDINE
--- NOTE | 2024-02-17 10:51 | XRR_ITS ---
PROCEDURE INFORMATION: Exam: XR Right Hip Exam date and time: 02/17/2024 11:06 AM Age: 83 years old Clinical indication: Pain and abnormal findings; Abnormal imaging test; Hip pain; Right hip; Additional info: Occut FX - abnormal CT TECHNIQUE: Imaging protocol: Radiologic exam of the right hip. Views: 1 view hip with pelvis when performed. COMPARISON: CT abdomen pelvis wo con [id number] 02/17/2024 9:43 AM FINDINGS: Bones/joints: Slight articular surface narrowing and spurring. No fracture or dislocation. No lytic or sclerotic bone lesion. . No acute fracture. Soft tissues: Unremarkable. Vasculature: Arterial calcifications. XR/XR hip RT 2-3V wo/w pel* [id number] IMPRESSION: No acute findings.
--- NOTE | 2024-02-17 11:41 | ECG_ITS ---
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 Measurements Intervals [place] Rate: 110 P: 0 MO: 0 QRS: 56 QRSD: 176 T: 0 QT: 301 QTc: 408 Interpretive Statements ATRIAL FIBRILLATION WITH RAPID VENTRICULAR RESPONSE INTRAVENTRICULAR CONDUCTION DELAY [130+ ms QRS DURATION] Compared to ECG 02/17/2024 08:52:54 Intraventricular conduction delay now present Myocardial infarct finding no longer present Electronically Signed On 02-17-2024 14:35:34 CDT by Morgan Noble M.D. [email or web address] [email or web address]/store/[id number]
[2024-02-17] MEDS: norepinephrine 4 MG/250 ML BAG 30 MG IV (12:01)
[2024-02-17] MEDS: sodium chloride 0.9% 1,000 ML 100 ML IV ×2 (12:02→13:26)
[2024-02-17 12:21] LABS: Urine Appearance Slightly Cloudy (CLEAR); Urine Color Yellow (Yellow)
[2024-02-17 12:22] LABS: Add Urine Microscopic? YES; Bilirubin Urine Neg (Negative); Blood Urine 2+ (Negative); Glucose Urine UA Norm (Normal); Ketones Urine Negative (Negative); Leukocyte Esterase Urine Negative (Negative); Nitrate Urine Negative (Negative); Protein Urine 2+ (Negative); Specific Gravity, Urine 1.015 (1.005-1.030); Urobilinogen Urine Neg (Negative); pH Urine 5 (5-7)
[2024-02-17 12:23] LABS: Bacteria Urine 2+ /hpf; RBC Urine 0-4 /hpf (0-2); Squamous Epithelial Cell Urine 0-4 /hpf (0-5); Transitional Epi Cells Urine 0-4 /hpf; WBC Urine 0-4 /hpf (0-5)
[2024-02-17 12:24] LABS: Add Urine Culture? Yes; Hyaline Casts Urine 40-55 /lpf; Mucus Urine TRACE /hpf
[2024-02-17 13:04] LABS: Basophils % 0.2 %; Eosinophils % 0.1 %; Hematocrit 34.6 % (36-47); Lymphocytes # 1.6 10^3/uL (0.8-4.8); Lymphocytes % 8.4 %; Mean Corpuscular HGB Conc 30.1 g/dL (30-55); Mean Corpuscular Hemoglobin 29.2 pg (27-33); Mean Corpuscular Volume 97.2 fl (85-98); Mean Platelet Volume 10.3 fL (7.4-10.4); Monocytes # 0.7 10^3/uL (0.2-0.9); Monocytes % 3.4 %; Neutrophils # 16.93 10^3/uL (1.8-7.7); Neutrophils % 86.9 %; Nucleated Red Blood Cells % 0 %; Platelet Count 288 10^3/cmm (157-399); Red Blood Count 3.56 10^6/uL (3.85-5.65); Red Cell Distribution Width 18.3 % (12.1-15.1); White Blood Count 19.49 10^3/uL (3.29-11.43)
[2024-02-17 13:21] LABS: Anion Gap 25.5 (5-19); Blood Urea Nitrogen 55 mg/dL (8-23); Calcium 10.3 mg/dL (8.5-10.5); Chloride 107 mmol/L (98-107); Creatinine Clr Calc Pharmacy 9.4234; Glucose 286 mg/dL (65-115); Osmolality Calculated 304 mOsm/kg (285-295); Potassium 4.5 mmol/L (3.5-5.1); Sodium 134 mmol/L (136-145)
[2024-02-17 13:23] LABS: Troponin 5 6HR 34.85 ng/L (0-10)
[2024-02-17 13:25] LABS: Troponin 5 6HR Delta -2.15 ng/L (0-12)
[2024-02-17] MEDS: pantoprazole 40 mg SDV 80 MG IVP (13:25)
[2024-02-17 13:26] LABS: Carbon Dioxide 6 mmol/L (22-29); Lactic Acid level (Lactate) 8.4 mmol/L (0.5-2.2)
--- NOTE | 2024-02-17 13:38 | PM.HP ---
Providers/Chief Complaint Admitting Physician: Jg Love MD Primary Care Provider: Neva Darling, TRUONG-Liliya Chief Complaint: SOB History of Present Illness Carmella Suarez Friend is a 83 year old female with history of subdural, recent hospitalization in December with pleural effusion, respiratory failure, sepsis, bacteremia with hospital stays at [facility] as well as [facility] and ultimately being discharged to the nursing facility on extended course of ceftaroline presents with decreased responsiveness, low blood pressures, A-fib with RVR, and acute kidney injury. Son I was able to visit with shortly after the patient arrived. He reports that her mental status has waxed and waned since she had the subdural but is currently quite a bit worse. He has noted a significant decrease in her mental status in the last day or 2. She has not had any fever at the nursing facility. On arrival here the nurse noted a black and tarry stool. While in the emergency department amiodarone was started for A-fib with RVR, and broad-spectrum antibiotics were given. Secondary to her marked hyperkalemia and acidosis bicarb, insulin and glucose were given. I initiated norepinephrine, Protonix IV prior to her transfer over to the ICU. Patient herself does not relate any pain. She awakens briefly to verbal stimuli but cannot carry on a prolonged conversation. During her previous hospital stay she grew strep pneumonia out of her pleural fluid, Klebsiella out of her urine, and Staph capitis and hominis out of her blood 3 out of 4 bottles. KONSTANTIN at [facility] was read as negative. PET scan showed no obvious infectious process of the pacemaker. Ongoing treatment for is for her bacteremia and possible empyema which they did not believe needed further intervention on. Son is present during the latter part of my evaluation and relates that he is her power of assistant district attorney, she recently changed to DNR, she would not want intubation, CPR, or dialysis. She is agreeable to other cares. Review of Systems General: Reports: ROS unobtainable due to medical condition and ROS unobtainable due to mental status Medications/Allergies Home Medications Medication Instructions Recorded Confirmed Last Taken Type Wheelchair #1 ea 09/10/23 02/17/24 Unknown Rx hospital bed E0250 #1 ea 09/10/23 02/17/24 Unknown Rx furosemide 20 mg tablet (Lasix) 20 mg PO DAILY 11/22/23 02/17/24 Unknown History levothyroxine 75 mcg tablet 75 mcg PO DAILY@06 11/22/23 02/17/24 Unknown History (Synthroid) acetaminophen 325 mg tablet 650 mg PO Q4H PRN Pain 12/25/23 02/17/24 Unknown History (Tylenol) amlodipine 5 mg tablet (Norvasc) 5 mg PO DAILY@08 12/25/23 02/17/24 Unknown History apixaban 5 mg tablet (Eliquis) 5 mg PO BID@08,12/25/23 02/17/24 Unknown History pantoprazole 40 mg tablet,delayed 40 mg PO DAILY@08 12/25/23 02/17/24 Unknown History release (Protonix) polyethylene glycol 3350 17 gram 17 g PO DAILY PRN Constipation 12/25/23 02/17/24 Unknown History oral powder packet (Miralax) sacubitril 24 mg-valsartan 26 mg 1 tab PO BID@08,12/25/23 02/17/24 Unknown History tablet (Entresto) ceftaroline fosamil 400 mg 600 mg IV Q12H 02/17/24 02/17/24 Unknown History intravenous solution ferrous sulfate 325 mg (65 mg 325 mg PO BID 02/17/24 02/17/24 Unknown History iron) tablet magnesium oxide 800 mg PO BID 02/17/24 02/17/24 Unknown History Allergies Allergy/AdvReac Type Severity Reaction Status Date / Time diltiazem [From Dilacor XR] Allergy ALGY-Rash Verified 12/25/23 01:10 nifedipine [From Procardia] Allergy ALGY-Rash Verified 12/25/23 01:10 ranitidine [From Zantac] Allergy ALGY-Swell Verified 12/25/23 01:10 Lip/Tongue/Throat Sulfa (Sulfonamide Allergy ALGY-Rash Verified 12/25/23 01:10 Antibiotics) topiramate [From Topamax] Allergy ALGY-Rash Verified 12/25/23 01:10 PFSH Acute PFSH: Medical History History of subdural hematoma Constipation, slow transit Vitamin D deficiency Seasonal and perennial allergic rhinitis CHF (congestive heart failure) Chronic pain Dr. Almeida Pacemaker Hypothyroid Essential hypertension Murmur, cardiac Atrial fibrillation Surgical History History of exploratory laparotomy Adhesion two times Hx of breast reduction, elective History of neck surgery Hardware History of back surgery Lumbar with hardware History of knee surgery Right scope History of cholecystectomy Open History of hysterectomy 1966 abdomen with BSO History of cardiac pacemaker 2016 Family History Grandmother Cancer Mother Hypertension Father Hypertension Brother Stroke Denies family history of Diabetes Dementia Social History Smoking and tobacco/nicotine status: never used tobacco/nicotine Second hand smoke exposure: No Alcohol intake: never Substance/Drug Use: never Adopted: No Caregiver/support person: Yes Lives independently: No Housing: Assisted Living Facility Marital status: Number of children: 5 service: No Current occupational status: retired Do you think of yourself as: Straight/Heterosexual Current gender identity: Female Vitals/I&O/Wt Last Vital Signs Temp 98.2 F 02/17/24 05:24 Pulse 116 H 02/17/24 13:06 Resp 16 02/17/24 12:00 BP 105/47 02/17/24 12:00 Pulse Ox 98 02/17/24 12:00 O2 Del Method Nasal Cannula 02/17/24 13:08 O2 Flow Rate 2 02/17/24 09:07 02/16/24 02/17/24 02/17/24 22:59 06:59 14:59 Intake Total 50 / 50 2837.05 / 2837.05 Balance 50 / 50 2837.05 / 2837.05 Weight last 48 hrs Weight 51.483 kg Weight 61.235 kg Physical Exam Narrative: General exam is a white female, who can open her eyes to verbal stimuli but is otherwise lethargic HEENT: Atraumatic, normocephalic. Oropharynx with dry mucous membranes Neuro: No obvious focal deficits Neck supple no lymphadenopathy thyromegaly Cardiovascular irregular, tachycardic without murmur Lungs diminished breath sounds at the bases but clear Abdomen is soft with positive bowel sounds. No obvious organomegaly Skin no rash Extremities no cyanosis clubbing or edema, cap refill brisk Urinary Catheter Management: Corral: Cath Placed During This Visit: yes Urinary Catheter Date of Insertion: 02/17/24 Urinary Catheter Time of Insertion: 08:45 Sepsis: Is patient septic: Yes Focused sepsis exam performed: Yes Date exam was performed: 02/17/24 Time exam was performed: 09:00 Data 02/17/24 12:30 02/17/24 12:30 Other Labs: Initial CBC with a white blood cell count of 16.37, hemoglobin 11.3, platelet count of 298 Chemistry demonstrated a sodium 134, potassium 6.5, bicarb 7, creatinine 3.5. Calcium 11.2 with repeat of 10.3. Troponin 37. BNP 5200, LFTs normal. Albumin 2.8. ABG demonstrated pH 7.13, pCO2 of 16, pO2 of 136. This was on 1 L per nasal cannula. Urinalysis demonstrates a red blood cell count of 0-4, white blood cell count 0-4. I have ordered a serum ketone Hip and pelvis x-ray to my read demonstrates no fracture Abdomen pelvis CT no urinary obstruction, some minimal pleural thickening at the bases and subsegmental consolidation. Blood and urine cultures were drawn EKG by my read demonstrates atrial fibrillation with rapid ventricular rate, normal axis, nonspecific ST-T wave changes. Echo on December 24 demonstrated preserved EF Micro: Microbiology 02/17/24 06:30 Blood Culture - Preliminary Blood SPECIMEN COLLECTED 02/17/24 06:15 Blood Culture - Preliminary Blood SPECIMEN COLLECTED A&P Assessment and plan (1) Sepsis: Concern of sepsis on admission Patient with hypotension, elevated white blood cell count, elevated lactic acid, evidence of endorgan dysfunction with kidney dysfunction as well as acute encephalopathy. Sepsis bolus was given Secondary to recent empyema and bacteremia with staph she was placed on vancomycin and meropenem. Note that she was still on Ceftaroline at the nursing facility Family reports some diarrhea lately. Check C. difficile if patient has diarrhea. No significant: Dilation noted on CT. (2) Hypotension: Sepsis bolus was given Addition of norepinephrine Secondary to pronounced acidemia, low blood pressure, low albumin albumin infusion will be started as well. (3) Metabolic acidosis: Patient with significant metabolic acidosis D5W with bicarbonate for IV fluids (4) Acute kidney injury: Patient with acute kidney injury No evidence of obstruction Corral placed Close follow-up of renal function (5) Hyperkalemia: She was given calcium, insulin and glucose and bicarbonate in the ER Potassium is improved Continue to follow serial BMP (6) Atrial fibrillation with rapid ventricular response: Patient with A-fib with RVR Amiodarone initiated Continue to follow rate and rhythm Check magnesium level. I expect this to be elevated. (7) GI bleed: Patient with evidence of GI bleeding with heme positive stool black and tarry. Suspect upper GI bleed Serial hemoglobins Protonix 40 mg IV every 12 hours (8) Acute encephalopathy: Patient with acute encephalopathy secondary to kidney dysfunction and sepsis Continue to follow Plan Diabetes mellitus type 2. Secondary to metabolic acidosis check serum ketones Recent history of empyema. No evidence of significant pleural effusions currently. History of nonfunctioning ventricular pacemaker lead and concern of pacemaker wire infection although not proven. See records from [facility]. Continue to follow rhythm Multiple other medical problems as outlined in past medical history Allow natural SCDs for DVT prophylaxis. Anticoagulation contraindicated secondary to GI bleeding Attestations Medical Necessity Statement*: Will need greater than 2 midnight stay for evaluation and treatment of sepsis with multiorgan dysfunction Critical Care Time: The high probability of a clinically significant, sudden or life threatening deterioration of the patient's [renal, cardiac, endocrine, neurologic, infectious] system(s) required my full and direct attention, intervention and personal management. The critical care time is as shown. This time is in addition to time spent performing any reported procedures but includes the following: [x] Data and vital sign review and interpretation [x] Patient assessment, examination and intervention [x] Documentation [x] Medication orders and management Critical Care Time (min): 64 Coding Level of Care Code Critical Care >/= 30 minutes Critical care time (in minutes): 64 The high probability of a clinically significant, sudden or life threatening deterioration, as referenced in this documentation, required my full and direct attention, intervention and personal management. The critical care time shown is in addition to time spent performing any reported separately billable procedures and includes the following: [x] Data and vital sign review and interpretation [x] Patient assessment, examination and intervention [x] Medication orders and management [x] Patient/Family updates as able [x] Care Coordination and Documentation. Diagnoses Sepsis A41.9 Hypotension I95.9 Metabolic acidosis E87.20 Acute kidney injury N17.9 Hyperkalemia E87.5 Atrial fibrillation with rapid ventricular response I48.91 GI bleed K92.2 Acute encephalopathy G93.40
[2024-02-17 14:48] LABS: Magnesium 1.5 mg/dL (1.7-2.3)
[2024-02-17 14:52] LABS: Ketone (Acetest) Serum Negative (Negative)
[2024-02-17] MEDS: meropenem 500 MG in sodium chloride 0.9% (plus) 50 ML 100 MG IV (14:57)
[2024-02-17] MEDS: albumin 25 G/100 ML BAG 60 G IV ×2 (15:19→21:57)
[2024-02-17] MEDS: magnesium sulfate premix 1 GM/100 ML PIGGYBACK IV (15:27)
[2024-02-17 20:18] LABS: Basophils % 0.2 %; Hematocrit 34.7 % (36-47); Lymphocytes # 1.3 10^3/uL (0.8-4.8); Lymphocytes % 6.3 %; Mean Corpuscular HGB Conc 30.8 g/dL (30-55); Mean Corpuscular Hemoglobin 29.1 pg (27-33); Mean Corpuscular Volume 94.3 fl (85-98); Mean Platelet Volume 9.9 fL (7.4-10.4); Monocytes # 0.3 10^3/uL (0.2-0.9); Monocytes % 1.7 %; Neutrophils # 18.11 10^3/uL (1.8-7.7); Neutrophils % 90.8 %; Nucleated Red Blood Cells % 0 %; Platelet Count 303 10^3/cmm (157-399); Red Blood Count 3.68 10^6/uL (3.85-5.65); Red Cell Distribution Width 18.3 % (12.1-15.1); White Blood Count 19.92 10^3/uL (3.29-11.43)
[2024-02-17 20:33] LABS: Anion Gap 18.6 (5-19); Blood Urea Nitrogen 59 mg/dL (8-23); Carbon Dioxide 13 mmol/L (22-29); Chloride 111 mmol/L (98-107); Glucose 205 mg/dL (65-115); Osmolality Calculated 308 mOsm/kg (285-295); Potassium 4.6 mmol/L (3.5-5.1); Sodium 138 mmol/L (136-145)
[2024-02-17 20:36] LABS: Creatinine Clr Calc Pharmacy 9.4234
[2024-02-17 21:04] LABS: Calcium 10.6 mg/dL (8.5-10.5)
[2024-02-17] MEDS: norepinephrine 4 MG/250 ML BAG 37.5 MG IV (22:03)
[2024-02-17] MEDS: pantoprazole 40 mg SDV IVP (23:04)
[2024-02-17 23:13] LABS: Glucose Point of Care 213 mg/dL (70-110)
[2024-02-17] MEDS: morphine 4 mg/mL SDV 1 mL 2 MG IVP (23:30)
[2024-02-18] VITALS (48 sets, daily range): BP systolic 44–66; BP diastolic 15–36; PULSE 101–145; RESP 5–25; TEMP 37.1–37.7; O2SAT 86–100
--- NOTE | 2024-02-18 00:45 | PC.NURSE ---
Comfort Care Around 2300, patient's heart rate noted to be increasing into the 130-140s more frequently then decreasing back down to the 110s. Levophed titrated up throughout the evening to 10 mcg/min to maintain MAP of 65. Patient's son, Rick, at bedside asking questions regarding patient condition as well as lab work; Education provided regarding kidney function, current mental status, as well as the increasing need for blood pressure support. Son verbalized understanding. Patient's blood sugar also 213. Dr. Garcia contacted and updated on increasing heart rate, low blood pressure, as well as blood glucose. Orders received for 5 units insulin glargine subq once now as well as to increase amiodarone drip to 1 mg/min. Immediately after physician communication, son Rick stated he wished for patient to be placed on comfort care. Dr. Garcia notified of son's wishes; comfort care orders placed by physician. Following comfort care orders, patient's other son called for update on patient. Son very tearful on phone, stating he hasn't seen patient since Rick got DPOA; update on patient status provided. DPOA paperwork provided from Rick; paperwork noted to be incomplete. cutting supervisor, Marielle, notified. Mars August contacted for fax of complete paperwork. No completed paperwork on file to be found according to mars august nurse. Per Rick, a copy of completed paperwork will be provided by additional outside facility in future. Dr. Garcia notified of lack of paperwork; order received to continue with comfort care measures per next of kin present at bedside, Rick the son.
[2024-02-18] MEDS: morphine 4 mg/mL SDV 1 mL IVP ×2 (00:55→02:43)
[2024-02-18] MEDS: glycopyrrolate 0.2 mg/mL SDV 2 mL 0.200000000000000011 MG IV (00:55)
[2024-02-18] MEDS: blistex lip oint 7 gm Tube 1 APPLIC TOPICAL (02:45)
--- NOTE | 2024-02-18 08:32 | P.PN_ITS ---
Subjective 2 Subjective: Saturday patient comfort care last night. Patient is continued to deteriorate as far as blood pressure and responsiveness. She does appear comfortable. Medications: Reviewed: Yes Vitals/I&O/Wt Last Vital Signs Temp 98.8 F 02/18/24 04:00 Pulse 113 H 02/18/24 08:00 Resp 14 02/18/24 08:00 BP 57/20 02/18/24 08:00 Pulse Ox 86 L 02/18/24 08:00 O2 Del Method Room Air 02/18/24 04:00 O2 Flow Rate 2 02/17/24 20:00 02/17/24 02/18/24 02/18/24 22:59 06:59 14:59 Intake Total 1870.166 / 4867.674 806.276 / 5673.950 Balance 1870.166 / 4867.674 806.276 / 5673.950 Weight last 48 hrs Weight 51.483 kg Weight 61.235 kg Physical Exam 2 Narrative: General exam comfortable appearing, does not awaken for exam. Blood pressure markedly low Neck supple no lymphadenopathy thyromegaly Cardiovascular irregular, tachycardic without murmur Lungs diminished breath sounds Abdomen is soft with positive bowel sounds. No obvious organomegaly Extremities no cyanosis clubbing or edema Urinary Catheter Management: Corral: Cath Placed During This Visit: yes Reason for Continuing Indwelling Catheter: Accurate Measurement of Urinary Output in Critically Ill Patients Urinary Catheter Date of Insertion: 02/17/24 Urinary Catheter Time of Insertion: 08:45 Data 02/17/24 19:59 02/17/24 19:59 Micro: Microbiology 02/17/24 10:53 Urine Culture - Preliminary Urine,Clean Catch Gram Negative Rods 02/17/24 06:30 Blood Culture - Preliminary Blood NEGATIVE TO DATE 02/17/24 06:15 Blood Culture - Preliminary Blood NEGATIVE TO DATE A&P Assessment and plan (1) Sepsis: Concern of sepsis on admission Patient with hypotension, elevated white blood cell count, elevated lactic acid, evidence of endorgan dysfunction with kidney dysfunction as well as acute encephalopathy. Sepsis bolus was given Secondary to recent empyema and bacteremia with staph she was placed on vancomycin and meropenem. Note that she was still on Ceftaroline at the nursing facility Family reports some diarrhea lately. I had an extensive discussion with the family regarding CODE STATUS yesterday and they made her allow natural . She has had multiple comorbidities develop since her subdural earlier this year and has had significant declining health including quality of life. She was made allow natural yesterday. Vital signs are so significantly abnormal I do not think she would survive any kind of transfer out of the hospital. Will transfer to the second floor for continued comfort measures there. Comfort medications reviewed in detail. (2) Hypotension: See above (3) Metabolic acidosis: See above (4) Acute kidney injury: See above (5) Hyperkalemia: See above (6) Atrial fibrillation with rapid ventricular response: See above (7) GI bleed: See above (8) Acute encephalopathy: See above Plan See above Attestations 2 Medical Necessity Statement*: Needs continued hospitalization for comfort measures in this patient with imminent . Diagnoses Sepsis A41.9 Hypotension I95.9 Metabolic acidosis E87.20 Acute kidney injury N17.9 Hyperkalemia E87.5 Atrial fibrillation with rapid ventricular response I48.91 GI bleed K92.2 Acute encephalopathy G93.40 Time Spent (min) 26
--- NOTE | 2024-02-18 19:53 | PC.NURSE ---
Report was called to Karyna in [facility]. Patient was transferred to [facility] without any complications.
--- NOTE | 2024-02-18 20:02 | PC.NURSE ---
Son refusing vital signs, pain medication, and repositioning of patient at this time. Son states This is the most peaceful I've seen her, so I just want to leave her be. If she starts acting like she is in pain, I will let you know.
--- NOTE | 2024-02-19 00:27 | PC.NURSE ---
Rick, patient's son is a bedside. He states he is the DPOA. He states that he does not get along with his brothers. I asked son if anyone calls for information, what he would like me to tell them. He states just let them know she's here and that she's not doing good. He is now requesting pain medication for patient.
[2024-02-19] MEDS: morphine 4 mg/mL SDV 1 mL IVP ×2 (00:43→01:54)
--- NOTE | 2024-02-19 01:26 | PC.NURSE ---
Rick garza, states that brothers, Connor, Palmer, and Taye can have information about the patient if they call.
--- NOTE | 2024-02-19 04:29 | PC.NURSE ---
Addendum entered by Bharti Pizarro RN 02/19/24 05:47: Patient does not have any belongings at bedside. Addendum entered by Bharti Pizarro RN 02/19/24 05:42: Son chose [facility] in [place] and home has been notified and stated they will be here to strip picker patient soon. Post-mortum care completed. IV, central line, and martin removed. Dr. Garcia and house painting instructor notified of patient . Original Note: Patient's TOD 2:41 AM verified with second RN. Son at bedside. MTS notified and stated that patient was not a candidate for donation or saving site.
--- NOTE | 2024-02-19 09:49 | P.DES_ITS ---
Discharge Providers DDS Date of Admission: 02/17/24 11:26 Date Summary Completed: 02/19/24 Attending Provider at Admission: Jg Love MD Time of : 02:41 Attending Provider at Discharge: Jg Love MD Primary Care Provider: ROSALVA Kohler Diagnoses Hospital Diagnoses (1) Sepsis: (2) Hypotension: (3) Metabolic acidosis: (4) Acute kidney injury: (5) Hyperkalemia: (6) Atrial fibrillation with rapid ventricular response: (7) GI bleed: (8) Acute encephalopathy: Reason for Visit Reason for Visit SOB Summary Date and Time of Date of : 02/19/24 Time of : 02:41 Summary Summary: Patient is an 83-year-old white female with multiple comorbidities with previous subdural hematoma causing confusion and recent hospital stay in December with bacteremia, respiratory failure, pleural effusion and concern for possible pacemaker wire infection although not proven. She presented from the alf with sepsis and severe acidosis. She was markedly hypotensive and had acute kidney injury. She was markedly hyperkalemic. A-fib with RVR was also noted and she was having a GI bleed. Potassium was corrected. Appropriate fluids started. Broad-spectrum antibiotics initiated with sepsis protocol fluids. I had an extensive discussion with her son who indicated he was the power of bankruptcy attorney. He related that she was allow natural but other t reatment was okay. Amiodarone was initiated for her A-fib with RVR. With this treatment, she continued to deteriorate as far as her blood pressure. Her son discussed her care with the discotheque dancer on-call, considering her severe presentation multiple comorbidities and very poor quality of life recently the decision was made to pull back on treatment and make her comfort. This was arranged she was transferred out of the ICU and made comfortable on the second floor. She on February 18 at 024 1 in the morning. Cause of is sepsis, acute kidney injury. Additional Data Advance directives?: No Discharge Plan Discharge Patient Disposition: Condition: Stable Prescriptions: No Action furosemide [Lasix] 20 mg tablet 20 mg PO DAILY levothyroxine [Synthroid] 75 mcg tablet 75 mcg PO DAILY@06 ([facility]) hospital bed E0250 See Rx Instructions .ROUTE .MEDSUPPLY Qty: 1 0RF Rx Instructions: As directed (DME) Wheelchair See Rx Instructions .Route .MEDSUPPLY Qty: 1 0RF Rx Instructions: As directed ferrous sulfate 325 mg (65 mg iron) Tablet 325 mg PO BID ceftaroline fosamil 400 mg Recon Soln 600 mg IV Q12H Rx Instructions: administer over 5-60 mins magnesium oxide 400 mg magnesium Tablet 800 mg PO BID acetaminophen [Tylenol] 325 mg Tablet 650 mg PO Q4H PRN (Reason: Pain) polyethylene glycol 3350 [Miralax] 17 gram Powder In Packet 17 g PO DAILY PRN (Reason: Constipation) amlodipine [Norvasc] 5 mg tablet 5 mg PO DAILY@08 pantoprazole [Protonix] 40 mg tablet,delayed release (DR/EC) 40 mg PO DAILY@08 Eliquis 5 mg tablet 5 mg PO BID@08,20 Entresto 24-26 mg tablet 1 tab PO BID@08,20 Referrals: Neva Darling FNP-C [Primary Care Provider] - Patient Instructions: Opioid Safety Probable Cause of Probable cause of : Cardiac arrest DS Attestations Time Spent in /Discharge Care*: greater than 30 min Quality - AMI: AMI present?: No Quality - Stroke: CVA present?: No Quality - VTE: VTE present?: No Coding Level of Care Code 68201 Total time (in minutes) for Discharge: 31 Diagnoses Sepsis A41.9 Hypotension I95.9 Metabolic acidosis E87.20 Acute kidney injury N17.9 Hyperkalemia E87.5 Atrial fibrillation with rapid ventricular response I48.91 GI bleed K92.2 Acute encephalopathy G93.40
== END 2024-02-19 07:30 | disposition expired | DRG 871 ==
LOC: ER 07:47 → ICU 11:26 → MEDSURG 02-18 19:33
PROVIDERS: Emergency Medicine; Admitting Provider Internal Medicine; Emergency Provider Family Medicine; PCP Nurse Practitioner; Visit Provider Internal Medicine
DX: A41.9 Sepsis, unspecified organism (principal); G93.41 Metabolic encephalopathy; N17.9 Acute kidney failure, unspecified; E87.20 Acidosis, unspecified; K92.2 Gastrointestinal hemorrhage, unspecified; R65.20 Severe sepsis without septic shock; Z51.5 Encounter for palliative care; E11.9 Type 2 diabetes mellitus without complications; Z66 Do not resuscitate; E87.5 Hyperkalemia; I48.91 Unspecified atrial fibrillation; E03.9 Hypothyroidism, unspecified; Z95.0 Presence of cardiac pacemaker; G89.29 Other chronic pain; I11.0 Hypertensive heart disease with heart failure; I50.9 Heart failure, unspecified
CPT/HCPCS: 36416; 36592; 36600; 51702; 71045; 71260; 73502; 74176; 80048; 80053; 81001; 82009; 82805; 82962; 83605; 83735; 83880; 84484; 85025; 87040; 87077; 87086; 87186; 93005; 94640; 96365; 96367; 96368; 96374; 96375; 96376; 99291; 99292; A4222; C9113; J0283; J1815; J2185; J2270; J2543; J3370; J3475; J3490; J7030; J7050; J7060; J7070; J7613; J7799; P9046; Q9967